=== PATIENT | male | born 1950 | race Caucasian/White ===

== ENCOUNTER → 2016-10-31 | Outpatient (CLI) | payer BC ==
[~2016-10-31] MED LIST: ALBU1AER9; ASPI81TA28 PO; ATOR-26 PO; CETI10TA84 PO; CHOL1TAB2 PO; CINN1CAP2 PO; CLR10 PO; CRAN1CAP15 PO; CYAN500T PO; FRS/40 PO; GLCSR500 PO; GLUC15002 PO; INSUINJ4 SQ; IPRA1AER2 INH; IPRASOL4 INH; LISI20TA3 PO; METO100T14 PO; MOME100A INH; MULT-506 PO; PARO30TA6 PO; PRLSR20 PO; REPA2TAB13 PO; WLL100 PO
--- NOTE | 2016-10-31 10:30 | DIAGNOSTIC IMAGING REPORT ---
TWO VIEW CHEST CLINICAL HISTORY: COPD. FINDINGS: PA and lateral chest radiographs are compared to study dated 03/15/2016 and correlated with chest CT dated 05/22/2016. The examination is degraded by large body habitus. The heart is top normal for projection. The pulmonary vasculature is noncongested. Chronic interstitial thickening is similar to previous. Scattered calcified granulomas are observed. No airspace consolidation or pleural effusion is identified. There is no pneumothorax. The bony thorax appears intact. Mild degenerative change is noted in the thoracic spine. IMPRESSION: No active disease in the chest. Electronically signed by: Jhonatan Galarza M.D. 10/31/2016 10:28 AM Dictated Date/Time: 10/31/2016 10:27 AM
== END | disposition home or self-care (01) ==
LOC: C.RADBBURG 10:07
PROVIDERS: ATTEND Internal Medicine Pulmonary Disease
DX: J44.9 Chronic obstructive pulmonary disease, unspecified (principal)

== ENCOUNTER → 2017-02-07 | Outpatient (CLI) | payer BC ==
[~2017-02-07] MED LIST changes: +REPA2TAB12 PO; -REPA2TAB13 PO
== END | disposition home or self-care (01) ==
LOC: C.RDSM 12:50
PROVIDERS: ATTEND Orthopaedic Surgery Sports Medicine
DX: M17.0 Bilateral primary osteoarthritis of knee (principal)

== ENCOUNTER → 2017-02-21 | Outpatient (CLI) | payer BC ==
[~2017-02-21] VITALS: Ht 180.3 cm; Wt 148.9 kg
[2017-02-21 09:10] VITALS: BP 174/77; PULSE 76; Ht 180.3 cm; Wt 148.9 kg
== END | disposition home or self-care (01) ==
LOC: C.NEUR 08:53
PROVIDERS: ATTEND Internal Medicine Pulmonary Disease
DX: G47.33 Obstructive sleep apnea (adult) (pediatric) (principal)

== ENCOUNTER → 2017-04-26 | Outpatient (CLI) | payer BC ==
[~2017-04-26] VITALS: Ht 180.3 cm; Wt 148.4 kg
[~2017-04-26] MED LIST changes: -REPA2TAB12 PO; +REPA2TAB13 PO
[2017-04-26 10:23] VITALS: BP 152/64; PULSE 74; Ht 180.3 cm; Wt 148.4 kg
== END | disposition home or self-care (01) ==
LOC: C.NEUR 08:30
PROVIDERS: ATTEND Internal Medicine Pulmonary Disease
DX: G47.33 Obstructive sleep apnea (adult) (pediatric) (principal)

== ENCOUNTER → 2017-06-27 | Outpatient (CLI) | payer BC ==
[~2017-06-27] MED LIST changes: +REPA2TAB12 PO; -REPA2TAB13 PO
--- NOTE | 2017-06-27 14:43 | DIAGNOSTIC IMAGING REPORT ---
TWO VIEW CHEST CLINICAL HISTORY: Dyspnea. FINDINGS: PA and lateral chest radiographs are compared to study dated 10/31/2016 and correlated with chest CT dated 05/22/2016. The heart is mildly enlarged. There is a right-sided aortic arch. There is pulmonary vascular congestion. Interstitial thickening is noted. Trace pleural effusions are identified. Linear atelectasis versus scarring is seen in the right midlung. Scattered calcified granulomas are observed. There is no pneumothorax. The skeletal structures are osteopenic. The bony thorax appears intact. IMPRESSION: 1. Cardiomegaly with evidence of mild congestive failure. Radiographic follow-up to resolution is recommended. 2. There are trace pleural effusions. Electronically signed by: Jhonatan Galarza M.D. 06/27/2017 2:41 PM Dictated Date/Time: 06/27/2017 2:39 PM
[2017-06-27 15:32] LABS: BASO % 0.4 %; BASO ABS # 0.04 K/uL (0-0.2); COMPLETE YES; EOS % 2.9 %; HEMATOCRIT 41.6 % (42-52); IG% 0.7 %; LYMPH % 20.2 %; LYMPH ABS # 2.31 K/uL (1.2-3.4); MEAN CELL VOLUME 93.7 fL (80-100); MEAN CORPUSCULAR HEMOGLOBIN 31.8 pg (25-34); MEAN CORPUSCULAR HGB CONC 33.9 g/dl (32-36); MEAN PLATELET VOLUME 9.6 fL (7.4-10.4); MONO % 6.8 %; PLATELET COUNT 281 K/uL (130-400); RED BLOOD COUNT 4.44 M/uL (4.7-6.1); WHITE BLOOD COUNT 11.42 K/uL (4.8-10.8)
[2017-06-27 15:57] LABS: ALT/SGPT 37 U/L (12-78); AST/SGOT 22 U/L (15-37); BLOOD UREA NITROGEN 13 mg/dl (7-18); BUN/CREATININE RATIO 13.5 (10-20); CALCIUM 8.5 mg/dl (8.5-10.1); CARBON DIOXIDE 27 mmol/L (21-32); CHLORIDE 103 mmol/L (98-107); CREATININE 0.93 mg/dl (0.60-1.40); GLUCOSE 190 mg/dl (70-99); POTASSIUM 4.2 mmol/L (3.5-5.1); SODIUM 138 mmol/L (136-145)
[2017-06-27 16:02] LABS: ALB/GLOB RATIO 0.9 (0.9-2); ALKALINE PHOSPHATASE 113 U/L (45-117); TOTAL IRON BINDING CAPACITY 254 mcg/dl (250-450)
== END | disposition home or self-care (01) ==
LOC: C.RAD1850 14:24
PROVIDERS: ATTEND Physician Assistant
DX: I51.7 Cardiomegaly (principal); J90 Pleural effusion, not elsewhere classified

== ENCOUNTER → 2017-08-01 | Outpatient (CLI) | payer BC ==
--- NOTE | 2017-08-01 16:15 | DIAGNOSTIC IMAGING REPORT ---
CHEST 2 VIEWS ROUTINE HISTORY: 66 years-old Male SOB acute shortness of breath. COMPARISON: Chest radiograph 06/27/2017 TECHNIQUE: PA and lateral views of the chest FINDINGS: Cardiac silhouette is again mildly enlarged. There is decreased amount of pulmonary vascular congestion with improved aeration of the bilateral lungs. Mild background interstitial coarsening redemonstrated without pneumothorax, or focal airspace consolidation. Mild blunting of the costophrenic angles suggests trace effusions. Mild multilevel endplate spurring of the spine. IMPRESSION: 1. Cardiomegaly with improved pulmonary edema pattern. 2. Trace pleural effusions persist. The above report was generated using voice recognition software. It may contain grammatical, syntax or spelling errors. Electronically signed by: Gary Sanches M.D. 08/01/2017 4:14 PM Dictated Date/Time: 08/01/2017 4:12 PM
== END | disposition home or self-care (01) ==
LOC: C.RAD1850 15:40
PROVIDERS: ATTEND Physician Assistant
DX: R06.02 Shortness of breath (principal); I51.7 Cardiomegaly; J90 Pleural effusion, not elsewhere classified

== ENCOUNTER → 2017-09-06 | Outpatient (CLI) | payer BC ==
[2017-09-06 12:57] LABS: BASO % 0.4 %; BASO ABS # 0.05 K/uL (0-0.2); EOS % 3.1 %; EOS ABS # 0.35 K/uL (0-0.5); HEMATOCRIT 41.7 % (42-52); HEMOGLOBIN 14.3 g/dL (14.0-18.0); IG# 0.07 K/uL (0.00-0.02); LYMPH % 21.9 %; LYMPH ABS # 2.51 K/uL (1.2-3.4); MEAN CELL VOLUME 94.1 fL (80-100); MEAN CORPUSCULAR HEMOGLOBIN 32.3 pg (25-34); MEAN CORPUSCULAR HGB CONC 34.3 g/dl (32-36); MEAN PLATELET VOLUME 9.7 fL (7.4-10.4); MONO % 7.9 %; MONO ABS # 0.91 K/uL (0.11-0.59); NEUT % 66.1 %; NEUT ABS # 7.58 K/uL (1.4-6.5); PLATELET COUNT 257 K/uL (130-400); RED CELL DISTRIBUTION WIDTH CV 13.5 % (11.5-14.5); RED CELL DISTRIBUTION WIDTH SD 46.3 fL (36.4-46.3); WHITE BLOOD COUNT 11.47 K/uL (4.8-10.8)
[2017-09-06 16:31] LABS: ALBUMIN 3.3 gm/dl (3.4-5.0); ALT/SGPT 27 U/L (12-78); AST/SGOT 13 U/L (15-37); BLOOD UREA NITROGEN 17 mg/dl (7-18); CALCIUM 9.1 mg/dl (8.5-10.1); CARBON DIOXIDE 28 mmol/L (21-32); CREATININE 1.14 mg/dl (0.60-1.40); GLUCOSE 241 mg/dl (70-99); POTASSIUM 4.3 mmol/L (3.5-5.1); SODIUM 134 mmol/L (136-145)
[2017-09-06 16:40] LABS: ALKALINE PHOSPHATASE 117 U/L (45-117); TOTAL PROTEIN 6.9 gm/dl (6.4-8.2); TRANSFERRIN 210 mg/dl (200-360)
== END | disposition home or self-care (01) ==
LOC: C.LAB1850 11:39
PROVIDERS: ATTEND Physician Assistant
DX: R53.83 Other fatigue (principal)

== ENCOUNTER → 2017-10-09 | Outpatient (CLI) | payer BC ==
--- NOTE | 2017-10-09 09:58 | DIAGNOSTIC IMAGING REPORT ---
TWO VIEW CHEST CLINICAL HISTORY: Aortic stenosis. FINDINGS: PA and lateral chest radiographs are compared to study dated 08/01/2017 and correlated with chest CT dated 05/22/2016. The PA view is degraded by patient rotation. The examination is also degraded by large body habitus. The heart is enlarged. The pulmonary vasculature is noncongested. A right-sided aortic arch is noted. Prominence of the main pulmonary arteries is similar to previous. Chronic interstitial thickening is unchanged. No airspace consolidation or pleural effusion is identified. There is no pneumothorax. The skeletal structures are osteopenic. The bony thorax appears intact. IMPRESSION: 1. Cardiomegaly with no active disease in the chest. 2. A right-sided aortic arch is again noted. Electronically signed by: Jhonatan Galarza M.D. 10/09/2017 9:57 AM Dictated Date/Time: 10/09/2017 9:55 AM
== END | disposition home or self-care (01) ==
LOC: C.LAB1850 09:45
PROVIDERS: ATTEND Physician Assistant
DX: I35.0 Nonrheumatic aortic (valve) stenosis (principal); I51.7 Cardiomegaly

== ENCOUNTER → 2018-01-16 | Outpatient (CLI) | payer BC ==
[~2018-01-16] MED LIST changes: +OPTIRAY 320 IV PRN
--- NOTE | 2018-01-16 16:50 | DIAGNOSTIC IMAGING REPORT ---
(CHEST FOR PE) ANGIO WITH CT DOSE: 803.28 mGy.cm HISTORY: 67 years-old Male with DYSPNEA, SOB, R/O PE. Acute shortness of breath TECHNIQUE: Multiple CTA images of the chest were obtained after the intravenous administration of 116 ml Optiray 320. Coronal and sagittal MIPS were obtained from the axial data set and were submitted for review. A dose lowering technique was utilized adhering to the principles of ALARA. COMPARISON: Chest radiograph 10/09/2017, CT chest 05/22/2016 FINDINGS: CTA: Mild multichamber cardiac enlargement without pericardial effusion. Coronary chills, mitral and aortic annular calcifications are noted. Right-sided aortic arch with mirror branching redemonstrated. The imaged great vessels appear patent. Moderate mixed plaquing of the aorta. The SVC is right-sided. The main pulmonary artery is dilated, 3.9 cm transversely. No focal filling defects within the pulmonary arterial tree to suggest pulmonary thromboembolic disease. The segmental and subsegmental branches however are not well opacified and are also partially obscured by respiratory motion. CT CHEST: Suggestion of a 1.6 cm low attenuating left thyroid nodule. Mildly enlarged prevascular, paratracheal and right hilar lymph nodes are seen measuring up to 1.2 cm in short axis. There are small bilateral pleural effusions. Scattered calcified granulomata about the lungs. There is mild intralobular septal thickening with bronchial wall thickening and bilateral groundglass densities. Minimal dependent subsegmental consolidation of the lung bases suggests compressive atelectasis. Previously described numerous bilateral pulmonary nodules measuring the 2-3 mm range are better seen on comparison study. No acute process of the imaged upper abdomen. Soft tissues are unremarkable. Bones appear intact. IMPRESSION: 1. No acute aortic pathology or evidence of pulmonary thromboembolic disease. 2. Cardiomegaly with mild pulmonary edema and small bilateral pleural effusions. 3. Dilation of the main pulmonary artery suggests pulmonary arterial hypertension within the appropriate clinical setting. 4. Mild nonspecific mediastinal and hilar adenopathy with evidence of prior granulomatous disease. 5. Right-sided aortic arch with mirror branching. The above report was generated using voice recognition software. It may contain grammatical, syntax or spelling errors. Electronically signed by: Gary Sanches M.D. 01/16/2018 4:48 PM Dictated Date/Time: 01/16/2018 4:37 PM
== END | disposition home or self-care (01) ==
LOC: C.CTS 15:40
PROVIDERS: ATTEND Nurse Practitioner Family
DX: R06.02 Shortness of breath (principal)

== ENCOUNTER → 2018-04-30 | Outpatient (CLI) | payer BC ==
[~2018-04-30] MED LIST changes: +ACET-1256 PO; -ALBU1AER9; -CETI10TA84 PO; -CINN1CAP2 PO; -CLR10 PO; -CRAN1CAP15 PO; -CYAN500T PO; -FRS/40 PO; -GLCSR500 PO; -GLUC15002 PO; +INSDGI SC; -INSUINJ4 SQ; +IPRA-64 INH; -IPRASOL4 INH; +LSX40 PO; +MELA1TAB5 PO; -METO100T14 PO; +METO50TA16 PO; -MOME100A INH; +MOME200A INH; +NVLGI/PEN; +OMEG10007 PO; -OPTIRAY 320 IV PRN; -REPA2TAB12 PO; +VNTHFA/IN INH; +WARF10TA4 PO; +WARF7.5T4 PO; -WLL100 PO
--- NOTE | 2018-04-30 13:29 | DIAGNOSTIC IMAGING REPORT ---
ULTRASOUND-GUIDED FINE-NEEDLE ASPIRATION THYROID CLINICAL HISTORY: 2.4 cm left thyroid nodule. COMPARISON STUDY: Thyroid ultrasound 03/11/2018. PROCEDURE: The risks, benefits, and alternatives to the procedure were discussed with the patient. Written informed consent was obtained. The patient was placed supine in ultrasound, and the 2.4 cm nodule in the left lobe of the thyroid was localized by ultrasound and selected for fine needle aspiration. The left neck was prepped and draped in the usual sterile fashion. The nodule was aspirated under ultrasound guidance with 3 passes utilizing 25-gauge needles. Specimens were reviewed by the pathologist in real-time and deemed adequate for diagnosis. The patient tolerated the procedure well and left the department in satisfactory condition. IMPRESSION: Completed fine-needle aspiration of a left thyroid nodule as above. The above report was generated using voice recognition software. It may contain grammatical, syntax or spelling errors. Electronically signed by: Gary Sanches M.D. 04/30/2018 1:27 PM Dictated Date/Time: 04/30/2018 1:26 PM
== END | disposition home or self-care (01) ==
LOC: C.ULTR 10:20
PROVIDERS: ATTEND Nurse Practitioner Family
DX: E04.1 Nontoxic single thyroid nodule (principal)

== ENCOUNTER 2022-08-09 09:43 | Inpatient (IN) ==
--- NOTE | 2022-08-09 10:39 | Emergency Department Note ---
Impression & Plan Acute kidney injury superimposed on CKD, Venous stasis ulcer, Acute hyperkalemia ED Provider Note NAME: ROSANA HERNANDES AGE: 71 SEX: M : 1950 ARRIVES VIA: Walk-In INFORMANT: Patient ED PROVIDER(S): Chalo Bales DO CHIEF COMPLAINT: weakness HPI: Patient is a 71-year-old male with a past medical history of CAD, diabetes, diabetic foot ulcers, renal mass, CKD, dyslipidemia, venous stasis who presents the ER referred in as he had blood work drawn yesterday for regular check. Creatinine came back elevated. He denies any headache or change in vision. No chest pain or shortness of breath. No nausea, vomiting, or diarrhea. No dysuria, urgency, or frequency. He notes he is following with the wound care clinic and the infection in his left leg is gradually getting worse. Currently on antibiotics. ROS: See above HPI for pertinent positives & negatives. A total of 10 systems reviewed and were otherwise negative. PAST MEDICAL HISTORY:See Below PAST SURGICAL HISTORY:See Below FAMILY HISTORY:See Below SOCIAL HISTORY:See Below HOME MEDICATIONS:See Below ALLERGIES:See Below VITALS:See Below PHYSICAL EXAMINATION: GENERAL: Sitting up in bed, alert, morbidly obese, disheveled EYE EXAM: normal conjunctiva OROPHARYNX: no exudate, no erythema, lips, buccal mucosa, and tongue normal and mucous membranes are moist NECK: supple, no nuchal rigidity, no adenopathy, non-tender LUNGS: Clear to auscultation. Normal chest wall mechanics HEART: no murmurs, S1 normal and S2 normal ABDOMEN: abdomen soft, non-tender, normo-active bowel sounds, no masses, no rebound or guarding. UPPER EXTREMITIES: upper extremities are grossly normal. LOWER EXTREMITIES: Pitting edema bilateral lower extremities with the left leg wrapped and surrounding erythema NEURO EXAM: Normal sensorium, cranial nerves II-XII grossly intact, normal speech, no gross weakness of arms, no gross weakness of legs. MEDICAL DECISION MAKING: Patient is a 71-year-old male who presents ER referred in by PCP for an elevated creatinine. IV was established blood work is obtained. Labs show mild leukocytosis 11,000. No significant anemia. INR unremarkable. BMP with mild hypokalemia 5.3. Creatinine 2.87 up from baseline of 1.6. LFTs bilirubin was u nremarkable. Lipase was normal. Multiple ulcers/leg wounds. Likely osteo of his left foot. Patient was given Dapto updated bedside admitted for further work-up. Triage Nursing notes reviewed. Limited review of prior medical records performed Vital Signs: reviewed and remarkable for htn Differential diagnosis: Infection, dehydration, metabolic abnormality, hypo/hyperglycemia, electrolyte disturbance, anemia, hypoxia, cardiac sources, intracerebral event, toxicologic, neurologic, as well as other pathologies. ER treatment provided: See below Diagnostics interpreted by me: ECG: A. fib rate of 79 Left axis No PVCs Septal Q waves QTC 451 Cardiac Monitoring: An order was placed for continuous cardiac monitoring. The monitor shows a rate of 82 with afib rhythm. Laboratory studies: As stated above and show below. Imaging studies: See below Consultation(s): Discussed with Dr. Abrams for admission Procedures: none Critical Care: None Past Med/Surg History Medical History Aortic stenosis follows with Dr. Gorman Atrial fibrillation successful cardioversion ~2017. follows with Dr. Gorman. 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 Mass of right kidney pt unaware Morbid obesity Multiple pulmonary nodules determined by computed tomography of lung Osteoarthritis Sciatica Sensorineural hearing loss (SNHL) of both ears Wears binaural hearing aids Sleep apnea cpap with 2lpm Surgical History H/O vascular surgery (~10/2020) left leg vein moved to the right arm for bypass d/t poor circulation History of cardiac cath FEBRUARY 2018 - [facility] [place].FIB, SOB - NO STENTS/ANGIOPLASTY History of colonoscopy W/ POLYPECTOMY History of esophagogastroduodenoscopy (EGD) History of hernia repair History of surgery RT ADRENALECTOMY History of tonsillectomy Hx of aortic valve replacement S/P epidural steroid injection Sacro-iliac joint injection Family History Grandmother Cancer Father Cancer Mother Cancer Sister Diabetes Psoriasis Cardiac disorder Other Family history of bleeding disorder Hypertension No family history of adverse response to anesthesia Social History Smoking Status: Former smoker Tobacco Type: Cigarettes Second Hand Exposure: No; Hx Alcohol Use: Yes Alcohol type: hard liquor Alcohol Intake Frequency Comment: 1-2 times per month, seldom Hx Substance Use: No Preferred Language: Barbadian Communication Ability: Effective Visual Impairment: Limited 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 Son lives away. /SO able to help a little however has a broken back and is unable to assist much. Feels Safe at Home: Yes during the past year weight has: remained stable Assistive Devices: Glasses and Hearing Aid - Bilateral Allergies Allergies Allergy/AdvReac Type Severity Reaction Status Date / Time No Known Drug Allergies Allergy Unknown NONE Verified 08/09/22 08:28 Home Meds Home Medications Medication Instructions Recorded Confirmed multivitamin (Daily Multi-Vitamin 1 tab PO QAM ##0 07/12/10 08/04/22 tablet) lisinopril 20 mg tablet 20 mg PO QAM #0 tabs 10/21/14 08/04/22 omega 3 350 mg-dha 235 mg-epa 90 1 cap PO QAM #0 caps 01/25/18 08/04/22 mg-fish oil 597 mg capsule,delay rel ([place]-3) acetaminophen 500 mg tablet 500 mg PO Q6H PRN Pain #0 tabs 05/21/19 08/04/22 (Acetaminophen Extra Strength) inhalational spacing device #1 ea 05/21/19 08/04/22 (Vortex Holding Chamber) insulin aspart U-100 100 unit/mL See Rx Instructions .Route .COMPLEX 09/16/19 08/04/22 (3 mL) subcutaneous pen (Novolog Flexpen U-100 Insulin aspart) atorvastatin 40 mg tablet (Lipitor) 40 mg PO QPM 02/16/20 08/04/22 blood sugar diagnostic (OneTouch #10 ea 02/08/21 08/04/22 Ultra Blue Test Strip) cyclobenzaprine 10 mg tablet 10 mg PO BID PRN Muscle Spasm 05/20/21 08/04/22 famotidine 20 mg tablet (Pepcid) 20 mg PO BID 05/20/21 08/04/22 albuterol sulfate 2.5 mg/3 mL 2.5 mg inhalation Q6H PRN sob 05/30/21 08/04/22 (0.083 %) solution for nebulization metformin 1,000 mg tablet 1,000 mg PO BID 05/30/21 08/04/22 Portable Oxygen 05/01/22 08/04/22 cyanocobalamin (vitamin B-12) 1,000 mcg PO DAILY 06/20/22 08/04/22 1,000 mcg capsule furosemide 40 mg tablet (Lasix) 60 mg PO QAM 06/20/22 08/04/22 magnesium 250 mg tablet 250 mg PO DAILY 06/20/22 08/04/22 insulin glargine 100 unit/mL (3 55 unit subcut BID 06/22/22 08/04/22 mL) subcutaneous pen (LantTapTrak Solostar U-100 Insulin) metoprolol tartrate 50 mg tablet 100 mg PO BID 06/22/22 08/04/22 (Lopressor) Previous Rx's Medication Instructions Recorded BD Ultra-Fine Mini Pen Needle 31 #500 ea 04/28/19 gauge x 3/16" (pen needle, diabetic) apixaban 5 mg tablet (Eliquis) 5 mg PO BID #60 tabs 10/06/19 CPAP Supplies #1 ea 10/28/19 ipratropium 0.5 mg-albuterol 3 mg 3 ml inhalation QID PRN Shortness 06/06/21 (2.5 mg base)/3 mL nebulization Of Breath #360 vials soln canagliflozin 300 mg tablet 300 mg PO QAM #90 tabs 08/10/21 (Invokana) FreeStyle Rachid 14 Day Arabi #1 ea 02/10/22 (flash glucose scanning reader) FreeStyle Rachid 14 Day Sensor #6 ea 02/10/22 (flash glucose sensor) acetic acid 0.25 % irrigation 1 irrig irrigation DAILY 14 days 06/26/22 solution #1,000 mL gentamicin 0.1 % topical ointment 1 applic topical DAILY 14 days #30 06/26/22 grams sulfamethoxazole 400 1 tab PO BID 14 days #28 tabs 08/04/22 mg-trimethoprim 80 mg tablet (Bactrim) Results & Data (ED) Vital Signs Vital Signs - 24 hr 08/09/22 09:52 Temperature 36.8 C Temperature Source Temporal Artery Scan Pulse Rate 90 Respiratory Rate 20 Blood Pressure 147/75 H Blood Pressure Mean 99 Pulse Oximetry 96 Oxygen Delivery Method Room Air Sepsis Recent Fever Within 48 Hours No Sepsis New/Unexplained Change in Mental Status No Sepsis Action Taken by Nursing No Action Required Laboratory Data Result diagrams: 08/09/22 10:42 08/09/22 10:42 Lab Results 08/09/22 08/09/22 08/09/22 Range/Units 10:42 10:42 10:42 WBC 11.89 H (4.8-10.8) K/ul RBC 4.39 L (4.63-6.08) M/uL Hgb 13.2 L (14.0-18.0) g/dl Hct 40.7 (40.1-51.0) % MCV 92.7 (80.0-100.0) fL MCH 30.1 (25.0-34.0) pg MCHC 32.4 (32.0-36.0) g/dL RDW Std Deviation 48.2 H (36.4-46.3) fL RDW Coeff of Jaylen 14.3 (11.5-14.5) % Plt Count 304 (130-400) K/uL MPV 8.7 L (9.4-12.4) fL Immature Gran % (Auto) 0.4 % Neut % (Auto) 70.9 % Lymph % (Auto) 14.9 % Rooks % (Auto) 10.7 % Eos % (Auto) 2.4 % Baso % (Auto) 0.7 % Neut # (Auto) 8.43 H (1.4-6.5) K/uL Lymph # (Auto) 1.77 (1.2-3.4) K/uL Rooks # (Auto) 1.27 H (0.24-0.82) K/uL Eos # (Auto) 0.29 (0-0.50) K/uL Baso # (Auto) 0.08 (0-0.2) K/uL Immature Gran # (Auto) 0.05 H (0.00-0.02) K/uL PT 11.1 (9.0-12.0) Seconds INR 1.0 (0.9-1.1) APTT 31.9 H (21.0-31.0) Seconds PTT Ratio 1.2 Sodium 135 L (136-145) mmol/L Potassium 5.3 H D (3.5-5.1) mmol/L Chloride 100 (98-107) mmol/L Carbon Dioxide 27 (21-32) mmol/L Anion Gap 8 (3-11) BUN 60 H (6-23) mg/dl Creatinine 2.87 H (0.6-1.4) mg/dl Est Cr Clr Drug Dosing 33.7 ml/min Est GFR ( Amer) 24.1 ml/min Est GFR (Non-Af Amer) 20.8 ml/min BUN/Creatinine Ratio 20.9 H (10-20) Glucose 106 H (70-99(Fasting)) mg/dl Calcium 9.3 (8.5-10.1) mg/dl Total Bilirubin 0.4 (0.2-1.0) mg/dl AST 15 (13-39) U/L ALT 18 (7-52) U/L Alkaline Phosphatase 105 H (34-104) U/L Total Protein 7.2 (6.0-8.3) gm/dl Albumin 3.8 (3.4-5.0) gm/dl Globulin 3.4 (2.5-4.0) gm/dl Albumin/Globulin Ratio 1.1 (0.9-2) Lipase 40 (11-82) U/L Administered Medications Discontinued Medications Daptomycin 425 mg/ Syringe 8.5 mls @ 4.25 mls/min IV ONE ONE; Protocol Stop: 08/09/22 13:01 Last Admin: 08/09/22 13:34 Dose: 4.25 mls/min Documented By: TRESSA Piperacillin Sod/Tazobactam Sod (Zosyn) 4.5 gm in 120 mls @ 240 mls/hr IV ONE ONE; Protocol Stop: 08/09/22 13:29 Last Admin: 08/09/22 13:34 Dose: 240 mls/hr Documented By: TRESSA Imaging Data Radiologist's Impression: Foot X-Ray 08/09/22 12:43 XR foot LT min 3V routine CLINICAL HISTORY: Left foot swelling and pain. COMPARISON STUDY: Left foot radiograph 06/23/2022. FINDINGS: No fracture or dislocation. The Lisfranc joint is intact. Soft tissue swelling within the third toe. Small focus of cortical erosion at the distal tuft of the third toe. This is new from the prior study. IMPRESSION: Tiny focus of cortical erosion at the distal tuft of the left third toe. This is consistent with an osteomyelitis ACT 112: Negative or not required by law. Electronically signed by: Damon Spear M.D. 08/09/2022 1:44 PM Discharge Plan Visit Data Chief Complaint: Wound Stated Complaint: WOUND ON LEFT LEG ED Provider: Chalo Bales Discharge Problem: Acute kidney injury superimposed on CKD, Venous stasis ulcer, Acute hyperkalemia Forms Stand Alone Forms: [facility] [employer] Prescriptions Prescriptions: No Action multivitamin [Daily Multi-Vitamin] Tablet 1 tab PO QAM Qty: 0 lisinopril 20 mg Tablet 20 mg PO QAM Qty: 0 [place]-3 350 mg-235 mg- 90 mg-597 mg Capsule,Delayed Release(Dr/Ec) 1 cap PO QAM Qty: 0 (DME) pen needle, diabetic [BD Ultra-Fine Mini Pen Needle] 31 gauge x 3/16" needle See Dose Instructions .ROUTE .MEDSUPPLY Qty: 500 3RF Dose Instruction: As directed Rx Instructions: use to inject insulin 5 x dAILY acetaminophen [Acetaminophen Extra Strength] 500 mg tablet 500 mg PO Q6H PRN (Reason: Pain) Qty: 0 ipratropium-albuterol 0.5 mg-3 mg(2.5 mg base)/3 mL solution for nebulization 3 ml inhalation QID PRN (Reason: Shortness Of Breath) Qty: 360 1RF Invokana 300 mg tablet 300 mg PO QAM Qty: 90 3RF acetic acid 0.25 % solution 1 irrig irrigation DAILY 14 Days Qty: 1000 1RF Rx Instructions: Soak gauze with acetic acid and apply to leg wounds for 15-20 minutes daily x 14 days. gentamicin 0.1 % ointment 1 applic topical DAILY 14 Days Qty: 30 1RF Rx Instructions: Apply to leg wounds daily with dressing changes. sulfamethoxazole-trimethoprim [Bactrim] 400-80 mg tablet 1 tab PO BID 14 Days Qty: 28 0RF (DME) Vortex Holding Chamber spacer See Dose Instructions .ROUTE .MEDSUPPLY Qty: 1 Rx Instructions: As directed atorvastatin [Lipitor] 40 mg tablet 40 mg PO QPM Lantus Solostar U-100 Insulin 100 unit/mL (3 mL) insulin pen 55 unit SQ BID Eliquis 5 mg tablet 5 mg PO BID Qty: 60 6RF (DME) OneTouch Ultra Blue Test Strip Strip See Rx Instructions .ROUTE .MEDSUPPLY Qty: 10 Rx Instructions: Test blood sugar 3-4 times daily (DME) Portable Oxygen Misc See Rx Instructions .Route Rx Instructions: Portable oxygen concentrator at 2 lpm via nasal cannula all the time BRE -99 PRN metoprolol tartrate [Lopressor] 50 mg tablet 100 mg PO BID albuterol sulfate 2.5 mg /3 mL (0.083 %) solution for nebulization 2.5 mg inhalation Q6H PRN (Reason: sob) cyanocobalamin (vitamin B-12) 1,000 mcg capsule 1,000 mcg PO DAILY magnesium 250 mg tablet 250 mg PO DAILY furosemide [Lasix] 40 mg tablet 60 mg PO QAM (DME) CPAP Supplies Misc See Rx Instructions .ROUTE .MEDSUPPLY Qty: 1 0RF Rx Instructions: replace cpap mask; DME=T&B (DME) FreeStyle Rachid 14 Day Arabi Misc See Rx Instructions .Route Qty: 1 0RF Rx Instructions: As directed (DME) FreeStyle Rachid 14 Day Sensor Kit See Rx Instructions .Route Qty: 6 3RF Rx Instructions: change every 14 days metformin 1,000 mg tablet 1,000 mg PO BID Novolog Flexpen U-100 Insulin 100 unit/mL (3 mL) insulin pen See Rx Instructions .ROUTE .COMPLEX Rx Instructions: Patient states he is on a sliding scale. 1:8 ratio for BSG over 130. 1:8 ratio for carb consumption. TDD 15 units cyclobenzaprine 10 mg tablet 10 mg PO BID PRN (Reason: Muscle Spasm) famotidine [Pepcid] 20 mg tablet 20 mg PO BID Referrals Referrals: Sharmin Rapp CRNP [Primary Care Provider] -
[2022-08-09 11:01] LABS: Basophils # (auto) 0.08 K/uL (0-0.2); Basophils % (auto) 0.7 %; Eosinophils # (auto) 0.29 K/uL (0-0.50); Eosinophils % (auto) 2.4 %; Hematocrit (blood only) 40.7 % (40.1-51.0); Hemoglobin 13.2 g/dl (14.0-18.0); Immature Granulocytes # (auto) 0.05 K/uL (0.00-0.02); Immature Granulocytes % (auto) 0.4 %; Lymphocytes # (auto) 1.77 K/uL (1.2-3.4); Lymphocytes % (auto) 14.9 %; Mean Corpuscular Hemoglobin 30.1 pg (25.0-34.0); Mean Corpuscular Hgb Conc 32.4 g/dL (32.0-36.0); Mean Corpuscular Volume 92.7 fL (80.0-100.0); Mean Platelet Volume 8.7 fL (9.4-12.4); Monocytes # (auto) 1.27 K/uL (0.24-0.82); Monocytes % (auto) 10.7 %; Neutrophils # (auto) 8.43 K/uL (1.4-6.5); Neutrophils % (auto) 70.9 %; Platelet Count 304 K/uL (130-400); RDW Coefficient of Variation 14.3 % (11.5-14.5); RDW Standard Deviation 48.2 fL (36.4-46.3); Red Blood Count 4.39 M/uL (4.63-6.08); White Blood Count 11.89 K/ul (4.8-10.8)
[2022-08-09 11:14] LABS: Partial Thromboplastin Ratio 1.2; Partial Thromboplastin Time 31.9 Seconds (21.0-31.0); Prothrombin Time 11.1 Seconds (9.0-12.0)
[2022-08-09 11:25] LABS: Albumin Globulin Ratio 1.1 (0.9-2); Albumin Level 3.8 gm/dl (3.4-5.0); BUN Creatinine Ratio 20.9 (10-20); Bilirubin,Total 0.4 mg/dl (0.2-1.0); Calcium 9.3 mg/dl (8.5-10.1); Creatinine Clr Calc Pharmacy 33.7 ml/min; Est GFR (African American) 24.1 ml/min; Est GFR (Non-African American) 20.8 ml/min; Globulin 3.4 gm/dl (2.5-4.0); Potassium 5.3 mmol/L (3.5-5.1); Total Protein 7.2 gm/dl (6.0-8.3)
--- NOTE | 2022-08-09 12:04 | History & Physical Report ---
Date of Service August 09, 2022 Assessment & Plan (1) Acute kidney injury superimposed on CKD: Plan: - Cr 2.91, up from 1.62 last month. - Likely due to starting Bactrim 5 days ago for suspected lower leg cellulitis. - Stop Bactrim, will treat for cellulitis and for now suspected osteomyelitis of left toe with Zosyn/dapto for now. - Avoid renal toxins, renally dose as able. - Holding Invokana, lisinopril, Lasix until STELLA resolves. - Hx of with TAVR in April, still NYHA 2-3, will give gentle IV, strictly monitor I/Os. - Repeat BMP in AM. (2) Diabetic ulcer of toe of left foot: Plan: - Wound care was concerned for cellulitis of the left leg below the knee as well as developing osteomyelitis of toes on the left foot, does appear to have an infection that is possibly down to the bone. - Start with an x-ray of the left foot, will consult orthopedic surgery. - Daptomycin and Zosyn for presumed osteomyelitis. (3) Chronic diastolic (congestive) heart failure: Plan: - Echo from May: Normal left ventricular size with hyperdynamic systolic function, no regional wall motion abnormalities, EF >75%, mild LVH well-seated 26 mm Saha ultra bioprosthetic transcatheter aortic valve replacement, mildly elevated pulmonary artery pressures. - We will building Lasix as above for STELLA, resume when renal function starts to move towards baseline. - Strict I&O's, daily weights, low-salt low-sodium diet. (4) Atrial fibrillation: Plan: - Cardiac conversion in 2017, in rate controlled a fib today. - Remains on Eliquis and metoprolol. (5) Hypertension: Plan: - Hold lisinopril given STELLA, continue on metoprolol. (6) HLD (hyperlipidemia): Plan: - Continue statin therapy. (7) Chronic obstructive pulmonary disease: Plan: - Continue home inhalers with CPAP at night. (8) CAD (coronary artery disease) of artery bypass graft: Plan: - Continue statin, metoprolol, holding lisinopril for STELLA. (9) Diabetes type 2, uncontrolled: Plan: - Home regimen: Lantus 55 units twice daily, with sliding scale insulin. - We will continue his Lantus dosing, SSI. (10) Anemia: Plan: - Hgb 13.2 at baseline. - Continue to monitor. (11) SHIRA on CPAP: Plan: - CPAP hs ordered. (12) Aortic stenosis: Plan: - s/p TAVR April 2022. Plan - Admit to med/tele. - SCDs, Eliquis continue for VTE ppx. - Full Code. History of Present Illness Chief Complaint: impaired renal function on outpt labs Primary Care Provider: OSKAR Velásquez Romain Painter is a 71-year-old male with past medical history significant for diabetes with chronic diabetic foot wounds, CAD, PVD, HFpEF, s/p TAVR in April, A. fib on Eliquis, CKD, and COPD who is presenting to the ED as referral from the wound clinic due to elevated creatinine as well as concern for osteomyelitis. He has been following with wound clinic as well as vascular medicine for his chronic diabetic and venous ulcers. Right leg has been healing well, however the left leg has become more red and swollen over the past 2 weeks and his second possibly third digits on the left toe appear to be infected down to the bone. He was started on Bactrim on 08/04 for this, had labs checked today to monitor renal function and his creatinine has increased to 2.9, from a baseline of 1.6 in June. He is encouraged to present to the ED for management of his perineal function and ulcers/possible osteomyelitis. Patient does not have any sensation in his lower extremities due to diabetic neuropathy, however noted over the past 2 weeks he has had increased redness and swelling correlated with an increase in his blood sugars to the 200s, as they are normally in the 140-150s. He has not noticed any fever/chills, body aches, fatigue, or general weakness. He has had no recent injuries to the left foot, did hit his right heel off a chair at home 3 weeks ago, however appears to be healing well without spreading infection. On presentation is mildly hypertensive, otherwise vital signs within normal limits and stable. Labs remarkable for WBC 11.8, creatinine 2.87 and potassium 5.3. Hgb slightly low at 13.2, which is his baseline, coag panel within normal limits, glucose 106, without transaminitis or electrolyte abnormalities besides potassium. Allergies Allergy/AdvReac Type Severity Reaction Status Date / Time No Known Drug Allergies Allergy Unknown NONE Verified 08/09/22 08:28 Home Medications Medication Instructions Recorded Confirmed Type multivitamin (Daily Multi-Vitamin 1 tab PO QAM ##0 07/12/10 08/09/22 History tablet) lisinopril 20 mg tablet 20 mg PO QAM #0 tabs 10/21/14 08/09/22 History omega 3 350 mg-dha 235 mg-epa 90 1 cap PO QAM #0 caps 01/25/18 08/09/22 History mg-fish oil 597 mg capsule,delay rel ([place]-3) BD Ultra-Fine Mini Pen Needle 31 #500 ea 04/28/19 08/04/22 Rx gauge x 3/16" (pen needle, diabetic) acetaminophen 500 mg tablet 500 mg PO Q6H PRN Pain #0 tabs 05/21/19 08/09/22 History (Acetaminophen Extra Strength) inhalational spacing device #1 ea 05/21/19 08/04/22 History (Vortex Holding Chamber) insulin aspart U-100 100 unit/mL See Rx Instructions .Route .COMPLEX 09/16/19 08/09/22 History (3 mL) subcutaneous pen (Novolog Flexpen U-100 Insulin aspart) apixaban 5 mg tablet (Eliquis) 5 mg PO BID #60 tabs 10/06/19 08/09/22 Rx CPAP Supplies #1 ea 10/28/19 08/04/22 Rx atorvastatin 40 mg tablet (Lipitor) 40 mg PO QPM 02/16/20 08/09/22 History blood sugar diagnostic (OneTouch #10 ea 02/08/21 08/04/22 History Ultra Blue Test Strip) cyclobenzaprine 10 mg tablet 10 mg PO BID PRN Muscle Spasm 05/20/21 08/09/22 H istory famotidine 20 mg tablet (Pepcid) 20 mg PO BID 05/20/21 08/09/22 History albuterol sulfate 2.5 mg/3 mL 2.5 mg inhalation Q6H PRN sob 05/30/21 08/09/22 History (0.083 %) solution for nebulization metformin 1,000 mg tablet 1,000 mg PO BID 05/30/21 08/09/22 History ipratropium 0.5 mg-albuterol 3 mg 3 ml inhalation QID PRN Shortness 06/06/21 08/09/22 Rx (2.5 mg base)/3 mL nebulization Of Breath #360 vials soln canagliflozin 300 mg tablet 300 mg PO QAM #90 tabs 08/10/21 08/09/22 Rx (Invokana) FreeStyle Rachid 14 Day [place] #1 ea 02/10/22 08/04/22 Rx (flash glucose scanning reader) FreeStyle Rachid 14 Day Sensor #6 ea 02/10/22 08/04/22 Rx (flash glucose sensor) Portable Oxygen 05/01/22 08/09/22 History cyanocobalamin (vitamin B-12) 1,000 mcg PO DAILY 06/20/22 08/09/22 History 1,000 mcg capsule furosemide 40 mg tablet (Lasix) 40 mg PO QAM 06/20/22 08/09/22 History magnesium 250 mg tablet 250 mg PO DAILY 06/20/22 08/09/22 History insulin glargine 100 unit/mL (3 55 unit subcut BID 06/22/22 08/09/22 History mL) subcutaneous pen (Lantus Solostar U-100 Insulin) metoprolol tartrate 50 mg tablet 100 mg PO BID 06/22/22 08/09/22 History (Lopressor) gentamicin 0.1 % topical ointment 1 applic topical DAILY 14 days #30 06/26/22 08/09/22 Rx grams furosemide 40 mg tablet 20 mg PO DAILY PRN Edema 08/09/22 08/09/22 History sulfamethoxazole 400 1 tab PO DAILY 08/09/22 08/09/22 History mg-trimethoprim 80 mg tablet (Bactrim) Past Med/Surg History Medical History Aortic stenosis follows with Dr. Gorman Atrial fibrillation successful cardioversion ~2018. follows with Dr. Gorman. Bilateral carotid artery stenosis Cardiac murmur Cellulitis hx Chronic obstructive pulmonary disease Diabetes mellitus, type 2 Diabetic peripheral neuropathy associated with type 2 diabetes mellitus GERD (gastroesophageal reflux disease) History of cardioversion (~2018) halfway (current) use of anticoagulants Mass of right kidney pt unaware Morbid obesity Multiple pulmonary nodules determined by computed tomography of lung Osteoarthritis Sciatica Sensorineural hearing loss (SNHL) of both ears Wears binaural hearing aids Sleep apnea cpap with 2lpm Surgical History H/O vascular surgery (~10/2020) left leg vein moved to the right arm for bypass d/t poor circulation History of cardiac cath FEBRUARY 2018 - [facility] [place].FIB, SOB - NO STENTS/ANGIOPLASTY History of colonoscopy W/ POLYPECTOMY History of esophagogastroduodenoscopy (EGD) History of hernia repair History of surgery RT ADRENALECTOMY History of tonsillectomy Hx of aortic valve replacement S/P epidural steroid injection Sacro-iliac joint injection Family History Grandmother Cancer Father Cancer Mother Cancer Sister Diabetes Psoriasis Cardiac disorder Other Family history of bleeding disorder Hypertension No family history of adverse response to anesthesia Social History Smoking Status: Former smoker Tobacco Type: Cigarettes Second Hand Exposure: No; Hx Alcohol Use: Yes Alcohol type: hard liquor Alcohol Intake Frequency Comment: 1-2 times per month, seldom Hx Substance Use: No Preferred Language: Swiss Communication Ability: Effective Visual Impairment: Limited Hearing Ability: Hard of Hearing Social Sciences Department Chair Required: No Beliefs That Will Affect Care: None marital status: Single 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 Son lives away. /SO able to help a little ho wever has a broken back and is unable to assist much. Feels Safe at Home: Yes during the past year weight has: remained stable Assistive Devices: Glasses and Hearing Aid - Bilateral Review of Systems Review of Systems: Constitutional: No fever/chills, weakness, fatigue, myalgias, anorexia, night sweats Eyes: No diplopia, no worsening or blurred vision ENT: normal hearing, no trouble swallowing Respiratory: No cough, sputum, dyspnea at rest or on exertion Cardiovascular: No chest pain, tightness or palpitations Abdomen: No pain, nausea, vomiting, diarrhea or constipation : Denies dysuria, hematuria, increased urgency/frequency, urinary retention Musculoskeletal: No joint pain, calf pain, swelling Neurologic: No weakness, numbness/tingling, or balance problems Psychiatric: No anxiety or depression Skin: increased left leg redness, swelling, warm t touch over 1-2 weeks Physical Exam Physical Exam: General: awake, alert, no apparent distress Head: Normocephalic, atraumatic ENT: PERRL, EOMI, no pharyngeal exudate, mucous membranes moist Chest: Clear to auscultation, on room air, no adventitious breath sounds Cardiac: Regular rate and rhythm, no murmur, no JVD, normal peripheral pulses, good capillary refill Abdominal: NABS x 4 quadrants, soft, nontender to palpation, no rebound, guarding or tenderness Extremities: Normal inspection, no peripheral edema or erythema, calfs nontender to palpation Psych: Normal mood and affect Neuro: AAO x 3, strength intact bilaterally and rated 5/5, no motor deficits, speech is clear, no peripheral sensory deficits Skin: LLE > RLE with diffuse erythema and edema; no purulent discharge noted; L 2nd digit with infection appears to be down to bone Results & Data Results & Data ([facility]) Vital Signs (Past 12 Hours) Vital Signs Temp Pulse Resp BP Pulse Ox O2 Del Method 08/09/22 09:52 36.8 C 90 20 147/75 H 96 Room Air Laboratory Results Abnormal lab results 08/09/22 08/09/22 08/09/22 Range/Units 10:42 10:42 10:42 WBC 11.89 H (4.8-10.8) K/ul RBC 4.39 L (4.63-6.08) M/uL Hgb 13.2 L (14.0-18.0) g/dl RDW Std Deviation 48.2 H (36.4-46.3) fL MPV 8.7 L (9.4-12.4) fL Neut # (Auto) 8.43 H (1.4-6.5) K/uL [place]imer # (Auto) 1.27 H (0.24-0.82) K/uL Immature Gran # (Auto) 0.05 H (0.00-0.02) K/uL APTT 31.9 H (21.0-31.0) Seconds Sodium 135 L (136-145) mmol/L Potassium 5.3 H D (3.5-5.1) mmol/L BUN 60 H (6-23) mg/dl Creatinine 2.87 H (0.6-1.4) mg/dl BUN/Creatinine Ratio 20.9 H (10-20) Glucose 106 H (70-99(Fasting)) mg/dl Alkaline Phosphatase 105 H (34-104) U/L Diagnostic Findings Foot X-Ray 08/09/22 12:43 XR foot LT min 3V routine CLINICAL HISTORY: Left foot swelling and pain. COMPARISON STUDY: Left foot radiograph 06/23/2022. FINDINGS: No fracture or dislocation. The Lisfranc joint is intact. Soft tissue swelling within the third toe. Small focus of cortical erosion at the distal tuft of the third toe. This is new from the prior study. IMPRESSION: Tiny focus of cortical erosion at the distal tuft of the left third toe. This is consistent with an osteomyelitis ACT 112: Negative or not required by law. Electronically signed by: Damon Spear M.D. 08/09/2022 1:44 PM ECG Additional Comments: Atrial fibrillation Low voltage QRS Septal infarct (cited on or before 20-MAY-2021) Abnormal ECG When compared with ECG of 04-DEC-2021 03:43, ST no longer depressed in Anterolateral leads Confirmed by Reinaldo Masters ([id number]) on 08/09/2022 4:20:28 PM Code Status & VTE Plan Code Status Full Code. Supervising Physician Co-Signing Physician Notes Patient seen and examined, chart reviewed, case discussed with [] and I agree with the assessment and plan as above except as otherwise noted Labs and images reviewed Marcio is a 71-year-old male with a past medical history of A. fib on apixaban, hyperlipidemia on atorvastatin, type II DM on insulin, sleep apnea, carotid art song stenosis, diabetic CKD, and aortic stenosis who presents with a left lower extremity diabetic cellulitis worsening on outpatient oral antibiotics with a rising creatinine. As an outpatient patient has been on Bactrim twice daily 2-week course which was started and filled 08/04/2022. Prior to this was treated with ciprofloxacin 06/19/2022 for 10-day course. Seen at the bedside. Has had increased redness, swelling/erythema spreading out from his left lower extremity for approximately 1 week. Around the same time his blood sugars which were previously well controlled were elevated above the 200s. The bedside breathing is unlabored, heart rate is regular. Left lower extremity is with erythema/warmth asymmetrically and with marked borders. Left 2nd digit with erythema, ulceration at the medial aspect. Lower extremity is not painful to the patient due to chronic numbness/neuropathy. Diabetic cellulitis with concern for osteo-: Worsening cellulitis of left lower extremity and? Osteo of the left second toe leukocytosis to 11.89. Concern for osteo, initial plain film pending. If clinical suspicion remains and plain film is negative follow-up with MRI. Bactrim held 2/2 worsening infection and creatinine and switch to IV Dapto/Zosyn given concern for discharge and a stable eval STELLA on CKD: Baseline creatinine approximately 1.62.3. On admission 2.87, slightly reduced from outpatient labs of 2.91 prior in the setting of cellulitis versus Bactrim induced. Hold SGLT2/MONROE/metformin. Trend BMP daily. Hypertension: As above, adequately controlled on admission Aortic stenosis s/p TAVR 04/2022 History of NSTEMI: 70% distal RCA 01/2018. Echo 05/2022 with preserved EF 70%, mild concentric LVH, well-seated bioprosthetic aortic valve, calcified mitral valve annulus, mild mitral regurg, mild tricuspid regurg, mildly elevated pulmonary pressure 44 mmHg. Paroxysmal a flutter/A. fib: Anticoagulated on apixaban. Rate controlled Type II DM: SGLT2 held as above, continue insulin as above Anemia in the setting of CKD: Stable, at baseline. Admitting hemoglobin 13.2. No clinical signs of bleed Chronic venous stasis: With chronic weeping ulcers over left lopez worsened at times of dietary indiscretion with CHF. Pending venous seal versus Varithena as outpatient. Last saw vascular medicine 08/02/2022. Continue dressings, wound care PG Care Time/CCT Total # of Minutes Spent Total Time Spent with Patient: Total time spent is greater than 50% in coordination of care (as documented) at patient's floor/unit and/or counseling patient: Coding Level of Care Code 25236 Initial Inpt Care Lvl 3 Diagnoses Acute kidney injury superimposed on CKD N17.9; N18.9 Diabetic ulcer of toe of left foot E11.621; L97.529 Chronic diastolic (congestive) heart failure I50.32 Atrial fibrillation I48.91 Hypertension I10 HLD (hyperlipidemia) E78.5 Chronic obstructive pulmonary disease J44.9 CAD (coronary artery disease) of artery bypass graft I25.810 Diabetes type 2, uncontrolled E11.65 Anemia D64.9 SHIRA on CPAP G47.33; Z99.89 Aortic stenosis I35.0
[2022-08-09] MEDS ORDERED: PIPERACILLIN/TAZOBACTAM 4.5 GM in DEXTROSE 5% 100 ML IV ONE (12:43)
[2022-08-09] MEDS ORDERED: PIPERACILLIN/TAZOBACTAM 4.5 GM/120 ML BAG IV ONE (13:00)
[2022-08-09] MEDS ORDERED: DAPTOmycin 425 MG in SYRINGE 0 ML IV ONE (13:00)
--- NOTE | 2022-08-09 13:45 | XRay Report ---
XR foot LT min 3V routine CLINICAL HISTORY: Left foot swelling and pain. COMPARISON STUDY: Left foot radiograph 06/23/2022. FINDINGS: No fracture or dislocation. The Lisfranc joint is intact. Soft tissue swelling within the t hird toe. Small focus of cortical erosion at the distal tuft of the third toe. This is new from the p domitilar study. IMPRESSION: Tiny focus of cortical erosion at the distal tuft of the left third toe. This is consist ent with an osteomyelitis ACT 112: Negative or not required by law. Electronically signed by: Damon Spear M.D. 08/09/2022 1:44 PM
--- NOTE | 2022-08-09 16:21 | Electrocardiogram Report ---
Test Reason : Blood Pressure : / mmHG Vent. Rate : 079 BPM Atrial Rate : 084 BPM P-R Int : 000 ms QRS Dur : 088 ms QT Int : 394 ms P-R-T Axes : 000 006 058 degrees QTc Int : 451 ms Atrial fibrillation Low voltage QRS Septal infarct (cited on or before 20-MAY-2021) Abnormal ECG When compared with ECG of 04-DEC-2021 03:43, ST no longer depressed in Anterolateral leads Confirmed by Reinaldo Masters ([id number]) on 08/09/2022 4:20:28 PM Referred By: REFERRED SELF Confirmed By:Reinaldo Masters
[2022-08-09] MEDS ORDERED: ALBUTEROL 0.083% NEBU SOLN 3 ML VIAL INH PRN (17:17)
[2022-08-09] MEDS ORDERED: POLYETHYLENE (MIRALAX) 17 GM PACK PO PRN (17:17)
[2022-08-09] MEDS ORDERED: GLUCOSE 40% GEL 15 GM TUBE PO PRN (17:17)
[2022-08-09] MEDS ORDERED: CARBOHYDRATES FOR HYPOGLYCEMIA PO PRN (17:17)
[2022-08-09] MEDS ORDERED: DEXTROSE 50% 50 ML SYRINGE IV PRN (17:17)
[2022-08-09] MEDS ORDERED: GLUCOSE 10 TAB/TUBE PO PRN (17:17)
[2022-08-09] MEDS ORDERED: ONDANSETRON INJ 2 MG/ML 2 ML VIAL IV PRN (17:17)
[2022-08-09] MEDS ORDERED: GLUCAGON FOR INJ 1 MG VIAL SQ PRN (17:17)
[2022-08-09] MEDS ORDERED: ALBUT/IPRATROP 3MG/0.5MG NEB 3 ML VIAL INH PRN (17:17)
[2022-08-09] MEDS: INSULIN ASPART PER UNIT SC SCH ×2 (19:01→21:56)
[2022-08-09] MEDS ORDERED: ATORVASTATIN 40 MG TAB PO SCH (21:00)
[2022-08-09] MEDS: METOPROLOL TARTRATE 100 MG TAB PO SCH (21:57)
[2022-08-09] MEDS: APIXABAN 5 MG TABLET PO SCH (21:57)
[2022-08-09] MEDS: FAMOTIDINE 20 MG TAB PO SCH (21:58)
[2022-08-09] MEDS: PIPERACILLIN/TAZOBACTAM 3.375 GM in DEXTROSE 5% 100 ML IV SCH (21:58)
[2022-08-09] MEDS: LANTUS PER UNIT CHARGE SQ SCH (22:01)
[2022-08-10 03:53] LABS: Appearance Urine Clear (Clear); Bacteria Urine Automated Negative (Negative); Bilirubin Urine Negative (Negative); Blood Urine Negative (Negative); Cast Urine Automated 0 /lpf (0-5); Color Urine Yellow; Glucose Urine UA 3+ (Negative); Ketones Urine Negative (Negative); Leukocyte Esterase Urine Trace (Negative); Nitrite Urine Negative (Negative); Protein Urine Negative (Negative); RBC Urine Automated 0-4 /hpf (0-4); Urobilinogen Urine Negative (Negative); pH Urine 5.5 (4.5-7.5)
[2022-08-10] MEDS: PIPERACILLIN/TAZOBACTAM 3.375 GM in DEXTROSE 5% 100 ML IV SCH ×3 (05:44→22:07)
[2022-08-10 06:10] LABS: Basophils # (auto) 0.07 K/uL (0-0.2); Basophils % (auto) 0.6 %; Eosinophils # (auto) 0.35 K/uL (0-0.50); Eosinophils % (auto) 3.2 %; Hematocrit (blood only) 35.6 % (40.1-51.0); Hemoglobin 11.6 g/dl (14.0-18.0); Immature Granulocytes # (auto) 0.06 K/uL (0.00-0.02); Immature Granulocytes % (auto) 0.5 %; Lymphocytes # (auto) 1.86 K/uL (1.2-3.4); Lymphocytes % (auto) 16.8 %; Mean Corpuscular Hemoglobin 29.8 pg (25.0-34.0); Mean Corpuscular Hgb Conc 32.6 g/dL (32.0-36.0); Mean Corpuscular Volume 91.5 fL (80.0-100.0); Mean Platelet Volume 8.6 fL (9.4-12.4); Monocytes # (auto) 1.34 K/uL (0.24-0.82); Monocytes % (auto) 12.1 %; Neutrophils # (auto) 7.38 K/uL (1.4-6.5); Neutrophils % (auto) 66.8 %; Platelet Count 276 K/uL (130-400); RDW Coefficient of Variation 14.3 % (11.5-14.5); RDW Standard Deviation 47.6 fL (36.4-46.3); Red Blood Count 3.89 M/uL (4.63-6.08); White Blood Count 11.06 K/ul (4.8-10.8)
[2022-08-10 06:35] LABS: BUN Creatinine Ratio 19.9 (10-20); Calcium 8.7 mg/dl (8.5-10.1); Est GFR (African American) 26.4 ml/min; Est GFR (Non-African American) 22.8 ml/min; Magnesium 2.5 mg/dl (1.7-2.4); Potassium 4.9 mmol/L (3.5-5.1)
[2022-08-10 08:03] LABS: Estimated Average Glucose 171 mg/dl; Hemoglobin A1C 7.6 % (4.5-5.6)
[2022-08-10] MEDS: METOPROLOL TARTRATE 100 MG TAB PO SCH ×2 (08:33→21:57)
[2022-08-10] MEDS: APIXABAN 5 MG TABLET PO SCH ×2 (08:33→21:57)
[2022-08-10] MEDS: FAMOTIDINE 20 MG TAB PO SCH ×2 (08:33→21:58)
[2022-08-10] MEDS: MAGNESIUM OXIDE 400 MG TAB PO SCH (08:34)
[2022-08-10] MEDS: CYANOCOBALAMIN (B-12) 500 MCG TABLET PO SCH (08:34)
[2022-08-10] MEDS: GENTAMICIN SULFATE 0.1% CR 15 GM TUBE EXT SCH (08:34)
[2022-08-10] MEDS: LANTUS PER UNIT CHARGE SQ SCH ×2 (08:40→22:16)
[2022-08-10] MEDS: INSULIN ASPART PER UNIT SC SCH ×4 (08:40→22:15)
[2022-08-10] MEDS ORDERED: ACETIC ACID 0.25% IRRIG SOLN 1000 ML PLCT IR SCH (09:00)
--- NOTE | 2022-08-10 10:46 | Magnetic Resonance Report ---
MRI OF THE LEFT FOREFOOT WITHOUT IV CONTRAST COMPARISON STUDY: Radiographs of the left foot dated 08/09/2022. TECHNIQUE: MRI of the left forefoot is performed utilizing various T1 and T2-weighted sequences in th e axial, sagittal, and coronal planes. IV contrast was not administered for this examination. The exa mination is significantly degraded by motion artifact. FINDINGS: There is significant marrow edema seen within the middle and distal phalanges of the second toe. Cortical erosion is suggested involving the tuft of the second distal phalanx, these findings a re highly suspicious for osteomyelitis. There is associated soft tissue edema in the second toe. No o rganized fluid collection is seen to indicate abscess. No similar-appearing foci of marrow edema are seen throughout the remainder of the forefoot. Mild multifocal degenerative changes noted, greatest a t the tarsometatarsal articulations. There is no MRI evidence of acute fracture. The visualized flexo r and extensor tendons appear intact. The imaged portions of the plantar fascia are maintained. There is generalized atrophy of the regional musculature. IMPRESSION: 1. Marrow change involving the middle and distal phalanges of the second toe which is highly suspicio us for osteomyelitis. Clinical correlation will be required. 2. No additional foci of similar-appearing marrow change are seen throughout the forefoot. 3. Cellulitis of the second toe. No organized fluid collection is seen to indicate abscess. Dictated: 08/10/2022 10:24 AM Transcribed: 08/10/2022 10:43 AM Lynsey [id number] [email or web address] Electronically signed by: Jhonatan Galarza M.D. 08/10/2022 10:44 AM
--- NOTE | 2022-08-10 13:09 | Hospitalist Progress Note ---
Date of Service August 10, 2022 Assessment & Plan (1) Osteomyelitis: Plan: Patient with a history of Diabetic foot disease presents to the hospital with worsening foot wound infection MRI shows Marrow change involving the middle and distal phalanges of the second toe which is highly suspicious for osteomyelitis and also 2nd toe cellulitis Currently on Zosyn na d Daptomycin Will consult Podiatry and ID (2) Acute kidney injury superimposed on CKD: Plan: - Likely due to starting Bactrim 5 days ago for suspected lower leg cellulitis. -Some slight improvement following stoppage of bactrim and IV Fluids - Avoid renal toxins, renally dose as able. - Holding Invokana, lisinopril, Lasix until STELLA resolves. - Hx of with TAVR in April, still NYHA 2-3, will give gentle IV, strictly monitor I/Os. - Repeat BMP in AM. (3) Diabetic ulcer of toe of left foot: Plan: - Wound care was concerned for cellulitis of the left leg below the knee as well as developing osteomyelitis of toes on the left foot, this has been confirmed on MRI - Consult Podiatry and ID - Daptomycin and Zosyn for now (4) Chronic diastolic (congestive) heart failure: Plan: - Echo from May: Normal left ventricular size with hyperdynamic systolic function, no regional wall motion abnormalities, EF >75%, mild LVH well-seated 26 mm Saha ultra bioprosthetic transcatheter aortic valve replacement, mildly elevated pulmonary artery pressures. - We will building Lasix as above for STELLA, resume when renal function starts to move towards baseline. - Strict I&O's, daily weights, low-salt low-sodium diet. (5) Atrial fibrillation: Plan: - Cardiac conversion in 2018, in rate controlled a fib today. - Remains on Eliquis and metoprolol. (6) Hypertension: Plan: - Hold lisinopril given STELLA, continue on metoprolol. (7) HLD (hyperlipidemia): Plan: - Continue statin therapy. (8) Chronic obstructive pulmonary disease: Plan: - Continue home inhalers with CPAP at night. (9) CAD (coronary artery disease) of artery bypass graft: Plan: - Continue statin, metoprolol, holding lisinopril for STELLA. (10) Diabetes type 2, uncontrolled: Plan: - Home regimen: Lantus 55 units twice daily, with sliding scale insulin. - We will continue his Lantus dosing, SSI. (11) Anemia: Plan: - Hgb 13.2 at baseline. - Continue to monitor. (12) SHIRA on CPAP: Plan: - CPAP hs ordered. (13) Aortic stenosis: Plan: - s/p TAVR April 2022. Plan - Continue hospitalization - SCDs, Eliquis continue for VTE ppx. - Full Code. Admission and Anticipated Discharge Date Admission Date: August 09, 2022 Results & Data Results & Data ([facility]) Vital Signs (Past 12 Hours) Vital Signs Temp Pulse Pulse Resp BP Pulse Ox O2 Del Method 08/10/22 08:03 98.1 F 82 20 112/88 95 Room Air 08/10/22 06:00 85 08/10/22 03:29 97.9 F 80 19 111/60 95 Room Air PG Care Time/CCT Total # of Minutes Spent Total Time Spent with Patient: Total time spent is greater than 50% in coordination of care (as documented) at patient's floor/unit and/or counseling patient: Coding Level of Care Code 30455 Subseq Hosp Care Lvl 2 Diagnoses Osteomyelitis M86.9 Acute kidney injury superimposed on CKD N17.9; N18.9 Diabetic ulcer of toe of left foot E11.621; L97.529 Chronic diastolic (congestive) heart failure I50.32 Atrial fibrillation I48.91 Hypertension I10 HLD (hyperlipidemia) E78.5 Chronic obstructive pulmonary disease J44.9 CAD (coronary artery disease) of artery bypass graft I25.810 Diabetes type 2, uncontrolled E11.65 Anemia D64.9 SHIRA on CPAP G47.33; Z99.89 Aortic stenosis I35.0 Time Spent (min) 35
[2022-08-10] MEDS: DAPTOmycin 425 MG in SYRINGE 0 ML IV SCH (13:11)
--- NOTE | 2022-08-10 15:24 | Podiatry Consultation ---
Date of Consultation August 10, 2022 Assessment & Plan (1) Osteomyelitis: (2) Venous stasis ulcer: (3) Diabetic ulcer of toe of left foot: Plan - Patient was examined and evaluated. - Discussed treatment options with patient, care team, ID physician. - Discussed benefits/risks of 6-8 weeks IV abx versus digital amputation. - Patient amenable to amputation.This is the more definitive treatment, with excision of the infected tissue and identification of the pathogen. - Will work on scheduling this for tomorrow to decrease infectious burden. - Otherwise, continue scheduled abx and wound care for left leg wound and right superficial plantar wound. Thanks for the consult. We're happy to help. History of Present Illness Reason for Consultation: Left second toe ulcer/infection Attending Physician: Makayla Henderson MD History of Present Illness Patient presents with longstanding wounds to bilateral lower extremity. They have been present for at least the last few weeks. He has been in wound care for them, though the last time he saw them, they sent him for admission with increasing signs and symptoms of infection. Currently, he states that he feels well systemically, though has pain to a left anterior leg wound. This wound has redness and swelling, along with a ruptured blister. His left toe wound is minimally painful, though he does admit to fairly profound neuropathy and lack of sensation to the feet. He has longstanding type 2 DM which has been well controlled, but his most recent A1c was elevated in the high 7s. Allergies Allergy/AdvReac Type Severity Reaction Status Date / Time No Known Drug Allergies Allergy Unknown NONE Verified 08/09/22 08:28 Home Medications Medication Instructions Recorded Confirmed Type multivitamin (Daily Multi-Vitamin 1 tab PO QAM ##0 07/12/10 08/09/22 History tablet) lisinopril 20 mg tablet 20 mg PO QAM #0 tabs 10/21/14 08/09/22 History omega 3 350 mg-dha 235 mg-epa 90 1 cap PO QAM #0 caps 01/25/18 08/09/22 History mg-fish oil 597 mg capsule,delay rel ([place]-3) BD Ultra-Fine Mini Pen Needle 31 #500 ea 04/28/19 08/04/22 Rx gauge x 3/16" (pen needle, diabetic) acetaminophen 500 mg tablet 500 mg PO Q6H PRN Pain #0 tabs 05/21/19 08/09/22 History (Acetaminophen Extra Strength) inhalational spacing device #1 ea 05/21/19 08/04/22 History (Vortex Holding Chamber) insulin aspart U-100 100 unit/mL See Rx Instructions .Route .COMPLEX 09/16/19 08/09/22 History (3 mL) subcutaneous pen (Novolog Flexpen U-100 Insulin aspart) apixaban 5 mg tablet (Eliquis) 5 mg PO BID #60 tabs 10/06/19 08/09/22 Rx CPAP Supplies #1 ea 10/28/19 08/04/22 Rx atorvastatin 40 mg tablet (Lipitor) 40 mg PO QPM 02/16/20 08/09/22 History blood sugar diagnostic (OneTouch #10 ea 02/08/21 08/04/22 History Ultra Blue Test Strip) cyclobenzaprine 10 mg tablet 10 mg PO BID PRN Muscle Spasm 05/20/21 08/09/22 History famotidine 20 mg tablet (Pepcid) 20 mg PO BID 05/20/21 08/09/22 History albuterol sulfate 2.5 mg/3 mL 2.5 mg inhalation Q6H PRN sob 05/30/21 08/09/22 History (0.083 %) solution for nebulization metformin 1,000 mg tablet 1,000 mg PO BID 05/30/21 08/09/22 History ipratropium 0.5 mg-albuterol 3 mg 3 ml inhalation QID PRN Shortness 06/06/21 08/09/22 Rx (2.5 mg base)/3 mL nebulization Of Breath #360 vials soln canagliflozin 300 mg tablet 300 mg PO QAM #90 tabs 08/10/21 08/09/22 Rx (Invokana) FreeStyle Rachid 14 Day [place] #1 ea 02/10/22 08/04/22 Rx (flash glucose scanning reader) FreeStyle Rachid 14 Day Sensor #6 ea 02/10/22 08/04/22 Rx (flash glucose sensor) Portable Oxygen 05/01/22 08/09/22 History cyanocobalamin (vitamin B-12) 1,000 mcg PO DAILY 06/20/22 08/09/22 History 1,000 mcg capsule furosemide 40 mg tablet (Lasix) 40 mg PO QAM 06/20/22 08/09/22 History magnesium 250 mg tablet 250 mg PO DAILY 06/20/22 08/09/22 History insulin glargine 100 unit/mL (3 55 unit subcut BID 06/22/22 08/09/22 History mL) subcutaneous pen (Lantus Solostar U-100 Insulin) metoprolol tartrate 50 mg tablet 100 mg PO BID 06/22/22 08/09/22 History (Lopressor) gentamicin 0.1 % topical ointment 1 applic topical DAILY 14 days #30 06/26/22 08/09/22 Rx grams furosemide 40 mg tablet 20 mg PO DAILY PRN Edema 08/09/22 08/09/22 History sulfamethoxazole 400 1 tab PO DAILY 08/09/22 08/09/22 History mg-trimethoprim 80 mg tablet (Bactrim) Patient History Medical History Aortic stenosis follows with Dr. Gorman Atrial fibrillation successful cardioversion ~2017. follows [address] Dr[address] Gorman. Bilateral carotid artery stenosis Cardiac murmur Cellulitis hx Chronic obstructive pulmonary disease Diabetes mellitus, type 2 Diabetic peripheral neuropathy associated with type 2 diabetes mellitus GERD (gastroesophageal reflux disease) History of cardioversion (~2017) prison (current) use of anticoagulants Mass of right kidney pt unaware Morbid obesity Multiple pulmonary nodules determined by computed tomography of lung Osteoarthritis Sciatica Sensorineural hearing loss (SNHL) of both ears Wears binaural hearing aids Sleep apnea cpap with 2lpm Surgical History H/O vascular surgery (~10/2020) left leg vein moved to the right arm for bypass d/t poor circulation History of cardiac cath FEBRUARY 2018 - [facility] - [place] A.FIB, SOB - NO STENTS/ANGIOPLASTY History of colonoscopy W/ POLYPECTOMY History of esophagogastroduodenoscopy (EGD) History of hernia repair History of surgery RT ADRENALECTOMY History of tonsillectomy Hx of aortic valve replacement S/P epidural steroid injection Sacro-iliac joint injection Family History Grandmother Cancer Father Cancer Mother Cancer Sister Diabetes Psoriasis Cardiac disorder Other Family history of bleeding disorder Hypertension No family history of adverse response to anesthesia Social History Smoking Status: Former smoker Tobacco Type: Cigarettes Second Hand Exposure: No; Hx Alcohol Use: Yes Alcohol type: beer Alcohol Intake Frequency Comment: 1-2 times per month, seldom Hx Substance Use: No Preferred Language: [place] Communication Ability: Effective Visual Impairment: Limited Hearing Ability: Hard of Hearing Crossing Supervisor Required: No Beliefs That Will Affect Care: None marital status: Single 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 Son lives away. /SO able to help a little however has a broken back and is unable to assist much. Feels Safe at Home: Yes during the past year weight has: remained stable Assistive Devices: Cane, CPAP, Oxygen - Continuous and Walker Review of Systems Review of Systems: All systems reviewed & are unremarkable except as noted in HPI & below Constitutional: no fever, no chills and no sweats Eyes: as per Subjective / HPI Ear, Nose, Mouth, Throat: as per Subjective / HPI Respiratory: as per Subjective / HPI Cardiovascular: as per Subjective / HPI; no chest pain Gastrointestinal: as per Subjective / HPI Genitourinary: + as per Subjective / HPI Musculoskeletal: as per Subjective / HPI and + swelling; no muscle weakness and no body aches Integumentary: as per Subjective / HPI, + non-healing lesions, + skin ulcer, + wounds and + erythema Neurologic: as per Subjective / HPI, + loss of sensation, + tingling and + numbness Psychiatric: as per Subjective / HPI; no behavioral changes, no depression and no anxiety Physical Exam Constitutional: WD/WN, vitals as above well developed, well nourished and + morbidly obese; no acute distress Eyes: PERRL, conjunctivae normal, anicteric sclerae ENMT: external ear and nose normal, oropharynx normal Neck: trachea midline, no thyromegaly Respiratory: normal respiratory effort, lungs clear to auscultation normal respiratory effort; no respiratory distress Cardiovascular: RRR, no murmur, no edema Rate/Rhythm: regular rate and regular rhythm Extremities: normal capillary refill, + calf tenderness (Only to the left anterior leg wound and surrounding cellulitis; improving) and + pedal edema Pedal pulses absent. Diffuse trophic changes to b/l feet. Likely longstanding PAD associated with type 2 DM. Musculoskeletal: no cyanosis or clubbing, extremities motor strength 5/5 Extremities: + foot abnormality (Left second toe ulceration overlying the middle phalanx. + Probe to bone) Left Skin: + ulcer (Fibrous base to second toe wound. Anterior leg wound appears superficial. ) Neurologic: + abnormal touch/pain/proprioception Psychiatric: A+Ox3, euthymic affect Results & Data ([facility]) Vital Signs (Past 12 Hours) Vital Signs Temp Pulse Pulse Resp BP Pulse Ox O2 Del Method 08/10/22 08:03 36.7 C 82 20 112/88 95 Room Air 08/10/22 06:00 85 08/10/22 03:29 36.6 C 80 19 111/60 95 Room Air Diagnostic Findings MRI and plain film imaging confirm clinical suspicion of left second toe osteomyelitis. Likely limited to distal and middle phalanges. No palpable absces s formation. No significant purulent drainage noted.
[2022-08-10] MEDS: ACETAMINOPHEN 500 MG TAB PO PRN (16:14)
--- NOTE | 2022-08-10 19:10 | Infectious Disease Consult ---
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 Infectious Diseases has been consulted for antibiotic management of LLE wounds. Patient with h/o L and R leg venous ulcers. Arterial dopplers of LLE 06/27/22 that showed possible LT mid SFA short segment occlusion and LT TBI severe reduced c/w impaired healing and RT TBI severely reduced. Admittted on Bactrim for LLE cellulitis, found to have STELLA. AdmissionVSS, afebrile and hypertensive. Labs remarkable for WBC 11.8, creatinine 2.87 and potassium 5.3. Xray of Left forefoot showed Tiny focus of cortical erosion at the distal tuft of the left third toe, consistent with osteomyelitis. However MRI of L forefoot revealed marrrow change involving the middle and distal phalanges of the second toe which is highly suspicious for osteomyelitis (no osteomyelitis of 3rd digit). Patient was started on IV Daptomycin and Zosyn Exam is notable for LLE erythema. Discussion: Patient with PVD now with LLE cellulitis and 2nd digit osteomyelitis. These appear to be 2 seperate processes. I evalauted patient Podiatry today. We discussed potential amputation of 2nd digit. We discussed treatment for ostemyelitis x 6 week vs amputation (potentially curative) and likely oral abx in this case. However I would ask Vascular Medicine consult (Seen by Dr Gorman as outpatient) to evaluate PVD during this hospitalization given arterial studies in 06/2022 showing poor healing potential Recommend: -Continue with Daptomycin, order am CPK, patient not on statin -Continue with Zosyn -Await surgical plan -Vascular Medicine consult please -I will order blood cultures Thank you for allowing me to participate in the care of your patient. Cesilia Patiño MD [facility], [facility] Consultation Information Consultation was provided via telemedicine using two-way real-time interactive telecommunication between the patient and the telemedicine provider. For the duration of the visit, the provider was performing the assessment from a different facility than the patient. This includesuse of bluetooth stethoscope forauscultationperformed by the telepresenter that the telemedicine provider can hear if described in the physical exam. Library Science Instructor contact information: Please call [facility] Call Center . (Phone Number For Physician Use Only) After establishing a telemedicine visit, patient was: Patient was verified with two unique identifiers, Patient/authorized rep acknowledged consent and understanding and Gave permission to continue telehealth session Time Spent w Inpatient: 55 minutes History of Present Illness Reason for Consultation: L foot osteomyelitis, L leg cellulitis Requesting Physician: Dr. 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 Infectious Diseases has been consulted for antibiotic management of LLE wounds. Patient h/o of venous stasis ulcer of L leg, and has been following at both wound clinic and with Cardiology. He had arterial dopplers of LLE 06/27/22 that showed possible LT mid SFA short segment occlusion and LT TBI severe reduced c/w impaired healing and RT TBI severely reduced. R leg has been healing well, however the left leg has become more red and swollen over the past 2 weeks and his second possibly third digits on the left toe appear to be infected down to the bone. He was started on Bactrim on 08/04. On day of admission labs as outpatient revealed creatinine of 2.9 ( baseline of 1.6 in 06/24) He was recommended to go ED. In ED, VSS, afebrile and hypertensive. Labs remarkable for WBC 11.8, creatinine 2.87 and potassium 5.3. Hgb slightly low at 13.2, which is his baseline, coag panel within normal limits, glucose 106, without transaminitis or electrolyte abnormalities besides potassium. Xray of Left forefoot showed Tiny focus of cortical erosion at the distal tuft of the left third toe, consistent with osteomyelitis. However MRI of L forefoot revealed marrrow change involving the middle and distal phalanges of the second toe which is highly suspicious for osteomyelitis (no osteomyelitis of 3rd digit). Patient was started on IV Daptomycin and Zosyn. ID consulted at this time. On my interview, he feels well. No systemic symptoms of fatigue, fever, rash, myalgias. Symptoms are limited to LLE. Notably states that there was a bubble on L lower leg that popped and drained. He feels LLE redness has improved overnight. Allergies Allergy/AdvReac Type Severity Reaction Status Date / Time No Known Drug Allergies Allergy Unknown NONE Verified 08/09/22 08:28 Home Medications Medication Instructions Recorded Confirmed Type multivitamin (Daily Multi-Vitamin 1 tab PO QAM ##0 07/12/10 08/21/22 History tablet) lisinopril 20 mg tablet 20 mg PO QAM #0 tabs 10/21/14 08/21/22 History omega 3 350 mg-dha 235 mg-epa 90 1 cap PO QAM #0 caps 01/25/18 08/21/22 History mg-fish oil 597 mg capsule,delay rel ([place]-3) BD Ultra-Fine Mini Pen Needle 31 #500 ea 04/28/19 08/04/22 Rx gauge x 3/16" (pen needle, diabetic) acetaminophen 500 mg tablet 500 mg PO Q6H PRN Pain #0 tabs 05/21/19 08/21/22 History (Acetaminophen Extra Strength) inhalational spacing device #1 ea 05/21/19 08/04/22 History (Vortex Holding Chamber) insulin aspart U-100 100 unit/mL See Rx Instructions .Route .COMPLEX 09/16/19 08/21/22 History (3 mL) subcutaneous pen (Novolog Flexpen U-100 Insulin aspart) apixaban 5 mg tablet (Eliquis) 5 mg PO BID #60 tabs 10/06/19 08/21/22 Rx CPAP Supplies #1 ea 10/28/19 08/04/22 Rx atorvastatin 40 mg tablet (Lipitor) 40 mg PO QPM 02/16/20 08/21/22 History blood sugar diagnostic (OneTouch #10 ea 02/08/21 08/04/22 History Ultra Blue Test Strip) cyclobenzaprine 10 mg tablet 10 mg PO BID PRN Muscle Spasm 05/20/21 08/21/22 History famotidine 20 mg tablet (Pepcid) 20 mg PO BID 05/20/21 08/21/22 History albuterol sulfate 2.5 mg/3 mL 2.5 mg inhalation Q6H PRN sob 05/30/21 08/21/22 History (0.083 %) solution for nebulization metformin 1,000 mg tablet 1,000 mg PO BID 05/30/21 08/21/22 History ipratropium 0.5 mg-albuterol 3 mg 3 ml inhalation QID PRN Shortness 06/06/21 08/21/22 Rx (2.5 mg base)/3 mL nebulization Of Breath #360 vials soln canagliflozin 300 mg tablet 300 mg PO QAM #90 tabs 08/10/21 08/21/22 Rx (Invokana) FreeStyle Rachid 14 Day [place] #1 ea 02/10/22 08/04/22 Rx (flash glucose scanning reader) FreeStyle Rachid 14 Day Sensor #6 ea 02/10/22 08/04/22 Rx (flash glucose sensor) Portable Oxygen 05/01/22 08/09/22 History cyanocobalamin (vitamin B-12) 1,000 mcg PO DAILY 06/20/22 08/21/22 History 1,000 mcg capsule furosemide 40 mg tablet (Lasix) 40 mg PO QAM 06/20/22 08/21/22 History magnesium 250 mg tablet 250 mg PO DAILY 06/20/22 08/21/22 History insulin glargine 100 unit/mL (3 55 unit subcut BID 06/22/22 08/21/22 History mL) subcutaneous pen (Lantus Solostar U-100 Insulin) metoprolol tartrate 50 mg tablet 100 mg PO BID 06/22/22 08/21/22 History (Lopressor) gentamicin 0.1 % topical ointment 1 applic topical DAILY 14 days #30 06/26/22 08/21/22 Rx grams furosemide 40 mg tablet 20 mg PO DAILY PRN Edema 08/09/22 08/21/22 History clopidogrel 75 mg tablet 75 mg PO DAILY #30 tabs 08/21/22 Rx Patient History Medical History Aortic stenosis follows with Dr. Gorman Atrial fibrillation successful cardioversion ~2017. follows with Dr. Gorman. 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 Mass of right kidney pt unaware Morbid obesity Multiple pulmonary nodules determined by computed tomography of lung Osteoarthritis Sciatica Sensorineural hearing loss (SNHL) of both ears Wears binaural hearing aids Sleep apnea cpap with 2lpm Surgical History H/O vascular surgery (~10/2020) left leg vein moved to the right arm for bypass d/t poor circulation History of cardiac cath FEBRUARY 2018 - [facility] [place].FIB, SOB - NO STENTS/ANGIOPLASTY History of colonoscopy W/ POLYPECTOMY History of esophagogastroduodenoscopy (EGD) History of hernia repair History of surgery RT ADRENALECTOMY History of tonsillectomy Hx of aortic valve replacement S/P epidural steroid injection Sacro-iliac joint injection Family History Grandmother Cancer Father Cancer Mother Cancer Sister Diabetes Psoriasis Cardiac disorder Other Family history of bleeding disorder Hypertension No family history of adverse response to anesthesia Social History Smoking Status: Never smoker Tobacco Type: Cigarettes Second Hand Exposure: No; Hx Alcohol Use: No Hx Substance Use: No Preferred Language: Romanian Communication Ability: Effective Visual Impairment: No Limitations Hearing Ability: Hard of Hearing [place] Or Nursery Transplanter Required: No Beliefs That Will Affect Care: None marital status: Single 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 Son lives away. /SO able to help a little however has a broken back and is unable to assist much. Feels Safe at Home: Yes during the past year weight has: remained stable Assistive Devices: Cane, CPAP, Oxygen - Continuous and Walker Review of System as per HPI Constitutional: as per Subjective / HPI Integumentary: as per Subjective / HPI Physical Exam Constitutional: WD/WN, vitals as above Musculoskeletal: no cyanosis or clubbing, extremities motor strength 5/5 Skin: L mid leg erythema with opening ulcer L 3rd digit dried/scabbed lesion Results & Data ([facility]) Vital Signs (Past 12 Hours) Vital Signs Temp Pulse Pulse Resp BP Pulse Ox O2 Del Method 08/10/22 08:03 36.7 C 82 20 112/88 95 Room Air 08/10/22 06:00 85 08/10/22 03:29 36.6 C 80 19 111/60 95 Room Air Laboratory Results Laboratory Results - last 48 hr 08/09/22 08/09/22 08/09/22 10:42 10:42 10:42 WBC 11.89 H RBC 4.39 L Hgb 13.2 L Hct 40.7 MCV 92.7 MCH 30.1 MCHC 32.4 RDW Std Deviation 48.2 H RDW Coeff of Jaylen 14.3 Plt Count 304 MPV 8.7 L Immature Gran % (Auto) 0.4 Neut % (Auto) 70.9 Lymph % (Auto) 14.9 [place] % (Auto) 10.7 Eos % (Auto) 2.4 Baso % (Auto) 0.7 Neut # (Auto) 8.43 H Lymph # (Auto) 1.77 [place] # (Auto) 1.27 H Eos # (Auto) 0.29 Baso # (Auto) 0.08 Immature Gran # (Auto) 0.05 H PT 11.1 INR 1.0 APTT 31.9 H PTT Ratio 1.2 Sodium 135 L Potassium 5.3 H D Chloride 100 Carbon Dioxide 27 Anion Gap 8 BUN 60 H Creatinine 2.87 H Est Cr Clr Drug Dosing 33.7 Est GFR ( Amer) 24.1 Est GFR (Non-Af Amer) 20.8 BUN/Creatinine Ratio 20.9 H Glucose 106 H POC Glucose Estimat Average Glucose Hemoglobin A1c Calcium 9.3 Magnesium Total Bilirubin 0.4 AST 15 ALT 18 Alkaline Phosphatase 105 H Total Protein 7.2 Albumin 3.8 Globulin 3.4 Albumin/Globulin Ratio 1.1 Lipase 40 Urine Color Urine Appearance Urine pH Ur Specific [place] Urine Protein Urine Glucose (UA) Urine Ketones Urine Blood Urine Nitrite Urine Bilirubin Urine Urobilinogen Ur Leukocyte Esterase Urine WBC (Auto) Urine RBC (Auto) U Hyaline Cast (Auto) U Epithel Cells (Auto) Urine Bacteria (Auto) SARS-CoV-2, RNA, NAAT 08/09/22 08/09/22 08/09/22 17:54 21:13 Unknown WBC RBC Hgb Hct MCV MCH MCHC RDW Std Deviation RDW Coeff of [place] Plt Count MPV Immature Gran % (Auto) Neut % (Auto) Lymph % (Auto) [place] % (Auto) Eos % (Auto) Baso % (Auto) Neut # (Auto) Lymph # (Auto) [place] # (Auto) Eos # (Auto) Baso # (Auto) Immature Gran # (Auto) PT INR APTT PTT Ratio Sodium Potassium Chloride Carbon Dioxide Anion Gap BUN Creatinine Est Cr Clr Drug Dosing Est GFR ( Amer) Est GFR (Non-Af Amer) BUN/Creatinine Ratio Glucose POC Glucose 70 128 H Estimat Average Glucose Hemoglobin A1c Calcium Magnesium Total Bilirubin AST ALT Alkaline Phosphatase Total Protein Albumin Globulin Albumin/Globulin Ratio Lipase Urine Color Urine Appearance Urine pH Ur Specific [place] Urine Protein Urine Glucose (UA) Urine Ketones Urine Blood Urine Nitrite Urine Bilirubin Urine Urobilinogen Ur Leukocyte Esterase Urine WBC (Auto) Urine RBC (Auto) U Hyaline Cast (Auto) U Epithel Cells (Auto) Urine Bacteria (Auto) SARS-CoV-2, RNA, NAAT NEGATIVE 08/10/22 08/10/22 08/10/22 03:39 05:57 05:57 WBC 11.06 H RBC 3.89 L Hgb 11.6 L Hct 35.6 L MCV 91.5 MCH 29.8 MCHC 32.6 RDW Std Deviation 47.6 H RDW Coeff of [place] 14.3 Plt Count 276 MPV 8.6 L Immature Gran % (Auto) 0.5 Neut % (Auto) 66.8 Lymph % (Auto) 16.8 [place] % (Auto) 12.1 Eos % (Auto) 3.2 Baso % (Auto) 0.6 Neut # (Auto) 7.38 H Lymph # (Auto) 1.86 [place] # (Auto) 1.34 H Eos # (Auto) 0.35 Baso # (Auto) 0.07 Immature Gran # (Auto) 0.06 H PT INR APTT PTT Ratio Sodium 135 L Potassium 4.9 Chloride 102 Carbon Dioxide 28 Anion Gap 5 BUN 53 H Creatinine 2.66 H Est Cr Clr Drug Dosing 37.0 Est GFR ( Amer) 26.4 Est GFR (Non-Af Amer) 22.8 BUN/Creatinine Ratio 19.9 Glucose 103 H POC Glucose Estimat Average Glucose Hemoglobin A1c Calcium 8.7 Magnesium 2.5 H Total Bilirubin AST ALT Alkaline Phosphatase Total Protein Albumin Globulin Albumin/Globulin Ratio Lipase Urine Color Yellow Urine Appearance Clear Urine pH 5.5 Ur Specific [place] 1.020 Urine Protein Negative Urine Glucose (UA) 3+ H Urine Ketones Negative Urine Blood Negative Urine Nitrite Negative Urine Bilirubin Negative Urine Urobilinogen Negative Ur Leukocyte Esterase Trace H Urine WBC (Auto) 1-5 Urine RBC (Auto) 0-4 U Hyaline Cast (Auto) 0 U Epithel Cells (Auto) 5-10 H Urine Bacteria (Auto) Negative SARS-CoV-2, RNA, NAAT 08/10/22 08/10/22 08/10/22 05:57 08:08 11:58 WBC RBC Hgb Hct MCV MCH MCHC RDW Std Deviation RDW Coeff of [place] Plt Count MPV Immature Gran % (Auto) Neut % (Auto) Lymph % (Auto) [place] % (Auto) Eos % (Auto) Baso % (Auto) Neut # (Auto) Lymph # (Auto) [place] # (Auto) Eos # (Auto) Baso # (Auto) Immature Gran # (Auto) PT INR APTT PTT Ratio Sodium Potassium Chloride Carbon Dioxide Anion Gap BUN Creatinine Est Cr Clr Drug Dosing Est GFR ( Amer) Est GFR (Non-Af Amer) BUN/Creatinine Ratio Glucose POC Glucose 135 H 131 H Estimat Average Glucose 171 Hemoglobin A1c 7.6 H Calcium Magnesium Total Bilirubin AST ALT Alkaline Phosphatase Total Protein Albumin Globulin Albumin/Globulin Ratio Lipase Urine Color Urine Appearance Urine pH Ur Specific [place] Urine Protein Urine Glucose (UA) Urine Ketones Urine Blood Urine Nitrite Urine Bilirubin Urine Urobilinogen Ur Leukocyte Esterase Urine WBC (Auto) Urine RBC (Auto) U Hyaline Cast (Auto) U Epithel Cells (Auto) Urine Bacteria (Auto) SARS-CoV-2, RNA, NAAT 08/10/22 16:26 WBC RBC Hgb Hct MCV MCH MCHC RDW Std Deviation RDW Coeff of [place] Plt Count MPV Immature Gran % (Auto) Neut % (Auto) Lymph % (Auto) [place] % (Auto) Eos % (Auto) Baso % (Auto) Neut # (Auto) Lymph # (Auto) [place] # (Auto) Eos # (Auto) Baso # (Auto) Immature Gran # (Auto) PT INR APTT PTT Ratio Sodium Potassium Chloride Carbon Dioxide Anion Gap BUN Creatinine Est Cr Clr Drug Dosing Est GFR ( Amer) Est GFR (Non-Af Amer) BUN/Creatinine Ratio Glucose POC Glucose 96 Estimat Average Glucose Hemoglobin A1c Calcium Magnesium Total Bilirubin AST ALT Alkaline Phosphatase Total Protein Albumin Globulin Albumin/Globulin Ratio Lipase Urine Color Urine Appearance Urine pH Ur Specific [place] Urine Protein Urine Glucose (UA) Urine Ketones Urine Blood Urine Nitrite Urine Bilirubin Urine Urobilinogen Ur Leukocyte Esterase Urine WBC (Auto) Urine RBC (Auto) U Hyaline Cast (Auto) U Epithel Cells (Auto) Urine Bacteria (Auto) SARS-CoV-2, RNA, NAAT Diagnostic Findings Foot X-Ray 08/09/22 12:43 XR foot LT min 3V routine CLINICAL HISTORY: Left foot swelling and pain. COMPARISON STUDY: Left foot radiograph 06/23/2022. FINDINGS: No fracture or dislocation. The Lisfranc joint is intact. Soft tissue swelling within the third toe. Small focus of cortical erosion at the distal tuft of the third toe. This is new from the prior study. IMPRESSION: Tiny focus of cortical erosion at the distal tuft of the left third toe. This is consistent with an osteomyelitis ACT 112: Negative or not required by law. Electronically signed by: Damon Spear M.D. 08/09/2022 1:44 PM Foot MRI 08/09/22 18:23 MRI OF THE LEFT FOREFOOT WITHOUT IV CONTRAST COMPARISON STUDY: Radiographs of the left foot dated 08/09/2022. TECHNIQUE: MRI of the left forefoot is performed utilizing various T1 and T2- weighted sequences in the axial, sagittal, and coronal planes. IV contrast was not administered for this examination. The examination is significantly degraded by motion artifact. FINDINGS: There is significant marrow edema seen within the middle and distal phalanges of the second toe. Cortical erosion is suggested involving the tuft of the second distal phalanx, these findings are highly suspicious for osteomyelitis. There is associated soft tissue edema in the second toe. No organized fluid collection is seen to indicate abscess. No similar-appearing foci of marrow edema are seen throughout the remainder of the forefoot. Mild multifocal degenerative changes noted, greatest at the tarsometatarsal articulations. There is no MRI evidence of acute fracture. The visualized flexor and extensor tendons appear intact. The imaged portions of the plantar fascia are maintained. There is generalized atrophy of the regional musculature. IMPRESSION: 1. Marrow change involving the middle and distal phalanges of the second toe which is highly suspicious for osteomyelitis. Clinical correlation will be required. 2. No additional foci of similar-appearing marrow change are seen throughout the forefoot. 3. Cellulitis of the second toe. No organized fluid collection is seen to indicate abscess. Dictated: 08/10/2022 10:24 AM Transcribed: 08/10/2022 10:43 AM Lynsey [id number] [email or web address] Electronically signed by: Jhonatan Galarza M.D. 08/10/2022 10:44 AM Medications Administered Current Inpatient Medications Acetaminophen (Acetaminophen 500 Mg Tab) 500 mg PO Q6H PRN PRN Reason: Pain Stop: 09/08/22 17:16 Last Admin: 08/10/22 16:14 Dose: 500 mg Albuterol (Albut/Ipratrop 3mg/0.5mg Neb 3 Ml Vial) 3 ml INH QID PRN; Protocol PRN Reason: Shortness Of Breath Stop: 09/08/22 17:16 Apixaban (Apixaban 5 Mg Tablet) 5 mg PO BID ZHANE Stop: 09/08/22 20:59 Last Admin: 08/10/22 08:33 Dose: 5 mg Cyanocobalamin (Cyanocobalamin (B-12) 500 Mcg Tablet) 1,000 mcg PO DAILY ZHANE Stop: 09/09/22 08:59 Last Admin: 08/10/22 08:34 Dose: 1,000 mcg Cyclobenzaprine HCl (Cyclobenzaprine Hcl 10 Mg Tab) 10 mg PO BID PRN PRN Reason: Muscle Spasm Stop: 09/08/22 17:16 Dextrose (Dextrose 50% 50 Ml Syringe) 25 - 50 ml IV UD PRN; Protocol PRN Reason: Hypoglycemia Protocol Stop: 09/08/22 17:16 Famotidine (Famotidine 20 Mg Tab) 20 mg PO BID ZHANE Stop: 09/08/22 20:59 Last Admin: 08/10/22 08:33 Dose: 20 mg Gentamicin Sulfate (Gentamicin Sulfate 0.1% Cr 15 Gm Tube) 1 appln EXT DAILY ZHANE Stop: 08/20/22 08:59 Last Admin: 08/10/22 08:34 Dose: 1 appln Glucagon (Glucagon For Inj 1 Mg Vial) 1 mg SQ UD PRN; Protocol PRN Reason: Hypoglycemia Protocol Stop: 09/08/22 17:16 Glucose (Glucose 40% Gel 15 Gm Tube) 15 - 30 gm PO UD PRN; Protocol PRN Reason: Hypoglycemia Protocol Stop: 09/08/22 17:16 Glucose (Glucose 10 Tab/Tube) 4 - 8 tab PO UD PRN; Protocol PRN Reason: Hypoglycemia Treatment Stop: 09/08/22 17:16 Piperacillin Sod/Tazobactam (Sod 3.375 gm/ Dextrose) 115 mls @ 28.75 mls/hr IV Q8H ZHANE; Protocol Stop: 08/16/22 21:29 Last Infusion: 08/10/22 17:24 Dose: Infused Daptomycin 425 mg/ Syringe 8.5 mls @ 4.25 mls/min IV Q24H ZHANE; Protocol Stop: 08/17/22 13:29 Last Admin: 08/10/22 13:11 Dose: 4.25 mls/min Insulin Aspart (Insulin Aspart Per Unit) 0 units SC ACHS ZHANE Stop: 09/08/22 17:16 Last Admin: 08/10/22 17:31 Dose: 4 units Insulin Glargine (Lantus Per Unit Charge) 55 units SQ BID ZHANE Stop: 09/08/22 20:59 Last Admin: 08/10/22 08:40 Dose: 55 units Magnesium Oxide (Magnesium Oxide 400 Mg Tab) 400 mg PO DAILY ZHANE Stop: 09/09/22 08:59 Last Admin: 08/10/22 08:34 Dose: 400 mg Metoprolol Tartrate (Metoprolol Tartrate 100 Mg Tab) 100 mg PO BID ZHANE Stop: 09/08/22 20:59 Last Admin: 08/10/22 08:33 Dose: 100 mg Miscellaneous (Carbohydrates For Hypoglycemia ) 15 - 30 gm PO UD PRN PRN Reason: Hypoglycemia Protocol Stop: 09/08/22 17:16 Ondansetron HCl (Ondansetron Inj 2 Mg/Ml 2 Ml Vial) 4 mg IV Q6H PRN PRN Reason: Nausea Stop: 09/08/22 17:16 Polyethylene Glycol (Polyethylene (Miralax) 17 Gm Pack) 17 gm PO DAILY PRN PRN Reason: Constipation Stop: 09/08/22 17:16
[2022-08-10] MEDS ORDERED: LANTUS PER UNIT CHARGE SQ ONE (22:19)
[2022-08-11] MEDS: PIPERACILLIN/TAZOBACTAM 3.375 GM in DEXTROSE 5% 100 ML IV SCH (05:55)
[2022-08-11] MEDS: INSULIN ASPART PER UNIT SC SCH ×4 (08:05→21:22)
[2022-08-11] MEDS: CYANOCOBALAMIN (B-12) 500 MCG TABLET PO SCH (08:11)
[2022-08-11] MEDS: GENTAMICIN SULFATE 0.1% CR 15 GM TUBE EXT SCH (08:12)
[2022-08-11] MEDS: LANTUS PER UNIT CHARGE SQ SCH ×2 (08:12→21:23)
[2022-08-11] MEDS: FAMOTIDINE 20 MG TAB PO SCH ×2 (08:12→21:25)
[2022-08-11] MEDS: MAGNESIUM OXIDE 400 MG TAB PO SCH (08:13)
[2022-08-11] MEDS: METOPROLOL TARTRATE 100 MG TAB PO SCH ×2 (08:13→21:25)
[2022-08-11 08:21] LABS: Hematocrit (blood only) 38.8 % (40.1-51.0); Hemoglobin 12.4 g/dl (14.0-18.0); Mean Corpuscular Volume 93.9 fL (80.0-100.0); Mean Platelet Volume 8.5 fL (9.4-12.4); Platelet Count 297 K/uL (130-400); RDW Coefficient of Variation 14.5 % (11.5-14.5); RDW Standard Deviation 49.3 fL (36.4-46.3); Red Blood Count 4.13 M/uL (4.63-6.08)
[2022-08-11 08:39] LABS: BUN Creatinine Ratio 18.1 (10-20); C Reactive Protein 4.03 mg/dl (0-0.5); Creatinine Clr Calc Pharmacy 39.4 ml/min; Est GFR (African American) 28.6 ml/min; Est GFR (Non-African American) 24.7 ml/min; Potassium 4.7 mmol/L (3.5-5.1)
--- NOTE | 2022-08-11 09:37 | Vascular Medicine Consultation ---
Date of Consultation August 11, 2022 Assessment & Plan (1) Diabetic ulcer of toe of left foot: 2. Osteomyelitis of second/third toe 3. Type 2 diabetes 4. PAD with suspected left lower extremity infection iliac, SFA disease 5. Chronic venous insufficiencystatus post left GSV VenaSeal, no left SSV reflux 6. Chronic diastolic heart failure 7. Coronary disease with residual distal RCA disease 8. Paroxysmal atrial fibrillation/flutteron anticoagulation with Eliquis 9. Prior aortic stenosis post TAVR 04/2022 10. Acute on chronic renal insufficiency 11. COPD/obstructive sleep apnea Unfortunately patient's diabetic foot ulcers involving the second/third digits have deteriorated since last week and imaging now consistent with osteomyelitis. Scheduled to undergo amputation with podiatry later today. Patient with reduced toe pressures and suspected iliac/SFA/popliteal disease on recent duplex. For threatened limb recommend right lower extremity angiogram and likely endovascular intervention at some point when renal function improved. Potentially sometime next week pending clinical course. Will follow History of Present Illness Attending Physician: Makayla Henderson MD History of Present Illness Mr. Painter is a very pleasant 71-year-old man seen today in the hospital for left foot second/third digit cellulitis/osteomyelitis in the setting of CVI/PAD. Has had chronic bilateral lower extremity edema. Underwent LT GSV remnant Venaseal 05/24/2022. 1 month later was seen in f/up and new toe ulcers noted. Venous ulcers healed and ultrasound showed appropriate LT GSV closure. Initial xray without evidence of osteomyelitis. Repeat noninvasive arterial testing at that time Left TBI 0.15 (22 mmHg). LLE arterial duplex with mid/distal SFA possible hemodynamically significant stenosis versus short occlusion. Popliteal, tibial vessels patent with dampened flow. Was seen 1 week ago with new blistering/weeping ulcers over LT anterior lopez. Toe ulcers improving at that time. No fevers/chills. No rest pain. Patient was scheduled to undergo angiogram and possible left lower extremity endovascular intervention today but preprocedure labs noted new STELLA with creatinine up to 2.9 (on Bactrim at the time), baseline around 1.6-1.9. Was seen in the wound clinic earlier this week and toe wounds have deteriorated. Sent to ED for IV antibiotics. Now on daptomycin, Zosyn, gentamicin being followed by [facility]. Repeat x-ray and later MRI suggestive of second/third digit osteomyelitis. Seen by podiatry and to undergo amputation today. Prior Vascular history: Patient has a complex cardiac history including HFpEF, coronary artery disease and aortic stenosis post TAVR 04/2022. Post right upper extremity axillary to brachial bypass using LT GSV, known left brachial artery stenosis. Other medical issues include type 2 diabetes, chronic renal insufficiency, morbid obesity/SHIRA on CPAP, hypertension, COPD. Most recent vascular studies: Arterial duplex 06/2022: Right TBI 0.29 (41 mmHg), left TBI 0.15 (22 mmHg). Left iliac/[employer] triphasic waveforms, possible left mid SFA short occlusion with reconstitution in distal SFA. Left POP, calf vessels patent with dampened waveforms. Arterial duplex 02/2022: Right TBI 0.48 (70 mmHg). Diffuse moderate right EIA to popliteal disease, calf vessels patent. Left TBI 0.17 (25 mmHg). Monophasic waveforms throughout potentially consistent with inflow disease, popliteal/calf vessels patent Venous reflux 02/2022: Left GSV remnant dilated with reflux, left SSV dilated with reflux Pre-TAVR CTA 12/2021: INTRA-ABDOMINAL AORTA: Moderate atherosclerotic plaque and calcification. Normal course and caliber. ILIOFEMORAL ARTERIES: Right iliofemoral arteries: Moderate atherosclerotic calcification, without significant stenosis. Minimum diameter of the iliac arteries: 6.01 mm Minimum diameter of the common femoral artery at the level of the femoral head: 5.24 mm Left iliofemoral arteries: Moderate atherosclerotic calcification, with resultant mild stenosis. Minimum diameter of the iliac arteries: 3.74 mm Minimum diameter of the common femoral artery at the level of the femoral head: 5.48 mm Allergies Allergy/AdvReac Type Severity Reaction Status Date / Time No Known Drug Allergies Allergy Unknown NONE Verified 08/09/22 08:28 Home Medications Medication Instructions Recorded Confirmed Type multivitamin (Daily Multi-Vitamin 1 tab PO QAM ##0 07/12/10 08/09/22 History tablet) lisinopril 20 mg tablet 20 mg PO QAM #0 tabs 10/21/14 08/09/22 History omega 3 350 mg-dha 235 mg-epa 90 1 cap PO QAM #0 caps 01/25/18 08/09/22 History mg-fish oil 597 mg capsule,delay rel ([place]-3) BD Ultra-Fine Mini Pen Needle 31 #500 ea 04/28/19 08/04/22 Rx gauge x 3/16" (pen needle, diabetic) acetaminophen 500 mg tablet 500 mg PO Q6H PRN Pain #0 tabs 05/21/19 08/09/22 History (Acetaminophen Extra Strength) inhalational spacing device #1 ea 05/21/19 08/04/22 History (Vortex Holding Chamber) insulin aspart U-100 100 unit/mL See Rx Instructions .Route .COMPLEX 09/16/19 08/09/22 History (3 mL) subcutaneous pen (Novolog Flexpen U-100 Insulin aspart) apixaban 5 mg tablet (Eliquis) 5 mg PO BID #60 tabs 10/06/19 08/09/22 Rx CPAP Supplies #1 ea 10/28/19 08/04/22 Rx atorvastatin 40 mg tablet (Lipitor) 40 mg PO QPM 02/16/20 08/09/22 History blood sugar diagnostic (OneTouch #10 ea 02/08/21 08/04/22 History Ultra Blue Test Strip) cyclobenzaprine 10 mg tablet 10 mg PO BID PRN Muscle Spasm 05/20/21 08/09/22 History famotidine 20 mg tablet (Pepcid) 20 mg PO BID 05/20/21 08/09/22 History albuterol sulfate 2.5 mg/3 mL 2.5 mg inhalation Q6H PRN sob 05/30/21 08/09/22 History (0.083 %) solution for nebulization metformin 1,000 mg tablet 1,000 mg PO BID 05/30/21 08/09/22 History ipratropium 0.5 mg-albuterol 3 mg 3 ml inhalation QID PRN Shortness 06/06/21 08/09/22 Rx (2.5 mg base)/3 mL nebulization Of Breath #360 vials soln canagliflozin 300 mg tablet 300 mg PO QAM #90 tabs 08/10/21 08/09/22 Rx (Invokana) FreeStyle Rachid 14 Day Decker #1 ea 02/10/22 08/04/22 Rx (flash glucose scanning reader) FreeStyle Rachid 14 Day Sensor #6 ea 02/10/22 08/04/22 Rx (flash glucose sensor) Portable Oxygen 05/01/22 08/09/22 History cyanocobalamin (vitamin B-12) 1,000 mcg PO DAILY 06/20/22 08/09/22 History 1,000 mcg capsule furosemide 40 mg tablet (Lasix) 40 mg PO QAM 06/20/22 08/09/22 History magnesium 250 mg tablet 250 mg PO DAILY 06/20/22 08/09/22 History insulin glargine 100 unit/mL (3 55 unit subcut BID 06/22/22 08/09/22 History mL) subcutaneous pen (Lantus Solostar U-100 Insulin) metoprolol tartrate 50 mg tablet 100 mg PO BID 06/22/22 08/09/22 History (Lopressor) gentamicin 0.1 % topical ointment 1 applic topical DAILY 14 days #30 06/26/22 08/09/22 Rx grams furosemide 40 mg tablet 20 mg PO DAILY PRN Edema 08/09/22 08/09/22 History sulfamethoxazole 400 1 tab PO DAILY 08/09/22 08/09/22 History mg-trimethoprim 80 mg tablet (Bactrim) Patient History Medical History (Updated 08/10/22 @ 19:05 by Cesilia Patiño MD) Aortic stenosis follows with Dr. Gorman Atrial fibrillation successful cardioversion ~2017. follows with Dr[address] Gorman. Bilateral carotid artery stenosis Cardiac murmur Cellulitis hx Chronic obstructive pulmonary disease Diabetes mellitus, type 2 Diabetic peripheral neuropathy associated with type 2 diabetes mellitus GERD (gastroesophageal reflux disease) History of cardioversion (~2017) care home (current) use of anticoagulants Mass of right kidney pt unaware Morbid obesity Multiple pulmonary nodules determined by computed tomography of lung Osteoarthritis Sciatica Sensorineural hearing loss (SNHL) of both ears Wears binaural hearing aids Sleep apnea cpap with 2lpm Surgical History H/O vascular surgery (~10/2020) left leg vein moved to the right arm for bypass d/t poor circulation History of cardiac cath FEBRUARY 2018 - [facility] [place].FIB, SOB - NO STENTS/ANGIOPLASTY History of colonoscopy W/ POLYPECTOMY History of esophagogastroduodenoscopy (EGD) History of hernia repair History of surgery RT ADRENALECTOMY History of tonsillectomy Hx of aortic valve replacement S/P epidural steroid injection Sacro-iliac joint injection Family History Grandmother Cancer Father Cancer Mother Cancer Sister Diabetes Psoriasis Cardiac disorder Other Family history of bleeding disorder Hypertension No family history of adverse response to anesthesia Social History Smoking Status: Former smoker Tobacco Type: Cigarettes Second Hand Exposure: No; Hx Alcohol Use: Yes Alcohol type: beer Alcohol Intake Frequency Comment: 1-2 times per month, seldom Hx Substance Use: No Preferred Language: Cuban Communication Ability: Effective Visual Impairment: Limited Hearing Ability: Hard of Hearing Transverse Abdominal Muscle Nurse Required: No Beliefs That Will Affect Care: None marital status: Single 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 Son lives away. /SO able to help a little however has a broken back and is unable to assist much. Feels Safe at Home: Yes during the past year weight has: remained stable Assistive Devices: Cane, CPAP, Oxygen - Continuous and Walker Review of Systems Review of Systems: All systems reviewed & are unremarkable except as noted in HPI & below Physical Exam Physical Exam: General: Comfortable HEENT: Sclerae anicteric Neuro: Nonfocal Psych: Alert orient x3, normal affect and mood Cardio: Irregularly irregular, crisp bioprosthetic closure Lungs: Clear to auscultation bilaterally Extremities: -- trace left lower extreme edema, improved from a week ago --Left foot normal color, sluggish capillary refill --Left DP/PT pulses diminished --Residual varicose veins -- Second/third digits with erythema,Wound has increased in area, depth since 1 week ago, yellow slough noted. No odor ordrainage -- LT anterior lopez erythema, removed from previous marking, superficial ulcer covered, no drainage Results & Data ([facility]) Vital Signs (Past 12 Hours) Vital Signs Temp Pulse Pulse Pulse Resp BP BP 08/11/22 07:34 98.6 F 76 19 145/73 H 08/11/22 04:00 97.9 F 70 18 118/78 08/10/22 22:01 82 08/10/22 23:00 99.3 F 76 18 104/59 L 12/08/22 21:56 76 135/71 Pulse Ox O2 Del Method 08/11/22 07:34 96 Room Air 08/11/22 04:00 94 Room Air 08/10/22 22:01 08/10/22 23:00 94 Room Air 08/10/22 21:56 PG Care Time/CCT Total # of Minutes Spent Total Time Spent with Patient: Total time spent is greater than 50% in coordination of care (as documented) at patient's floor/unit and/or counseling patient: Coding Level of Care Code 02139 Initial Inpt Care Lvl 3 Diagnoses Diabetic ulcer of toe of left foot E11.621; L97.529
--- NOTE | 2022-08-11 09:57 | Infectious Disease Progress Nt ---
Date of Service August 11, 2022 Assessment & Plan (1) Osteomyelitis: (2) Venous stasis ulcer: (3) Cellulitis: (4) Acute kidney injury superimposed on CKD: Plan 71 yo M with h/o DM2 (last A1C 7.5%), chronic LE foot wounds, CAD, PVD, CHF, TAVR 04/2022, Afib on Eliquis, CKD, and COPD who was admitted with STELLA, LLE cellulitis and concerns for L foot osteomyelitis. Infectious Diseases has been consulted for antibiotic management of LLE wounds. Patient with h/o L and R leg venous ulcers. Arterial dopplers of LLE 06/27/22 that showed possible LT mid SFA short segment occlusion and LT TBI severe reduced c/w impaired healing and RT TBI severely reduced. Admittted on Bactrim for LLE cellulitis, found to have STELLA. AdmissionVSS, afebrile and hypertensive. Labs remarkable for WBC 11.8, creatinine 2.87 and potassium 5.3. Xray of Left forefoot showed Tiny focus of cortical erosion at the distal tuft of the left third toe, consistent with osteomyelitis. However MRI of L forefoot revealed marrrow change involving the middle and distal phalanges of the second toe which is highly suspicious for osteomyelitis (no osteomyelitis of 3rd digit). Patient was started on IV Daptomycin and Zosyn Exam is notable for LLE erythema. Discussion: Patient with PVD now with LLE cellulitis and 2nd digit osteomyelitis. These appear to be 2 seperate processes. I evaluated patient with Dr. Gorman today. I spoke with Podiatry yesterday regarding amputation vs debrid ement We discussed treatment for osteomyelitis x 6 week vs amputation (potentially curative) and likely oral abx in this case. Will await OR findings. Please send post debridement for culture/pathology Recommend: -Continue with Daptomycin, ordered CPK this am, patient not on statin -Continue with Zosyn -Podiatry intervention today, please send clean margins for bone cultures and pathology -Vascular Medicine seeing patient this AM, holding on procedure until creatinine has stabilized I am available by page this weekend and will be back to service on Sunday. Thank you for allowing me to participate in the care of your patient. Cesilia Patiño MD [facility], [facility] Admission and Anticipated Discharge Date Admission Date: August 09, 2022 Subjective Subsequent visit was provided via telemedicine using two-way real-time interactive telecommunication between the patient and the telemedicine provider. For the duration of the visit, the provider was performing the assessment from a different facility than the patient. This includesuse of bluetooth stethoscope forauscultationperformed by the telepresenter that the telemedicine provider can hear if described in the physical exam. Jack Tamp Operator contact information: Please call [facility] Call Center [phone]. (Phone Number For Physician Use Only) After establishing a telemedicine visit, patient was: Patient was verified with two unique identifiers, Patient/authorized rep acknowledged consent and understanding and Gave permission to continue telehealth session Subsequent Time Spent w Inpatient: 35 minutes 24 hours: DIANA, NPO for surgery Cr improving No new Micro S: Patient feeling well, no fevers/chills. Leg feels about the same. Physical Exam Constitutional: WD/WN, vitals as above Skin: L leg ulcer unchanged, erythema regressed L foot erythema on toes, unchanged Results & Data ([facility]) Vital Signs (Past 12 Hours) Vital Signs Temp Pulse Pulse Pulse Resp BP BP 08/11/22 07:34 37.0 C 76 19 145/73 H 08/11/22 04:00 36.6 C 70 18 118/78 08/10/22 22:01 82 08/10/22 23:00 37.4 C 76 18 104/59 L 08/10/22 21:56 76 135/71 Pulse Ox O2 Del Method 08/11/22 07:34 96 Room Air 08/11/22 04:00 94 Room Air 08/10/22 22:01 08/10/22 23:00 94 Room Air 08/10/22 21:56 Laboratory Results Laboratory Results - last 48 hr 08/09/22 08/09/22 08/09/22 10:42 10:42 10:42 WBC 11.89 H RBC 4.39 L Hgb 13.2 L Hct 40.7 MCV 92.7 MCH 30.1 MCHC 32.4 RDW Std Deviation 48.2 H RDW Coeff of Jaylen 14.3 Plt Count 304 MPV 8.7 L Immature Gran % (Auto) 0.4 Neut % (Auto) 70.9 Lymph % (Auto) 14.9 [place] % (Auto) 10.7 Eos % (Auto) 2.4 Baso % (Auto) 0.7 Neut # (Auto) 8.43 H Lymph # (Auto) 1.77 [place] # (Auto) 1.27 H Eos # (Auto) 0.29 Baso # (Auto) 0.08 Immature Gran # (Auto) 0.05 H PT 11.1 INR 1.0 APTT 31.9 H PTT Ratio 1.2 Sodium 135 L Potassium 5.3 H D Chloride 100 Carbon Dioxide 27 Anion Gap 8 BUN 60 H Creatinine 2.87 H Est Cr Clr Drug Dosing 33.7 Est GFR ( Amer) 24.1 Est GFR (Non-Af Amer) 20.8 BUN/Creatinine Ratio 20.9 H Glucose 106 H POC Glucose Estimat Average Glucose Hemoglobin A1c Calcium 9.3 Magnesium Total Bilirubin 0.4 AST 15 ALT 18 Alkaline Phosphatase 105 H Total Creatine Kinase C-Reactive Protein Total Protein 7.2 Albumin 3.8 Globulin 3.4 Albumin/Globulin Ratio 1.1 Lipase 40 Urine Color Urine Appearance Urine pH Ur Specific [place] Urine Protein Urine Glucose (UA) Urine Ketones Urine Blood Urine Nitrite Urine Bilirubin Urine Urobilinogen Ur Leukocyte Esterase Urine WBC (Auto) Urine RBC (Auto) U Hyaline Cast (Auto) U Epithel Cells (Auto) Urine Bacteria (Auto) SARS-CoV-2, RNA, NAAT 08/09/22 08/09/22 08/09/22 17:54 21:13 Unknown WBC RBC Hgb Hct MCV MCH MCHC RDW Std Deviation RDW Coeff of Jaylen Plt Count MPV Immature Gran % (Auto) Neut % (Auto) Lymph % (Auto) [place] % (Auto) Eos % (Auto) Baso % (Auto) Neut # (Auto) Lymph # (Auto) [place] # (Auto) Eos # (Auto) Baso # (Auto) Immature Gran # (Auto) PT INR APTT PTT Ratio Sodium Potassium Chloride Carbon Dioxide Anion Gap BUN Creatinine Est Cr Clr Drug Dosing Est GFR ( Amer) Est GFR (Non-Af Amer) BUN/Creatinine Ratio Glucose POC Glucose 70 128 H Estimat Average Glucose Hemoglobin A1c Calcium Magnesium Total Bilirubin AST ALT Alkaline Phosphatase Total Creatine Kinase C-Reactive Protein Total Protein Albumin Globulin Albumin/Globulin Ratio Lipase Urine Color Urine Appearance Urine pH Ur Specific [place] Urine Protein Urine Glucose (UA) Urine Ketones Urine Blood Urine Nitrite Urine Bilirubin Urine Urobilinogen Ur Leukocyte Esterase Urine WBC (Auto) Urine RBC (Auto) U Hyaline Cast (Auto) U Epithel Cells (Auto) Urine Bacteria (Auto) SARS-CoV-2, RNA, NAAT NEGATIVE 08/10/22 08/10/22 08/10/22 03:39 05:57 05:57 WBC 11.06 H RBC 3.89 L Hgb 11.6 L Hct 35.6 L MCV 91.5 MCH 29.8 MCHC 32.6 RDW Std Deviation 47.6 H RDW Coeff of Jaylen 14.3 Plt Count 276 MPV 8.6 L Immature Gran % (Auto) 0.5 Neut % (Auto) 66.8 Lymph % (Auto) 16.8 [place] % (Auto) 12.1 Eos % (Auto) 3.2 Baso % (Auto) 0.6 Neut # (Auto) 7.38 H Lymph # (Auto) 1.86 [place] # (Auto) 1.34 H Eos # (Auto) 0.35 Baso # (Auto) 0.07 Immature Gran # (Auto) 0.06 H PT INR APTT PTT Ratio Sodium 135 L Potassium 4.9 Chloride 102 Carbon Dioxide 28 Anion Gap 5 BUN 53 H Creatinine 2.66 H Est Cr Clr Drug Dosing 37.0 Est GFR ( Amer) 26.4 Est GFR (Non-Af Amer) 22.8 BUN/Creatinine Ratio 19.9 Glucose 103 H POC Glucose Estimat Average Glucose Hemoglobin A1c Calcium 8.7 Magnesium 2.5 H Total Bilirubin AST ALT Alkaline Phosphatase Total Creatine Kinase C-Reactive Protein Total Protein Albumin Globulin Albumin/Globulin Ratio Lipase Urine Color Yellow Urine Appearance Clear Urine pH 5.5 Ur Specific [place] 1.020 Urine Protein Negative Urine Glucose (UA) 3+ H Urine Ketones Negative Urine Blood Negative Urine Nitrite Negative Urine Bilirubin Negative Urine Urobilinogen Negative Ur Leukocyte Esterase Trace H Urine WBC (Auto) 1-5 Urine RBC (Auto) 0-4 U Hyaline Cast (Auto) 0 U Epithel Cells (Auto) 5-10 H Urine Bacteria (Auto) Negative SARS-CoV-2, RNA, NAAT 08/10/22 08/10/22 08/10/22 05:57 08:08 11:58 WBC RBC Hgb Hct MCV MCH MCHC RDW Std Deviation RDW Coeff of Jay[place] Plt Count MPV Immature Gran % (Auto) Neut % (Auto) Lymph % (Auto) [place] % (Auto) Eos % (Auto) Baso % (Auto) Neut # (Auto) Lymph # (Auto) [place] # (Auto) Eos # (Auto) Baso # (Auto) Immature Gran # (Auto) PT INR APTT PTT Ratio Sodium Potassium Chloride Carbon Dioxide Anion Gap BUN Creatinine Est Cr Clr Drug Dosing Est GFR ( Amer) Est GFR (Non-Af Amer) BUN/Creatinine Ratio Glucose POC Glucose 135 H 131 H Estimat Average Glucose 171 Hemoglobin A1c 7.6 H Calcium Magnesium Total Bilirubin AST ALT Alkaline Phosphatase Total Creatine Kinase C-Reactive Protein Total Protein Albumin Globulin Albumin/Globulin Ratio Lipase Urine Color Urine Appearance Urine pH Ur Specific [place] Urine Protein Urine Glucose (UA) Urine Ketones Urine Blood Urine Nitrite Urine Bilirubin Urine Urobilinogen Ur Leukocyte Esterase Urine WBC (Auto) Urine RBC (Auto) U Hyaline Cast (Auto) U Epithel Cells (Auto) Urine Bacteria (Auto) SARS-CoV-2, RNA, NAAT 08/10/22 08/10/22 08/11/22 16:26 20:29 07:27 WBC RBC Hgb Hct MCV MCH MCHC RDW Std Deviation RDW Coeff of Jaylen Plt Count MPV Immature Gran % (Auto) Neut % (Auto) Lymph % (Auto) [place] % (Auto) Eos % (Auto) Baso % (Auto) Neut # (Auto) Lymph # (Auto) [place] # (Auto) Eos # (Auto) Baso # (Auto) Immature Gran # (Auto) PT INR APTT PTT Ratio Sodium Potassium Chloride Carbon Dioxide Anion Gap BUN Creatinine Est Cr Clr Drug Dosing Est GFR ( Amer) Est GFR (Non-Af Amer) BUN/Creatinine Ratio Glucose POC Glucose 96 115 H 114 H Estimat Average Glucose Hemoglobin A1c Calcium Magnesium Total Bilirubin AST ALT Alkaline Phosphatase Total Creatine Kinase C-Reactive Protein Total Protein Albumin Globulin Albumin/Globulin Ratio Lipase Urine Color Urine Appearance Urine pH Ur Specific [place] Urine Protein Urine Glucose (UA) Urine Ketones Urine Blood Urine Nitrite Urine Bilirubin Urine Urobilinogen Ur Leukocyte Esterase Urine WBC (Auto) Urine RBC (Auto) U Hyaline Cast (Auto) U Epithel Cells (Auto) Urine Bacteria (Auto) SARS-CoV-2, RNA, NAAT 08/11/22 08/11/22 07:55 07:55 WBC 8.30 RBC 4.13 L Hgb 12.4 L Hct 38.8 L MCV 93.9 MCH 30.0 MCHC 32.0 RDW Std Deviation 49.3 H RDW Coeff of Jaylen 14.5 Plt Count 297 MPV 8.5 L Immature Gran % (Auto) Neut % (Auto) Lymph % (Auto) [place] % (Auto) Eos % (Auto) Baso % (Auto) Neut # (Auto) Lymph # (Auto) [place] # (Auto) Eos # (Auto) Baso # (Auto) Immature Gran # (Auto) PT INR APTT PTT Ratio Sodium 136 Potassium 4.7 Chloride 102 Carbon Dioxide 29 Anion Gap 5 BUN 45 H Creatinine 2.49 H Est Cr Clr Drug Dosing 39.4 Est GFR ( Amer) 28.6 Est GFR (Non-Af Amer) 24.7 BUN/Creatinine Ratio 18.1 Glucose 112 H POC Glucose Estimat Average Glucose Hemoglobin A1c Calcium 9.0 Magnesium Total Bilirubin AST ALT Alkaline Phosphatase Total Creatine Kinase 75 C-Reactive Protein 4.03 H Total Protein Albumin Globulin Albumin/Globulin Ratio Lipase Urine Color Urine Appearance Urine pH Ur Specific [place] Urine Protein Urine Glucose (UA) Urine Ketones Urine Blood Urine Nitrite Urine Bilirubin Urine Urobilinogen Ur Leukocyte Esterase Urine WBC (Auto) Urine RBC (Auto) U Hyaline Cast (Auto) U Epithel Cells (Auto) Urine Bacteria (Auto) SARS-CoV-2, RNA, NAAT Medications Administered Current Inpatient Medications Acetaminophen (Acetaminophen 500 Mg Tab) 500 mg PO Q6H PRN PRN Reason: Pain Stop: 09/08/22 17:16 Last Admin: 08/10/22 16:14 Dose: 500 mg Albuterol (Albut/Ipratrop 3mg/0.5mg Neb 3 Ml Vial) 3 ml INH QID PRN; Protocol PRN Reason: Shortness Of Breath Stop: 09/08/22 17:16 Apixaban (Apixaban 5 Mg Tablet) 5 mg PO BID ZHANE Stop: 09/08/22 20:59 Last Admin: 08/10/22 21:57 Dose: 5 mg Cyanocobalamin (Cyanocobalamin (B-12) 500 Mcg Tablet) 1,000 mcg PO DAILY ZHANE Stop: 09/09/22 08:59 Last Admin: 08/11/22 08:11 Dose: 1,000 mcg Cyclobenzaprine HCl (Cyclobenzaprine Hcl 10 Mg Tab) 10 mg PO BID PRN PRN Reason: Muscle Spasm Stop: 09/08/22 17:16 Dextrose (Dextrose 50% 50 Ml Syringe) 25 - 50 ml IV UD PRN; Protocol PRN Reason: Hypoglycemia Protocol Stop: 09/08/22 17:16 Famotidine (Famotidine 20 Mg Tab) 20 mg PO BID [facility] Stop: 09/08/22 20:59 Last Admin: 08/11/22 08:12 Dose: 20 mg Gentamicin Sulfate (Gentamicin Sulfate 0.1% Cr 15 Gm Tube) 1 appln EXT DAILY ZHANE Stop: 08/20/22 08:59 Last Admin: 08/11/22 08:12 Dose: 1 appln Glucagon (Glucagon For Inj 1 Mg Vial) 1 mg SQ UD PRN; Protocol PRN Reason: Hypoglycemia Protocol Stop: 09/08/22 17:16 Glucose (Glucose 40% Gel 15 Gm Tube) 15 - 30 gm PO UD PRN; Protocol PRN Reason: Hypoglycemia Protocol Stop: 09/08/22 17:16 Glucose (Glucose 10 Tab/Tube) 4 - 8 tab PO UD PRN; Protocol PRN Reason: Hypoglycemia Treatment Stop: 09/08/22 17:16 Piperacillin Sod/Tazobactam (Sod 3.375 gm/ Dextrose) 115 mls @ 28.75 mls/hr IV Q8H [facility]; Protocol Stop: 08/16/22 21:29 Last Admin: 08/11/22 05:55 Dose: 28.8 mls/hr Daptomycin 425 mg/ Syringe 8.5 mls @ 4.25 mls/min IV Q24H [facility]; Protocol Stop: 08/17/22 13:29 Last Admin: 08/10/22 13:11 Dose: 4.25 mls/min Insulin Aspart (Insulin Aspart Per Unit) 0 units SC ACHS [facility] Stop: 09/08/22 17:16 Last Admin: 08/11/22 08:05 Dose: Not Given Insulin Glargine (Lantus Per Unit Charge) 55 units SQ BID [facility] Stop: 09/08/22 20:59 Last Admin: 08/11/22 08:12 Dose: 55 units Magnesium Oxide (Magnesium Oxide 400 Mg Tab) 400 mg PO DAILY [facility] Stop: 09/09/22 08:59 Last Admin: 08/11/22 08:13 Dose: 400 mg Metoprolol Tartrate (Metoprolol Tartrate 100 Mg Tab) 100 mg PO BID [facility] Stop: 09/08/22 20:59 Last Admin: 08/11/22 08:13 Dose: 100 mg Miscellaneous (Carbohydrates For Hypoglycemia ) 15 - 30 gm PO UD PRN PRN Reason: Hypoglycemia Protocol Stop: 09/08/22 17:16 Ondansetron HCl (Ondansetron Inj 2 Mg/Ml 2 Ml Vial) 4 mg IV Q6H PRN PRN Reason: Nausea Stop: 09/08/22 17:16 Polyethylene Glycol (Polyethylene (Miralax) 17 Gm Pack) 17 gm PO DAILY PRN PRN Reason: Constipation Stop: 09/08/22 17:16
[2022-08-11] MEDS: ACETAMINOPHEN 500 MG TAB PO PRN ×2 (10:08→22:59)
[2022-08-11] MEDS: APIXABAN 5 MG TABLET PO SCH ×2 (12:36→21:25)
[2022-08-11] MEDS: CEFEPIME 2,000 MG in SYRINGE 0 ML IV SCH ×2 (12:38→23:42)
--- NOTE | 2022-08-11 13:09 | Ultrasound Report ---
BILATERAL LOWER EXTREMITY ARTERIAL DOPPLER ULTRASOUND CLINICAL HISTORY: Peripheral vascular disease. COMPARISON STUDY: None available at time of interpretation. TECHNIQUE: Color and duplex Doppler sonography of the arterial systems of both lower extremities was performed. FINDINGS: There is extensive atherosclerotic plaque within the bilateral lower extremities. There is biphasic flow within the right common femoral artery. There is an elevated peak systolic velocity of 253 cm/s within the proximal right superficial femoral artery. There is monophasic flow within the re mainder of the right superficial femoral artery. There is also monophasic flow within the right popli teal artery. No flow is identified within the right anterior tibial artery. This suggests vessel occl usion with distal reconstitution. Flow was noted within the right dorsalis pedis. Monophasic flow is present within the right posterior tibial and peroneal arteries. Note is made of monophasic flow within the left common femoral and proximal to mid left superficial f emoral artery. There is suspected short segment occlusion within the distal left superficial femoral artery with distal reconstitution. Monophasic flow is noted within the left popliteal, anterior tibia l, posterior tibial and peroneal vessels. Flow within the posterior tibial artery is significantly da mpened. There is no flow within the left peroneal artery suggesting vessel occlusion. IMPRESSION: 1. Extensive atherosclerotic plaque within the bilateral lower extremities. 2. Findings suggestive of a hemodynamically significant stenosis within the proximal right superficia l femoral artery. Monophasic flow distal to the suspected stenosis. 3. Occluded right anterior tibial artery with distal reconstitution. Monophasic flow within the remai nder of the right calf vessels. 4. Suspected short segment occlusion of the distal left superficial femoral artery. Distal reconstitu tion with monophasic flow. 5. Occluded left peroneal artery. Monophasic flow within the remainder of the left calf vessels. ACT 112: Negative or not required by law. Electronically signed by: Maksim Nathan M.D. 08/11/2022 1:07 PM
--- NOTE | 2022-08-11 13:19 | Hospitalist Progress Note ---
Date of Service August 11, 2022 Assessment & Plan (1) Osteomyelitis: Plan: Patient with a history of Diabetic foot disease presents to the hospital with worsening foot wound infection MRI shows Marrow change involving the middle and distal phalanges of the second toe which is highly suspicious for osteomyelitis and also 2nd toe cellulitis Currently on Zosyn na d Daptomycin Plan is for left big toe amputation today Appreciate podiatry and ID (2) Diabetic ulcer of toe of left foot: Plan: - Wound care was concerned for cellulitis of the left leg below the knee as well as developing osteomyelitis of toes on the left foot, this has been confirmed on MRI - Consult Podiatry and ID - Daptomycin and Zosyn for now -Plan is left big toe amputation today -Appreciate podiatry and ID (3) Acute kidney injury superimposed on CKD: Plan: - Likely due to starting Bactrim 5 days ago for suspected lower leg cellulitis. -Some slight improvement following stoppage of bactrim and IV Fluids - Avoid renal toxins, renally dose as able. - Holding Invokana, lisinopril, Lasix until STELLA resolves. - Hx of with TAVR in April, still NYHA 2-3, will give gentle IV, strictly monitor I/Os. - Repeat BMP in AM. (4) Chronic diastolic (congestive) heart failure: Plan: - Echo from May: Normal left ventricular size with hyperdynamic systolic function, no regional wall motion abnormalities, EF >75%, mild LVH well-seated 26 mm Saha ultra bioprosthetic transcatheter aortic valve replacement, mildly elevated pulmonary artery pressures. - We will building Lasix as above for STELLA, resume when renal function starts to move towards baseline. - Strict I&O's, daily weights, low-salt low-sodium diet. (5) Atrial fibrillation: Plan: - Cardiac conversion in 2018, in rate controlled a fib today. - Remains on Eliquis and metoprolol. (6) Hypertension: Plan: - Hold lisinopril given STELLA, continue on metoprolol. (7) HLD (hyperlipidemia): Plan: - Continue statin therapy. (8) Chronic obstructive pulmonary disease: Plan: - Continue home inhalers with CPAP at night. (9) CAD (coronary artery disease) of artery bypass graft: Plan: - Continue statin, metoprolol, holding lisinopril for STELLA. (10) Diabetes type 2, uncontrolled: Plan: - Home regimen: Lantus 55 units twice daily, with sliding scale insulin. - We will continue his Lantus dosing, SSI. (11) Anemia: Plan: - Hgb 13.2 at baseline. - Continue to monitor. (12) SHIRA on CPAP: Plan: - CPAP hs ordered. (13) Aortic stenosis: Plan: - s/p TAVR April 2022. Plan - Continue hospitalization - SCDs, Eliquis continue for VTE ppx. - Full Code. Admission and Anticipated Discharge Date Admission Date: August 09, 2022 Review of Systems Review of Systems: All systems reviewed are negative, apart from the ones contained in the history. Physical Exam Physical Exam: The patient is awake, alert and oriented 3, well developed and well nourished, normocephalic and atraumatic, lying in bed and in no acute distress. HEENT--PERRL, EOMI, mucous membranes and oropharynx mildly dry Neck--supple. No JVD. No bruits. Thyroid normal, trachea midline, no adenopathy. Heart--normal S1 and S2. No murmurs, rubs or gallops. Lungs--clear bilaterally, no respiratory distress, no accessory muscle use. Abdomen--normal bowel sounds and soft. Mild epigastric and left sided abdominal pain Extremities--left diabetic foot ulcer Dermatologic--normal skin turgor, normal color, no abnormal lymph nodes, no rash. Neurologic--cranial nerves II through XII grossly intact. Rheumatologic--normal range of motion. Psychiatric--normal affect. Results & Data Results & Data ([facility]) Vital Signs (Past 12 Hours) Vital Signs Temp Pulse Pulse Resp BP BP Pulse Ox 08/11/22 12:10 99.1 F 75 20 108/70 93 08/11/22 10:21 77 08/11/22 07:34 98.6 F 76 19 145/73 H 96 08/11/22 04:00 97.9 F 70 18 118/78 94 O2 Del Method 08/11/22 12:10 Room Air 08/11/22 10:21 08/11/22 07:34 Room Air 08/11/22 04:00 Room Air PG Care Time/CCT Total # of Minutes Spent Total Time Spent with Patient: Total time spent is greater than 50% in coordination of care (as documented) at patient's floor/unit and/or counseling patient: Coding Level of Care Code 28907 Subseq Hosp Care Lvl 2 Diagnoses Osteomyelitis M86.9 Diabetic ulcer of toe of left foot E11.621; L97.529 Acute kidney injury superimposed on CKD N17.9; N18.9 Chronic diastolic (congestive) heart failure I50.32 Atrial fibrillation I48.91 Hypertension I10 HLD (hyperlipidemia) E78.5 Chronic obstructive pulmonary disease J44.9 CAD (coronary artery disease) of artery bypass graft I25.810 Diabetes type 2, uncontrolled E11.65 Anemia D64.9 SHIRA on CPAP G47.33; Z99.89 Aortic stenosis I35.0 Time Spent (min) 35
[2022-08-11] MEDS ORDERED: KETAMINE 50 MG/5 ML SYRINGE ONE (13:26)
[2022-08-11] MEDS ORDERED: MIDAZOLAM HCL 1 MG/ML 2ML VIAL ONE (13:26)
--- NOTE | 2022-08-11 13:28 | Anesthesiology Consultation ---
Date of Service August 11, 2022 Assessment & Plan (1) Encounter for pre-operative examination: Chart Review Chart Review: entry specialist initiated History Surgery Operation Date: 08/11/22 07:10 Proposed Procedures p Left 2nd Amputation Toe - Evans Canales DPM Height/Weight Height: 5 ft 11 in Weight: 150.8 kg Allergies Allergy/AdvReac Type Severity Reaction Status Date / Time No Known Drug Allergies Allergy Unknown NONE Verified 08/09/22 08:28 Medications Home Medications Medication Instructions Recorded Confirmed Last Taken multivitamin (Daily Multi-Vitamin 1 tab PO QAM ##0 07/12/10 08/09/22 08/09/22 09:00 tablet) lisinopril 20 mg tablet 20 mg PO QAM #0 tabs 10/21/14 08/09/22 08/09/22 09:00 omega 3 350 mg-dha 235 mg-epa 90 1 cap PO QAM #0 caps 01/25/18 08/09/22 08/09/22 09:00 mg-fish oil 597 mg capsule,delay rel ([place]-3) BD Ultra-Fine Mini Pen Needle 31 #500 ea 04/28/19 08/04/22 Unknown gauge x 3/16" (pen needle, diabetic) acetaminophen 500 mg tablet 500 mg PO Q6H PRN Pain #0 tabs 05/21/19 08/09/22 06/20/21 06:00 (Acetaminophen Extra Strength) inhalational spacing device #1 ea 05/21/19 08/04/22 Unknown (Vortex Holding Chamber) insulin aspart U-100 100 unit/mL See Rx Instructions .Route .COMPLEX 09/16/19 08/09/22 05/20/21 (3 mL) subcutaneous pen (Novolog 2 units Flexpen U-100 Insulin aspart) apixaban 5 mg tablet (Eliquis) 5 mg PO BID #60 tabs 10/06/19 08/09/22 08/09/22 09:00 CPAP Supplies #1 ea 10/28/19 08/04/22 Unknown atorvastatin 40 mg tablet (Lipitor) 40 mg PO QPM 02/16/20 08/09/22 06/19/21 blood sugar diagnostic (OneTouch #10 ea 02/08/21 08/04/22 Unknown Ultra Blue Test Strip) cyclobenzaprine 10 mg tablet 10 mg PO BID PRN Muscle Spasm 05/20/21 08/09/22 Unknown famotidine 20 mg tablet (Pepcid) 20 mg PO BID 05/20/21 08/09/22 08/09/22 09:00 albuterol sulfate 2.5 mg/3 mL 2.5 mg inhalation Q6H PRN sob 05/30/21 08/09/22 Unknown (0.083 %) solution for nebulization metformin 1,000 mg tablet 1,000 mg PO BID 05/30/21 08/09/22 08/09/22 09:00 ipratropium 0.5 mg-albuterol 3 mg 3 ml inhalation QID PRN Shortness 06/06/21 08/09/22 Unknown (2.5 mg base)/3 mL nebulization Of Breath #360 vials soln canagliflozin 300 mg tablet 300 mg PO QAM #90 tabs 08/10/21 08/09/22 08/09/22 09:00 (Invokana) FreeStyle Rachid 14 Day [place] #1 ea 02/10/22 08/04/22 Unknown (flash glucose scanning reader) FreeStyle Rachid 14 Day [place] #6 ea 02/10/22 08/04/22 Unknown (flash glucose sensor) Portable Oxygen 05/01/22 08/09/22 08/09/22 09:00 cyanocobalamin (vitamin B-12) 1,000 mcg PO DAILY 06/20/22 08/09/22 08/09/22 09:00 1,000 mcg capsule furosemide 40 mg tablet (Lasix) 40 mg PO QAM 06/20/22 08/09/22 08/09/22 09:00 magnesium 250 mg tablet 250 mg PO DAILY 06/20/22 08/09/22 08/09/22 09:00 insulin glargine 100 unit/mL (3 55 unit subcut BID 06/22/22 08/09/22 08/09/22 09:00 mL) subcutaneous pen (Lantus Solostar U-100 Insulin) metoprolol tartrate 50 mg tablet 100 mg PO BID 06/22/22 08/09/22 08/09/22 09:00 (Lopressor) gentamicin 0.1 % topical ointment 1 applic topical DAILY 14 days #30 06/26/22 08/09/22 08/09/22 09:00 grams furosemide 40 mg tablet 20 mg PO DAILY PRN Edema 08/09/22 08/09/22 Unknown sulfamethoxazole 400 1 tab PO DAILY 08/09/22 08/09/22 08/09/22 09:00 mg-trimethoprim 80 mg tablet (Bactrim) Active Medications Generic Name Dose Route Start Last Admin Trade Name [place] PRN Reason Stop Dose Admin Acetaminophen 500 mg 08/09/22 17:17 08/11/22 10:08 Acetaminophen 500 Mg Tab PO 09/08/22 17:16 500 mg Q6H PRN Administration Pain Apixaban 5 mg 08/09/22 21:00 08/11/22 12:36 Apixaban 5 Mg Tablet PO 09/08/22 20:59 Not Given BID ZHANE Cyanocobalamin 1,000 mcg 08/10/22 09:00 08/11/22 08:11 Cyanocobalamin (B-12) 500 Mcg Tablet PO 09/09/22 08:59 1,000 mcg DAILY ZHANE Administration Famotidine 20 mg 08/09/22 21:00 08/11/22 08:12 Famotidine 20 Mg Tab PO 09/08/22 20:59 20 mg BID ZHANE Administration Gentamicin Sulfate 1 appln 08/10/22 09:00 08/11/22 08:12 Gentamicin Sulfate 0.1% Cr 15 Gm Tube EXT 08/20/22 08:59 1 appln DAILY ZHANE Administration Daptomycin 425 mg/ Syringe 8.5 mls @ 4.25 mls/min 08/10/22 13:30 08/10/22 13:11 IV 08/17/22 13:29 4.25 mls/min Q24H ZHANE Administration Protocol Cefepime HCl 2,000 mg/ Syringe 20 mls @ 5 mls/min 08/11/22 12:30 08/11/22 12:38 IV 09/22/22 12:29 5 mls/min Q12H ZHANE Administration Protocol Insulin Aspart 0 units 08/09/22 17:17 08/11/22 12:36 Insulin Aspart Per Unit SC 09/08/22 17:16 Not Given ACHS ZHANE Insulin Glargine 55 units 08/09/22 21:00 08/11/22 08:12 Lantus Per Unit Charge SQ 09/08/22 20:59 55 units BID ZHANE Administration Magnesium Oxide 400 mg 08/10/22 09:00 08/11/22 08:13 Magnesium Oxide 400 Mg Tab PO 09/09/22 08:59 400 mg DAILY ZHANE Administration Metoprolol Tartrate 100 mg 08/09/22 21:00 08/11/22 08:13 Metoprolol Tartrate 100 Mg Tab PO 09/08/22 20:59 100 mg BID ZHANE Administration Past Medical History Medical History Aortic stenosis follows with Dr. Gorman Atrial fibrillation successful cardioversion ~2017. follows with Dr. Gorman. Bilateral carotid artery stenosis Cardiac murmur Cellulitis hx Chronic obstructive pulmonary disease Diabetes mellitus, type 2 Diabetic peripheral neuropathy associated with type 2 diabetes mellitus GERD (gastroesophageal reflux disease) History of cardioversion (~2017) halfway (current) use of anticoagulants Mass of right kidney pt unaware Morbid obesity Multiple pulmonary nodules determined by computed tomography of lung Osteoarthritis Sciatica Sensorineural hearing loss (SNHL) of both ears Wears binaural hearing aids Sleep apnea cpap with 2lpm Past Family History Family History Grandmother Cancer Father Cancer Mother Cancer Sister Diabetes Psoriasis Cardiac disorder Other Family history of bleeding disorder Hypertension No family history of adverse response to anesthesia Past Surgical History Surgical History H/O vascular surgery (~10/2020) left leg vein moved to the right arm for bypass d/t poor circulation History of cardiac cath FEBRUARY 2018 - [place] [facility] [place].FIB, SOB - NO STENTS/ANGIOPLASTY History of colonoscopy W/ POLYPECTOMY History of esophagogastroduodenoscopy (EGD) History of hernia repair History of surgery RT ADRENALECTOMY History of tonsillectomy Hx of aortic valve replacement S/P epidural steroid injection Sacro-iliac joint injection Social History Smoking Status: Former smoker tobacco type: cigarettes Hx Alcohol Use: Yes Alcohol type: beer alcohol intake frequency: holidays/special occasions only Hx Substance Use: No substance use type: does not use Physical Exam Vital Signs Last Vital Signs Temp 99.1 F 08/11/22 12:10 Pulse 75 08/11/22 12:10 Resp 20 08/11/22 12:10 BP 108/70 08/11/22 12:10 Pulse Ox 93 08/11/22 12:10 O2 Del Method 08/11/22 12:10 Testing Laboratory Results 08/11/22 07:55 08/11/22 07:55 PT 11.1 Seconds (9.0-12.0) 08/09/22 10:42 INR 1.0 (0.9-1.1) 08/09/22 10:42 APTT 31.9 Seconds (21.0-31.0) H 08/09/22 10:42 Hemoglobin A1c 7.6 % (4.5-5.6) H 08/10/22 05:57 Urine Color Yellow 08/10/22 03:39 Urine Appearance Clear (Clear) 08/10/22 03:39 Urine pH 5.5 (4.5-7.5) 08/10/22 03:39 Ur Specific [place] 1.020 (1.000-1.030) 08/10/22 03:39 Urine Protein Negative (Negative) 08/10/22 03:39 Urine Glucose (UA) 3+ (Negative) H 08/10/22 03:39 Urine Ketones Negative (Negative) 08/10/22 03:39 Urine Nitrite Negative (Negative) 08/10/22 03:39 Ur Leukocyte Esterase Trace (Negative) H 08/10/22 03:39 Urine WBC (Auto) 1-5 /hpf (0-5) 08/10/22 03:39 Urine RBC (Auto) 0-4 /hpf (0-4) 08/10/22 03:39 U Hyaline Cast (Auto) 0 /lpf (0-5) 08/10/22 03:39 U Epithel Cells (Auto) 5-10 /lpf (0-5) H 08/10/22 03:39 Urine Bacteria (Auto) Negative (Negative) 08/10/22 03:39 08/11/22 08/11/22 12:00 07:27 POC Glucose 92 114 H Electrocardiogram Date: 08/09/22 Atrial fibrillation, rate 79 bpm Low voltage QRS Septal infarct (cited on or before 20-MAY-2021) Abnormal ECG When compared with ECG of 04-DEC-2021 03:43, ST no longer depressed in Anterolateral leads Confirmed by Reinaldo Masters ([id number]) on 08/09/2022 4:20:28 PM Echocardiogram Date: 05/05/22 Normal LV size with hyperdynamic systolic function and no regional wall motion abnormalities EF >70% Mild concentric LVH Dilated RV with normal systolic function Mildly dilated LA Dilated RA Well seated bioprosthetic transcatheter AV replacement with increased gradients Severely calcified mitral valve annulus without stenosis Mild MR Mild TR Mildly elevated pulmonary artery pressures, estimated PASP 44 mHg Since the previous study performed 04/21/22, the MG has decreased with corresponding decrease in the DI and CLEMENT across the TAVR
[2022-08-11] MEDS ORDERED: ePHEDrine sulfate 50 MG/ML AMP IV PRN (13:57)
[2022-08-11] MEDS ORDERED: ONDANSETRON INJ 2 MG/ML 2 ML VIAL IV PRN (13:57)
[2022-08-11] MEDS ORDERED: ATROPINE SULFATE 0.1 MG/ML 10ML SYR IV PRN (13:57)
[2022-08-11] MEDS ORDERED: fentaNYL citrate 100 MCG/2 ML VIAL IV PRN (13:57)
--- NOTE | 2022-08-11 14:53 | History & Physical Bridge Note ---
Date of Service August 11, 2022 History & Physical Bridge Note I have examined the patient, reviewed the History & Physical and in the interval since the performance of the History & Physical I have noted the following changes of clinical significance: no changes noted
[2022-08-11] MEDS ORDERED: PROPOFOL IV EMULSION 10 MG/ML 20 ML VIAL IV ONE (15:12)
[2022-08-11] MEDS ORDERED: LIDOCAINE 2% MPF LOCAL 5 ML VIAL INFIL ONE (15:12)
[2022-08-11] MEDS ORDERED: BUPIVACAINE 0.5 % 5 MG/1 ML MPF 30ML VIAL ONE (15:12)
[2022-08-11] MEDS ORDERED: ONDANSETRON INJ 2 MG/ML 2 ML VIAL ONE (15:14)
[2022-08-11] MEDS ORDERED: PHENYLEPHRINE 100MCG/ML 5ML SYR ONE (15:20)
--- NOTE | 2022-08-11 15:44 | Post Operative Brief Note ---
Immediate Post Op Note v1 Date of Surgery August 11, 2022 Pre & Post Diagnosis Operation Date: 08/11/22 07:10 Pre-Op Diagnosis: Osteomyelitis, left second toe. Post-Op Diagnosis: Osteomyelitis, left second toe. I identified the patient and participated in the time-out.: Yes Procedure Operation Date: 08/11/22 07:10 Actual Procedures p Left 2nd Amputation Toe - Evans Canales DPM Surgeon Evans Canales DPM Mud Boss None Estimated Blood Loss 10 Findings Consistent with Post-Op Diagnosis Specimens Left second toe for pathology, C&S Anesthesia Type MAC Complications none Disposition Accompanied Patient To Recovery: Yes Disposition: Recovery Room
--- NOTE | 2022-08-11 16:34 | Anesthesiology Progress Note ---
Date of Service August 11, 2022 Anesthesia Post Procedure Vital Signs Vital Signs: Temp Pulse Pulse Pulse Pulse Resp BP 08/11/22 16:10 68 17 92/54 L 08/11/22 16:20 97.5 F L 78 14 117/61 08/11/22 16:00 76 12 101/62 08/11/22 15:50 97.9 F 67 21 108/54 L 08/11/22 13:58 97.3 F L 72 72 20 128/70 08/11/22 12:10 99.1 F 75 20 08/11/22 10:21 77 08/11/22 07:34 98.6 F 76 19 08/11/22 04:00 97.9 F 70 18 118/78 08/10/22 22:01 82 08/10/22 21:00 08/10/22 23:00 99.3 F 76 18 08/10/22 21:56 76 08/10/22 19:00 99.9 F H 82 20 08/10/22 16:47 BP Pulse Ox O2 Del Method O2 Flow Rate 08/11/22 16:10 100 Oxymask 5 08/11/22 16:20 97 Room Air 08/11/22 16:00 100 Oxymask 5 08/11/22 15:50 100 Oxymask 5 08/11/22 13:58 98 Room Air 08/11/22 12:10 108/70 93 Room Air 08/11/22 10:21 08/11/22 07:34 145/73 H 96 Room Air 08/11/22 04:00 94 Room Air 08/10/22 22:01 08/10/22 21:00 Room Air 08/10/22 23:00 104/59 L 94 Room Air 08/10/22 21:56 135/71 08/10/22 19:00 100/52 L 95 Room Air 08/10/22 16:47 Room Air Pain Intensity Bilateral Back: Pain Intensity: 0 Transfer of Care Handoff Completed per policy Notes Mental Status: alert / awake / arousable and participated in evaluation Patient Amnestic to Procedure: Yes Nausea / Vomiting: adequately controlled Pain: adequately controlled Airway Patency, RR, SpO2: stable & adequate BP & HR: stable & adequate Hydration State: stable & adequate Anesthetic Complications: no major complications apparent and Pt Satisfied with anesthetic care
[2022-08-11] MEDS: metroNIDAZOLE 500 MG TAB PO SCH ×2 (17:46→21:25)
[2022-08-11] MEDS: DAPTOmycin 425 MG in SYRINGE 0 ML IV SCH (17:51)
[2022-08-12] MEDS: metroNIDAZOLE 500 MG TAB PO SCH ×3 (05:45→21:58)
[2022-08-12 06:42] LABS: Hematocrit (blood only) 39.3 % (40.1-51.0); Hemoglobin 12.4 g/dl (14.0-18.0); Mean Corpuscular Hemoglobin 29.9 pg (25.0-34.0); Mean Corpuscular Hgb Conc 31.6 g/dL (32.0-36.0); Mean Corpuscular Volume 94.7 fL (80.0-100.0); Mean Platelet Volume 8.5 fL (9.4-12.4); Platelet Count 279 K/uL (130-400); RDW Coefficient of Variation 14.3 % (11.5-14.5); RDW Standard Deviation 49.5 fL (36.4-46.3); Red Blood Count 4.15 M/uL (4.63-6.08)
[2022-08-12 07:06] LABS: BUN Creatinine Ratio 18.7 (10-20); Calcium 8.7 mg/dl (8.5-10.1); Creatinine Clr Calc Pharmacy 46.8 ml/min; Est GFR (African American) 35.3 ml/min; Est GFR (Non-African American) 30.5 ml/min; Potassium 4.8 mmol/L (3.5-5.1)
[2022-08-12] MEDS: INSULIN ASPART PER UNIT SC SCH ×4 (08:17→21:47)
[2022-08-12] MEDS: LANTUS PER UNIT CHARGE SQ SCH ×2 (08:18→21:47)
[2022-08-12] MEDS: GENTAMICIN SULFATE 0.1% CR 15 GM TUBE EXT SCH (08:19)
[2022-08-12] MEDS: FAMOTIDINE 20 MG TAB PO SCH ×2 (08:19→21:54)
[2022-08-12] MEDS: APIXABAN 5 MG TABLET PO SCH ×2 (08:19→21:54)
[2022-08-12] MEDS: METOPROLOL TARTRATE 100 MG TAB PO SCH ×2 (08:19→21:50)
[2022-08-12] MEDS: CYANOCOBALAMIN (B-12) 500 MCG TABLET PO SCH (08:20)
[2022-08-12] MEDS: MAGNESIUM OXIDE 400 MG TAB PO SCH (08:20)
[2022-08-12] MEDS: CEFEPIME 2,000 MG in SYRINGE 0 ML IV SCH (11:50)
--- NOTE | 2022-08-12 12:58 | Hospitalist Progress Note ---
Date of Service August 12, 2022 Assessment & Plan (1) Osteomyelitis: Plan: Patient with a history of Diabetic foot disease presents to the hospital with worsening foot wound infection MRI shows Marrow change involving the middle and distal phalanges of the second toe which is highly suspicious for osteomyelitis and also 2nd toe cellulitis Currently on Zosyn, Flagyl and Daptomycin Patient is now s/p amputation of left 2nd toe. Hopefully clean margins were obtained Will defer to ID regarding antibiotics Appreciate podiatry and ID (2) Diabetic ulcer of toe of left foot: Plan: - Wound care was concerned for cellulitis of the left leg below the knee as well as developing osteomyelitis of toes on the left foot, this has been confirmed on MRI - Daptomycin, Flagyl and Zosyn for now -He is status post amputation of 2nd left toe -Appreciate podiatry and ID (3) Acute kidney injury superimposed on CKD: Plan: - Likely due to starting Bactrim 5 days ago for suspected lower leg cellulitis. -Some slight improvement following stoppage of bactrim and IV Fluids - Avoid renal toxins, renally dose as able. - Holding Invokana, lisinopril, Lasix until STELLA resolves. - Hx of with TAVR in April, still NYHA 2-3, will give gentle IV, strictly monitor I/Os. - Repeat BMP in AM. (4) Chronic diastolic (congestive) heart failure: Plan: - Echo from May: Normal left ventricular size with hyperdynamic systolic function, no regional wall motion abnormalities, EF >75%, mild LVH well-seated 26 mm Saha ultra bioprosthetic transcatheter aortic valve replacement, mildly elevated pulmonary artery pressures. - We will building Lasix as above for STELLA, resume when renal function starts to move towards baseline. - Strict I&O's, daily weights, low-salt low-sodium diet. (5) Atrial fibrillation: Plan: - Cardiac conversion in 2018, in rate controlled a fib today. - Remains on Eliquis and metoprolol. (6) Hypertension: Plan: - Hold lisinopril given STELLA, continue on metoprolol. BP under good control (7) HLD (hyperlipidemia): Plan: - Continue statin therapy. (8) Chronic obstructive pulmonary disease: Plan: - Continue home inhalers with CPAP at night. (9) CAD (coronary artery disease) of artery bypass graft: Plan: - Continue statin, metoprolol, holding lisinopril for STELLA. (10) Diabetes type 2, uncontrolled: Plan: - Home regimen: Lantus 55 units twice daily, with sliding scale insulin. - We will continue his Lantus dosing, SSI. (11) Anemia: Plan: - Hgb 13.2 at baseline. - Continue to monitor. (12) SHIRA on CPAP: Plan: - CPAP hs ordered. (13) Aortic stenosis: Plan: - s/p TAVR April 2022. Plan - Continue hospitalization - SCDs, Eliquis continue for VTE ppx. - Full Code. Admission and Anticipated Discharge Date Admission Date: August 09, 2022 Subjective patient seen and examined, doing well post surgery Review of Systems Review of Systems: All systems reviewed are negative, apart from the ones contained in the history. Physical Exam Physical Exam: The patient is awake, alert and oriented 3, well developed and well nourished, normocephalic and atraumatic, lying in bed and in no acute distress. HEENT--PERRL, EOMI, mucous membranes and oropharynx mildly dry Neck--supple. No JVD. No bruits. Thyroid normal, trachea midline, no adenopathy. Heart--normal S1 and S2. No murmurs, rubs or gallops. Lungs--clear bilaterally, no respiratory distress, no accessory muscle use. Abdomen--normal bowel sounds and soft. Mild epigastric and left sided abdominal pain Extremities--left diabetic foot ulcer Dermatologic--normal skin turgor, normal color, no abnormal lymph nodes, no rash. Neurologic--cranial nerves II through XII grossly intact. Rheumatologic--normal range of motion. Psychiatric--normal affect. Results & Data Results & Data ([facility]) Vital Signs (Past 12 Hours) Vital Signs Temp Pulse Pulse Pulse Resp BP Pulse Ox 08/12/22 11:00 98.2 F 72 18 110/64 97 08/12/22 07:52 97.5 F L 70 14 133/74 94 08/12/22 07:00 78 08/12/22 07:25 08/12/22 07:16 98.2 F 70 18 104/64 97 08/12/22 03:12 98.2 F 80 18 139/61 96 O2 Del Method 08/12/22 11:00 Room Air 08/12/22 07:52 Room Air 08/12/22 07:00 08/12/22 07:25 Room Air 08/12/22 07:16 Room Air 08/12/22 03:12 Room Air PG Care Time/CCT Total # of Minutes Spent Total Time Spent with Patient: Total time spent is greater than 50% in coordination of care (as documented) at patient's floor/unit and/or counseling patient: Coding Level of Care Code 69722 Subseq Hosp Care Lvl 2 Diagnoses Osteomyelitis M86.9 Diabetic ulcer of toe of left foot E11.621; L97.529 Acute kidney injury superimposed on CKD N17.9; N18.9 Chronic diastolic (congestive) heart failure I50.32 Atrial fibrillation I48.91 Hypertension I10 HLD (hyperlipidemia) E78.5 Chronic obstructive pulmonary disease J44.9 CAD (coronary artery disease) of artery bypass graft I25.810 Diabetes type 2, uncontrolled E11.65 Anemia D64.9 SHIRA on CPAP G47.33; Z99.89 Aortic stenosis I35.0 Time Spent (min) 35
[2022-08-12] MEDS: DAPTOmycin 425 MG in SYRINGE 0 ML IV SCH (13:09)
[2022-08-12] MEDS: ACETAMINOPHEN 500 MG TAB PO PRN (14:40)
[2022-08-12] MEDS: CYCLOBENZAPRINE HCL 10 MG TAB PO PRN (20:09)
[2022-08-13] MEDS: CEFEPIME 2,000 MG in SYRINGE 0 ML IV SCH ×2 (00:18→12:15)
[2022-08-13] MEDS: metroNIDAZOLE 500 MG TAB PO SCH ×3 (05:28→21:01)
[2022-08-13 07:50] LABS: BUN Creatinine Ratio 20.2 (10-20); Calcium 8.9 mg/dl (8.5-10.1); Creatinine Clr Calc Pharmacy 55.2 ml/min; Est GFR (African American) 42.9 ml/min; Potassium 4.9 mmol/L (3.5-5.1)
[2022-08-13 07:55] LABS: Hematocrit (blood only) 38.9 % (40.1-51.0); Hemoglobin 12.6 g/dl (14.0-18.0); Mean Corpuscular Hemoglobin 30.1 pg (25.0-34.0); Mean Corpuscular Hgb Conc 32.4 g/dL (32.0-36.0); Mean Corpuscular Volume 93.1 fL (80.0-100.0); Platelet Count 252 K/uL (130-400); RDW Coefficient of Variation 14.3 % (11.5-14.5); RDW Standard Deviation 48.5 fL (36.4-46.3); Red Blood Count 4.18 M/uL (4.63-6.08); White Blood Count 8.27 K/ul (4.8-10.8)
[2022-08-13] MEDS: ACETAMINOPHEN 500 MG TAB PO PRN ×2 (08:37→17:57)
[2022-08-13] MEDS: INSULIN ASPART PER UNIT SC SCH ×4 (08:37→20:13)
[2022-08-13] MEDS: CYCLOBENZAPRINE HCL 10 MG TAB PO PRN ×2 (08:37→21:41)
[2022-08-13] MEDS: LANTUS PER UNIT CHARGE SQ SCH ×2 (08:38→20:13)
[2022-08-13] MEDS: FAMOTIDINE 20 MG TAB PO SCH ×2 (08:38→20:12)
[2022-08-13] MEDS: APIXABAN 5 MG TABLET PO SCH ×2 (08:38→20:12)
[2022-08-13] MEDS: METOPROLOL TARTRATE 100 MG TAB PO SCH ×2 (08:38→20:14)
[2022-08-13] MEDS: CYANOCOBALAMIN (B-12) 500 MCG TABLET PO SCH (08:39)
[2022-08-13] MEDS: MAGNESIUM OXIDE 400 MG TAB PO SCH (08:39)
[2022-08-13] MEDS: GENTAMICIN SULFATE 0.1% CR 15 GM TUBE EXT SCH (08:39)
--- NOTE | 2022-08-13 11:38 | Hospitalist Progress Note ---
Date of Service August 13, 2022 Assessment & Plan (1) Osteomyelitis: Plan: Patient with a history of Diabetic foot disease presents to the hospital with worsening foot wound infection MRI shows Marrow change involving the middle and distal phalanges of the second toe which is highly suspicious for osteomyelitis and also 2nd toe cellulitis Currently on Zosyn, Flagyl and Daptomycin Patient is now s/p amputation of left 2nd toe. Hopefully clean margins were obtained Will defer to ID regarding antibiotics, may likely need PO instead if IV Appreciate podiatry and ID (2) Diabetic ulcer of toe of left foot: Plan: - Wound care was concerned for cellulitis of the left leg below the knee as well as developing osteomyelitis of toes on the left foot, this has been confirmed on MRI -Wound cultures obtained on 08/09 growing MSSA - Currently Daptomycin, Flagyl and Zosyn for now -He is status post amputation of 2nd left toe, surgical pathology cultures pending, will continue the above antibiotics -Appreciate podiatry and ID recs (3) Acute kidney injury superimposed on CKD: Plan: - Likely due to starting Bactrim 5 days prior to presentation for lower leg cellulitis. -Some improvement following stoppage of bactrim and IV Fluids -kidney function probably back to baseline - Avoid renal toxins, renally dose as able. - Holding Invokana, lisinopril, Lasix - Repeat BMP in AM. (4) Chronic diastolic (congestive) heart failure: Plan: - Echo from May: Normal left ventricular size with hyperdynamic systolic function, no regional wall motion abnormalities, EF >75%, mild LVH well-seated 26 mm Saha ultra bioprosthetic transcatheter aortic valve replacement, mildly elevated pulmonary artery pressures. - We will holding Lasix as above for STELLA, resume when renal function starts to move towards baseline. - Strict I&O's, daily weights, low-salt low-sodium diet. (5) Atrial fibrillation: Plan: - Cardiac conversion in 2018, in rate controlled a fib today. - Remains on Eliquis and metoprolol. (6) Hypertension: Plan: - Hold lisinopril given STELLA, continue on metoprolol. BP under good control (7) HLD (hyperlipidemia): Plan: - Continue statin therapy. (8) Chronic obstructive pulmonary disease: Plan: - Continue home inhalers with CPAP at night. (9) CAD (coronary artery disease) of artery bypass graft: Plan: - Continue statin, metoprolol, holding lisinopril for STELLA. (10) Diabetes type 2, uncontrolled: Plan: - Home regimen: Lantus 55 units twice daily, with sliding scale insulin. - We will continue his Lantus dosing, SSI. (11) Anemia: Plan: - Hgb 13.2 at baseline. - Continue to monitor. (12) SHIRA on CPAP: Plan: - CPAP hs ordered. (13) Aortic stenosis: Plan: - s/p TAVR April 2022. Plan - Continue hospitalization - SCDs, Eliquis continue for VTE ppx. - Full Code. Admission and Anticipated Discharge Date Admission Date: August 09, 2022 Subjective patient seen and examined, doing well post surgery, no fevers or chills Review of Systems Review of Systems: All systems reviewed are negative, apart from the ones contained in the history. Physical Exam Physical Exam: The patient is awake, alert and oriented 3, well developed and well nourished, normocephalic and atraumatic, lying in bed and in no acute distress. HEENT--PERRL, EOMI, mucous membranes and oropharynx mildly dry Neck--supple. No JVD. No bruits. Thyroid normal, trachea midline, no adenopathy. Heart--normal S1 and S2. No murmurs, rubs or gallops. Lungs--clear bilaterally, no respiratory distress, no accessory muscle use. Abdomen--normal bowel sounds and soft. Mild epigastric and left sided abdominal pain Extremities--left diabetic foot ulcer Dermatologic--normal skin turgor, normal color, no abnormal lymph nodes, no rash. Neurologic--cranial nerves II through XII grossly intact. Rheumatologic--normal range of motion. Psychiatric--normal affect. Results & Data Results & Data ([facility]) Vital Signs (Past 12 Hours) Vital Signs Temp Pulse Pulse Pulse Pulse Resp BP 08/13/22 11:29 97.3 F L 62 16 08/13/22 07:59 97.5 F L 100 H 18 08/13/22 07:15 08/13/22 06:03 82 08/13/22 04:26 83 08/13/22 04:29 98.1 F 93 H 20 08/12/22 23:53 98.2 F 63 20 119/77 BP Pulse Ox O2 Del Method 08/13/22 11:29 103/67 92 Room Air 08/13/22 07:59 154/78 H 96 Room Air 08/13/22 07:15 Room Air 08/13/22 06:03 08/13/22 04:26 08/13/22 04:29 122/69 96 Room Air 08/12/22 23:53 93 Room Air PG Care Time/CCT Total # of Minutes Spent Total Time Spent with Patient: Total time spent is greater than 50% in coordination of care (as documented) at patient's floor/unit and/or counseling patient: Coding Level of Care Code 56353 Subseq Hosp Care Lvl 2 Diagnoses Osteomyelitis M86.9 Diabetic ulcer of toe of left foot E11.621; L97.529 Acute kidney injury superimposed on CKD N17.9; N18.9 Chronic diastolic (congestive) heart failure I50.32 Atrial fibrillation I48.91 Hypertension I10 HLD (hyperlipidemia) E78.5 Chronic obstructive pulmonary disease J44.9 CAD (coronary artery disease) of artery bypass graft I25.810 Diabetes type 2, uncontrolled E11.65 Anemia D64.9 SHIRA on CPAP G47.33; Z99.89 Aortic stenosis I35.0 Time Spent (min) 35
--- NOTE | 2022-08-13 12:38 | Orthopedic Progress Note ---
Date of Service August 13, 2022 Assessment & Plan (1) Cellulitis: (2) Osteomyelitis: (3) Diabetic ulcer of toe of left foot: Plan - Patient examined and evaluated. - No new concerns; doing well s/p left 2nd toe amputation. - With clean margins obtained, can d/c home with 2 weeks of PO abx, subject to ID agreement - Can d/c home when cleared per other specialties; should f/u within one week outpatient with and/or [facility] for leg wounds. - Will follow while inpatient. Admission and Anticipated Discharge Date Admission Date: August 09, 2022 Subjective Patient seen at bedside, POV #1, POD #2. Doing well with no pain to surgical site. Has been feeling well without new signs of infection. Has had some bleeding to the dressing, but has been able to keep it on overall. No new concerns. Review of Systems Review of Systems: All systems reviewed & are unremarkable except as noted in HPI & below Physical Exam Physical Exam: Dressing clean, dry, intact with strikethrough to the surgical site. No purulent drainage, just blood to dressing. Large clot noted to suture site. No local maceration or cellulitis. Surgical site consistent with level of surgical intervention. No ascending cellulitis. Moderate edema locally. No palpable pulses, still. Second toe amputation noted, at level of MTPJ. Constitutional: WD/WN, vitals as above Eyes: PERRL, conjunctivae normal, anicteric sclerae ENMT: external ear and nose normal, oropharynx normal Neck: trachea midline, no thyromegaly Respiratory: normal respiratory effort, lungs clear to auscultation Cardiovascular: RRR, no murmur, no edema Extremities: + pedal edema; no calf tenderness Musculoskeletal: no cyanosis or clubbing, extremities motor strength 5/5 Ankle: + limited ROM of ankle Neurologic: patellar DTR's 2+ bilat, sensation intact moves all extremities; + abnormal sensation to monofilament Results & Data ([facility]) Vital Signs (Past 12 Hours) Vital Signs Temp Pulse Pulse Pulse Pulse Resp BP 08/13/22 11:29 36.3 C L 62 16 103/67 08/13/22 07:59 36.4 C L 100 H 18 154/78 H 08/13/22 07:15 08/13/22 06:03 82 08/13/22 04:26 83 08/13/22 04:29 36.7 C 93 H 20 122/69 Pulse Ox O2 Del Method 08/13/22 11:29 92 Room Air 08/13/22 07:59 96 Room Air 08/13/22 07:15 Room Air 08/13/22 06:03 08/13/22 04:26 08/13/22 04:29 96 Room Air Diagnostic Findings Entire toe surgically removed with clinically/surgically clean margins.
[2022-08-13] MEDS: DAPTOmycin 425 MG in SYRINGE 0 ML IV SCH (13:56)
[2022-08-14] MEDS: CEFEPIME 2,000 MG in SYRINGE 0 ML IV SCH ×2 (01:07→11:30)
[2022-08-14] MEDS: metroNIDAZOLE 500 MG TAB PO SCH (06:17)
[2022-08-14] MEDS: CYANOCOBALAMIN (B-12) 500 MCG TABLET PO SCH (08:06)
[2022-08-14] MEDS: FAMOTIDINE 20 MG TAB PO SCH (08:06)
[2022-08-14] MEDS: METOPROLOL TARTRATE 100 MG TAB PO SCH (08:06)
[2022-08-14] MEDS: APIXABAN 5 MG TABLET PO SCH (08:06)
[2022-08-14] MEDS: GENTAMICIN SULFATE 0.1% CR 15 GM TUBE EXT SCH (08:06)
[2022-08-14] MEDS: LANTUS PER UNIT CHARGE SQ SCH (08:06)
[2022-08-14] MEDS: MAGNESIUM OXIDE 400 MG TAB PO SCH (08:06)
[2022-08-14] MEDS: INSULIN ASPART PER UNIT SC SCH ×2 (08:10→12:20)
[2022-08-14 08:32] LABS: Hematocrit (blood only) 38.5 % (40.1-51.0); Hemoglobin 12.6 g/dl (14.0-18.0); Mean Corpuscular Hemoglobin 30.4 pg (25.0-34.0); Mean Corpuscular Hgb Conc 32.7 g/dL (32.0-36.0); Mean Platelet Volume 8.5 fL (9.4-12.4); Platelet Count 314 K/uL (130-400); RDW Coefficient of Variation 14.6 % (11.5-14.5); Red Blood Count 4.14 M/uL (4.63-6.08); White Blood Count 8.72 K/ul (4.8-10.8)
[2022-08-14 08:58] LABS: BUN Creatinine Ratio 17.5 (10-20); Calcium 9.2 mg/dl (8.5-10.1); Creatinine Clr Calc Pharmacy 51.8 ml/min; Est GFR (African American) 39.9 ml/min; Est GFR (Non-African American) 34.4 ml/min; Potassium 4.5 mmol/L (3.5-5.1)
--- NOTE | 2022-08-14 09:16 | Infectious Disease Progress Nt ---
Date of Service August 14, 2022 Assessment & Plan (1) Osteomyelitis: (2) Venous stasis ulcer: (3) Cellulitis: (4) Acute kidney injury superimposed on CKD: Plan 71 yo M with h/o DM2 (last A1C 7.5%), chronic LE foot wounds, CAD, PVD, CHF, TAVR 04/2022, Afib on Eliquis, CKD, and COPD who was admitted with STELLA, LLE cellulitis and concerns for L foot osteomyelitis. Infectious Diseases has been consulted for antibiotic management of LLE wounds. Patient with h/o L and R leg venous ulcers. Arterial dopplers of LLE 06/27/22 that showed possible LT mid SFA short segment occlusion and LT TBI severe reduced c/w impaired healing and RT TBI severely reduced. Admittted on Bactrim for LLE cellulitis, found to have STELLA. AdmissionVSS, afebrile and hypertensive. Labs remarkable for WBC 11.8, creatinine 2.87 and potassium 5.3. Xray of Left forefoot showed Tiny focus of cortical erosion at the distal tuft of the left third toe, consistent with osteomyelitis. However MRI of L forefoot revealed marrrow change involving the middle and distal phalanges of the second toe which is highly suspicious for osteomyelitis (no osteomyelitis of 3rd digit). Patient was started on IV Daptomycin and Zosyn, now Cefepime Patient was take to OR on 08/11 for amputation of L 2nd toe. Angioplasty planned for outpatient Exam is notable for LLE erythema, markedly improved Discussion: Patient with PVD now with LLE cellulitis and 2nd digit osteomyelitis. These appear to be 2 seperate processes. He has undergone amputation, per discussion with primary team and review of Podiatrys note appears to have clear margins. Superficial wounds swabs grew MSSA, Klebsiella and E. cloacae. He also developed likely STELLA secondary to Bactrim use. Based on CrCl ~40 plan for Levaquin 500mg daily (Qtc<500) and Keflex 500mg po q6 hours x 10 days from discharge, with plan for angiogram pending continued improvement of Creatinin. Recommend: -Ok to discharge from my standpoint with oral antibiotics with Levaquin 500mg daily (Qtc<500) and Keflex 500mg po q6 hours x 10 days from discharge -Plan for outpatient angiogram with Dr. Gorman and close follow up with Podiatry I spoke to the Primary team regarding my recommendations. Thank you for allowing me to participate in the care of your patient. Cesilia Patiño MD [facility], [facility] Admission and Anticipated Discharge Date Admission Date: August 09, 2022 Subjective Subsequent visit was provided via telemedicine using two-way real-time interactive telecommunication between the patient and the telemedicine provider. For the duration of the visit, the provider was performing the assessment from a different facility than the patient. This includesuse of bluetooth stethoscope forauscultationperformed by the telepresenter that the telemedicine provider can hear if described in the physical exam. Hospital Receptionist contact information: Please call [facility] Call Center . (Phone Number For Physician Use Only) After establishing a telemedicine visit, patient was: Patient was verified with two unique identifiers, Patient/authorized rep acknowledged consent and understanding and Gave permission to continue telehealth session Subsequent Time Spent w Inpatient: 35 minutes 24 hours/OTW: POD #3 s/p Left 2nd Amputation Toe, OR cultures are No Growth to date S: Patient feels well ready to go home. No complaints Physical Exam Constitutional: WD/WN, vitals as above Gastrointestinal (Abdomen): normal bowel sounds, soft, nontender, no hepatosplenomegaly Skin: L foot wrapped with boot placed L lopez regression of erythema, open ulcers draining Results & Data ([facility]) Vital Signs (Past 12 Hours) Vital Signs Temp Pulse Pulse Resp BP Pulse Ox O2 Del Method 08/14/22 07:25 Room Air 08/14/22 06:01 109 H 08/14/22 06:45 36.8 C 66 18 100/67 96 Room Air 08/14/22 04:11 37.1 C 63 18 105/63 92 Room Air 08/14/22 01:11 82 08/13/22 23:44 36.6 C 62 18 142/83 H 94 Room Air Laboratory Results Laboratory Results - last 48 hr 08/12/22 08/12/22 08/12/22 11:42 16:34 20:17 WBC RBC Hgb Hct MCV MCH MCHC RDW Std Deviation RDW Coeff of Jaylen Plt Count MPV Sodium Potassium Chloride Carbon Dioxide Anion Gap BUN Creatinine Est Cr Clr Drug Dosing Est GFR ( Amer) Est GFR (Non-Af Amer) BUN/Creatinine Ratio Glucose POC Glucose 193 H 167 H 172 H Calcium 08/13/22 08/13/22 08/13/22 07:17 07:17 07:57 WBC 8.27 RBC 4.18 L Hgb 12.6 L Hct 38.9 L MCV 93.1 MCH 30.1 MCHC 32.4 RDW Std Deviation 48.5 H RDW Coeff of Jaylen 14.3 Plt Count 252 MPV 9.0 L Sodium 136 Potassium 4.9 Chloride 104 Carbon Dioxide 25 Anion Gap 7 BUN 36 H Creatinine 1.78 H D Est Cr Clr Drug Dosing 55.2 Est GFR ( Amer) 42.9 Est GFR (Non-Af Amer) 37.0 BUN/Creatinine Ratio 20.2 H Glucose 109 H POC Glucose 137 H Calcium 8.9 08/13/22 08/13/22 08/13/22 11:41 16:30 19:52 WBC RBC Hgb Hct MCV MCH MCHC RDW Std Deviation RDW Coeff of Jaylen Plt Count MPV Sodium Potassium Chloride Carbon Dioxide Anion Gap BUN Creatinine Est Cr Clr Drug Dosing Est GFR ( Amer) Est GFR (Non-Af Amer) BUN/Creatinine Ratio Glucose POC Glucose 155 H 126 H 146 H Calcium 08/14/22 08/14/22 08:01 08:01 WBC 8.72 RBC 4.14 L Hgb 12.6 L Hct 38.5 L MCV 93.0 MCH 30.4 MCHC 32.7 RDW Std Deviation 49.0 H RDW Coeff of Jaylen 14.6 H Plt Count 314 MPV 8.5 L Sodium 135 L Potassium 4.5 Chloride 102 Carbon Dioxide 29 Anion Gap 4 BUN 33 H Creatinine 1.89 H Est Cr Clr Drug Dosing 51.8 Est GFR ( Amer) 39.9 Est GFR (Non-Af Amer) 34.4 BUN/Creatinine Ratio 17.5 Glucose 121 H POC Glucose Calcium 9.2 Microbiology 08/11/22 15:31 Foot,Left Gram Stain - Final 08/11/22 15:31 Foot,Left Aerobic and Anaerobic Culture - Preliminary No growth to date. 08/10/22 20:09 Blood Aerobic Blood Culture - Preliminary No growth in Aerobic bottle after 48 hours. 08/10/22 20:09 Blood Anaerobic Blood Culture - Preliminary No growth in Anaerobic bottle after 48 hours. 08/10/22 19:39 Blood Aerobic Blood Culture - Preliminary No growth in Aerobic bottle after 48 hours. 08/10/22 19:39 Blood Anaerobic Blood Culture - Final Diagnostic Findings Duplex Scan Lower Extremity Artery 08/11/22 07:56 BILATERAL LOWER EXTREMITY ARTERIAL DOPPLER ULTRASOUND CLINICAL HISTORY: Peripheral vascular disease. COMPARISON STUDY: None available at time of interpretation. TECHNIQUE: Color and duplex Doppler sonography of the arterial systems of both lower extremities was performed. FINDINGS: There is extensive atherosclerotic plaque within the bilateral lower extremities. There is biphasic flow within the right common femoral artery. There is an elevated peak systolic velocity of 253 cm/s within the proximal right superficial femoral artery. There is monophasic flow within the remainder of the right superficial femoral artery. There is also monophasic flow within the right popliteal artery. No flow is identified within the right anterior tibial artery. This suggests vessel occlusion with distal reconstitution. Flow was noted within the right dorsalis pedis. Monophasic flow is present within the right posterior tibial and peroneal arteries. Note is made of monophasic flow within the left common femoral and proximal to mid left superficial femoral artery. There is suspected short segment occlusion within the distal left superficial femoral artery with distal reconstitution. Monophasic flow is noted within the left popliteal, anterior tibial, posterior tibial and peroneal vessels. Flow within the posterior tibial artery is significantly dampened. There is no flow within the left peroneal artery suggesting vessel occlusion. IMPRESSION: 1. Extensive atherosclerotic plaque within the bilateral lower extremities. 2. Findings suggestive of a hemodynamically significant stenosis within the proximal right superficial femoral artery. Monophasic flow distal to the suspected stenosis. 3. Occluded right anterior tibial artery with distal reconstitution. Monophasic flow within the remainder of the right calf vessels. 4. Suspected short segment occlusion of the distal left superficial femoral artery. Distal reconstitution with monophasic flow. 5. Occluded left peroneal artery. Monophasic flow within the remainder of the left calf vessels. ACT 112: Negative or not required by law. Electronically signed by: Maksim Nathan M.D. 08/11/2022 1:07 PM Medications Administered Current Inpatient Medications Acetaminophen (Acetaminophen 500 Mg Tab) 500 mg PO Q6H PRN PRN Reason: Pain Stop: 09/08/22 17:16 Last Admin: 08/13/22 17:57 Dose: 500 mg Albuterol (Albut/Ipratrop 3mg/0.5mg Neb 3 Ml Vial) 3 ml INH QID PRN; Protocol PRN Reason: Shortness Of Breath Stop: 09/08/22 17:16 Apixaban (Apixaban 5 Mg Tablet) 5 mg PO BID ZHANE Stop: 09/08/22 20:59 Last Admin: 08/14/22 08:06 Dose: 5 mg Cyanocobalamin (Cyanocobalamin (B-12) 500 Mcg Tablet) 1,000 mcg PO DAILY ZHANE Stop: 09/09/22 08:59 Last Admin: 08/14/22 08:06 Dose: 1,000 mcg Cyclobenzaprine HCl (Cyclobenzaprine Hcl 10 Mg Tab) 10 mg PO BID PRN PRN Reason: Muscle Spasm Stop: 09/08/22 17:16 Last Admin: 08/13/22 21:41 Dose: 10 mg Dextrose (Dextrose 50% 50 Ml Syringe) 25 - 50 ml IV UD PRN; Protocol PRN Reason: Hypoglycemia Protocol Stop: 09/08/22 17:16 Famotidine (Famotidine 20 Mg Tab) 20 mg PO BID ZHANE Stop: 09/08/22 20:59 Last Admin: 08/14/22 08:06 Dose: 20 mg Gentamicin Sulfate (Gentamicin Sulfate 0.1% Cr 15 Gm Tube) 1 appln EXT DAILY ZHANE Stop: 08/20/22 08:59 Last Admin: 08/14/22 08:06 Dose: 1 appln Glucagon (Glucagon For Inj 1 Mg Vial) 1 mg SQ UD PRN; Protocol PRN Reason: Hypoglycemia Protocol Stop: 09/08/22 17:16 Glucose (Glucose 40% Gel 15 Gm Tube) 15 - 30 gm PO UD PRN; Protocol PRN Reason: Hypoglycemia Protocol Stop: 09/08/22 17:16 Glucose (Glucose 10 Tab/Tube) 4 - 8 tab PO UD PRN; Protocol PRN Reason: Hypoglycemia Treatment Stop: 09/08/22 17:16 Daptomycin 425 mg/ Syringe 8.5 mls @ 4.25 mls/min IV Q24H ZHANE; Protocol Stop: 08/17/22 13:29 Last Admin: 08/13/22 13:56 Dose: 4.25 mls/min Cefepime HCl 2,000 mg/ Syringe 20 mls @ 5 mls/min IV Q12H ZHANE; Protocol Stop: 09/22/22 12:29 Last Admin: 08/14/22 01:07 Dose: 5 mls/min Insulin Aspart (Insulin Aspart Per Unit) 0 units SC ACHS [facility] Stop: 09/08/22 17:16 Last Admin: 08/14/22 08:10 Dose: 7 units Insulin Glargine (Lantus Per Unit Charge) 55 units SQ BID [facility] Stop: 09/08/22 20:59 Last Admin: 08/14/22 08:06 Dose: 55 units Magnesium Oxide (Magnesium Oxide 400 Mg Tab) 400 mg PO DAILY [facility] Stop: 09/09/22 08:59 Last Admin: 08/14/22 08:06 Dose: 400 mg Metoprolol Tartrate (Metoprolol Tartrate 100 Mg Tab) 100 mg PO BID [facility] Stop: 09/08/22 20:59 Last Admin: 08/14/22 08:06 Dose: 100 mg Metronidazole (Metronidazole 500 Mg Tab) 500 mg PO Q8 [facility] Stop: 09/22/22 13:59 Last Admin: 08/14/22 06:17 Dose: 500 mg Miscellaneous (Carbohydrates For Hypoglycemia ) 15 - 30 gm PO UD PRN PRN Reason: Hypoglycemia Protocol Stop: 09/08/22 17:16 Ondansetron HCl (Ondansetron Inj 2 Mg/Ml 2 Ml Vial) 4 mg IV Q6H PRN PRN Reason: Nausea Stop: 09/08/22 17:16 Polyethylene Glycol (Polyethylene (Miralax) 17 Gm Pack) 17 gm PO DAILY PRN PRN Reason: Constipation Stop: 09/08/22 17:16
[2022-08-14] MEDS: ACETAMINOPHEN 500 MG TAB PO PRN (11:21)
[2022-08-14] MEDS: DAPTOmycin 425 MG in SYRINGE 0 ML IV SCH (12:30)
--- NOTE | 2022-08-14 19:19 | Discharge Summary ---
Date of Service August 14, 2022 Admission HPI Per Admitting Provider Romain Painter is a 71-year-old male with past medical history significant for diabetes with chronic diabetic foot wounds, CAD, PVD, HFpEF, s/p TAVR in April, . fib on Eliquis, CKD, and COPD who is presenting to the ED as referral from the wound clinic due to elevated creatinine as well as concern for osteomyelitis. He has been following with wound clinic as well as vascular medicine for his chronic diabetic and venous ulcers. Right leg has been healing well, however the left leg has become more red and swollen over the past 2 weeks and his second possibly third digits on the left toe appear to be infected down to the bone. He was started on Bactrim on 08/04 for this, had labs checked today to monitor renal function and his creatinine has increased to 2.9, from a baseline of 1.6 in June. He is encouraged to present to the ED for management of his perineal function and ulcers/possible osteomyelitis. Patient does not have any sensation in his lower extremities due to diabetic neuropathy, however noted over the past 2 weeks he has had increased redness and swelling correlated with an increase in his blood sugars to the 200s, as they are normally in the 140-150s. He has not noticed any fever/chills, body aches, fatigue, or general weakness. He has had no recent injuries to the left foot, did hit his right heel off a chair at home 3 weeks ago, however appears to be healing well without spreading infection. On presentation is mildly hypertensive, otherwise vital signs within normal limits and stable. Labs remarkable for WBC 11.8, creatinine 2.87 and potassium 5.3. Hgb slightly low at 13.2, which is his baseline, coag panel within normal limits, glucose 106, without transaminitis or electrolyte abnormalities besides potassium. Principal Diagnosis Diabetic toe osteomyelitis Discharge Exam Gen: NAD CV: RRR, no m/r/g Resp: CTA LLE: Foot wrapped. No pain. Good cap refill; NV intact Discharge Data Allergies Allergy/AdvReac Type Severity Reaction Status Date / Time No Known Drug Allergies Allergy Unknown NONE Verified 08/09/22 08:28 Consultations 08/09/22 14:04 ED Decision to Admit Stat 08/10/22 12:01 Consult Podiatry Routine 08/10/22 13:03 Consult Infectious Diseases Routine Procedures Performed Operation Date: 08/11/22 07:10 Actual Procedures p Left 2nd Amputation Toe - Evans Canales DPM Ordered Studies 08/09/22 18:23 MR foot LT w/o con Routine 08/11/22 07:56 US arterial duplex LE BI Routine Hospital Course (1) Osteomyelitis: Patient with a history of Diabetic foot disease presents to the hospital with worsening foot wound infection MRI shows Marrow change involving the middle and distal phalanges of the second toe which is highly suspicious for osteomyelitis and also 2nd toe cellulitis Currently on Zosyn, Flagyl and Daptomycin Patient is now s/p amputation of left 2nd toe. Hopefully clean margins were obtained Will defer to ID regarding antibiotics, may likely need PO instead if IV Appreciate podiatry and ID -> Discharged on Keflex and levofloxacin x 7 more days per ID residential property consultant. Will f/u with podiatry or Wound care in 1 week. (2) Diabetic ulcer of toe of left foot: - Wound care was concerned for cellulitis of the left leg below the knee as well as developing osteomyelitis of toes on the left foot, this has been confirmed on MRI -Wound cultures obtained on 08/09 growing MSSA - Currently Daptomycin, Flagyl and Zosyn for now -He is status post amputation of 2nd left toe, surgical pathology cultures pending, will continue the above antibiotics -Appreciate podiatry and ID recs (3) Acute kidney injury superimposed on CKD: - Likely due to starting Bactrim 5 days prior to presentation for lower leg cellulitis. -Some improvement following stoppage of bactrim and IV Fluids -kidney function probably back to baseline - Avoid renal toxins, renally dose as able. - Holding Invokana, lisinopril, Lasix - Repeat BMP in AM -> On discharge, Cr was back to 1.9 which seems to be near patient's baseline. (4) Chronic diastolic (congestive) heart failure: - Echo from May: Normal left ventricular size with hyperdynamic systolic function, no regional wall motion abnormalities, EF >75%, mild LVH well-seated 26 mm Saha ultra bioprosthetic transcatheter aortic valve replacement, mildly elevated pulmonary artery pressures. - We will holding Lasix as above for STELLA, resume when renal function starts to move towards baseline. - Strict I&O's, daily weights, low-salt low-sodium diet. (5) Atrial fibrillation: - Cardiac conversion in 2018, in rate controlled a fib today. - Remains on Eliquis and metoprolol. (6) Hypertension: - Hold lisinopril given STELLA, continue on metoprolol. BP under good control (7) HLD (hyperlipidemia): - Continue statin therapy. (8) Chronic obstructive pulmonary disease: - Continue home inhalers with CPAP at night. (9) CAD (coronary artery disease) of artery bypass graft: - Continue statin, metoprolol, holding lisinopril for STELLA. (10) Diabetes type 2, uncontrolled: - Home regimen: Lantus 55 units twice daily, with sliding scale insulin. - We will continue his Lantus dosing, SSI. (11) Anemia: - Hgb 13.2 at baseline. - Continue to monitor. (12) SHIRA on CPAP: - CPAP hs ordered. (13) Aortic stenosis: - s/p TAVR April 2022. Plan - Continue hospitalization - SCDs, Eliquis continue for VTE ppx. - Full Code. Total Time Total Time Spent Total Time Spent (In Minutes): 35 Discharge Plan Discharge Items Patient Disposition: Home - Self-Care Reason For Visit: STELLA, DIABETIC ULCER INFECTIONS Discharge Diagnosis: Infection in the bone of the toe Activity: Resume your previous activity Non-emergency contact: Primary Care Provider Call non-emergency contact if: your symptoms worsen Follow-up/Referrals: Sharmin Rapp CRNP [Primary Care Provider] - 08/18/22 9:20 am (THIS APPOINTMENT WILL BE WITH [facility]NELL.) Evans Canales DPM [Physician] - 08/18/22 11:30 am Diet: Regular Addtl Attending Provider Instructions: Mr. Painter, You were admitted with an infection in your toe that required an amputation. We have gotten recommendations from the ID doctor, and we now know what the best option is to finish treatment of your toe infection. 1) Cephalexin (also called Keflex) 500 mg 4 times a day 2) Levofloxacin 500 mg one time per day Take these for the next week. Please STOP the prior antibiotic you were on (Bactrim). This caused your kidneys to get unhappy, though they are back to your baseline now. Please see the podiatry team in 1 week for follow up. Their information is above. Please call them or come to the hospital with any fevers, chills, redness, or other concerning issues. Pending Studies at Discharge: No Stand-Alone Forms: My [facility] Medications and DC Order Prescriptions: New levofloxacin 500 mg tablet 500 mg PO DAILY 7 Days Qty: 7 0RF cephalexin 500 mg capsule 500 mg PO Q6H 7 Days Qty: 28 0RF Continued multivitamin [Daily Multi-Vitamin] Tablet 1 tab PO QAM Qty: 0 lisinopril 20 mg Tablet 20 mg PO QAM Qty: 0 [place]-3 350 mg-235 mg- 90 mg-597 mg Capsule,Delayed Release(Dr/Ec) 1 cap PO QAM Qty: 0 (DME) pen needle, diabetic [BD Ultra-Fine Mini Pen Needle] 31 gauge x 3/16" needle See Dose Instructions .ROUTE .MEDSUPPLY Qty: 500 3RF Dose Instruction: As directed Rx Instructions: use to inject insulin 5 x dAILY acetaminophen [Acetaminophen Extra Strength] 500 mg tablet 500 mg PO Q6H PRN (Reason: Pain) Qty: 0 ipratropium-albuterol 0.5 mg-3 mg(2.5 mg base)/3 mL solution for nebulization 3 ml inhalation QID PRN (Reason: Shortness Of Breath) Qty: 360 1RF Invokana 300 mg tablet 300 mg PO QAM Qty: 90 3RF gentamicin 0.1 % ointment 1 applic topical DAILY 14 Days Qty: 30 1RF Rx Instructions: Apply to leg wounds daily with dressing changes. (DME) Vortex Holding Chamber spacer See Dose Instructions .ROUTE .MEDSUPPLY Qty: 1 Rx Instructions: As directed atorvastatin [Lipitor] 40 mg tablet 40 mg PO QPM Lantus Solostar U-100 Insulin 100 unit/mL (3 mL) insulin pen 55 unit SQ BID Eliquis 5 mg tablet 5 mg PO BID Qty: 60 6RF (DME) OneTouch Ultra Blue Test Strip Strip See Rx Instructions .ROUTE .MEDSUPPLY Qty: 10 Rx Instructions: Test blood sugar 3-4 times daily (DME) Portable Oxygen Misc See Rx Instructions .Route Rx Instructions: Portable oxygen concentrator at 2 lpm via nasal cannula all the time - PRN metoprolol tartrate [Lopressor] 50 mg tablet 100 mg PO BID albuterol sulfate 2.5 mg /3 mL (0.083 %) solution for nebulization 2.5 mg inhalation Q6H PRN (Reason: sob) cyanocobalamin (vitamin B-12) 1,000 mcg capsule 1,000 mcg PO DAILY magnesium 250 mg tablet 250 mg PO DAILY furosemide [Lasix] 40 mg tablet 40 mg PO QAM (DME) CPAP Supplies Misc See Rx Instructions .ROUTE .MEDSUPPLY Qty: 1 0RF Rx Instructions: replace cpap mask; DME=T&B (DME) FreeStyle Rachid 14 Day [place] Misc See Rx Instructions .Route Qty: 1 0RF Rx Instructions: As directed (DME) FreeStyle Rachid 14 Day Sensor Kit See Rx Instructions .Route Qty: 6 3RF Rx Instructions: change every 14 days metformin 1,000 mg tablet 1,000 mg PO BID Novolog Flexpen U-100 Insulin 100 unit/mL (3 mL) insulin pen See Rx Instructions .ROUTE .COMPLEX Rx Instructions: Patient states he is on a sliding scale. 1:8 ratio for BSG over 130. 1:8 ratio for carb consumption. TDD 15 units cyclobenzaprine 10 mg tablet 10 mg PO BID PRN (Reason: Muscle Spasm) famotidine [Pepcid] 20 mg tablet 20 mg PO BID furosemide 40 mg tablet 20 mg PO DAILY PRN (Reason: Edema) Rx Instructions: take with 40 mg daily prn fluid retension. Discontinued sulfamethoxazole-trimethoprim [Bactrim] 400-80 mg tablet 1 tab PO DAILY Rx Instructions: DR TOLD SIGNIFICANT OTHER TO REDUCE TO DAILY. WAS BID Discharge Orders: Discharge Order (Routine); Ordered 08/14/22 Ordered By: Ryan Ware/Other Patient Handouts: Incision Care, Monitoring Kidney Health, Kidney Failure Self Care, Your Amputation Surgery Admission Data Admit Date/Time: 08/09/22 12:14 Attending Provider: Ryan Scott Admit Provider: Zaki Matta Primary Care Provider: Sharmin Rapp Other Providers: Zaki Matta ; Evans Canales ; Hina Kerr ; Maicol Bran ; Park Patel ; Supriya Mcguire ; Yvonne Naranjo ; Cesilia Patiño ; Ariela Brannon ; Tamiko Ellington ; Rebeca Blum Other Interventions: Discharge Summary Assessment (RN) Last Done: 08/14/22 13:29 Coding Level of Care Code D/C DAY MANAGEMENT >30 MINS Diagnoses Osteomyelitis M86.9 Diabetic ulcer of toe of left foot E11.621; L97.529 Acute kidney injury superimposed on CKD N17.9; N18.9 Chronic diastolic (congestive) heart failure I50.32 Atrial fibrillation I48.91 Hypertension I10 HLD (hyperlipidemia) E78.5 Chronic obstructive pulmonary disease J44.9 CAD (coronary artery disease) of artery bypass graft I25.810 Diabetes type 2, uncontrolled E11.65 Anemia D64.9 SHIRA on CPAP G47.33; Z99.89 Aortic stenosis I35.0
--- NOTE | 2022-08-29 09:48 | Operative Report ---
Post Operative Report Pre & Post Diagnosis Operation Date: 08/11/22 07:10 Pre-Op Diagnosis: Osteomyelitis. Post-Op Diagnosis: Osteomyelitis. I identified the patient and participated in the time-out.: Yes Procedure Operation Date: 08/11/22 07:10 Actual Procedures p Left 2nd Amputation Toe - Evans Canales DPM Surgeon Evans Canales DPM Apprentice Stylist None Estimated Blood Loss 10 Findings Consistent with Post-Op Diagnosis Clean margins able to be obtained by amputating/disarticulating at level of MTPJ. Clinically clear surgical site closed primarily with sutures. DIPJ was directly communicating with wound and head of phalanx was soft. No proximal signs of infection or purulence. Specimens Left second toe deep tissue sent for culture/sensitivity and remainder of digit sent for pathology Anesthesia Type MAC Complications none Disposition Accompanied Patient To Recovery: Yes Indications This patient is a recent hospital consultation of [facility] with clinical and MRI findings consistent with osteomyelitis. He has had several wounds that he has dealt with in the past, though none as significant or deep as this one. He is a longstanding diabetic with neuropathy and vascular disease. Given the options of long-term IV antibiotics versus amputation, he has elected for this at this visit. Preoperative instructions, postoperative instructions, relative risks, and outcomes were discussed. Consent was obtained for this left second toe amputation. Description of Procedure The patient was brought to the operating room and placed on the operating table in the supine position. Following administration of sedation, local analgesia was obtained utilizing 20 cc of 0.25% marcaine in a digital block fashion. The left lower extremity was then scrubbed, prepped, and draped in the usual aseptic manner. A well padded pneumatic ankle tourniquet was applied to the left lower extremity, but was not inflated for the duration of the case. Attention was Directed towards the left second toe. 2 converging semielliptical incisions were made circumferentially around the second digit. The incision was carried down to the level of the bone utilizing sharp and blunt dissection techniques. The distal aspect of the proximal phalanx was disarticulated and the soft tissue surrounding this was deemed nonviable, so the digit was disarticulated at the level of the metatarsophalangeal joint instead. This would allow for total excision of all nonviable, infected tissue. The digit was passed off to the back table and the surgical site was flushed with copious amounts of sterile saline. Floor Scrubber specimens of the toe were obtained and sent for culture and sensitivity testing. The remainder of the digit was to be sent to pathology. The surgical site was reapproximated utilizing 2-0 nylon in a horizontal mattress pattern. The incision was dressed with Xeroform, 4 x 4 gauze, Kerlix, and an Francis wrap. The patient tolerated the procedure well and was transferred to the recovery room with vital signs stable and vascular status intact to the feet. Following postoperative monitoring, he will be transferred back to the floor for further evaluation. He will likely we'll be discharged next 1-2 days as long as all other consults are in agreement. I attest to the content of the Intraoperative Record and any orders documented therein. Any exceptions are noted below.
--- NOTE | 2022-09-08 12:53 | Coding Query ---
CODING QUERY FOR UNCONTROLLED DIABETES To promote full compliance with coding requirements relating to patient care, provider participation is requested in all cases of cafe or restaurant manager uncertainty. Please assist us with the question(s) below: Coding Question: The term uncontrolled Diabetes was used throughout the record. To be able to code this diagnosis properly, could you please clarify the diagnosis below: ( ) Uncontrolled Diabetes meaning hypoglycemia ( ) Uncontrolled Diabetes meaning hyperglycemia ( ) Other (please specify) Principal Diagnosis: "that condition established after study, to be chiefly responsible for occasioning the admission of the patient to the hospital for care." Co-Existing Principal Diagnosis: "when two or more diagnoses equally meet the criteria for principal diagnosis as determined by the circumstances of admission, diagnostic work up, and/or therapy provided, and the Alphabetic Index, Tabular List, or another coding guideline does not provide sequencing direction, any one of the diagnoses may be sequenced first." "When the physician has documented what appears to be a current diagnosis in the body of the record, but has not included the diagnosis in the final diagnostic statement, the physician should be asked whether the diagnosis should be added." ([facility] 2 QTR90. p3-4) VERO
--- NOTE | 2022-09-18 06:41 | Coding Query ---
CODING QUERY FOR UNCONTROLLED DIABETES To promote full compliance with coding requirements relating to patient care, provider participation is requested in all cases of electronics inspector uncertainty. Please assist us with the question(s) below: Coding Question: The term uncontrolled Diabetes was used throughout the record. To be able to code this diagnosis properly, could you please clarify the diagnosis below: ( ) Uncontrolled Diabetes meaning hypoglycemia ( xx ) Uncontrolled Diabetes meaning hyperglycemia ( ) Other (please specify) Principal Diagnosis: "that condition established after study, to be chiefly responsible for occasioning the admission of the patient to the hospital for care." Co-Existing Principal Diagnosis: "when two or more diagnoses equally meet the criteria for principal diagnosis as determined by the circumstances of admission, diagnostic work up, and/or therapy provided, and the Alphabetic Index, Tabular List, or another coding guideline does not provide sequencing direction, any one of the diagnoses may be sequenced first." "When the physician has documented what appears to be a current diagnosis in the body of the record, but has not included the diagnosis in the final diagnostic statement, the physician should be asked whether the diagnosis should be added." ([facility] 2 QTR90. p3-4) VERO
== END 2022-08-14 14:00 | disposition home or self-care (01) | DRG 617 ==
LOC: ED 09:43 → SUATTDRO 12:14 → EDINP 12:14 → 2N 17:12

== ENCOUNTER 2023-06-25 19:44 | Inpatient (IN) ==
[2023-06-25] MEDS ORDERED: VANCOMYCIN HCL 2,750 MG in SODIUM CHLORIDE 0.9% 500 ML IV STA (20:18)
[2023-06-25] MEDS ORDERED: CEFEPIME 2,000 MG/20 ML VIAL IV STA (20:18)
[2023-06-25] MEDS ORDERED: VANCOMYCIN CONSULT ACTIVE PRN (20:18)
[2023-06-25] MEDS ORDERED: ACETAMINOPHEN 1,000 MG/100 ML VIAL IV STA (20:26)
[2023-06-25] MEDS ORDERED: SODIUM CHLORIDE 0.9% 500 ML IV SCH (20:30)
[2023-06-25 21:00] LABS: Basophils # (auto) 0.05 K/uL (0.00-0.20); Basophils % (auto) 0.3 %; Eosinophils # (auto) 0.04 K/uL (0.00-0.50); Eosinophils % (auto) 0.2 %; Hemoglobin 12.1 g/dl (14.0-18.0); Immature Granulocytes # (auto) 0.15 K/uL (0.01-0.20); Immature Granulocytes % (auto) 0.8 %; Lymphocytes # (auto) 0.61 K/uL (1.20-3.40); Lymphocytes % (auto) 3.2 %; Mean Corpuscular Hemoglobin 30.3 pg (25.0-34.0); Mean Corpuscular Hgb Conc 32.7 g/dL (32.0-36.0); Mean Corpuscular Volume 92.7 fL (80.0-100.0); Mean Platelet Volume 9.2 fL (9.4-12.4); Monocytes # (auto) 1.22 K/uL (0.11-0.59); Monocytes % (auto) 6.4 %; Neutrophils # (auto) 16.95 K/uL (1.40-6.50); Neutrophils % (auto) 89.1 %; Platelet Count 230 K/uL (130-400); RDW Coefficient of Variation 14.6 % (11.5-14.5); RDW Standard Deviation 49.8 fL (36.4-46.3); Red Blood Count 3.99 M/uL (4.70-6.10); White Blood Count 19.02 K/ul (4.8-10.8)
[2023-06-25 21:02] LABS: Albumin Level 3.9 gm/dl (3.4-5.0); BUN Creatinine Ratio 24.2 (10-20); Bilirubin Direct 0.1 mg/dl (0-0.2); Bilirubin,Total 0.5 mg/dl (0.2-1.0); Calcium 9.9 mg/dl (8.6-10.3); Creatinine Clr Calc Pharmacy 77.6 ml/min; Est GFR (African American) 63.5 ml/min; Est GFR (Non-African American) 54.8 ml/min; Magnesium 1.8 mg/dl (1.7-2.4); Potassium 4.7 mmol/L (3.5-5.1); Total Protein 6.9 gm/dl (6.0-8.3)
[2023-06-25] MEDS: SODIUM CHLORIDE 0.9% 1,000 ML IV SCH (21:05)
[2023-06-25 21:08] LABS: Troponin I High Sensitivity 13.2 pg/ml (0-20)
[2023-06-25 22:29] LABS: Adenovirus PCR Not Detected (NotDetected); Bordetella parapertussis PCR Not Detected (NotDetected); Bordetella pertussis PCR Not Detected (NotDetected); Chlamydia pneumoniae PCR Not Detected (NotDetected); Coronavirus 229E PCR Not Detected (NotDetected); Coronavirus CoV-2 (COVID19)PCR Not Detected (NotDetected); Coronavirus HKU1 PCR Not Detected (NotDetected); Coronavirus NL63 PCR Not Detected (NotDetected); Coronavirus OC43PCR Not Detected (NotDetected); Human Metapneumovirus PCR Not Detected (NotDetected); Influenza A PCR Not Detected (NotDetected); Influenza B PCR Not Detected (NotDetected); Mycoplasma pneumoniae PCR Not Detected (NotDetected); Parainfluenza Virus 1 PCR Not Detected (NotDetected); Parainfluenza Virus 2 PCR Not Detected (NotDetected); Parainfluenza Virus 3 PCR Not Detected (NotDetected); Parainfluenza Virus 4 PCR Not Detected (NotDetected); Respiratory Syncytial VirusPCR Not Detected (NotDetected); Rhinovirus/Enterovirus PCR Not Detected (NotDetected)
--- NOTE | 2023-06-25 22:39 | Emergency Department Note ---
Impression & Plan SIRS (systemic inflammatory response syndrome), Acute confusion, Cellulitis, Fever ED Provider Note NAME: ROSANA HERNANDES AGE: 72 SEX: Male INFORMANT: Patient ED PROVIDER(S): Markie Jaramillo MD CHIEF COMPLAINT: Weakness PLAN: Disposition: Admitted Outpatient prescription management: none Referral: None MEDICAL DECISION MAKING: Patient presented because of fever, weakness and confusion. He had mildly decreased O2 saturations were responded nicely to nasal cannula oxygen. He has a significant cellulitis on evaluation. Patient has signs consistent with SIRS but not sepsis. He was treated with IV vancomycin and IV cefepime after cultures. Patient was given Tylenol. Fever broke. Patient has some pulmonary edema on chest x-ray and peripheral edema. Aggressive fluid management was withheld as he has a normal lactate and no hypotension. Further management in the hospital will be necessary. Consultation was made with Dr. Dominguez Marrero of the [facility] service. Patient was evaluated in the ER for further management. Care/management discussed with: Discussed with employee relation manager Level of care consideration(s): After review of the information above and other included data, I feel the patient requires escalation of care to admission Triage Nursing notes: reviewed and agree them. Vital Signs: reviewed and remarkable for hypertension Additional History obtained from: none Chronic Medical/Social Conditions affecting care: Diabetes Prior/ Outside/ External records reviewed: none Differential Diagnosis: Infection, hypoglycemia, electrolyte abnormalities, overdose, toxicologic, cardiac sources, intracerebral event, neurologic, trauma, as well as other pathologies. Diagnostics, independently interpreted by me: ECG: Twelve-lead ECG reveals atrial fibrillation at 96 bpm. Septal Q waves low- voltage QRS. No ST elevation. Cardiac Monitoring: Cardiac monitoring ordered by me: The patient was placed on continuous cardiac monitoring and observed. It revealed a normal sinus rhythm at 93 beats per minute without ectopy or evidence of dysrhythmia. Medical decision rules: none Imaging studies: Chest x-ray shows some mild pulmonary edema and cardiomegaly. No focal infiltrate noted. HPI: 72 year old Male arrives for evaluation of weakness. Patient is from [facility]. He has had increased weakness and confusion. His O2 saturations were mildly low and he had redness and swelling in his legs. Patient had a fever. Patient was sent to the emergency department for further evaluation. He notes his right leg seems to be worse than usual. Patient was a little disoriented on arrival and was unsure of his age. His O2 saturation increased into the 90s with supplemental nasal cannula oxygen. He denied any shortness of breath or respiratory complaints. Patient denied any chest pain. Pt denies LOC, headache,diaphoresis, visual changes, neck pain, chest pain, breathing difficulties, nausea, vomiting, abdominal pain, back pain, melena, hematochezia, urinary symptoms, numbness, or other complaints. PAST MEDICAL HISTORY: See Below, diabetes PAST SURGICAL HISTORY: See Below, SOCIAL HISTORY: See Below, retired HOME MEDICATIONS: See Below ALLERGIES: See Below VITALS: See Below PHYSICAL EXAMINATION: GENERAL: Awake but tired-appearing, in no distress HENT: Normocephalic, atraumatic. Oropharynx unremarkable. EYES: Normal conjunctiva. Sclera non-icteric. NECK: Inspection normal. Non-tender. Supple. No nuchal rigidity. FROM. No masses. RESPIRATORY: Clear to auscultation. No wheezes. No rales. Normal respiratory effort. CARDIAC: Borderline tachycardic rate. Normal rhythm. No murmurs. No rubs. Extremities warm and well perfused. Pulses equal. No JVD. GI: Soft, non-distended. No tenderness to palpation. No rebound or guarding. No masses. MUSCULOSKELETAL: Atraumatic. Chest examination reveals no tenderness. The back is symmetrical on inspection without obvious abnormality. There is no CVA tenderness to palpation. No joint edema. LOWER EXTREMITIES: Calves are equal size bilaterally and non-tender. 3+ edema which is slightly worse on the right. The patient has some mild tenderness with erythematous discoloration and blanching to pressure on both lower extremities. Right distal lower extremity is worse than the left however the left proximal lower extremity is worse than the right. Concerning for cellulitis. NEURO: Very minimally confused otherwise normal sensorium. Generally weak but no focal sensory or motor deficits noted. SKIN: No rash or jaundice noted. PROCEDURES: none CRITICAL CARE: none OBSERVATION NOTE: none Past Med/Surg History Medical History (Updated 06/26/23 @ 01:07 by Dominguez Marrero MD) Acquired buried penis Aortic stenosis follows with Dr. Adorno Atrial fibrillation DX FEBRUARY 2018 - ON COUMADIN - FOLLOWS W/ DR. ADORNO Atrial fibrillation successful cardioversion ~2017. follows with Dr. Adorno. Bilateral carotid artery stenosis BPH NOS w ur obs/LUTS CAD (coronary artery disease) of artery bypass graft Cardiac murmur Cellulitis of left leg Chronic diastolic (congestive) heart failure Chronic obstructive pulmonary disease RARELY USES PRN INH Chronic obstructive pulmonary disease Diabetes mellitus, type 2 Diabetes type 2, uncontrolled Diabetic peripheral neuropathy associated with type 2 diabetes mellitus Diabetic ulcer of toe of left foot Dyslipidemia GERD (gastroesophageal reflux disease) History of cardioversion (~2017) Hypertension residential (current) use of anticoagulants Mass of right kidney pt unaware Morbid obesity Multiple pulmonary nodules determined by computed tomography of lung Obstructive sleep apnea syndrome Osteoarthritis Osteomyelitis Sciatica Sensorineural hearing loss (SNHL) of both ears Wears binaural hearing aids Sepsis Sleep apnea cpap with 2lpm Status post partial amputation of foot Venous stasis ulcer of left lower extremity Venous stasis ulcer of right lower extremity Surgical History H/O vascular surgery (~10/2020) left leg vein moved to the right arm for bypass d/t poor circulation History of cardiac cath FEBRUARY 2018 - [facility] [place] A.FIB, SOB - NO STENTS/ANGIOPLASTY History of colonoscopy W/ POLYPECTOMY History of esophagogastroduodenoscopy (EGD) History of hernia repair History of surgery RT ADRENALECTOMY History of tonsillectomy Hx of aortic valve replacement S/P epidural steroid injection Sacro-iliac joint injection Family History Grandmother Cancer Father Cancer Mother Cancer Sister Diabetes Psoriasis Cardiac disorder Other Family history of bleeding disorder Hypertension No family history of adverse response to anesthesia Social History Smoking Status: Former smoker Tobacco Type: Cigarettes and Smokeless Tobacco (Dip or Chew) Second Hand Exposure: No; Do You Dip or Chew Tobacco: Yes (quit many years ago); Hx Alcohol Use: Yes Alcohol type: beer Alcohol Intake Frequency Comment: 1-2 times per month, seldom Hx Substance Use: No Preferred Language: Pakistani Communication Ability: Effective Visual Impairment: No Limitations Hearing Ability: Hard of Hearing Foreign Legal Consultant Required: No Beliefs That Will Affect Care: None marital status: 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 Son lives away. /SO able to help a little however has a broken back and is unable to assist much. Feels Safe at Home: Yes Diet: diabetic and low salt during the past year weight has: remained stable Assistive Devices: Bedside Commode, Hearing Aid - Bilateral and Walker Allergies Allergies Allergy/AdvReac Type Severity Reaction Status Date / Time No Known Drug Allergies Allergy Unknown NONE Verified 06/26/23 00:10 Home Meds Home Medications Medication Instructions Recorded Confirmed L.acidop,casei,lactis,rham-B.lact,vira 2 cap PO DAILY 06/26/23 06/26/23 625 mg (10 billion cell) capsule (Advanced Probiotic) acetaminophen 325 mg tablet 650 mg PO Q6 PRN Fever Or Pain 06/26/23 06/26/23 (Tylenol) apixaban 5 mg tablet (Eliquis) 5 mg PO AMHS 06/26/23 06/26/23 atorvastatin 40 mg tablet 40 mg PO QPM 06/26/23 06/26/23 ceftriaxone 2 gram intravenous 2 g IV DAILY 06/26/23 06/26/23 solution cyanocobalamin (vitamin B-12) 1,000 mcg PO DAILY 06/26/23 06/26/23 1,000 mcg tablet (Vitamin B-12) cyclobenzaprine 10 mg tablet 10 mg PO BID PRN Muscle Spasm 06/26/23 06/26/23 diclofenac sodium 1 % topical gel 1 ea topical Q8 PRN .Joint Pain 06/26/23 06/26/23 famotidine 20 mg tablet 20 mg PO BID 06/26/23 06/26/23 furosemide 40 mg tablet 40 mg PO QAM 06/26/23 06/26/23 gabapentin 100 mg capsule 200 mg PO QAM 06/26/23 06/26/23 insulin glargine 100 unit/mL 30 unit subcut AMHS 06/26/23 06/26/23 subcutaneous solution (Lantus U-100 Insulin) insulin lispro 100 unit/mL 1 sliding scale dose subcut 06/26/23 06/26/23 subcutaneous solution (Humalog USEASDIRECTD U-100 Insulin) ipratropium 0.5 mg-albuterol 3 mg 3 ml inhalation Q8 PRN Shortness 06/26/23 06/26/23 (2.5 mg base)/3 mL nebulization Of Breath soln magnesium 250 mg tablet 250 mg PO DAILY 06/26/23 06/26/23 metformin 1,000 mg tablet 1,000 mg PO AMHS 06/26/23 06/26/23 metoprolol tartrate 100 mg tablet 100 mg PO AMHS 06/26/23 06/26/23 multivitamin 1 tab PO DAILY 06/26/23 06/26/23 omega-3 fatty acids 1,000 mg 0 mg PO DAILY 06/26/23 06/26/23 capsule paroxetine HCl 30 mg tablet 30 mg PO QAM 06/26/23 06/26/23 polyethylene glycol 3350 17 gram 17 g PO DAILY 06/26/23 06/26/23 oral powder packet (Miralax) promethazine 25 mg/mL injection 25 mg IM Q6H PRN Nausea 06/26/23 06/26/23 solution (Phenergan) Results & Data (ED) Vital Signs Vital Signs - 24 hr 06/25/23 19:51 06/25/23 20:03 06/25/23 20:12 Temperature 39.2 C H Temperature Source Oral Pulse Rate 108 H 99 H Pulse Rate [Right Finger] Pulse Rate from SpO2 Sensor Pulse Rhythm Regular Pulse Rhythm [Right Finger] Pulse Strength Normal Pulse Strength [Right Finger] Respiratory Rate 22 Respiratory Effort / Characteristics SOB on Exertion Respiratory Depth Normal Respiratory Pattern Regular Blood Pressure 129/64 Blood Pressure [Right Arm] Blood Pressure Mean 85 Blood Pressure Mean [Right Arm] Blood Pressure Position Lying Blood Pressure Position [Right Arm] Pulse Oximetry 98 96 Oxygen Delivery Method Nasal Cannula Nasal Cannula Oxygen Flow Rate 2 3 Sepsis Recent Fever Within 48 Hours Yes Sepsis New/Unexplained Change in Mental Status Yes Sepsis Action Taken by Nursing No Action Required 06/25/23 20:20 06/25/23 20:05 06/25/23 20:01 Temperature 39.3 C H Temperature Source Oral Pulse Rate 104 H 108 H Pulse Rate [Right Finger] 104 H Pulse Rate from SpO2 Sensor Pulse Rhythm Irregular Pulse Rhythm [Right Finger] Regular Pulse Strength Pulse Strength [Right Finger] Normal Respiratory Rate 27 H 27 H 29 H Respiratory Effort / Characteristics Non-Labored Spontaneous Respiratory Depth Normal Respiratory Pattern Regular Blood Pressure Blood Pressure [Right Arm] 129/64 Blood Pressure Mean Blood Pressure Mean [Right Arm] 85 Blood Pressure Position Blood Pressure Position [Right Arm] Lying Pulse Oximetry 99 99 Oxygen Delivery Method Nasal Cannula Nasal Cannula Oxygen Flow Rate 3 3 Sepsis Recent Fever Within 48 Hours Sepsis New/Unexplained Change in Mental Status Sepsis Action Taken by Nursing 06/25/23 20:10 06/25/23 20:20 06/25/23 20:30 Temperature Temperature Source Pulse Rate 98 H 108 H 108 H Pulse Rate [Right Finger] Pulse Rate from SpO2 Sensor 107 H 107 H 108 H Pulse Rhythm Pulse Rhythm [Right Finger] Pulse Strength Pulse Strength [Right Finger] Respiratory Rate 25 H 29 H 28 H Respiratory Effort / Characteristics Respiratory Depth Respiratory Pattern Blood Pressure Blood Pressure [Right Arm] Blood Pressure Mean Blood Pressure Mean [Right Arm] Blood Pressure Position Blood Pressure Position [Right Arm] Pulse Oximetry 98 98 98 Oxygen Delivery Method Nasal Cannula Oxygen Flow Rate 3 Sepsis Recent Fever Within 48 Hours Sepsis New/Unexplained Change in Mental Status Sepsis Action Taken by Nursing 06/25/23 20:40 06/25/23 20:50 06/25/23 21:00 Temperature Temperature Source Pulse Rate 100 H 107 H 91 H Pulse Rate [Right Finger] Pulse Rate from SpO2 Sensor 98 H 101 H 91 H Pulse Rhythm Pulse Rhythm [Right Finger] Pulse Strength Pulse Strength [Right Finger] Respiratory Rate 29 H 28 H 31 H Respiratory Effort / Characteristics Respiratory Depth Respiratory Pattern Blood Pressure Blood Pressure [Right Arm] Blood Pressure Mean Blood Pressure Mean [Right Arm] Blood Pressure Position Blood Pressure Position [Right Arm] Pulse Oximetry 97 98 87 L Oxygen Delivery Method Oxygen Flow Rate Sepsis Recent Fever Within 48 Hours Sepsis New/Unexplained Change in Mental Status Sepsis Action Taken by Nursing 06/25/23 21:01 06/25/23 21:10 06/25/23 21:20 Temperature Temperature Source Pulse Rate 102 H 110 H 92 H Pulse Rate [Right Finger] Pulse Rate from SpO2 Sensor 100 H 99 H 99 H Pulse Rhythm Pulse Rhythm [Right Finger] Pulse Strength Pulse Strength [Right Finger] Respiratory Rate 27 H 26 H 24 Respiratory Effort / Characteristics Respiratory Depth Respiratory Pattern Blood Pressure 180/74 H Blood Pressure [Right Arm] Blood Pressure Mean 109 Blood Pressure Mean [Right Arm] Blood Pressure Position Blood Pressure Position [Right Arm] Pulse Oximetry 88 L 90 92 Oxygen Delivery Method Oxygen Flow Rate Sepsis Recent Fever Within 48 Hours Sepsis New/Unexplained Change in Mental Status Sepsis Action Taken by Nursing 06/25/23 21:30 06/25/23 21:40 06/25/23 21:50 Temperature Temperature Source Pulse Rate 98 H 96 H 101 H Pulse Rate [Right Finger] Pulse Rate from SpO2 Sensor 110 H 104 H 106 H Pulse Rhythm Pulse Rhythm [Right Finger] Pulse Strength Pulse Strength [Right Finger] Respiratory Rate 26 H 25 H 27 H Respiratory Effort / Characteristics Respiratory Depth Respiratory Pattern Blood Pressure Blood Pressure [Right Arm] Blood Pressure Mean Blood Pressure Mean [Right Arm] Blood Pressure Position Blood Pressure Position [Right Arm] Pulse Oximetry 95 95 94 Oxygen Delivery Method Oxygen Flow Rate Sepsis Recent Fever Within 48 Hours Sepsis New/Unexplained Change in Mental Status Sepsis Action Taken by Nursing 06/25/23 22:00 06/25/23 22:10 06/25/23 22:20 Temperature Temperature Source Pulse Rate 101 H 97 H 103 H Pulse Rate [Right Finger] Pulse Rate from SpO2 Sensor 108 H 112 H 100 H Pulse Rhythm Pulse Rhythm [Right Finger] Pulse Strength Pulse Strength [Right Finger] Respiratory Rate 22 23 22 Respiratory Effort / Characteristics Respiratory Depth Respiratory Pattern Blood Pressure 141/70 H Blood Pressure [Right Arm] Blood Pressure Mean 93 Blood Pressure Mean [Right Arm] Blood Pressure Position Blood Pressure Position [Right Arm] Pulse Oximetry 88 L 94 94 Oxygen Delivery Method Nasal Cannula Oxygen Flow Rate 3 Sepsis Recent Fever Within 48 Hours Sepsis New/Unexplained Change in Mental Status Sepsis Action Taken by Nursing 06/25/23 20:19 06/25/23 22:00 06/25/23 23:03 Temperature 37.4 C 36.7 C Temperature Source Oral Oral Pulse Rate 104 H Pulse Rate [Right Finger] 87 Pulse Rate from SpO2 Sensor Pulse Rhythm Regular Pulse Rhythm [Right Finger] Irregular Pulse Strength Pulse Strength [Right Finger] Normal Respiratory Rate 24 26 H Respiratory Effort / Characteristics Non-Labored Spontaneous Respiratory Depth Normal Respiratory Pattern Regular Blood Pressure Blood Pressure [Right Arm] 141/70 H Blood Pressure Mean Blood Pressure Mean [Right Arm] 93 Blood Pressure Position Blood Pressure Position [Right Arm] Lying Pulse Oximetry 97 94 Oxygen Delivery Method Nasal Cannula Nasal Cannula Oxygen Flow Rate 3 3 Sepsis Recent Fever Within 48 Hours Sepsis New/Unexplained Change in Mental Status Sepsis Action Taken by Nursing 06/25/23 22:30 06/25/23 22:40 06/25/23 22:50 Temperature Temperature Source Pulse Rate 90 91 H 88 Pulse Rate [Right Finger] Pulse Rate from SpO2 Sensor 94 H 91 H Pulse Rhythm Pulse Rhythm [Right Finger] Pulse Strength Pulse Strength [Right Finger] Respiratory Rate 27 H 22 26 H Respiratory Effort / Characteristics Respiratory Depth Respiratory Pattern Blood Pressure 136/61 Blood Pressure [Right Arm] Blood Pressure Mean 86 Blood Pressure Mean [Right Arm] Blood Pressure Position Blood Pressure Position [Right Arm] Pulse Oximetry 95 95 Oxygen Delivery Method Oxygen Flow Rate Sepsis Recent Fever Within 48 Hours Sepsis New/Unexplained Change in Mental Status Sepsis Action Taken by Nursing 06/25/23 23:00 06/25/23 23:10 06/26/23 00:00 Temperature Temperature Source Pulse Rate 87 85 73 Pulse Rate [Right Finger] Pulse Rate from SpO2 Sensor 89 82 Pulse Rhythm Pulse Rhythm [Right Finger] Pulse Strength Pulse Strength [Right Finger] Respiratory Rate 21 22 Respiratory Effort / Characteristics Respiratory Depth Respiratory Pattern Blood Pressure 125/67 Blood Pressure [Right Arm] Blood Pressure Mean 86 Blood Pressure Mean [Right Arm] Blood Pressure Position Blood Pressure Position [Right Arm] Pulse Oximetry 95 96 Oxygen Delivery Method Oxygen Flow Rate Sepsis Recent Fever Within 48 Hours Sepsis New/Unexplained Change in Mental Status Sepsis Action Taken by Nursing 06/26/23 00:00 Temperature Temperature Source Pulse Rate Pulse Rate [Right Finger] 85 Pulse Rate from SpO2 Sensor Pulse Rhythm Pulse Rhythm [Right Finger] Pulse Strength Pulse Strength [Right Finger] Respiratory Rate 20 Respiratory Effort / Characteristics Non-Labored Spontaneous Respiratory Depth Normal Respiratory Pattern Blood Pressure Blood Pressure [Right Arm] 142/78 H Blood Pressure Mean Blood Pressure Mean [Right Arm] 99 Blood Pressure Position Blood Pressure Position [Right Arm] Pulse Oximetry 97 Oxygen Delivery Method Nasal Cannula Oxygen Flow Rate 3 Sepsis Recent Fever Within 48 Hours Sepsis New/Unexplained Change in Mental Status Sepsis Action Taken by Nursing Laboratory Data 06/25/23 20:06 06/25/23 20:06 Lab Results 06/25/23 06/25/23 06/25/23 Range/Units 20:06 20:06 20:06 WBC 19.02 H (4.8-10.8) K/ul RBC 3.99 L (4.70-6.10) M/uL Hgb 12.1 L (14.0-18.0) g/dl Hct 37.0 L (42.0-52.0) % MCV 92.7 (80.0-100.0) fL MCH 30.3 (25.0-34.0) pg MCHC 32.7 (32.0-36.0) g/dL RDW Std Deviation 49.8 H (36.4-46.3) fL RDW Coeff of Jaylen 14.6 H (11.5-14.5) % Plt Count 230 (130-400) K/uL MPV 9.2 L (9.4-12.4) fL Immature Gran % (Auto) 0.8 % Neut % (Auto) 89.1 % Lymph % (Auto) 3.2 % Gladwin % (Auto) 6.4 % Eos % (Auto) 0.2 % Baso % (Auto) 0.3 % Neut # (Auto) 16.95 H (1.40-6.50) K/uL Lymph # (Auto) 0.61 L (1.20-3.40) K/uL Gladwin # (Auto) 1.22 H (0.11-0.59) K/uL Eos # (Auto) 0.04 (0.00-0.50) K/uL Baso # (Auto) 0.05 (0.00-0.20) K/uL Immature Gran # (Auto) 0.15 (0.01-0.20) K/uL Sodium 136 (136-145) mmol/L Potassium 4.7 (3.5-5.1) mmol/L Chloride 96 L (98-107) mmol/L Carbon Dioxide 36 H (21-32) mmol/L Anion Gap 4 (3-11) BUN 31 H (6-23) mg/dl Creatinine 1.28 (0.6-1.4) mg/dl Est Cr Clr Drug Dosing 77.6 ml/min Est GFR ( Amer) 63.5 ml/min Est GFR (Non-Af Amer) 54.8 ml/min BUN/Creatinine Ratio 24.2 H (10-20) Glucose 168 H (70-99(Fasting)) mg/dl Lactate (0.4-2.0) mmol/L Calcium 9.9 (8.6-10.3) mg/dl Magnesium 1.8 (1.7-2.4) mg/dl Total Bilirubin 0.5 (0.2-1.0) mg/dl Direct Bilirubin 0.1 (0-0.2) mg/dl AST 14 (13-39) U/L ALT 18 (7-52) U/L Alkaline Phosphatase 85 (34-104) U/L Troponin I High Sens 13.2 (0-20) pg/ml Total Protein 6.9 (6.0-8.3) gm/dl Albumin 3.9 (3.4-5.0) gm/dl Procalcitonin 0.13 (0-0.5) ng/ml Adenovirus (PCR) (NotDetected) B. pertussis DNA (PCR) (NotDetected) B.parapertussis DNA PCR (NotDetected) C. pneumoniae DNA (PCR) (NotDetected) Coronavirus OC43 (PCR) (NotDetected) Coronavirus HKU1 (PCR) (NotDetected) Coronavirus 229E (PCR) (NotDetected) SARS-CoV-2 (PCR) (NotDetected) Coronavirus NL63 (PCR) (NotDetected) Human Metapneumovir PCR (NotDetected) Influenza Type A (PCR) (NotDetected) Influenza Type B (PCR) (NotDetected) M. pneumoniae (PCR) (NotDetected) Parainfluenza 1 (PCR) (NotDetected) Parainfluenza 2 (PCR) (NotDetected) Parainfluenza 3 (PCR) (NotDetected) Parainfluenza 4 (PCR) (NotDetected) RSV (PCR) (NotDetected) Entero/Rhino (PCR) (NotDetected) 06/25/23 06/25/23 Range/Units 20:07 20:07 WBC (4.8-10.8) K/ul RBC (4.70-6.10) M/uL Hgb (14.0-18.0) g/dl Hct (42.0-52.0) % MCV (80.0-100.0) fL MCH (25.0-34.0) pg MCHC (32.0-36.0) g/dL RDW Std Deviation (36.4-46.3) fL RDW Coeff of Jaylen (11.5-14.5) % Plt Count (130-400) K/uL MPV (9.4-12.4) fL Immature Gran % (Auto) % Neut % (Auto) % Lymph % (Auto) % Gladwin % (Auto) % Eos % (Auto) % Baso % (Auto) % Neut # (Auto) (1.40-6.50) K/uL Lymph # (Auto) (1.20-3.40) K/uL Gladwin # (Auto) (0.11-0.59) K/uL Eos # (Auto) (0.00-0.50) K/uL Baso # (Auto) (0.00-0.20) K/uL Immature Gran # (Auto) (0.01-0.20) K/uL Sodium (136-145) mmol/L Potassium (3.5-5.1) mmol/L Chloride (98-107) mmol/L Carbon Dioxide (21-32) mmol/L Anion Gap (3-11) BUN (6-23) mg/dl Creatinine (0.6-1.4) mg/dl Est Cr Clr Drug Dosing ml/min Est GFR ( Amer) ml/min Est GFR (Non-Af Amer) ml/min BUN/Creatinine Ratio (10-20) Glucose (70-99(Fasting)) mg/dl Lactate 1.5 (0.4-2.0) mmol/L Calcium (8.6-10.3) mg/dl Magnesium (1.7-2.4) mg/dl Total Bilirubin (0.2-1.0) mg/dl Direct Bilirubin (0-0.2) mg/dl AST (13-39) U/L ALT (7-52) U/L Alkaline Phosphatase (34-104) U/L Troponin I High Sens (0-20) pg/ml Total Protein (6.0-8.3) gm/dl Albumin (3.4-5.0) gm/dl Procalcitonin (0-0.5) ng/ml Adenovirus (PCR) Not Detected (NotDetected) B. pertussis DNA (PCR) Not Detected (NotDetected) B.parapertussis DNA PCR Not Detected (NotDetected) C. pneumoniae DNA (PCR) Not Detected (NotDetected) Coronavirus OC43 (PCR) Not Detected (NotDetected) Coronavirus HKU1 (PCR) Not Detected (NotDetected) Coronavirus 229E (PCR) Not Detected (NotDetected) SARS-CoV-2 (PCR) Not Detected (NotDetected) Coronavirus NL63 (PCR) Not Detected (NotDetected) Human Metapneumovir PCR Not Detected (NotDetected) Influenza Type A (PCR) Not Detected (NotDetected) Influenza Type B (PCR) Not Detected (NotDetected) M. pneumoniae (PCR) Not Detected (NotDetected) Parainfluenza 1 (PCR) Not Detected (NotDetected) Parainfluenza 2 (PCR) Not Detected (NotDetected) Parainfluenza 3 (PCR) Not Detected (NotDetected) Parainfluenza 4 (PCR) Not Detected (NotDetected) RSV (PCR) Not Detected (NotDetected) Entero/Rhino (PCR) Not Detected (NotDetected) Administered Medications Sodium Chloride (Nss) 1,000 mls @ 125 mls/hr IV .Q8H [facility] Stop: 07/25/23 20:29 Last Admin: 06/26/23 03:41 Dose: 125 mls/hr Documented By: [email or web address] Infusion: 06/26/23 03:41 Dose: 125 mls/hr Documented By: SL Admin: 06/25/23 21:05 Dose: 125 mls/hr Documented By: PROPULSION ENGINEER Discontinued Medications Sodium Chloride (Nss) 500 mls @ 999 mls/hr IV .Q31M [facility] Stop: 06/25/23 21:00 Last Infusion: 06/25/23 21:38 Dose: 0 mls/hr Documented By: PROPULSION ENGINEER Admin: 06/25/23 21:05 Dose: 999 mls/hr Documented By: PROPULSION ENGINEER Cefepime HCl (Maxipime) 2,000 mg in 20 mls @ 5 mls/min IV NOW STA; Protocol Stop: 06/25/23 20:21 Last Admin: 06/25/23 21:04 Dose: 5 mls/min Documented By: PROPULSION ENGINEER Vancomycin HCl 2,750 mg/ (Sodium Chloride) 555 mls @ 200 mls/hr IV NOW STA Stop: 06/25/23 23:07 Last Infusion: 06/26/23 01:30 Dose: 0 mls/hr Documented By: Admin: 06/25/23 22:25 Dose: 200 mls/hr Documented By: PROPULSION ENGINEER Acetaminophen (Ofirmev) 1,000 mg in 100 mls @ 400 mls/hr IV NOW STA Stop: 06/25/23 20:40 Last Infusion: 06/25/23 21:20 Dose: 0 mls/hr Documented By: PROPULSION ENGINEER Admin: 06/25/23 21:04 Dose: 400 mls/hr Documented By: PROPULSION ENGINEER Discharge Plan Visit Data Chief Complaint: Weakness Stated Complaint: WEAKNESS, CONFUSION ED Provider: Markie Jaramillo Discharge Problem: SIRS (systemic inflammatory response syndrome), Acute confusion, Cellulitis, Fever Patient Disposition: Admitted As Inpatient Discharge Instructions Interventions: ED Discharge Assessment Last Done: 06/26/23 02:09
--- NOTE | 2023-06-26 00:47 | History & Physical Report ---
Date of Service June 26, 2023 Assessment & Plan (1) Acute confusion: (2) SIRS (systemic inflammatory response syndrome): (3) Venous stasis ulcer of right lower extremity: (4) PAD (peripheral artery disease): (5) BPH with urinary obstruction: (6) Venous stasis of both lower extremities: (7) Lower extremity edema: (8) Cellulitis of both lower extremities: (9) Foot osteomyelitis, left: (10) Aortic stenosis: (11) Atrial fibrillation: Plan Bilateral lower extremity cellulitis/right lower extremity ulcerations/history of left foot osteomyelitis with Klebsiella pneumonia- Patient completed 6 weeks of IV ceftriaxone and 4 weeks of IV Flagyl as of 06/25 Continue vancomycin IV and cefepime IV begun in the ED, and has Flagyl IV. Consult wound care Atrial fibrillation/aortic stenosis/PAD/hypertension- Continue apixaban, furosemide, metoprolol tartrate Diabetes mellitus- Continue glargine 30 units subcu twice daily Hold metformin Placed on Accu-Cheks with NovoLog SSI History of Present Illness Chief Complaint: The patient is referred to the emergency department from [facility] due to worsening weakness, confusion, and erythema and swelling of bilateral lower extremities Primary Care Provider: Sheng Diaz MD The patient is a 72-year-old male with a past medical history including right lower extremity venous stasis ulcer, PAD, left lower extremity venous stasis ulcer, left foot osteomyelitis, BPH with LUTS, diabetic foot ulcers, PAD, long- term use of anticoagulants and bilateral carotid artery stenosis. The patient presents to the emergency department due to worsening lower extremity symptoms of erythema and swelling, with worsening generalized weakness and confusion. He was somewhat lethargic in the emergency department, and gave a limited history. Treatment for the emergency department included the following: Vancomycin IV, cefepime IV, Tylenol 1 g IV, normal saline 500 mill bolus and then 125 mils per hour Allergies Allergy/AdvReac Type Severity Reaction Status Date / Time No Known Drug Allergies Allergy Unknown NONE Verified 06/26/23 00:10 Home Medications Medication Instructions Recorded Confirmed Type L.acidop,casei,lactis,rham-B.lact,vira 2 cap PO DAILY 06/26/23 06/26/23 History 625 mg (10 billion cell) capsule (Advanced Probiotic) acetaminophen 325 mg tablet 650 mg PO Q6 PRN Fever Or Pain 06/26/23 06/26/23 History (Tylenol) apixaban 5 mg tablet (Eliquis) 5 mg PO AMHS 06/26/23 06/26/23 History atorvastatin 40 mg tablet 40 mg PO QPM 06/26/23 06/26/23 History ceftriaxone 2 gram intravenous 2 g IV DAILY 06/26/23 06/26/23 History solution cyanocobalamin (vitamin B-12) 1,000 mcg PO DAILY 06/26/23 06/26/23 History 1,000 mcg tablet (Vitamin B-12) cyclobenzaprine 10 mg tablet 10 mg PO BID PRN Muscle Spasm 06/26/23 06/26/23 History diclofenac sodium 1 % topical gel 1 ea topical Q8 PRN .Joint Pain 06/26/23 06/26/23 History famotidine 20 mg tablet 20 mg PO BID 06/26/23 06/26/23 History furosemide 40 mg tablet 40 mg PO QAM 06/26/23 06/26/23 History gabapentin 100 mg capsule 200 mg PO QAM 06/26/23 06/26/23 History insulin glargine 100 unit/mL 30 unit subcut AMHS 06/26/23 06/26/23 History subcutaneous solution (Lantus U-100 Insulin) insulin lispro 100 unit/mL 1 sliding scale dose subcut 06/26/23 06/26/23 History subcutaneous solution (Humalog USEASDIRECTD U-100 Insulin) ipratropium 0.5 mg-albuterol 3 mg 3 ml inhalation Q8 PRN Shortness 06/26/23 06/26/23 History (2.5 mg base)/3 mL nebulization Of Breath soln magnesium 250 mg tablet 250 mg PO DAILY 06/26/23 06/26/23 History metformin 1,000 mg tablet 1,000 mg PO AMHS 06/26/23 06/26/23 History metoprolol tartrate 100 mg tablet 100 mg PO AMHS 06/26/23 06/26/23 History multivitamin 1 tab PO DAILY 06/26/23 06/26/23 History omega-3 fatty acids 1,000 mg 0 mg PO DAILY 06/26/23 06/26/23 History capsule paroxetine HCl 30 mg tablet 30 mg PO QAM 06/26/23 06/26/23 History polyethylene glycol 3350 17 gram 17 g PO DAILY 06/26/23 06/26/23 History oral powder packet (Miralax) promethazine 25 mg/mL injection 25 mg IM Q6H PRN Nausea 06/26/23 06/26/23 History solution (Phenergan) Past Med/Surg History Medical History (Updated 06/26/23 @ 01:07 by Dominguez Marrero MD) Acquired buried penis Aortic stenosis follows with Dr. Adorno Atrial fibrillation DX FEBRUARY 2018 - ON COUMADIN - FOLLOWS W/ DR. ADORNO Atrial fibrillation successful cardioversion ~2017. follows with Dr. Adorno. 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 Mass of right kidney pt unaware Morbid obesity Multiple pulmonary nodules determined by computed tomography of lung Obstructive sleep apnea syndrome Osteoarthritis Osteomyelitis Sciatica Sensorineural hearing loss (SNHL) of both ears Wears binaural hearing aids Sepsis Sleep apnea cpap with 2lpm Status post partial amputation of foot Venous stasis ulcer of left lower extremity Venous stasis ulcer of right lower extremity Surgical History H/O vascular surgery (~10/2020) left leg vein moved to the right arm for bypass d/t poor circulation History of cardiac cath FEBRUARY 2018 - [facility] [place] A.FIB, SOB - NO STENTS/ANGIOPLASTY History of colonoscopy W/ POLYPECTOMY History of esophagogastroduodenoscopy (EGD) History of hernia repair History of surgery RT ADRENALECTOMY History of tonsillectomy Hx of aortic valve replacement S/P epidural steroid injection Sacro-iliac joint injection Family History Grandmother Cancer Father Cancer Mother Cancer Sister Diabetes Psoriasis Cardiac disorder Other Family history of bleeding disorder Hypertension No family history of adverse response to anesthesia Social History Smoking Status: Former smoker Tobacco Type: Cigarettes and Smokeless Tobacco (Dip or Chew) Second Hand Exposure: No; Do You Dip or Chew Tobacco: Yes (quit many years ago); Hx Alcohol Use: No Hx Substance Use: No Preferred Language: Faroese Communication Ability: Effective Visual Impairment: No Limitations Hearing Ability: Hard of Hearing Glue Bone Crusher Required: No Beliefs That Will Affect Care: None marital status: 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 Son lives away. /SO able to help a little however has a broken back and is unable to assist much. Feels Safe at Home: Yes Diet: diabetic and low salt during the past year weight has: remained stable Assistive Devices: Walker Review of Systems Review of Systems: Limited due to patient's current medical state Physical Exam Physical Exam: The patient is lethargic, morbidly obese, showing signs of sleep apnea, normocephalic and atraumatic, lying in bed and in no acute distress. HEENT--PERRL, EOMI, mucous membranes and oropharynx dry. Neck--supple. No JVD. No bruits. Thyroid normal, trachea midline, no adenopathy. Heart--normal S1 and S2. No murmurs, rubs or gallops. Lungs--coarse breath sounds bilaterally. No respiratory distress, no accessory muscle use. Abdomen--normal bowel sounds and soft. Nontender. Nondistended. Morbidly obese Extremities--2+ bilateral pretibial pitting edema. Right lower extremity with multiple ulcerations. Erythema bilaterally, right greater than left Dermatologic--see above Neurologic--limited exam Rheumatologic--limited exam Psychiatric--lethargic. Results & Data Results & Data Vital Signs (Past 12 Hours) Vital Signs Temp Pulse Pulse Resp BP BP Pulse Ox 06/26/23 00:00 73 06/25/23 23:10 85 22 96 06/25/23 23:00 87 21 125/67 95 06/25/23 22:50 88 26 H 95 06/25/23 22:40 91 H 22 95 06/25/23 22:30 90 27 H 136/61 06/25/23 23:03 36.7 C 06/25/23 22:00 37.4 C 87 26 H 141/70 H 94 06/25/23 20:19 104 H 24 97 06/25/23 22:20 103 H 22 141/70 H 94 06/25/23 22:10 97 H 23 94 06/25/23 22:00 101 H 22 88 L 06/25/23 21:50 101 H 27 H 94 06/25/23 21:40 96 H 25 H 95 06/25/23 21:30 98 H 26 H 95 06/25/23 21:20 92 H 24 92 06/25/23 21:10 110 H 26 H 90 06/25/23 21:01 102 H 27 H 180/74 H 88 L 06/25/23 21:00 91 H 31 H 87 L 06/25/23 20:50 107 H 28 H 98 06/25/23 20:40 100 H 29 H 97 06/25/23 20:30 108 H 28 H 98 06/25/23 20:20 108 H 29 H 98 06/25/23 20:10 98 H 25 H 98 06/25/23 20:01 108 H 29 H 06/25/23 20:05 104 H 27 H 99 06/25/23 20:20 39.3 C H 104 H 27 H 129/64 99 06/25/23 20:12 96 06/25/23 20:03 99 H 06/25/23 19:51 39.2 C H 108 H 22 129/64 98 O2 Del Method O2 Flow Rate 06/26/23 00:00 06/25/23 23:10 06/25/23 23:00 06/25/23 22:50 06/25/23 22:40 06/25/23 22:30 06/25/23 23:03 06/25/23 22:00 Nasal Cannula 3 06/25/23 20:19 Nasal Cannula 3 06/25/23 22:20 Nasal Cannula 3 06/25/23 22:10 06/25/23 22:00 06/25/23 21:50 06/25/23 21:40 06/25/23 21:30 06/25/23 21:20 06/25/23 21:10 06/25/23 21:01 06/25/23 21:00 06/25/23 20:50 06/25/23 20:40 06/25/23 20:30 06/25/23 20:20 06/25/23 20:10 Nasal Cannula 3 06/25/23 20:01 06/25/23 20:05 Nasal Cannula 3 06/25/23 20:20 Nasal Cannula 3 06/25/23 20:12 Nasal Cannula 3 06/25/23 20:03 06/25/23 19:51 Nasal Cannula 2 Laboratory Results Laboratory Results WBC 19.02 K/ul (4.8-10.8) H 06/25/23 20:06 RBC 3.99 M/uL (4.70-6.10) L 06/25/23 20:06 Hgb 12.1 g/dl (14.0-18.0) L 06/25/23 20:06 Hct 37.0 % (42.0-52.0) L 06/25/23 20:06 MCV 92.7 fL (80.0-100.0) 06/25/23 20:06 MCH 30.3 pg (25.0-34.0) 06/25/23 20:06 MCHC 32.7 g/dL (32.0-36.0) 06/25/23 20:06 RDW Std Deviation 49.8 fL (36.4-46.3) H 06/25/23 20:06 RDW Coeff of Jaylen 14.6 % (11.5-14.5) H 06/25/23 20:06 Plt Count 230 K/uL (130-400) 06/25/23 20:06 MPV 9.2 fL (9.4-12.4) L 06/25/23 20:06 Immature Gran % (Auto) 0.8 % 06/25/23 20:06 Neut % (Auto) 89.1 % 06/25/23 20:06 Lymph % (Auto) 3.2 % 06/25/23 20:06 [place] % (Auto) 6.4 % 06/25/23 20:06 Eos % (Auto) 0.2 % 06/25/23 20:06 Baso % (Auto) 0.3 % 06/25/23 20:06 Neut # (Auto) 16.95 K/uL (1.40-6.50) H 06/25/23 20:06 Lymph # (Auto) 0.61 K/uL (1.20-3.40) L 06/25/23 20:06 [place] # (Auto) 1.22 K/uL (0.11-0.59) H 06/25/23 20:06 Eos # (Auto) 0.04 K/uL (0.00-0.50) 06/25/23 20:06 Baso # (Auto) 0.05 K/uL (0.00-0.20) 06/25/23 20:06 Immature Gran # (Auto) 0.15 K/uL (0.01-0.20) 06/25/23 20:06 Sodium 136 mmol/L (136-145) 06/25/23 20:06 Potassium 4.7 mmol/L (3.5-5.1) 06/25/23 20:06 Chloride 96 mmol/L (98-107) L 06/25/23 20:06 Carbon Dioxide 36 mmol/L (21-32) H 06/25/23 20:06 Anion Gap 4 (3-11) 06/25/23 20:06 BUN 31 mg/dl (6-23) H 06/25/23 20:06 Creatinine 1.28 mg/dl (0.6-1.4) 06/25/23 20:06 Est Cr Clr Drug Dosing 77.6 ml/min 06/25/23 20:06 Est GFR ( Amer) 63.5 ml/min 06/25/23 20:06 Est GFR (Non-Af Amer) 54.8 ml/min 06/25/23 20:06 BUN/Creatinine Ratio 24.2 (10-20) H 06/25/23 20:06 Glucose 168 mg/dl (70-99(Fasting)) H 06/25/23 20:06 Lactate 1.5 mmol/L (0.4-2.0) 06/25/23 20:07 Calcium 9.9 mg/dl (8.6-10.3) 06/25/23 20:06 Magnesium 1.8 mg/dl (1.7-2.4) 06/25/23 20:06 Total Bilirubin 0.5 mg/dl (0.2-1.0) 06/25/23 20:06 Direct Bilirubin 0.1 mg/dl (0-0.2) 06/25/23 20:06 AST 14 U/L (13-39) 06/25/23 20:06 ALT 18 U/L (7-52) 06/25/23 20:06 Alkaline Phosphatase 85 U/L (34-104) 06/25/23 20:06 Troponin I High Sens 13.2 pg/ml (0-20) 06/25/23 20:06 Total Protein 6.9 gm/dl (6.0-8.3) 06/25/23 20:06 Albumin 3.9 gm/dl (3.4-5.0) 06/25/23 20:06 Procalcitonin 0.13 ng/ml (0-0.5) 06/25/23 20:06 Adenovirus (PCR) Not Detected (NotDetected) 06/25/23 20:07 B. pertussis DNA (PCR) Not Detected (NotDetected) 06/25/23 20:07 B.parapertussis DNA PCR Not Detected (NotDetected) 06/25/23 20:07 C. pneumoniae DNA (PCR) Not Detected (NotDetected) 06/25/23 20:07 Coronavirus OC43 (PCR) Not Detected (NotDetected) 06/25/23 20:07 Coronavirus HKU1 (PCR) Not Detected (NotDetected) 06/25/23 20:07 Coronavirus 229E (PCR) Not Detected (NotDetected) 06/25/23 20:07 SARS-CoV-2 (PCR) Not Detected (NotDetected) 06/25/23 20:07 Coronavirus NL63 (PCR) Not Detected (NotDetected) 06/25/23 20:07 Human Metapneumovir PCR Not Detected (NotDetected) 06/25/23 20:07 Influenza Type A (PCR) Not Detected (NotDetected) 06/25/23 20:07 Influenza Type B (PCR) Not Detected (NotDetected) 06/25/23 20:07 M. pneumoniae (PCR) Not Detected (NotDetected) 06/25/23 20:07 Parainfluenza 1 (PCR) Not Detected (NotDetected) 06/25/23 20:07 Parainfluenza 2 (PCR) Not Detected (NotDetected) 06/25/23 20:07 Parainfluenza 3 (PCR) Not Detected (NotDetected) 06/25/23 20:07 Parainfluenza 4 (PCR) Not Detected (NotDetected) 06/25/23 20:07 RSV (PCR) Not Detected (NotDetected) 06/25/23 20:07 Entero/Rhino (PCR) Not Detected (NotDetected) 06/25/23 20:07 Code Status & VTE Plan Code Status Full code VTE Prophylaxis Plan VTE Prophylaxis will be ordered: Yes PG Care Time/CCT Total # of Minutes Spent Total Time Spent with Patient: Total time spent is greater than 50% in coordination of care (as documented) at patient's floor/unit and/or counseling patient: Coding Level of Care Code 37091 INT INP/OBS CARE 3/75MIN Diagnoses Acute confusion R41.0 SIRS (systemic inflammatory response syndrome) R65.10 Venous stasis ulcer of right lower extremity I83.019; L97.919 PAD (peripheral artery disease) I73.9 BPH with urinary obstruction N40.1; N13.8 Venous stasis of both lower extremities I87.8 Lower extremity edema R60.0 Cellulitis of both lower extremities L03.115; L03.116 Foot osteomyelitis, left M86.9 Aortic stenosis I35.0 Atrial fibrillation I48.91
[2023-06-26] MEDS ORDERED: CARBOHYDRATES FOR HYPOGLYCEMIA PO PRN (03:00)
[2023-06-26] MEDS ORDERED: GLUCOSE 10 TAB/TUBE PO PRN (03:00)
[2023-06-26] MEDS ORDERED: ACETAMINOPHEN 325 MG TAB PO PRN (03:00)
[2023-06-26] MEDS ORDERED: ONDANSETRON INJ 2 MG/ML 2 ML VIAL IV PRN (03:00)
[2023-06-26] MEDS ORDERED: DEXTROSE 50% 50 ML SYRINGE IV PRN (03:00)
[2023-06-26] MEDS ORDERED: VANCOMYCIN CONSULT ACTIVE PRN (03:00)
[2023-06-26] MEDS ORDERED: GLUCOSE 40% GEL 15 GM TUBE PO PRN (03:00)
[2023-06-26] MEDS ORDERED: GLUCAGON FOR INJ 1 MG VIAL SQ PRN (03:00)
[2023-06-26] MEDS: SODIUM CHLORIDE 0.9% 1,000 ML IV SCH ×2 (03:41→11:55)
[2023-06-26 03:54] LABS: Appearance Urine Clear (Clear); Bacteria Urine Automated Negative (Negative); Bilirubin Urine Negative (Negative); Blood Urine Negative (Negative); Color Urine Dark Yellow; Epithelial Cell Urine Auto >30 /lpf (0-5); Glucose Urine UA Negative (Negative); Ketones Urine Trace (Negative); Leukocyte Esterase Urine Negative (Negative); Nitrite Urine Negative (Negative); Protein Urine 2+ (Negative); RBC Urine Automated 0-4 /hpf (0-4); Specific Gravity Urine 1.026 (1.000-1.030); Urobilinogen Urine Negative (Negative)
[2023-06-26] MEDS: metroNIDAZOLE 500 MG/100 ML BAG IV SCH ×3 (05:47→20:41)
--- NOTE | 2023-06-26 07:53 | XRay Report ---
XR chest 1V portable CLINICAL HISTORY: Sepsis. COMPARISON STUDY: Chest CT December 04, 2021. Chest radiograph May 16, 2023. FINDINGS: There is no pneumothorax. Possible trace bilateral pleural effusions. Cardiomegaly is uncha nged. Interstitial thickening persists. Bibasilar opacities are present. Right aortic arch is inciden tally noted. Prostate aortic valve is in place. IMPRESSION: 1. Cardiomegaly with interstitial thickening suggestive of pulmonary edema. Trace bilateral pleural e ffusions. 2. Hazy bibasilar opacities which could reflect atelectasis or a superimposed infectious process. ACT 112: Negative or not required by law. Electronically signed by: Maksim Nathan M.D. 06/26/2023 7:51 AM
[2023-06-26 08:01] LABS: Estimated Average Glucose 169 mg/dl; Hemoglobin A1C 7.5 % (4.5-5.6)
[2023-06-26 08:04] LABS: Basophils # (auto) 0.07 K/uL (0.00-0.20); Basophils % (auto) 0.5 %; Eosinophils # (auto) 0.06 K/uL (0.00-0.50); Eosinophils % (auto) 0.4 %; Hematocrit (blood only) 34.9 % (42.0-52.0); Hemoglobin 10.8 g/dl (14.0-18.0); Immature Granulocytes # (auto) 0.07 K/uL (0.01-0.20); Immature Granulocytes % (auto) 0.5 %; Lymphocytes # (auto) 1.34 K/uL (1.20-3.40); Lymphocytes % (auto) 8.8 %; Mean Corpuscular Hemoglobin 29.5 pg (25.0-34.0); Mean Corpuscular Hgb Conc 30.9 g/dL (32.0-36.0); Mean Corpuscular Volume 95.4 fL (80.0-100.0); Mean Platelet Volume 9.1 fL (9.4-12.4); Monocytes # (auto) 1.66 K/uL (0.11-0.59); Monocytes % (auto) 10.9 %; Neutrophils # (auto) 11.96 K/uL (1.40-6.50); Neutrophils % (auto) 78.9 %; Platelet Count 197 K/uL (130-400); RDW Coefficient of Variation 14.8 % (11.5-14.5); RDW Standard Deviation 52.1 fL (36.4-46.3); Red Blood Count 3.66 M/uL (4.70-6.10); White Blood Count 15.16 K/ul (4.8-10.8)
[2023-06-26 08:05] LABS: Albumin Globulin Ratio 1.3 (0.9-2); Albumin Level 3.4 gm/dl (3.4-5.0); BUN Creatinine Ratio 26.9 (10-20); Bilirubin,Total 0.7 mg/dl (0.2-1.0); Creatinine Clr Calc Pharmacy 76.1 ml/min; Est GFR (African American) 62.3 ml/min; Est GFR (Non-African American) 53.8 ml/min; Globulin 2.6 gm/dl (2.5-4.0); Potassium 4.6 mmol/L (3.5-5.1)
[2023-06-26] MEDS: INSULIN ASPART PER UNIT CHARGE SC SCH ×4 (08:58→20:49)
[2023-06-26] MEDS ORDERED: VANCOMYCIN HCL 2,000 MG in SODIUM CHLORIDE 0.9% 500 ML IV SCH (09:00)
[2023-06-26] MEDS: CEFEPIME 2,000 MG in SYRINGE 0 ML IV SCH ×2 (09:00→20:43)
[2023-06-26] MEDS ORDERED: ALBUT/IPRATROP 3MG/0.5MG NEB 3 ML VIAL INH PRN (10:15)
[2023-06-26] MEDS: DAPTOmycin 450 MG in SYRINGE 0 ML IV SCH (11:54)
[2023-06-26] MEDS: ADVANCED PROBIOTIC 1250 MG CAPSULE PO SCH (11:55)
--- NOTE | 2023-06-26 19:47 | Hospitalist Progress Note ---
Date of Service June 26, 2023 Assessment & Plan (1) Sepsis: Plan: 2nd cellulitis of both legs improved today - fevers better, wbc count trending down follow blood cx's cont broad-spectrum IV antibiotics (2) Cellulitis of both lower extremities: Plan: L>R recent 4+ week abx course for L foot osteomyelitis (L 5th metatarsal head) - rocephin with PO flagyl was to have finished those antibiotics earlier this week now with b/l LE cellulitis presumably due to pathogen not covered by rocephin cont IV cefepime cont MRSA coverage -- change vanco to daptomycin cont flagyl follow wound and blood cx's (3) Acute metabolic encephalopathy: Plan: 2nd to #1 - improved today (4) Foot osteomyelitis, left: Plan: dx in 05/2023 hospitalization L 5th toe and L 5th metatarsal head s/p L 5th toe amputation by podiatry was d/c to SNF with 4 week course of IV rocephin along with PO flagyl L 5th metatarsal wound looks acceptable based on photos taken by wound care continue woundvac as placed by wound care team today cont IV abx for #1, #2 (5) PAD (peripheral artery disease): Plan: follows with Dr Gorman, [facility] [place] [facility] prior history of left SFA lithotripsy/AMADA 08/[address] Gorman also with known chronic venous insufficiency status post left GSV/SSV ablation remains on Eliquis/statin seen by Dr Gorman during 05/2023 admission - no intervention recommended surgically for any residual disease in the left leg; felt to have adequate perfusion to his left foot to allow wound healing (6) BPH with urinary obstruction: Plan: no issues at this time (7) Venous stasis of both lower extremities: Plan: cont lasix cont elevation (8) Aortic stenosis: Plan: h/o TAVR (9) Atrial fibrillation: Plan: EKGs dating back to 2021 show a.fib thus a.fib likely permanent cont Eliquis cont metoprolol for rate control (10) Morbid obesity with BMI of 45.0-49.9, adult: Plan: BMI 48 (11) Venous stasis ulcers of both lower extremities: (12) Diabetes type 2, uncontrolled: Plan: a1c 7.5% this admission cont novolog hold metformin will likely need to resume lantus albeit at lower dose Plan DVT proph - Eliquis will need Pt/Ot while here updated pt's son by phone this evening Admission and Anticipated Discharge Date Admission Date: June 26, 2023 Subjective patient w/o any significant complaints was sitting at side of bed comfortably waiting for his meal to arrive states confusion is resolved states his appetite is better no fevers today denies any pain in either leg Review of Systems Review of Systems: cv - no chest pain pulm - dyspnea, but states it is at rest GI - no pain, no N/V Physical Exam Physical Exam: gen - obese, NAD, sitting at side of bed comfortably neck - no JVD mouth - MMM heart - irregularly irregular, s1 s2, no murmur lungs - CTA b/l, decreased BS bases abd - soft NT ND BS+ ext - 2+ edema b/l legs, modestly worse on left, extending to both knees; stasis changes b/l legs with scale; woundvac in place L foot; warm erythema left foot and most of L lopez; minimal erythema R lopez psych - a/o x 3 Results & Data Results & Data Vital Signs (Past 12 Hours) Vital Signs Temp Pulse Resp BP Pulse Ox O2 Del Method O2 Flow Rate 06/26/23 15:10 36.9 C 97 H 16 170/74 H 97 Nasal Cannula 3 06/26/23 09:54 Nasal Cannula 2 Laboratory Results Laboratory Results 06/25/23 06/26/23 06/26/23 20:07 03:05 04:10 WBC RBC Hgb Hct MCV MCH MCHC RDW Std Deviation RDW Coeff of Jaylen Plt Count MPV Immature Gran % (Auto) Neut % (Auto) Lymph % (Auto) [place] % (Auto) Eos % (Auto) Baso % (Auto) Neut # (Auto) Lymph # (Auto) [place] # (Auto) Eos # (Auto) Baso # (Auto) Immature Gran # (Auto) Sodium Potassium Chloride Carbon Dioxide Anion Gap BUN Creatinine Est Cr Clr Drug Dosing Est GFR ( Amer) Est GFR (Non-Af Amer) BUN/Creatinine Ratio Glucose POC Glucose Estimat Average Glucose Hemoglobin A1c Calcium Magnesium Total Bilirubin AST ALT Alkaline Phosphatase Total Protein Albumin Globulin Albumin/Globulin Ratio Urine Color Dark Yellow Urine Appearance Clear Urine pH 5.0 Ur Specific [place] 1.026 Urine Protein 2+ H Urine Glucose (UA) Negative Urine Ketones Trace H Urine Blood Negative Urine Nitrite Negative Urine Bilirubin Negative Urine Urobilinogen Negative Ur Leukocyte Esterase Negative Urine WBC (Auto) 5-10 H Urine RBC (Auto) 0-4 U Hyaline Cast (Auto) 5-10 H U Epithel Cells (Auto) >30 H Urine Bacteria (Auto) Negative Nasal Screen MRSA (PCR) Negative Adenovirus (PCR) Not Detected B. pertussis DNA (PCR) Not Detected B.parapertussis DNA PCR Not Detected C. pneumoniae DNA (PCR) Not Detected Coronavirus OC43 (PCR) Not Detected Coronavirus HKU1 (PCR) Not Detected Coronavirus 229E (PCR) Not Detected SARS-CoV-2 (PCR) Not Detected Coronavirus NL63 (PCR) Not Detected Human Metapneumovir PCR Not Detected Influenza Type A (PCR) Not Detected Influenza Type B (PCR) Not Detected M. pneumoniae (PCR) Not Detected Parainfluenza 1 (PCR) Not Detected Parainfluenza 2 (PCR) Not Detected Parainfluenza 3 (PCR) Not Detected Parainfluenza 4 (PCR) Not Detected RSV (PCR) Not Detected Entero/Rhino (PCR) Not Detected 06/26/23 06/26/23 06/26/23 07:04 07:04 07:04 WBC 15.16 H RBC 3.66 L Hgb 10.8 L Hct 34.9 L MCV 95.4 MCH 29.5 MCHC 30.9 L RDW Std Deviation 52.1 H RDW Coeff of Jaylen 14.8 H Plt Count 197 MPV 9.1 L Immature Gran % (Auto) 0.5 Neut % (Auto) 78.9 Lymph % (Auto) 8.8 [place] % (Auto) 10.9 Eos % (Auto) 0.4 Baso % (Auto) 0.5 Neut # (Auto) 11.96 H Lymph # (Auto) 1.34 [place] # (Auto) 1.66 H Eos # (Auto) 0.06 Baso # (Auto) 0.07 Immature Gran # (Auto) 0.07 Sodium 137 Potassium 4.6 Chloride 100 Carbon Dioxide 34 H Anion Gap 3 BUN 35 H Creatinine 1.30 Est Cr Clr Drug Dosing 76.1 Est GFR ( Amer) 62.3 Est GFR (Non-Af Amer) 53.8 BUN/Creatinine Ratio 26.9 H Glucose 113 H POC Glucose Estimat Average Glucose 169 Hemoglobin A1c 7.5 H Calcium 9.0 Magnesium Total Bilirubin 0.7 AST 12 L ALT 13 Alkaline Phosphatase 66 Total Protein 6.0 Albumin 3.4 Globulin 2.6 Albumin/Globulin Ratio 1.3 Urine Color Urine Appearance Urine pH Ur Specific [place] Urine Protein Urine Glucose (UA) Urine Ketones Urine Blood Urine Nitrite Urine Bilirubin Urine Urobilinogen Ur Leukocyte Esterase Urine WBC (Auto) Urine RBC (Auto) U Hyaline Cast (Auto) U Epithel Cells (Auto) Urine Bacteria (Auto) Nasal Screen MRSA (PCR) Adenovirus (PCR) B. pertussis DNA (PCR) B.parapertussis DNA PCR C. pneumoniae DNA (PCR) Coronavirus OC43 (PCR) Coronavirus HKU1 (PCR) Coronavirus 229E (PCR) SARS-CoV-2 (PCR) Coronavirus NL63 (PCR) Human Metapneumovir PCR Influenza Type A (PCR) Influenza Type B (PCR) M. pneumoniae (PCR) Parainfluenza 1 (PCR) Parainfluenza 2 (PCR) Parainfluenza 3 (PCR) Parainfluenza 4 (PCR) RSV (PCR) Entero/Rhino (PCR) 06/26/23 06/26/23 06/26/23 08:11 11:54 16:47 WBC RBC Hgb Hct MCV MCH MCHC RDW Std Deviation RDW Coeff of Jaylen Plt Count MPV Immature Gran % (Auto) Neut % (Auto) Lymph % (Auto) [place] % (Auto) Eos % (Auto) Baso % (Auto) Neut # (Auto) Lymph # (Auto) [place] # (Auto) Eos # (Auto) Baso # (Auto) Immature Gran # (Auto) Sodium Potassium Chloride Carbon Dioxide Anion Gap BUN Creatinine Est Cr Clr Drug Dosing Est GFR ( Amer) Est GFR (Non-Af Amer) BUN/Creatinine Ratio Glucose POC Glucose 109 H 120 H 106 H Estimat Average Glucose Hemoglobin A1c Calcium Magnesium Total Bilirubin AST ALT Alkaline Phosphatase Total Protein Albumin Globulin Albumin/Globulin Ratio Urine Color Urine Appearance Urine pH Ur Specific [place] Urine Protein Urine Glucose (UA) Urine Ketones Urine Blood Urine Nitrite Urine Bilirubin Urine Urobilinogen Ur Leukocyte Esterase Urine WBC (Auto) Urine RBC (Auto) U Hyaline Cast (Auto) U Epithel Cells (Auto) Urine Bacteria (Auto) Nasal Screen MRSA (PCR) Adenovirus (PCR) B. pertussis DNA (PCR) B.parapertussis DNA PCR C. pneumoniae DNA (PCR) Coronavirus OC43 (PCR) Coronavirus HKU1 (PCR) Coronavirus 229E (PCR) SARS-CoV-2 (PCR) Coronavirus NL63 (PCR) Human Metapneumovir PCR Influenza Type A (PCR) Influenza Type B (PCR) M. pneumoniae (PCR) Parainfluenza 1 (PCR) Parainfluenza 2 (PCR) Parainfluenza 3 (PCR) Parainfluenza 4 (PCR) RSV (PCR) Entero/Rhino (PCR) PG Care Time/CCT Total # of Minutes Spent Total Time Spent with Patient: Total time spent is greater than 50% in coordination of care (as documented) at patient's floor/unit and/or counseling patient: Coding Level of Care Code 75181 SUB INP/OBS CARE 2MIN Diagnoses Sepsis A41.9 Cellulitis of both lower extremities L03.115; L03.116 Acute metabolic encephalopathy G93.41 Foot osteomyelitis, left M86.9 PAD (peripheral artery disease) I73.9 BPH with urinary obstruction N40.1; N13.8 Venous stasis of both lower extremities I87.8 Aortic stenosis I35.0 Atrial fibrillation I48.91 Morbid obesity with BMI of 45.0-49.9, adult E66.01; Z68.42 Venous stasis ulcers of both lower extremities I83.019; I83.029; L97.919; L97.929 Diabetes type 2, uncontrolled E11.65
[2023-06-26] MEDS: FAMOTIDINE 20 MG TAB PO SCH (20:40)
[2023-06-26] MEDS: APIXABAN 5 MG TABLET PO SCH (20:40)
[2023-06-26] MEDS ORDERED: FLUTICASONE PROPIONATE NA SPR 16 GM BTL PRN (21:10)
[2023-06-27] MEDS: metroNIDAZOLE 500 MG/100 ML BAG IV SCH ×3 (05:19→21:53)
[2023-06-27 08:05] LABS: Basophils # (auto) 0.05 K/uL (0.00-0.20); Basophils % (auto) 0.5 %; Eosinophils # (auto) 0.19 K/uL (0.00-0.50); Eosinophils % (auto) 1.8 %; Hematocrit (blood only) 32.8 % (42.0-52.0); Hemoglobin 10.3 g/dl (14.0-18.0); Immature Granulocytes # (auto) 0.04 K/uL (0.01-0.20); Immature Granulocytes % (auto) 0.4 %; Lymphocytes # (auto) 1.03 K/uL (1.20-3.40); Lymphocytes % (auto) 9.8 %; Mean Corpuscular Hemoglobin 29.7 pg (25.0-34.0); Mean Corpuscular Hgb Conc 31.4 g/dL (32.0-36.0); Mean Corpuscular Volume 94.5 fL (80.0-100.0); Monocytes % (auto) 12.4 %; Neutrophils # (auto) 7.85 K/uL (1.40-6.50); Neutrophils % (auto) 75.1 %; Platelet Count 207 K/uL (130-400); RDW Coefficient of Variation 14.6 % (11.5-14.5); RDW Standard Deviation 50.6 fL (36.4-46.3); Red Blood Count 3.47 M/uL (4.70-6.10); White Blood Count 10.46 K/ul (4.8-10.8)
[2023-06-27] MEDS: MULTIVITAMIN TAB PO SCH (08:13)
[2023-06-27] MEDS: CYANOCOBALAMIN (B-12) 500 MCG TABLET PO SCH (08:13)
[2023-06-27] MEDS: PARoxetine HCL 10 MG TAB PO SCH (08:13)
[2023-06-27] MEDS: ADVANCED PROBIOTIC 1250 MG CAPSULE PO SCH (08:13)
[2023-06-27] MEDS: GABAPENTIN 100 MG CAP PO SCH (08:13)
[2023-06-27] MEDS: CEFEPIME 2,000 MG in SYRINGE 0 ML IV SCH ×2 (08:13→20:16)
[2023-06-27 08:14] LABS: Albumin Globulin Ratio 1.1 (0.9-2); Albumin Level 3.2 gm/dl (3.4-5.0); BUN Creatinine Ratio 28.7 (10-20); Bilirubin,Total 0.5 mg/dl (0.2-1.0); Calcium 8.8 mg/dl (8.6-10.3); Est GFR (African American) 72.3 ml/min; Est GFR (Non-African American) 62.3 ml/min; Globulin 2.8 gm/dl (2.5-4.0); Magnesium 1.9 mg/dl (1.7-2.4); Potassium 4.3 mmol/L (3.5-5.1)
[2023-06-27] MEDS: INSULIN ASPART PER UNIT CHARGE SC SCH ×4 (09:17→21:49)
[2023-06-27] MEDS: FAMOTIDINE 20 MG TAB PO SCH ×2 (09:21→20:06)
[2023-06-27] MEDS: APIXABAN 5 MG TABLET PO SCH ×2 (09:21→20:06)
[2023-06-27] MEDS: DAPTOmycin 450 MG in SYRINGE 0 ML IV SCH (11:39)
[2023-06-27] MEDS ORDERED: FEXOFENADINE 60 MG TAB PO ONE (18:30)
[2023-06-27] MEDS: MELATONIN 3 MG TAB PO SCH (20:16)
[2023-06-27] MEDS: METOPROLOL TARTRATE 100 MG TAB PO SCH (20:16)
--- NOTE | 2023-06-27 22:03 | Hospitalist Progress Note ---
Date of Service June 27, 2023 Assessment & Plan (1) Sepsis: Plan: 2nd cellulitis of both legs stable no changes in care plan follow blood cx's cont same broad-spectrum IV antibiotics (2) Cellulitis of both lower extremities: Plan: L>R recent 4+ week abx course for L foot osteomyelitis (L 5th metatarsal head) - rocephin with PO flagyl was to have finished those antibiotics earlier this week now with b/l LE cellulitis presumably due to pathogen not covered by rocephin cont IV cefepime cont MRSA coverage w/ daptomycin cont flagyl follow wound and blood cx's (3) Acute metabolic encephalopathy: Plan: 2nd to #1 - resolved (4) Foot osteomyelitis, left: Plan: dx in 05/2023 hospitalization L 5th toe and L 5th metatarsal head s/p L 5th toe amputation by podiatry was d/c to SNF with 4 week course of IV rocephin along with PO flagyl L 5th metatarsal wound looks acceptable based on photos taken by wound care continue woundvac as placed by wound care team cont IV abx for #1, #2 (5) PAD (peripheral artery disease): Plan: [place] [facility] [place] prior history of left SFA lithotripsy/AMADA 08/[address] Gorman also with known chronic venous insufficiency status post left GSV/SSV ablation remains on Eliquis/statin seen by Dr Gorman during 05/2023 admission - no intervention recommended surgically for any residual disease in the left leg; felt to have adequate perfusion to his left foot to allow wound healing (6) BPH with urinary obstruction: Plan: no issues at this time (7) Venous stasis of both lower extremities: Plan: resume lasix qam cont elevation (8) Aortic stenosis: Plan: h/o TAVR (9) Atrial fibrillation: Plan: EKGs dating back to 2021 show a.fib thus a.fib likely permanent cont Eliquis cont metoprolol for rate control (10) Morbid obesity with BMI of 45.0-49.9, adult: Plan: BMI 48 (11) Venous stasis ulcers of both lower extremities: (12) Diabetes type 2, uncontrolled: Plan: a1c 7.5% this admission cont novolog hold metformin will likely need to resume lantus albeit at lower dose Plan DVT proph - Eliquis will need Pt/Ot while here updated pt's son by phone earlier this week add humidification for nasal congestion add mary Admission and Anticipated Discharge Date Admission Date: June 26, 2023 Subjective no events overnight has been in recliner most of the day feet have been dangling c/o nasal/sinus congestion from his NC O2 denies dyspnea beyond his baseline dyspnea no pain in legs eating very well again states "I won't go to rehab - I'm going home" Review of Systems Review of Systems: gen - no fevers cv - no cp; +edema pulm - no dyspnea at rest; no cough Physical Exam Physical Exam: gen - obese, NAD, sitting in recliner neck - no JVD mouth - MMM heart - irregularly irregular, s1 s2, no murmur; borderline tachy lungs - CTA b/l, decreased BS bases; no rales abd - soft NT ND BS+ ext - 2+ edema b/l legs, modestly worse on left - no change; edema extending to both knees; stasis changes b/l legs with scale; woundvac in place L foot; warm erythema left foot and most of L lopez - similar to yesterday; minimal erythema R lopez psych - a/o x 3 Results & Data Results & Data Vital Signs (Past 12 Hours) Vital Signs Temp Pulse Resp BP Pulse Ox O2 Del Method O2 Flow Rate 06/27/23 20:00 37.1 C 110 H 16 157/83 H 98 Nasal Cannula 2 06/27/23 15:26 36.6 C 106 H 18 176/85 H 96 Nasal Cannula 2 06/27/23 10:06 Nasal Cannula 2 Laboratory Results Laboratory Results - last 24 hr 06/27/23 06/27/23 06/27/23 07:08 07:08 07:48 WBC 10.46 RBC 3.47 L Hgb 10.3 L Hct 32.8 L MCV 94.5 MCH 29.7 MCHC 31.4 L RDW Std Deviation 50.6 H RDW Coeff of Jaylen 14.6 H Plt Count 207 MPV 9.0 L Immature Gran % (Auto) 0.4 Neut % (Auto) 75.1 Lymph % (Auto) 9.8 Cottle % (Auto) 12.4 Eos % (Auto) 1.8 Baso % (Auto) 0.5 Neut # (Auto) 7.85 H Lymph # (Auto) 1.03 L Cottle # (Auto) 1.30 H Eos # (Auto) 0.19 Baso # (Auto) 0.05 Immature Gran # (Auto) 0.04 Sodium 138 Potassium 4.3 Chloride 100 Carbon Dioxide 33 H Anion Gap 5 BUN 33 H Creatinine 1.15 Est Cr Clr Drug Dosing 86.0 Est GFR ( Amer) 72.3 Est GFR (Non-Af Amer) 62.3 BUN/Creatinine Ratio 28.7 H Glucose 133 H POC Glucose 131 H Calcium 8.8 Magnesium 1.9 Total Bilirubin 0.5 AST 13 ALT 13 Alkaline Phosphatase 69 Total Protein 6.0 Albumin 3.2 L Globulin 2.8 Albumin/Globulin Ratio 1.1 06/27/23 06/27/23 06/27/23 11:55 16:58 20:57 WBC RBC Hgb Hct MCV MCH MCHC RDW Std Deviation RDW Coeff of Jaylen Plt Count MPV Immature Gran % (Auto) Neut % (Auto) Lymph % (Auto) Cottle % (Auto) Eos % (Auto) Baso % (Auto) Neut # (Auto) Lymph # (Auto) Cottle # (Auto) Eos # (Auto) Baso # (Auto) Immature Gran # (Auto) Sodium Potassium Chloride Carbon Dioxide Anion Gap BUN Creatinine Est Cr Clr Drug Dosing Est GFR ( Amer) Est GFR (Non-Af Amer) BUN/Creatinine Ratio Glucose POC Glucose 160 H 148 H 165 H Calcium Magnesium Total Bilirubin AST ALT Alkaline Phosphatase Total Protein Albumin Globulin Albumin/Globulin Ratio PG Care Time/CCT Total # of Minutes Spent Total Time Spent with Patient: Total time spent is greater than 50% in coordination of care (as documented) at patient's floor/unit and/or counseling patient: Coding Level of Care Code 21780 SUB INP/OBS CARE 235MIN Diagnoses Sepsis A41.9 Cellulitis of both lower extremities L03.115; L03.116 Acute metabolic encephalopathy G93.41 Foot osteomyelitis, left M86.9 PAD (peripheral artery disease) I73.9 BPH with urinary obstruction N40.1; N13.8 Venous stasis of both lower extremities I87.8 Aortic stenosis I35.0 Atrial fibrillation I48.91 Morbid obesity with BMI of 45.0-49.9, adult E66.01; Z68.42 Venous stasis ulcers of both lower extremities I83.019; I83.029; L97.919; L97.923 Diabetes type 2, uncontrolled E11.65
--- NOTE | 2023-06-27 22:36 | Electrocardiogram Report ---
Test Reason : Blood Pressure : / mmHG Vent. Rate : 096 BPM Atrial Rate : 000 BPM P-R Int : 000 ms QRS Dur : 086 ms QT Int : 334 ms P-R-T Axes : 000 -02 030 degrees QTc Int : 421 ms Atrial fibrillation Low voltage QRS Septal infarct Anterior infarct Abnormal ECG When compared with ECG of 11-MAY-2023 22:12, No significant change was found Confirmed by Jac Proctor [id number] on 06/27/2023 10:35:59 PM Referred By: REFERRED SELF Confirmed By:Jac Proctor
[2023-06-28] MEDS: metroNIDAZOLE 500 MG/100 ML BAG IV SCH ×3 (05:30→21:06)
[2023-06-28 08:44] LABS: Anion Gap 4 (3-11); BUN Creatinine Ratio 29.3 (10-20); Blood Urea Nitrogen 34 mg/dl (6-23); Calcium 8.5 mg/dl (8.6-10.3); Carbon Dioxide 32 mmol/L (21-32); Chloride 101 mmol/L (98-107); Creatinine Clr Calc Pharmacy 85.3 ml/min; Est GFR (African American) 71.5 ml/min; Est GFR (Non-African American) 61.7 ml/min; Glucose 142 mg/dl (70-99(Fasting)); Sodium 137 mmol/L (136-145)
[2023-06-28] MEDS: FAMOTIDINE 20 MG TAB PO SCH ×2 (09:19→20:15)
[2023-06-28] MEDS: METOPROLOL TARTRATE 100 MG TAB PO SCH ×2 (09:19→21:05)
[2023-06-28] MEDS: GABAPENTIN 100 MG CAP PO SCH (09:19)
[2023-06-28] MEDS: MULTIVITAMIN TAB PO SCH (09:19)
[2023-06-28] MEDS: CYANOCOBALAMIN (B-12) 500 MCG TABLET PO SCH (09:19)
[2023-06-28] MEDS: INSULIN ASPART PER UNIT CHARGE SC SCH ×4 (09:20→21:00)
[2023-06-28] MEDS: APIXABAN 5 MG TABLET PO SCH ×2 (09:20→20:15)
[2023-06-28] MEDS: ADVANCED PROBIOTIC 1250 MG CAPSULE PO SCH (09:20)
[2023-06-28] MEDS: PARoxetine HCL 10 MG TAB PO SCH (09:20)
[2023-06-28] MEDS: DAPTOmycin 450 MG in SYRINGE 0 ML IV SCH (09:21)
[2023-06-28] MEDS: CEFEPIME 2,000 MG in SYRINGE 0 ML IV SCH ×2 (09:21→20:15)
[2023-06-28] MEDS ORDERED: FUROSEMIDE INJ 20 MG/2 ML VIAL IV ONE (11:00)
[2023-06-28] MEDS: FEXOFENADINE 60 MG TAB PO SCH ×2 (12:00→21:05)
[2023-06-28 20:18] LABS: A calco-baum cmplx NotReported Not Detected (NotDetected); Bact fragilis Not Reported Not Detected (NotDetected); C auris Not Reported Not Detected (NotDetected); Calbicans Not Reported Not Detected (NotDetected); Candida glabrata Not Reported Not Detected (NotDetected); Candida krusei Not Reported Not Detected (NotDetected); Cneoformans/gatti Not Reported Not Detected (NotDetected); Cparapsilosis Not Reported Not Detected (NotDetected); E cloacae compx Not Reported Not Detected (NotDetected); Efaecalis Not Reported Not Detected (NotDetected); Efaecium Not Reported Not Detected (NotDetected); Enterobacterales Not Reported Not Detected (NotDetected); Escherichia coli Not Reported Not Detected (NotDetected); H influenzae Not Reported Not Detected (NotDetected); K aerogenes Not Reported Not Detected (NotDetected); Koxytoca Not Reported Not Detected (NotDetected); Kpneumoniae grp Not Reported Not Detected (NotDetected); Lmonocyt Not Reported Not Detected (NotDetected); N meningitidis Not Reported Not Detected (NotDetected); P aeruginosa Not Reported Not Detected (NotDetected); Proteus spp Not Reported Not Detected (NotDetected); Salmonella spp Not Reported Not Detected (NotDetected); Smarcescens Not Reported Not Detected (NotDetected); Staph lugdunensis Not Reported Not Detected (NotDetected); Staph spp. Not Reported Not Detected (NotDetected); Staphaureus Not Reported Not Detected (NotDetected); Staphepi Not Reported Not Detected (NotDetected); Stenmaltophilia Not Reported Not Detected (NotDetected); Strep agal(GrpB) Not Reported Not Detected (NotDetected); Strep pneum Not Reported Not Detected (NotDetected); Strep pyog (GrpA) Not Reported Not Detected (NotDetected); Strep spp Not Reported Not Detected (NotDetected)
--- NOTE | 2023-06-28 20:30 | Hospitalist Progress Note ---
Date of Service June 28, 2023 Assessment & Plan (1) Sepsis: Plan: 2nd cellulitis of both legs sepsis resolved blood cx's negative cont same broad-spectrum IV antibiotics (2) Cellulitis of both lower extremities: Plan: L>R improving recent 4+ week abx course for L foot osteomyelitis (L 5th metatarsal head) - rocephin with PO flagyl was to have finished those antibiotics earlier this week now with b/l LE cellulitis presumably due to pathogen not covered by rocephin cont IV cefepime cont MRSA coverage w/ daptomycin can stop flagyl follow wound and blood cx's but again negative to date (3) Acute metabolic encephalopathy: Plan: 2nd to #1 - resolved (4) Foot osteomyelitis, left: Plan: dx in 05/2023 hospitalization L 5th toe and L 5th metatarsal head s/p L 5th toe amputation by podiatry was d/c to SNF with 4 week course of IV rocephin along with PO flagyl L 5th metatarsal wound looks acceptable based on photos taken by wound care continue woundvac as placed by wound care team cont IV abx (5) PAD (peripheral artery disease): Plan: [place], [facility] [place] prior history of left SFA lithotripsy/AMADA 08/[address] Gorman also with known chronic venous insufficiency status post left GSV/SSV ablation remains on Eliquis/statin seen by Dr Gorman during 05/2023 admission - no intervention recommended surgically for any residual disease in the left leg; felt to have adequate perfusion to his left foot to allow wound healing (6) BPH with urinary obstruction: Plan: no issues at this time (7) Venous stasis of both lower extremities: Plan: lasix encouraged patient to elevate his legs when in the recliner rather than dangling them (8) Aortic stenosis: Plan: h/o TAVR no issues (9) Atrial fibrillation: Plan: EKGs dating back to 2021 show a.fib thus a.fib likely permanent cont Eliquis cont metoprolol for rate control (10) Morbid obesity with BMI of 45.0-49.9, adult: Plan: BMI 48 (11) Venous stasis ulcers of both lower extremities: Plan: cont aquacel Ag and outer dressings appreciate wound care team assistance (12) Diabetes type 2, uncontrolled: Plan: a1c 7.5% this admission cont novolog hold metformin lantus is on hold Plan DVT proph - Eliquis PT, OT needed updated pt's son by phone earlier this week updated pt's by phone while I was in the room Admission and Anticipated Discharge Date Admission Date: June 26, 2023 Subjective pt laying in recliner he states "I feel great" he had his cell phone out talking with his denies pain in any location denies dyspnea eating well drinking well anxious to go home I removed all dressings (except wound vac) from both legs to examine his wounds Review of Systems Review of Systems: gen - no fevers or chills cv - no chest pain; ongoing edema pulm - no cough GI - no N/V Physical Exam Physical Exam: gen - obese, NAD, laying in recliner neck - no JVD mouth - MMM heart - irregularly irregular, s1 s2, no murmur lungs - CTA b/l abd - soft NT ND BS+ ext - 2+ edema b/l legs; edema extending to just below both knees; stasis changes b/l legs with scale (worse R lopez) woundvac in place L foot; erythema left foot and most of L lopez - slightly improved from prior; erythema is not warm today to touch; minimal erythema R lopez; multiple irregularly shaped ulcerations of R lopez and L lopez -- these are weeping clear serous fluid; no foul odor psych - a/o x 3 Results & Data Results & Data Vital Signs (Past 12 Hours) Vital Signs Temp Pulse Resp BP BP Pulse Ox O2 Del Method 06/28/23 20:13 182/99 H 06/28/23 20:12 36.6 C 93 H 18 97 Room Air 06/28/23 15:53 37.0 C 66 18 101/60 93 Room Air 06/28/23 10:51 36.5 C 84 14 128/68 84 L Room Air Laboratory Results Laboratory Results - last 24 hr 06/25/23 06/27/23 06/28/23 20:06 20:57 07:26 Sodium Potassium Chloride Carbon Dioxide Anion Gap BUN Creatinine Est Cr Clr Drug Dosing Est GFR ( Amer) Est GFR (Non-Af Amer) BUN/Creatinine Ratio Glucose POC Glucose 165 H 139 H Calcium Bld Cult ID Panel PCR PCR Panel Negative 06/28/23 06/28/23 06/28/23 07:51 09:08 11:32 Sodium 137 Potassium TNP 4.6 Chloride 101 Carbon Dioxide 32 Anion Gap 4 BUN 34 H Creatinine 1.16 Est Cr Clr Drug Dosing 85.3 Est GFR ( Amer) 71.5 Est GFR (Non-Af Amer) 61.7 BUN/Creatinine Ratio 29.3 H Glucose 142 H POC Glucose 178 H Calcium 8.5 L Bld Cult ID Panel PCR 06/28/23 16:45 Sodium Potassium Chloride Carbon Dioxide Anion Gap BUN Creatinine Est Cr Clr Drug Dosing Est GFR ( Amer) Est GFR (Non-Af Amer) BUN/Creatinine Ratio Glucose POC Glucose 110 H Calcium Bld Cult ID Panel PCR Diagnostic Findings blood / wound cultures negative PG Care Time/CCT Total # of Minutes Spent Total Time Spent with Patient: Total time spent is greater than 50% in coordination of care (as documented) at patient's floor/unit and/or counseling patient: Coding Level of Care Code 04540 SUB INP/OBS CARE 235MIN Diagnoses Sepsis A41.9 Cellulitis of both lower extremities L03.115; L03.116 Acute metabolic encephalopathy G93.41 Foot osteomyelitis, left M86.9 PAD (peripheral artery disease) I73.9 BPH with urinary obstruction N40.1; N13.8 Venous stasis of both lower extremities I87.8 Aortic stenosis I35.0 Atrial fibrillation I48.91 Morbid obesity with BMI of 45.0-49.9, adult E66.01; Z68.42 Venous stasis ulcers of both lower extremities I83.019; I83.029; L97.919; L97.929 Diabetes type 2, uncontrolled E11.65
[2023-06-28] MEDS: MELATONIN 3 MG TAB PO SCH (21:05)
[2023-06-29] MEDS: metroNIDAZOLE 500 MG/100 ML BAG IV SCH ×3 (06:00→21:55)
[2023-06-29] MEDS: CYANOCOBALAMIN (B-12) 500 MCG TABLET PO SCH (08:35)
[2023-06-29] MEDS: FAMOTIDINE 20 MG TAB PO SCH ×2 (08:36→20:02)
[2023-06-29] MEDS: FEXOFENADINE 60 MG TAB PO SCH ×2 (08:36→20:02)
[2023-06-29] MEDS: PARoxetine HCL 10 MG TAB PO SCH (08:36)
[2023-06-29] MEDS: ADVANCED PROBIOTIC 1250 MG CAPSULE PO SCH (08:36)
[2023-06-29] MEDS: APIXABAN 5 MG TABLET PO SCH ×2 (08:37→20:02)
[2023-06-29] MEDS: METOPROLOL TARTRATE 100 MG TAB PO SCH ×2 (08:37→20:02)
[2023-06-29] MEDS: MULTIVITAMIN TAB PO SCH (08:38)
[2023-06-29] MEDS: GABAPENTIN 100 MG CAP PO SCH (08:38)
[2023-06-29] MEDS: DAPTOmycin 450 MG in SYRINGE 0 ML IV SCH (08:42)
[2023-06-29] MEDS: CEFEPIME 2,000 MG in SYRINGE 0 ML IV SCH ×3 (08:42→23:01)
[2023-06-29] MEDS: INSULIN ASPART PER UNIT CHARGE SC SCH ×4 (08:42→21:20)
[2023-06-29 08:52] LABS: BUN Creatinine Ratio 29.9 (10-20); Calcium 8.7 mg/dl (8.6-10.3); Creatinine Clr Calc Pharmacy 73.8 ml/min; Est GFR (African American) 60.1 ml/min; Est GFR (Non-African American) 51.8 ml/min; Potassium 4.7 mmol/L (3.5-5.1)
[2023-06-29] MEDS: MELATONIN 3 MG TAB PO SCH (21:28)
--- NOTE | 2023-06-29 22:25 | Hospitalist Progress Note ---
Date of Service June 29, 2023 Assessment & Plan (1) Sepsis: Plan: 2nd cellulitis of both legs sepsis resolved blood cx's negative cont same broad-spectrum IV antibiotics (2) Cellulitis of both lower extremities: Plan: L>R improving albeit slowly the b/l LE cellulitis is in the setting of recent 4+ week abx course for L foot osteomyelitis (L 5th metatarsal head) abx had consisted of IV rocephin with PO flagyl was to have finished those antibiotics earlier this week cont IV cefepime - day #4 cont MRSA coverage w/ daptomycin - day #4 follow wound and blood cx's but again negative to date (3) Acute metabolic encephalopathy: Plan: 2nd to #1 - resolved (4) Foot osteomyelitis, left: Plan: dx in 05/2023 hospitalization L 5th toe and L 5th metatarsal head s/p L 5th toe amputation by podiatry was d/c to SNF with 4 week course of IV rocephin along with PO flagyl L 5th metatarsal wound looks acceptable based on photos taken by wound care woundvac removed by wound care team today - plan is aquacel to wound bed cont IV abx (5) PAD (peripheral artery disease): Plan: follows with Dr Gorman, [facility] [place] prior history of left SFA lithotripsy/AMADA 08/[address] Gorman also with known chronic venous insufficiency status post left GSV/SSV ablation remains on Eliquis/statin seen by Dr Gorman during 05/2023 admission - no intervention recommended surgically for any residual disease in the left leg; felt to have adequate perfusion to his left foot to allow wound healing (6) BPH with urinary obstruction: Plan: no issues at this time (7) Venous stasis of both lower extremities: Plan: lasix daily - IV when able encouraged patient to elevate his legs when in the recliner rather than dangling them (8) Aortic stenosis: Plan: h/o TAVR no issues (9) Atrial fibrillation: Plan: EKGs dating back to 2021 show a.fib thus a.fib likely permanent cont Eliquis cont metoprolol for rate control (10) Morbid obesity with BMI of 45.0-49.9, adult: Plan: BMI 48 (11) Venous stasis ulcers of both lower extremities: Plan: cont aquacel Ag and outer dressings appreciate wound care team assistance lasix for edema (12) Diabetes type 2, uncontrolled: Plan: a1c 7.5% this admission cont novolog hold metformin lantus is on hold glycemic control is adequate Plan DVT proph - Eliquis PT, OT needed updated pt's son by phone earlier this week updated pt's by phone while I was in the room yesterday left message for pt's daughter on her voicemail this evening I will look at all wounds tomorrow on 06/30 Admission and Anticipated Discharge Date Admission Date: June 26, 2023 Subjective no events he is ready to go home denies any new complaints eating well did sleep with legs propped up last night Review of Systems Review of Systems: gen - no fevers or chills cv - no chest pain pulm - no dyspnea GI - no abd pain or N/V Physical Exam Physical Exam: gen - obese, NAD, laying in recliner neck - no JVD mouth - MMM heart - irregularly irregular, s1 s2, no murmur lungs - CTA b/l abd - soft NT ND BS+ ext - 2+ edema b/l legs - no changes; left leg is worse than right leg; stasis changes b/l legs with scale (worse R lopez); woundvac L foot has been removed; no foul odor; I did not remove the dressings today psych - a/o x 3 Results & Data Results & Data Vital Signs (Past 12 Hours) Vital Signs Temp Pulse Resp BP Pulse Ox O2 Del Method 06/29/23 15:05 36.6 C 82 18 139/62 92 Room Air Laboratory Results Laboratory Results - last 24 hr 06/29/23 06/29/23 07:47 08:05 Sodium 137 Potassium 4.7 Chloride 101 Carbon Dioxide 33 H Anion Gap 3 BUN 40 H Creatinine 1.34 Est Cr Clr Drug Dosing 73.8 Est GFR ( Amer) 60.1 Est GFR (Non-Af Amer) 51.8 BUN/Creatinine Ratio 29.9 H Glucose 146 H POC Glucose 145 H Calcium 8.7 06/29/23 06/29/23 11:53 16:43 Sodium Potassium Chloride Carbon Dioxide Anion Gap BUN Creatinine Est Cr Clr Drug Dosing Est GFR ( Amer) Est GFR (Non-Af Amer) BUN/Creatinine Ratio Glucose POC Glucose 163 H 161 H Calcium PG Care Time/CCT Total # of Minutes Spent Total Time Spent with Patient: Total time spent is greater than 50% in coordination of care (as documented) at patient's floor/unit and/or counseling patient: Coding Level of Care Code 06750 SUB INP/OBS CARE MIN Diagnoses Sepsis A41.9 Cellulitis of both lower extremities L03.115; L03.116 Acute metabolic encephalopathy G93.41 Foot osteomyelitis, left M86.9 PAD (peripheral artery disease) I73.9 BPH with urinary obstruction N40.1; N13.8 Venous stasis of both lower extremities I87.8 Aortic stenosis I35.0 Atrial fibrillation I48.91 Morbid obesity with BMI of 45.0-49.9, adult E66.01; Z68.42 Venous stasis ulcers of both lower extremities I83.019; I83.029; L97.919; L97.929 Diabetes type 2, uncontrolled E11.65
[2023-06-30] MEDS: DAPTOmycin 450 MG in SYRINGE 0 ML IV SCH (09:02)
[2023-06-30] MEDS: CEFEPIME 2,000 MG in SYRINGE 0 ML IV SCH ×3 (09:03→23:37)
[2023-06-30 09:18] LABS: Calcium 8.6 mg/dl (8.6-10.3); Creatinine Clr Calc Pharmacy 77.3 ml/min; Est GFR (African American) 63.5 ml/min; Est GFR (Non-African American) 54.8 ml/min; Potassium 4.7 mmol/L (3.5-5.1)
[2023-06-30] MEDS: INSULIN ASPART PER UNIT CHARGE SC SCH ×4 (09:44→21:30)
[2023-06-30] MEDS: METOPROLOL TARTRATE 100 MG TAB PO SCH ×2 (10:02→20:49)
[2023-06-30] MEDS: FAMOTIDINE 20 MG TAB PO SCH ×2 (10:07→20:49)
[2023-06-30] MEDS: APIXABAN 5 MG TABLET PO SCH ×2 (10:08→20:49)
[2023-06-30] MEDS: PARoxetine HCL 10 MG TAB PO SCH (10:12)
[2023-06-30] MEDS: CYANOCOBALAMIN (B-12) 500 MCG TABLET PO SCH (10:13)
[2023-06-30] MEDS: GABAPENTIN 100 MG CAP PO SCH (10:14)
[2023-06-30] MEDS: ADVANCED PROBIOTIC 1250 MG CAPSULE PO SCH (10:15)
[2023-06-30] MEDS: FEXOFENADINE 60 MG TAB PO SCH ×2 (10:15→20:49)
[2023-06-30] MEDS ORDERED: FUROSEMIDE 40 MG/4 ML VIAL IV ONE (12:00)
[2023-06-30] MEDS: MULTIVITAMIN TAB PO SCH (13:13)
--- NOTE | 2023-06-30 20:04 | Hospitalist Progress Note ---
Date of Service June 30, 2023 Assessment & Plan (1) Sepsis: Plan: 2nd cellulitis of both legs sepsis resolved blood cx's negative cont same broad-spectrum IV antibiotics another 48 hours or so (2) Cellulitis of both lower extremities: Plan: L>R improving the b/l LE cellulitis is in the setting of recent 4+ week abx course for L foot osteomyelitis (L 5th metatarsal head) abx had consisted of IV rocephin with PO flagyl was to have finished those antibiotics earlier this week cont IV cefepime - day #5 cont MRSA coverage w/ daptomycin - day #5 would cont both another 48 hours then switch to PO abx for at least 1 week wound and blood cx's remain negative to date cont lasix stressed that he put his legs up while in bed or the recliner to promote improvement in edema (3) Acute metabolic encephalopathy: Plan: 2nd to #1 - resolved (4) Foot osteomyelitis, left: Plan: dx in 05/2023 hospitalization L 5th toe and L 5th metatarsal head s/p L 5th toe amputation by podiatry was d/c to SNF with 4 week course of IV rocephin along with PO flagyl L 5th metatarsal wound looks acceptable today cont local wound care cont IV abx (5) PAD (peripheral artery disease): Plan: follows with Dr Gorman, [facility] [place] prior history of left SFA lithotripsy/AMADA 08/[address] Gorman also with known chronic venous insufficiency status post left GSV/SSV ablation remains on Eliquis/statin seen by Dr Gorman during 05/2023 admission - no intervention recommended surgically for any residual disease in the left leg; felt to have adequate perfusion to his left foot to allow wound healing (6) BPH with urinary obstruction: Plan: no issues at this time (7) Venous stasis of both lower extremities: Plan: give lasix 40mg IV x 1 today encouraged patient to elevate his legs when in the recliner rather than dangling them (8) Aortic stenosis: Plan: h/o TAVR no issues (9) Atrial fibrillation: Plan: EKGs dating back to 2021 show a.fib thus a.fib likely permanent cont Eliquis cont metoprolol for rate control (10) Morbid obesity with BMI of 45.0-49.9, adult: Plan: BMI 48 (11) Venous stasis ulcers of both lower extremities: Plan: cont aquacel Ag and outer dressings appreciate wound care team assistance lasix for edema (12) Diabetes type 2, uncontrolled: Plan: a1c 7.5% this admission cont novolog hold metformin resume lantus next 24 hours Plan DVT proph - Eliquis PT, OT needed updated pt's son by phone earlier this week updated pt's by phone while I was in the room yesterday left message for pt's daughter on her voicemail yesterday evening progressing Admission and Anticipated Discharge Date Admission Date: June 26, 2023 Subjective continues to sleep in the recliner he is trying to keep legs elevated when he rests/sleeps denies any new complaints eating/drinking well no pain in legs anxious to return home w/ - lives in [facility] in [place] Review of Systems Review of Systems: gen - no fevers or chills cv - no chest pain pulm - denies any dyspnea; remains on NC O2 - baseline Physical Exam Physical Exam: gen - obese, NAD, laying in recliner - looks well neck - no JVD mouth - MMM heart - irregularly irregular, s1 s2, no murmur lungs - CTA b/l abd - soft NT ND BS+ ext - 2+ edema b/l legs; all dressings removed today; mild pink skin on Right lopez with scale; multiple superficial ulcers with thin exudate covering each wound; serous drainage from these ulcers; no odor on right leg; left leg - ulceration L lopez is very small and superficial; erythema extending from just below L knee to the foot - NOT WARM; base of left 5th metatarsal head -- wound is about 3-4mm deep, mild exudate covering the wound, granulation at periphery of wound, no odor psych - a/o x 3 Results & Data Results & Data Vital Signs (Past 12 Hours) Vital Signs Temp Pulse Resp BP Pulse Ox O2 Del Method O2 Flow Rate 06/30/23 15:24 36.6 C 66 16 126/74 94 Nasal Cannula 1 06/30/23 14:59 95 Laboratory Results Laboratory Results - last 24 hr 06/29/23 06/30/23 06/30/23 20:18 07:58 08:45 Sodium 136 Potassium 4.7 Chloride 101 Carbon Dioxide 30 Anion Gap 5 BUN 41 H Creatinine 1.28 Est Cr Clr Drug Dosing 77.3 Est GFR ( Amer) 63.5 Est GFR (Non-Af Amer) 54.8 BUN/Creatinine Ratio 32.0 H Glucose 164 H POC Glucose 158 H 150 H Calcium 8.6 06/30/23 06/30/23 12:01 17:02 Sodium Potassium Chloride Carbon Dioxide Anion Gap BUN Creatinine Est Cr Clr Drug Dosing Est GFR ( Amer) Est GFR (Non-Af Amer) BUN/Creatinine Ratio Glucose POC Glucose 172 H 91 Calcium PG Care Time/CCT Total # of Minutes Spent Total Time Spent with Patient: Total time spent is greater than 50% in coordination of care (as documented) at patient's floor/unit and/or counseling patient: Coding Level of Care Code 79067 SUB INP/OBS CARE 235MIN Diagnoses Sepsis A41.9 Cellulitis of both lower extremities L03.115; L03.116 Acute metabolic encephalopathy G93.41 Foot osteomyelitis, left M86.9 PAD (peripheral artery disease) I73.9 BPH with urinary obstruction N40.1; N13.8 Venous stasis of both lower extremities I87.8 Aortic stenosis I35.0 Atrial fibrillation I48.91 Morbid obesity with BMI of 45.0-49.9, adult E66.01; Z68.42 Venous stasis ulcers of both lower extremities I83.019; I83.029; L97.919; L97.929 Diabetes type 2, uncontrolled E11.65
[2023-06-30] MEDS: MELATONIN 3 MG TAB PO SCH (20:49)
[2023-07-01] MEDS: CEFEPIME 2,000 MG in SYRINGE 0 ML IV SCH ×4 (08:42→23:42)
[2023-07-01 09:16] LABS: Hemoglobin 11.8 g/dl (14.0-18.0); Mean Corpuscular Hemoglobin 29.5 pg (25.0-34.0); Mean Corpuscular Hgb Conc 31.1 g/dL (32.0-36.0); Mean Platelet Volume 8.9 fL (9.4-12.4); Platelet Count 260 K/uL (130-400); RDW Coefficient of Variation 14.2 % (11.5-14.5); RDW Standard Deviation 49.3 fL (36.4-46.3); White Blood Count 9.13 K/ul (4.8-10.8)
[2023-07-01 09:25] LABS: BUN Creatinine Ratio 33.6 (10-20); Calcium 8.6 mg/dl (8.6-10.3); Creatinine Clr Calc Pharmacy 77.3 ml/min; Est GFR (African American) 63.5 ml/min; Est GFR (Non-African American) 54.8 ml/min; Potassium 4.9 mmol/L (3.5-5.1)
[2023-07-01] MEDS: APIXABAN 5 MG TABLET PO SCH ×2 (09:41→19:44)
[2023-07-01] MEDS: CYANOCOBALAMIN (B-12) 500 MCG TABLET PO SCH (09:42)
[2023-07-01] MEDS: FAMOTIDINE 20 MG TAB PO SCH ×2 (09:42→19:44)
[2023-07-01] MEDS: FEXOFENADINE 60 MG TAB PO SCH ×2 (09:43→19:44)
[2023-07-01] MEDS: GABAPENTIN 100 MG CAP PO SCH (09:44)
[2023-07-01] MEDS: ADVANCED PROBIOTIC 1250 MG CAPSULE PO SCH (09:44)
[2023-07-01] MEDS: METOPROLOL TARTRATE 100 MG TAB PO SCH ×2 (09:45→19:44)
[2023-07-01] MEDS: MULTIVITAMIN TAB PO SCH (09:46)
[2023-07-01] MEDS: INSULIN ASPART PER UNIT CHARGE SC SCH ×4 (09:59→21:09)
[2023-07-01] MEDS: FUROSEMIDE 40 MG TAB PO SCH (10:12)
[2023-07-01] MEDS: LANTUS PER UNIT CHARGE SQ SCH (10:19)
[2023-07-01] MEDS: DAPTOmycin 450 MG in SYRINGE 0 ML IV SCH (10:35)
[2023-07-01] MEDS: PARoxetine HCL 10 MG TAB PO SCH ×2 (11:35→11:48)
[2023-07-01] MEDS: MELATONIN 3 MG TAB PO SCH (19:44)
--- NOTE | 2023-07-01 19:45 | Hospitalist Progress Note ---
Date of Service July 01, 2023 Assessment & Plan (1) Sepsis: Plan: 2nd cellulitis of both legs sepsis resolved blood cx's negative cont same broad-spectrum IV antibiotics another 24 hours then transition to PO abx (2) Cellulitis of both lower extremities: Plan: L>R improving the b/l LE cellulitis is in the setting of recent 4+ week abx course for L foot osteomyelitis (L 5th metatarsal head) abx had consisted of IV rocephin with PO flagyl was to have finished those antibiotics earlier this week cont IV cefepime - day #6 cont MRSA coverage w/ daptomycin - day #6 would cont both another 24 hours then switch to PO abx for at least 1 week wound and blood cx's remain negative to date cont lasix stressed that he put his legs up while in bed or the recliner to promote improvement in edema (3) Acute metabolic encephalopathy: Plan: 2nd to #1 - resolved but does he have mild cognitive impairment at baseline? (seems forgetful at times) (4) Foot osteomyelitis, left: Plan: dx in 05/2023 hospitalization L 5th toe and L 5th metatarsal head s/p L 5th toe amputation by podiatry was d/c to SNF with 4 week course of IV rocephin along with PO flagyl L 5th metatarsal wound looks acceptable today cont local wound care will ask Dr Canales to see him before going home (podiatry) cont IV abx (5) PAD (peripheral artery disease): Plan: follows with Dr Gorman, [facility] [place] [facility] prior history of left SFA lithotripsy/AMADA 08/[address] Gorman also with known chronic venous insufficiency status post left GSV/SSV ablation remains on Eliquis/statin seen by Dr Gorman during 05/2023 admission - no intervention recommended surgically for any residual disease in the left leg; felt to have adequate perfusion to his left foot to allow wound healing (6) BPH with urinary obstruction: Plan: no issues at this time (7) Venous stasis of both lower extremities: Plan: resume lasix 40mg po daily (chronic dose) encouraged patient to elevate his legs when in the recliner rather than dangling them (8) Aortic stenosis: Plan: h/o TAVR no issues (9) Atrial fibrillation: Plan: EKGs dating back to 2021 show a.fib thus a.fib likely permanent cont Eliquis cont metoprolol for rate control (10) Morbid obesity with BMI of 45.0-49.9, adult: Plan: BMI 48 (11) Venous stasis ulcers of both lower extremities: Plan: cont aquacel Ag and outer dressings appreciate wound care team assistance lasix for edema (12) Diabetes type 2, uncontrolled: Plan: a1c 7.5% this admission cont novolog hold metformin resume lantus w/ 15 units daily today (13) Positive blood culture: Plan: only 1 of 4 blood cx's bottles + for corynebacterium - took 3 days to grow likely contaminant no Rx needed Plan DVT proph - Eliquis PT, OT updated pt's son by phone last week updated pt's by phone while I was in the room a few days ago, then spoke with her by phone this evening left message for pt's daughter on her voicemail 2 evenings ago home with with home nursing and home Pt/Ot tomorrow if legs are acceptable?? Admission and Anticipated Discharge Date Admission Date: June 26, 2023 Subjective no new complaints feels good ready to go home no pain in either leg denies dyspnea he had his O2 off when I was seeing him eating well Review of Systems Review of Systems: gen - no fevers or chills cv - no chest pain GI - no diarrhea Physical Exam Physical Exam: gen - obese, NAD, sitting in recliner - looks well; pleasant neck - no JVD mouth - MMM heart - irregularly irregular, s1 s2, no murmur; rate <100 lungs - CTA b/l abd - soft NT ND BS+ ext - 1-2+ edema b/l legs; dressings not removed today; the portion of skin at the superior most top of his dressings shows PINK skin as opposed to hot/warm erythema; left foot - 2nd toe and 5th toe missing; cap refill 2 sec; mild pink erythema of L foot only Results & Data Results & Data Vital Signs (Past 12 Hours) Vital Signs Temp Pulse Resp BP BP Pulse Ox O2 Del Method 07/01/23 16:44 36.6 C 74 16 151/80 H 94 Nasal Cannula 07/01/23 08:50 36.5 C 64 18 176/80 H 97 Nasal Cannula O2 Flow Rate 07/01/23 16:44 2 07/01/23 08:50 2 Laboratory Results Laboratory Results - last 24 hr 10/28/23 10/29/23 10/29/23 20:56 08:19 08:19 WBC 9.13 RBC 4.00 L Hgb 11.8 L Hct 38.0 L MCV 95.0 MCH 29.5 MCHC 31.1 L RDW Std Deviation 49.3 H RDW Coeff of Jaylen 14.2 Plt Count 260 MPV 8.9 L Sodium 135 L Potassium 4.9 Chloride 101 Carbon Dioxide 30 Anion Gap 4 BUN 43 H Creatinine 1.28 Est Cr Clr Drug Dosing 77.3 Est GFR ( Amer) 63.5 Est GFR (Non-Af Amer) 54.8 BUN/Creatinine Ratio 33.6 H Glucose 177 H POC Glucose 184 H Calcium 8.6 07/01/23 07/01/23 07/01/23 08:23 11:24 16:58 WBC RBC Hgb Hct MCV MCH MCHC RDW Std Deviation RDW Coeff of Jaylen Plt Count MPV Sodium Potassium Chloride Carbon Dioxide Anion Gap BUN Creatinine Est Cr Clr Drug Dosing Est GFR ( Amer) Est GFR (Non-Af Amer) BUN/Creatinine Ratio Glucose POC Glucose 198 H 262 H 72 Calcium Diagnostic Findings 09/06 cultures + corynebacterium (blood cx's) PG Care Time/CCT Total # of Minutes Spent Total Time Spent with Patient: Total time spent is greater than 50% in coordination of care (as documented) at patient's floor/unit and/or counseling patient: Coding Level of Care Code 55004 SUB INP/OBS CARE 2/35MIN Diagnoses Sepsis A41.9 Cellulitis of both lower extremities L03.115; L03.116 Acute metabolic encephalopathy G93.41 Foot osteomyelitis, left M86.9 PAD (peripheral artery disease) I73.9 BPH with urinary obstruction N40.1; N13.8 Venous stasis of both lower extremities I87.8 Aortic stenosis I35.0 Atrial fibrillation I48.91 Morbid obesity with BMI of 45.0-49.9, adult E66.01; Z68.42 Venous stasis ulcers of both lower extremities I83.019; I83.029; L97.919; L97.929 Diabetes type 2, uncontrolled E11.65 Positive blood culture R78.81
[2023-07-02] MEDS: METOPROLOL TARTRATE 100 MG TAB PO SCH (08:34)
[2023-07-02] MEDS: FAMOTIDINE 20 MG TAB PO SCH (08:35)
[2023-07-02] MEDS: ADVANCED PROBIOTIC 1250 MG CAPSULE PO SCH (08:35)
[2023-07-02] MEDS: FEXOFENADINE 60 MG TAB PO SCH (08:35)
[2023-07-02] MEDS: CYANOCOBALAMIN (B-12) 500 MCG TABLET PO SCH (08:35)
[2023-07-02] MEDS: GABAPENTIN 100 MG CAP PO SCH (08:35)
[2023-07-02] MEDS: MULTIVITAMIN TAB PO SCH (08:35)
[2023-07-02] MEDS: FUROSEMIDE 40 MG TAB PO SCH (08:35)
[2023-07-02] MEDS: PARoxetine HCL 10 MG TAB PO SCH (08:35)
[2023-07-02] MEDS: APIXABAN 5 MG TABLET PO SCH (08:35)
[2023-07-02] MEDS: INSULIN ASPART PER UNIT CHARGE SC SCH ×3 (08:41→17:29)
[2023-07-02] MEDS: LANTUS PER UNIT CHARGE SQ SCH (08:41)
[2023-07-02] MEDS: CEFEPIME 2,000 MG in SYRINGE 0 ML IV SCH ×2 (08:42→16:50)
[2023-07-02 09:13] LABS: Calcium 8.6 mg/dl (8.6-10.3); Magnesium 2.1 mg/dl (1.7-2.4); Potassium 4.9 mmol/L (3.5-5.1)
[2023-07-02 09:19] LABS: BUN Creatinine Ratio 31.2 (10-20); C Reactive Protein 2.05 mg/dl (0-0.5); Creatinine Clr Calc Pharmacy 71.7 ml/min
[2023-07-02] MEDS: DAPTOmycin 450 MG in SYRINGE 0 ML IV SCH (11:59)
--- NOTE | 2023-07-02 17:19 | Discharge Summary ---
Date of Service July 02, 2023 Admission HPI Per Admitting Provider The patient is a 72-year-old male with a past medical history including right lower extremity venous stasis ulcer, PAD, left lower extremity venous stasis ulcer, left foot osteomyelitis, BPH with LUTS, diabetic foot ulcers, PAD, long- term use of anticoagulants and bilateral carotid artery stenosis. The patient presents to the emergency department due to worsening lower extremity symptoms of erythema and swelling, with worsening generalized weakness and confusion. He was somewhat lethargic in the emergency department, and gave a limited history. Treatment for the emergency department included the following: Vancomycin IV, cefepime IV, Tylenol 1 g IV, normal saline 500 mill bolus and then 125 mils per hour Discharge Exam gen - obese, NAD, sitting in recliner - looks well; pleasant neck - no JVD mouth - MMM heart - irregularly irregular, s1 s2, no murmur; rate <100 lungs - CTA b/l abd - soft NT ND BS+ ext - 1-2+ edema b/l legs; dressings not removed today; the portion of skin at the superior most top of his dressings shows PINK skin as opposed to hot/warm erythema; left foot - 2nd toe and 5th toe missing; cap refill 2 sec; mild pink erythema of L foot only Discharge Data Allergies Allergy/AdvReac Type Severity Reaction Status Date / Time No Known Drug Allergies Allergy Unknown NONE Verified 06/26/23 00:10 Consultations 06/25/23 22:29 ED Decision to Admit Stat Hospital Course (1) Sepsis: 2nd cellulitis of both legs sepsis resolved blood cx's negative cont same broad-spectrum IV antibiotics another 24 hours then transition to PO abx (2) Cellulitis of both lower extremities: L>R improving the b/l LE cellulitis is in the setting of recent 4+ week abx course for L foot osteomyelitis (L 5th metatarsal head) abx had consisted of IV rocephin with PO flagyl was to have finished those antibiotics earlier this week cont IV cefepime - day #6 cont MRSA coverage w/ daptomycin - day #6 would cont both another 24 hours then switch to PO abx for at least 1 week wound and blood cx's remain negative to date cont ponce stressed that he put his legs up while in bed or the recliner to promote improvement in edema (3) Acute metabolic encephalopathy: 2nd to #1 - resolved but does he have mild cognitive impairment at baseline? (seems forgetful at times) (4) Foot osteomyelitis, left: dx in 05/2023 hospitalization L 5th toe and L 5th metatarsal head s/p L 5th toe amputation by podiatry was d/c to SNF with 4 week course of IV rocephin along with PO flagyl L 5th metatarsal wound looks acceptable today cont local wound care will ask Dr Canales to see him before going home (podiatry) cont IV abx (5) PAD (peripheral artery disease): follows with Dr Gorman, [facility] [place] [facility] prior history of left SFA lithotripsy/AMADA 08/[address] Gorman also with known chronic venous insufficiency status post left GSV/SSV ablation remains on Eliquis/statin seen by Dr Gorman during 05/2023 admission - no intervention recommended surgically for any residual disease in the left leg; felt to have adequate perfusion to his left foot to allow wound healing (6) BPH with urinary obstruction: no issues at this time (7) Venous stasis of both lower extremities: resume lasix 40mg po daily (chronic dose) encouraged patient to elevate his legs when in the recliner rather than dangling them (8) Aortic stenosis: h/o TAVR no issues (9) Atrial fibrillation: EKGs dating back to 2021 show a.fib thus a.fib likely permanent cont Eliquis cont metoprolol for rate control (10) Morbid obesity with BMI of 45.0-49.9, adult: BMI 48 (11) Venous stasis ulcers of both lower extremities: cont aquacel Ag and outer dressings appreciate wound care team assistance lasix for edema (12) Diabetes type 2, uncontrolled: a1c 7.5% this admission cont novolog hold metformin resume lantus w/ 15 units daily today (13) Positive blood culture: only 1 of 4 blood cx's bottles + for corynebacterium - took 3 days to grow likely contaminant no Rx needed Plan DVT proph - Eliquis PT, OT updated pt's son by phone last week updated pt's by phone while I was in the room a few days ago, then spoke with her by phone this evening left message for pt's daughter on her voicemail 2 evenings ago home with with home nursing and home Pt/Ot tomorrow if legs are acceptable?? Home Health Attestation I certify that this patient is under my care and that I, or a physicians administrative assistant front desk working with me, had a face to-face encounter that meets the home health [id number] encounter requirements with this patient. The encounter with the patient was in whole, or in part, for the following medical condition, which is the primary reason for home health care (list medical condition): I certify that, based on my findings, the following services are medically necessary home health services: My clinical findings support the need for the above services because: Further, I certify that my clinical findings support that this patient is homebound (i.e. absences from home require considerable and taxing effort and are for medical reasons or [employer] services or infrequently or of short duration when for other reasons) because: Certification for Home Health Services: Based on the above findings, I certify that this patient is confined to the home and needs intermittent fci care, physical therapy and/or speech therapy or continues to need occupational therapy. The patient is under my care, and I have initiated the establishment of the plan of care. This patient will be followed by a physician who will periodically review the plan of care. Discharge Plan Discharge Items Patient Disposition: Home - Home Health Services Reason For Visit: Cellulitis of both legs, left > right Discharge Diagnosis: 1. bilateral leg cellulitis, worse on left - improving 2. multiple wounds of both shins 3. recent left 5th toe amputation with ongoing wound; woundvac is in place 4. peripheral artery disease 5. atrial fibrillation 6. type 2 diabetes 7. venous insufficiency of both legs 8. sepsis - due to #1 - resolved Activity: Resume your previous activity Bathing Comment: no tub baths; may "shower" from the groin/waist and up; keep dressings dry Non-emergency contact: Primary Care Provider, Specialist and Printing Manager Call non-emergency contact if: you have any medication questions, your symptoms worsen, you have a fever, your wound has increased redness, your wound has increased drainage and your wound pain has increased Follow-up/Referrals: Gage Gorman MD [Physician] - 07/05/23 9:00 am Hollie Horner DO, FACEP [Physician] - 07/12/23 11:00 am (wound care center appointment ) Parker,Evans S., DPM [Physician] - (see the foot doctor for your left foot wound where amputation was performed; if you do not have an appointment we can help you get one) Diet: Carb Consistent or DM2 and Heart Healthy Fluids: 1800ml (7 cups) Addtl Attending Provider Instructions: Mr. Painter, You were hospitalized due to skin infection, also known as cellulitis, of both legs but much worse on the left side. The cellulitis of the left leg extended from below the knee down to the left f oot. There was a small amount of cellulitis on the right leg as well. You improved with IV antibiotics. You received 7 days of IV antibiotics while here. The wound care team saw you in consult and provided recommendations for your dressing changes of the shins. They also continued you on the woundvac for the left foot. Recommendations - 1. Antibiotics -- * ciprofloxacin 500mg twice daily x 10 days, first dose TONIGHT * most common side effect of ciprofloxacin is diarrhea * try to eat yogurt every day while on antibiotics, and continue your probiotic supplement * linezolid 600mg twice daily x 10 days, first dose TOMORROW MORNING * you MUST hold your paroxetine antidepressant/anxiety medication for the 10- day duration of your antibiotics * do not take paroxetine at this time * you can resume the paroxetine on 07/13/23 2. Dressing changes - * please perform dressing changes to both shins * instructions are as follows -- * LEFT leg - clean wound with saline. Cover with Aquacel Ag. Secure with optifoam. Change EVERY OTHER DAY and as needed (if there is excessive drainage, dressing falls off, etc) * RIGHT leg - clean wounds with saline. Cover open areas with full sheets of Aquacel Ag. Then place ABDs on top then secure with kerlix dressings. Tape in place. CHANGE EVERY DAY and as needed (again, if there is excessive drainage, the dressing falls off, etc). 3. Since you are holding your paroxetine for 10 days you could experience some "withdrawal" symptoms while doing so. Withdrawal symptoms could include feeling more anxious, dizzy, ringing in the ears, nausea, feeling more tired, stomach upset, etc. If you feel you are having these symptoms please contact your primary care doctor/family doctor right away. 4. When in your easy chair please elevate your legs as much as possible. This helps with the swelling in your legs. Do not use the blue stocking devices on your legs until you are seen by the Wound care center. 5. Your blood sugars were relatively under good control while here. I have lowered your lantus to 20 units twice daily. This is your long-acting insulin. You were previously taking much larger doses at home. You will need to check your blood sugars frequently at home over the next week particularly. Please check your sugar EVERY morning and at least 2 other times during the day (before lunch, at bedtime, etc). If you are having low blood sugars (consistently less than 80) please let your family doctor know right away. Also at this time please do not take any short-acting insulin (novolog or humalog) with meals as you will be resuming your metformin upon return home. 6. RIGHT hand wound - leave optifoam on until 07/04/23. On 07/04/23 remove optifoam. Clean wound with some saline. Pat dry. Apply new Optifoam dressing. Would change every other day and as needed (if the dressing is coming off, saturated with blood or drainage, etc). Follow-up - see separate section Return to [facility] if - * you have fevers over 100 degrees * you are short of breath * you have any concerns about worsening appearance of any wound (more drainage, more redness, pain, foul odor, etc) of either leg * you develop severe/significant diarrhea * any other concerns It was our pleasure to care for you! -Dr Gagnon Pending Studies at Discharge: No Stand-Alone Forms: My [facility], Smoking Cessation Medications and DC Order Prescriptions: New linezolid [Zyvox] 600 mg tablet 600 mg PO BID 10 Days Qty: 20 0RF ciprofloxacin HCl 500 mg tablet 500 mg PO BID 10 Days Qty: 20 0RF Rx Instructions: START PM OF 07/02/23. Continued multivitamin Tablet 1 tab PO DAILY furosemide 40 mg Tablet 40 mg PO QAM atorvastatin 40 mg tablet 40 mg PO QPM acetaminophen [Tylenol] 325 mg Tablet 650 mg PO Q6 PRN (Reason: Fever Or Pain) ipratropium-albuterol 0.5 mg-3 mg(2.5 mg base)/3 mL Solution For Nebulization 3 ml INHALATION Q8 PRN (Reason: Shortness Of Breath) polyethylene glycol 3350 [Miralax] 17 gram Powder In Packet 17 g PO DAILY metoprolol tartrate 100 mg Tablet 100 mg PO AMHS cyanocobalamin (vitamin B-12) [Vitamin B-12] 1,000 mcg Tablet 1,000 mcg PO DAILY famotidine 20 mg tablet 20 mg PO BID metformin 1,000 mg tablet 1,000 mg PO AMHS magnesium 250 mg Tablet 250 mg PO DAILY gabapentin 100 mg Capsule 200 mg PO QAM diclofenac sodium 1 % gel 1 ea TOPICAL Q8 PRN (Reason: .Joint Pain) Eliquis 5 mg Tablet 5 mg PO AMHS Advanced Probiotic 625 mg (10 billion cell) Capsule 2 cap PO DAILY Changed insulin glargine [Lantus U-100 Insulin] 100 unit/mL Solution 20 unit SUBCUT AM[facility] Qty: 1 0RF omega-3 fatty acids 1,000 mg Capsule 1,000 mg PO DAILY Qty: 1 0RF Rx Instructions: OVER THE COUNTER Held paroxetine HCl 30 mg tablet 30 mg PO QAM Hold Instructions: Resume on 07/13/23. YOU MUST HOLD THIS MEDICATION UNTIL YOUR 10 DAY COURSE OF LINEZOLID ANTIBIOTIC HAS BEEN COMPLETED. Discontinued cyclobenzaprine 10 mg Tablet 10 mg PO BID PRN (Reason: Muscle Spasm) ceftriaxone 2 gram Recon Soln 2 g IV DAILY Rx Instructions: END 06/25 @ 2359 promethazine [Phenergan] 25 mg/mL Solution 25 mg IM Q6H PRN (Reason: Nausea) insulin lispro [Humalog U-100 Insulin] 100 unit/mL Solution 1 sliding scale dose SUBCUT USEASDIRECTD Rx Instructions: Before meals & hs. 351-400= 8units, 401-450= 12units, 451-500=16units, 501- 550= 18 units, >18 PRN FOR HYPERGLYCEMIA, RECHECK I 2 HRS, FOLLOW SSI ORDERS Discharge Orders: Discharge Order (Routine); Ordered 07/02/23 Ordered By: Keaton Ware/Other Patient Handouts: Nutrition for Wound Healing, Managing Type 2 Diabetes Admission Data Admit Date/Time: 06/26/23 00:46 Attending Provider: Keaton Gagnon Admit Provider: Dominguez Marrero Primary Care Provider: Neelima Sage Other Providers: Monse Stallings I. ; Dominguez Marrero ; [facility] ; Neelima Sage Other Interventions: Discharge Summary Assessment (RN) Last Done: 07/02/23 17:12 Coding Diagnoses Sepsis A41.9 Cellulitis of both lower extremities L03.115; L03.116 Acute metabolic encephalopathy G93.41 Foot osteomyelitis, left M86.9 PAD (peripheral artery disease) I73.9 BPH with urinary obstruction N40.1; N13.8 Venous stasis of both lower extremities I87.8 Aortic stenosis I35.0 Atrial fibrillation I48.91 Morbid obesity with BMI of 45.0-49.9, adult E66.01; Z68.42 Venous stasis ulcers of both lower extremities I83.019; I83.029; L97.919; L97.929 Diabetes type 2, uncontrolled E11.65 Positive blood culture R78.81
== END 2023-07-02 17:53 | disposition home health service (06) | DRG 871 ==
LOC: ED 19:44 → SUATTDRO 06-26 00:46 → 3N 06-26 00:46

== ENCOUNTER 2023-07-18 16:50 | Observation (INO) ==
--- NOTE | 2023-07-18 17:05 | ED Triage Note ---
Date of Service July 18, 2023 History of Present Illness This patient was briefly evaluated while in triage. An abbreviated physical exam was performed. This patient is a 72-year-old Male who presents to the ED for evaluation of following with [facility] for leg infections/cellulitis/wounds and left foot seen there today and sent for admission and placement reportedly unable to care for self at home Physical Exam GENERAL: NAD CARDIOVASCULAR: RRR RESPIRATORY: CTA Initial orders for labs and / or imaging were placed and patient was placed in the waiting area until a bed is available. Please see further documentation for the full ED course.
[2023-07-18 18:43] LABS: Basophils # (auto) 0.06 K/uL (0.00-0.20); Basophils % (auto) 0.6 %; Eosinophils % (auto) 3.9 %; Hematocrit (blood only) 39.4 % (42.0-52.0); Hemoglobin 12.7 g/dl (14.0-18.0); Immature Granulocytes # (auto) 0.05 K/uL (0.01-0.20); Immature Granulocytes % (auto) 0.5 %; Lymphocytes # (auto) 1.55 K/uL (1.20-3.40); Mean Corpuscular Hemoglobin 29.3 pg (25.0-34.0); Mean Corpuscular Hgb Conc 32.2 g/dL (32.0-36.0); Mean Corpuscular Volume 90.8 fL (80.0-100.0); Mean Platelet Volume 9.5 fL (9.4-12.4); Monocytes # (auto) 1.11 K/uL (0.11-0.59); Monocytes % (auto) 10.8 %; Neutrophils # (auto) 7.13 K/uL (1.40-6.50); Neutrophils % (auto) 69.2 %; Platelet Count 246 K/uL (130-400); RDW Standard Deviation 48.8 fL (36.4-46.3); Red Blood Count 4.34 M/uL (4.70-6.10)
[2023-07-18 19:05] LABS: Alanine Aminotransferase 20 U/L (7-52); Albumin Globulin Ratio 1.3 (0.9-2); Alkaline Phosphatase 90 U/L (34-104); Anion Gap 7 (3-11); Aspartate Aminotransferase 19 U/L (13-39); BUN Creatinine Ratio 15.4 (10-20); Bilirubin,Total 0.4 mg/dl (0.2-1.0); Blood Urea Nitrogen 21 mg/dl (6-23); Calcium 10.1 mg/dl (8.6-10.3); Carbon Dioxide 34 mmol/L (21-32); Chloride 98 mmol/L (98-107); Est GFR (Non-African American) 50.9 ml/min; Globulin 3.2 gm/dl (2.5-4.0); Glucose 175 mg/dl (70-99(Fasting)); Potassium 4.1 mmol/L (3.5-5.1); Sodium 139 mmol/L (136-145); Total Protein 7.2 gm/dl (6.0-8.3)
[2023-07-18 19:13] LABS: Partial Thromboplastin Ratio 0.9; Partial Thromboplastin Time 24.5 Seconds (21.0-31.0); Prothrombin Time 11.3 Seconds (9.0-12.0)
--- NOTE | 2023-07-18 20:46 | History & Physical Report ---
Date of Service July 18, 2023 Assessment & Plan (1) Unable to care for self: (2) Diabetes type 2, uncontrolled: (3) Atrial fibrillation: (4) Aortic stenosis: (5) Cellulitis of both lower extremities: (6) PAD (peripheral artery disease): (7) BPH with urinary obstruction: (8) Peripheral arterial disease: Plan Unable to care for self- Patient is referred by family and outpatient physician due to issues with chronic lower extremity wounds and inability to care for himself. We will consult dialysis social worker Patient previously has been at [facility] Chronic lower extremity cellulitis and ulcerations- Patient has been following with wound care on a regular basis Presently has Unna boots Consult wound care while in hospital Diabetes mellitus- Glucose 175 on admission Continue glargine 20 units subcu twice daily Hold metformin and canagliflozin Place on Accu-Cheks with SSI Atrial fibrillation/hypertension/PAD/hyperlipidemia- Continue apixaban, furosemide, and atorvastatin History of Present Illness Chief Complaint: The patient is referred to the emergency department by family and outpatient PCP due to persistent bilateral lower extremity wounds, and patient has difficulty taking care of himself Primary Care Provider: Neelima Sage The patient is a 72-year-old male with a past medical history including diabetes mellitus type 2, morbid obesity, metabolic encephalopathy, sepsis, atrial fibrillation, aortic stenosis, chronic cellulitis and wounds of both lower extremities, venous stasis ulcer of lower extremities, diabetic left foot osteomyelitis history, BPH with LUTS, SNHL bilaterally, chronic depression and long-term use of anticoagulants. The patient has been following with wound care, and is unable to care for himself at home. He was referred to the emergency department for possible [place] [facility] placement Allergies Allergy/AdvReac Type Severity Reaction Status Date / Time No Known Allergies Allergy Verified 07/18/23 20:35 Home Medications Medication Instructions Recorded Confirmed Type L.acidop,casei,lactis,rham-B.lact,vira 2 cap PO DAILY 06/26/23 07/18/23 History 625 mg (10 billion cell) capsule (Advanced Probiotic) acetaminophen 325 mg tablet 650 mg PO Q6 PRN Fever Or Pain 06/26/23 07/18/23 History (Tylenol) atorvastatin 40 mg tablet 40 mg PO QPM 06/26/23 07/18/23 History cyanocobalamin (vitamin B-12) 1,000 mcg PO DAILY 06/26/23 07/18/23 History 1,000 mcg tablet (Vitamin B-12) diclofenac sodium 1 % topical gel 1 ea topical Q8 PRN .Joint Pain 06/26/23 07/18/23 History famotidine 20 mg tablet 20 mg PO BID 06/26/23 07/18/23 History gabapentin 100 mg capsule 200 mg PO QAM 06/26/23 07/18/23 History ipratropium 0.5 mg-albuterol 3 mg 3 ml inhalation Q8 PRN Shortness 06/26/23 07/18/23 History (2.5 mg base)/3 mL nebulization Of Breath soln magnesium 250 mg tablet 250 mg PO DAILY 06/26/23 07/18/23 History metformin 1,000 mg tablet 1,000 mg PO AMHS 06/26/23 07/18/23 History metoprolol tartrate 100 mg tablet 100 mg PO AMHS 06/26/23 07/18/23 History multivitamin 1 tab PO DAILY 06/26/23 07/18/23 History paroxetine HCl 30 mg tablet 30 mg PO QAM 06/26/23 07/18/23 History polyethylene glycol 3350 17 gram 17 g PO DAILY 06/26/23 07/18/23 History oral powder packet (Miralax) insulin glargine 100 unit/mL 20 unit (0.2 mL) subcut AMHS #1 mL 07/02/23 07/18/23 Rx subcutaneous solution (Lantus U-100 Insulin) omega-3 fatty acids 1,000 mg 1,000 mg PO DAILY #1 cap 07/02/23 07/18/23 Rx capsule furosemide 40 mg tablet 80 mg (2 x 40 mg) PO QAM #30 tabs 07/05/23 07/18/23 Rx apixaban 5 mg tablet (Eliquis) 5 mg PO AMHS #180 tabs 07/16/23 07/18/23 Rx canagliflozin 300 mg tablet 300 mg PO QAM #90 tabs 07/17/23 07/18/23 Rx (Invokana) Past Med/Surg History Medical History Venous stasis ulcer of right lower extremity Osteomyelitis Sepsis Cellulitis of left leg Venous stasis ulcer of left lower extremity Status post partial amputation of foot BPH NOS w ur obs/LUTS Acquired buried penis Diabetic ulcer of toe of left foot Chronic diastolic (congestive) heart failure Multiple pulmonary nodules determined by computed tomography of lung Morbid obesity Diabetes mellitus, type 2 History of cardioversion (~2017) Chronic obstructive pulmonary disease Sleep apnea cpap with 2lpm Sensorineural hearing loss (SNHL) of both ears Wears binaural hearing aids Mass of right kidney pt unaware Aortic stenosis follows with Dr. Gorman Bilateral carotid artery stenosis Venous stasis of both lower extremities Diabetic peripheral neuropathy associated with type 2 diabetes mellitus Diabetes type 2, uncontrolled Obstructive sleep apnea syndrome Atrial fibrillation successful cardioversion ~2017. follows with Dr. Gorman. 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) use of anticoagulants Hypertension Surgical History Hx of aortic valve replacement H/O vascular surgery (~10/2020) left leg vein moved to the right arm for bypass d/t poor circulation S/P epidural steroid injection Sacro-iliac joint injection History of surgery RT ADRENALECTOMY History of hernia repair History of tonsillectomy History of esophagogastroduodenoscopy (EGD) History of colonoscopy W/ POLYPECTOMY History of cardiac cath FEBRUARY 2018 - [facility] [place], SOB - NO STENTS/ANGIOPLASTY Family History Grandmother Cancer Father Cancer Mother Cancer Sister Diabetes Psoriasis Cardiac disorder Other Family history of bleeding disorder Hypertension No family history of adverse response to anesthesia Social History Smoking Status: Former smoker Tobacco Type: Cigarettes Second Hand Exposure: No; Do You Dip or Chew Tobacco: Yes (quit many years ago); Hx Alcohol Use: Yes Alcohol type: beer Alcohol Intake Frequency Comment: 1-2 times per month, seldom Hx Substance Use: No Preferred Language: Thai Communication Ability: Effective Visual Impairment: No Limitations Hearing Ability: Hard of Hearing Outreach Team Member Required: No Beliefs That Will Affect Care: None 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 Son lives away. /SO able to help a little however has a broken back and is unable to assist much. Other Information That Helps Us Care for You: No Feels Safe at Home: Yes Safety Concerns: Feels Safe At This Time Diet: diabetic and low salt during the past year weight has: remained stable Assistive Devices: Hearing Aid - Bilateral and Walker Assistive Devices Comment: Daughter had hearing aids Review of Systems Review of Systems: The patient has no acute complaints. He denies chest pain, palpitations, shortness of breath, dyspnea on exertion, cough, sore throat, fevers, chills, sweats, weight change, fatigue, nausea, vomiting, diarrhea , constipation, abdominal pain, pelvic pain, blood in urine or stool, dysuria, urinary frequency or urgency, lightheadedness, dizziness, headache, abnormal bruising or bleeding, focal or generalized weakness, numbness or tingling in arms, generalized arthralgias or myalgias, back or neck pain, or night sweats. The review of systems is otherwise negative other than for that already noted above, and at least 10 systems have been reviewed. Physical Exam Physical Exam: The patient is awake, alert and oriented 3, normocephalic and atraumatic, lying in bed and in no acute distress. HEENT--PERRL, EOMI, mucous membranes and oropharynx normal. Neck--supple. No JVD. No bruits. Thyroid normal, trachea midline, no adenopathy. Heart--normal S1 and S2. No murmurs, rubs or gallops. Lungs--clear bilaterally, no respiratory distress, no accessory muscle use. Abdomen--normal bowel sounds and soft. Nontender. Nondistended. Morbidly obese Extremities--Unna boots bilateral lower extremities Dermatologic--normal skin turgor, normal color Neurologic--cranial nerves II through XII grossly intact. Rheumatologic--limited exam Psychiatric--normal affect. Results & Data Results & Data Vital Signs (Past 12 Hours) Vital Signs Temp Pulse Pulse Resp BP BP Pulse Ox 07/18/23 19:36 94 H 07/18/23 19:15 36.9 C 108 H 22 108/73 98 07/18/23 17:02 36.8 C 101 H 18 170/69 H 95 O2 Del Method 07/18/23 19:36 07/18/23 19:15 Room Air 07/18/23 17:02 Room Air Laboratory Results Laboratory Results WBC 10.30 K/ul (4.8-10.8) 07/18/23 18:22 RBC 4.34 M/uL (4.70-6.10) L 07/18/23 18:22 Hgb 12.7 g/dl (14.0-18.0) L 07/18/23 18:22 Hct 39.4 % (42.0-52.0) L 07/18/23 18:22 MCV 90.8 fL (80.0-100.0) 07/18/23 18: MCH 29.3 pg (25.0-34.0) 07/18/23 18:22 MCHC 32.2 g/dL (32.0-36.0) 07/18/23 18: RDW Std Deviation 48.8 fL (36.4-46.3) H 07/18/23 18: RDW Coeff of Jaylen 15.0 % (11.5-14.5) H 07/18/23 18: Plt Count 246 K/uL (130-400) 07/18/23 18:22 MPV 9.5 fL (9.4-12.4) 07/18/23 18: Immature Gran % (Auto) 0.5 % 07/18/23 18:22 Neut % (Auto) 69.2 % 07/18/23 18: Lymph % (Auto) 15.0 % 07/18/23 18:22 [place] % (Auto) 10.8 % 07/18/23 18:22 Eos % (Auto) 3.9 % 07/18/23 18:22 Baso % (Auto) 0.6 % 07/18/23 18: Neut # (Auto) 7.13 K/uL (1.40-6.50) H 07/18/23 18:22 Lymph # (Auto) 1.55 K/uL (1.20-3.40) 07/18/23 18:22 [place] # (Auto) 1.11 K/uL (0.11-0.59) H 07/18/23 18:22 Eos # (Auto) 0.40 K/uL (0.00-0.50) 07/18/23 18:22 Baso # (Auto) 0.06 K/uL (0.00-0.20) 07/18/23 18:22 Immature Gran # (Auto) 0.05 K/uL (0.01-0.20) 07/18/23 18:22 PT 11.3 Seconds (9.0-12.0) 07/18/23 18:22 INR 1.0 (0.9-1.1) 07/18/23 18:22 APTT 24.5 Seconds (21.0-31.0) 07/18/23 18:22 PTT Ratio 0.9 07/18/23 18:22 Sodium 139 mmol/L (136-145) 07/18/23 18:22 Potassium 4.1 mmol/L (3.5-5.1) 07/18/23 18:22 Chloride 98 mmol/L (98-107) 07/18/23 18:22 Carbon Dioxide 34 mmol/L (21-32) H 07/18/23 18:22 Anion Gap 7 (3-11) 07/18/23 18:22 BUN 21 mg/dl (6-23) 07/18/23 18:22 Creatinine 1.36 mg/dl (0.6-1.4) 07/18/23 18:22 Est Cr Clr Drug Dosing Not Reportable 07/18/23 18:22 Est GFR ( Amer) 59.0 ml/min 07/18/23 18:22 Est GFR (Non-Af Amer) 50.9 ml/min 07/18/23 18:22 BUN/Creatinine Ratio 15.4 (10-20) 07/18/23 18:22 Glucose 175 mg/dl (70-99(Fasting)) H 07/18/23 18:22 POC Glucose 128 mg/dl (70-99) H 07/18/23 23:38 Lactate 1.9 mmol/L (0.4-2.0) 07/18/23 18:22 Calcium 10.1 mg/dl (8.6-10.3) 07/18/23 18:22 Total Bilirubin 0.4 mg/dl (0.2-1.0) 07/18/23 18:22 AST 19 U/L (13-39) 07/18/23 18:22 ALT 20 U/L (7-52) 07/18/23 18:22 Alkaline Phosphatase 90 U/L (34-104) 07/18/23 18:22 Total Protein 7.2 gm/dl (6.0-8.3) 07/18/23 18:22 Albumin 4.0 gm/dl (3.4-5.0) 07/18/23 18:22 Globulin 3.2 gm/dl (2.5-4.0) 07/18/23 18:22 Albumin/Globulin Ratio 1.3 (0.9-2) 07/18/23 18:22 Code Status & VTE Plan Code Status Full code VTE Prophylaxis Plan VTE Prophylaxis will be ordered: Yes PG Care Time/CCT Total # of Minutes Spent Total Time Spent with Patient: Total time spent is greater than 50% in coordination of care (as documented) at patient's floor/unit and/or counseling patient: Coding Level of Care Code 56012 INT INP/OBS CARE 3/75MIN Diagnoses Unable to care for self Z78.9 Diabetes type 2, uncontrolled E11.65 Atrial fibrillation I48.91 Aortic stenosis I35.0 Cellulitis of both lower extremities L03.115; L03.116 PAD (peripheral artery disease) I73.9 BPH with urinary obstruction N40.1; N13.8
--- NOTE | 2023-07-18 21:50 | Emergency Department Note ---
History of Present Illness General Chief complaint: Leg Injury/Pain Stated complaint: LEG PAINS AND FOOT WOUND Time Seen by Provider: 07/18/23 19:31 History of Present Illness Provider complaint: Placement Maximum Pain Intensity: 0 72-year-old male presents emergency department for placement. Patient has bilateral leg wounds has been having difficulty taking care of himself since his family is hospitalized. Patient has no acute complaints. Home Medications Medication Instructions Recorded Confirmed Type L.acidop,casei,lactis,rham-B.lact,vira 2 cap PO DAILY 06/26/23 07/18/23 History 625 mg (10 billion cell) capsule (Advanced Probiotic) acetaminophen 325 mg tablet 650 mg PO Q6 PRN Fever Or Pain 06/26/23 07/18/23 History (Tylenol) atorvastatin 40 mg tablet 40 mg PO QPM 06/26/23 07/18/23 History cyanocobalamin (vitamin B-12) 1,000 mcg PO DAILY 06/26/23 07/18/23 History 1,000 mcg tablet (Vitamin B-12) diclofenac sodium 1 % topical gel 1 ea topical Q8 PRN .Joint Pain 06/26/23 07/18/23 History famotidine 20 mg tablet 20 mg PO BID 06/26/23 07/18/23 History gabapentin 100 mg capsule 200 mg PO QAM 06/26/23 07/18/23 History ipratropium 0.5 mg-albuterol 3 mg 3 ml inhalation Q8 PRN Shortness 06/26/23 07/18/23 History (2.5 mg base)/3 mL nebulization Of Breath soln magnesium 250 mg tablet 250 mg PO DAILY 06/26/23 07/18/23 History metformin 1,000 mg tablet 1,000 mg PO AMHS 06/26/23 07/18/23 History metoprolol tartrate 100 mg tablet 100 mg PO AMHS 06/26/23 07/18/23 History multivitamin 1 tab PO DAILY 06/26/23 07/18/23 History paroxetine HCl 30 mg tablet 30 mg PO QAM 06/26/23 07/18/23 History polyethylene glycol 3350 17 gram 17 g PO DAILY 06/26/23 07/18/23 History oral powder packet (Miralax) insulin glargine 100 unit/mL 20 unit (0.2 mL) subcut AMHS #1 mL 07/02/23 07/18/23 Rx subcutaneous solution (Lantus U-100 Insulin) omega-3 fatty acids 1,000 mg 1,000 mg PO DAILY #1 cap 07/02/23 07/18/23 Rx capsule furosemide 40 mg tablet 80 mg (2 x 40 mg) PO QAM #30 tabs 07/05/23 07/18/23 Rx apixaban 5 mg tablet (Eliquis) 5 mg PO AMHS #180 tabs 07/16/23 07/18/23 Rx canagliflozin 300 mg tablet 300 mg PO QAM #90 tabs 07/17/23 07/18/23 Rx (Invokana) Allergies Allergy/AdvReac Type Severity Reaction Status Date / Time No Known Allergies Allergy Verified 07/18/23 20:35 Past Med/Surg History Medical History Venous stasis ulcer of right lower extremity Osteomyelitis Sepsis Cellulitis of left leg Venous stasis ulcer of left lower extremity Status post partial amputation of foot BPH NOS w ur obs/LUTS Acquired buried penis Diabetic ulcer of toe of left foot Chronic diastolic (congestive) heart failure Multiple pulmonary nodules determined by computed tomography of lung Morbid obesity Diabetes mellitus, type 2 History of cardioversion (~2017) Chronic obstructive pulmonary disease Sleep apnea cpap with 2lpm Sensorineural hearing loss (SNHL) of both ears Wears binaural hearing aids Mass of right kidney pt unaware Aortic stenosis follows with Dr. Adorno Bilateral carotid artery stenosis Venous stasis of both lower extremities Diabetic peripheral neuropathy associated with type 2 diabetes mellitus Diabetes type 2, uncontrolled Obstructive sleep apnea syndrome Atrial fibrillation successful cardioversion ~2017. follows with Dr. Adorno. Dyslipidemia CAD (coronary artery disease) of artery bypass graft Sciatica Osteoarthritis GERD (gastroesophageal reflux disease) Chronic obstructive pulmonary disease RARELY USES PRN INH Cardiac murmur Atrial fibrillation DX FEBRUARY 2018 - ON COUMADIN - FOLLOWS W/ DR. ADORNO [facility] (current) use of anticoagulants Hypertension Surgical History Hx of aortic valve replacement H/O vascular surgery (~10/2020) left leg vein moved to the right arm for bypass d/t poor circulation S/P epidural steroid injection Sacro-iliac joint injection History of surgery RT ADRENALECTOMY History of hernia repair History of tonsillectomy History of esophagogastroduodenoscopy (EGD) History of colonoscopy W/ POLYPECTOMY History of cardiac cath FEBRUARY 2018 - [facility] [place], SOB - NO STENTS/ANGIOPLASTY Family History Grandmother Cancer Father Cancer Mother Cancer Sister Diabetes Psoriasis Cardiac disorder Other Family history of bleeding disorder Hypertension No family history of adverse response to anesthesia Social History Smoking Status: Former smoker Tobacco Type: Cigarettes and Smokeless Tobacco (Dip or Chew) Second Hand Exposure: No; Do You Dip or Chew Tobacco: Yes (quit many years ago); Hx Alcohol Use: Yes Alcohol type: beer Alcohol Intake Frequency Comment: 1-2 times per month, seldom Hx Substance Use: No Preferred Language: Mauritanian Communication Ability: Effective Visual Impairment: No Limitations Hearing Ability: Hard of Hearing Trade Show Coordinator Required: No Beliefs That Will Affect Care: None 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 Son lives away. /SO able to help a little however has a broken back and is unable to assist much. Feels Safe at Home: Yes Diet: diabetic and low salt during the past year weight has: remained stable Assistive Devices: Bedside Commode, Hearing Aid - Bilateral and Walker Physical Exam Vital Signs Vital Signs - 24 hr 07/18/23 17:02 07/18/23 19:15 07/18/23 19:36 Temperature 36.8 C 36.9 C Temperature Source Temporal Artery Scan Oral Pulse Rate 101 H 94 H Pulse Rate [Finger] 108 H Pulse Rhythm [Finger] Regular Pulse Strength [Finger] Normal Respiratory Rate 18 22 Respiratory Effort / Characteristics Non-Labored Spontaneous Respiratory Depth Normal Respiratory Pattern Regular Blood Pressure 170/69 H Blood Pressure [Left Arm] 108/73 Blood Pressure Mean 102 Blood Pressure Mean [Left Arm] 84 Blood Pressure Position [Left Arm] Sitting Pulse Oximetry 95 98 Oxygen Delivery Method Room Air Room Air Oxygen Flow Rate Sepsis Recent Fever Within 48 Hours No Sepsis New/Unexplained Change in Mental Status No Sepsis Action Taken by Nursing No Action Required 07/18/23 19:36 07/18/23 20:01 07/18/23 20:32 Temperature Temperature Source Pulse Rate 97 H 97 H 117 H Pulse Rate [Finger] Pulse Rhythm [Finger] Pulse Strength [Finger] Respiratory Rate 20 18 20 Respiratory Effort / Characteristics Respiratory Depth Respiratory Pattern Blood Pressure 129/91 119/74 124/87 Blood Pressure [Left Arm] Blood Pressure Mean 103 89 99 Blood Pressure Mean [Left Arm] Blood Pressure Position [Left Arm] Pulse Oximetry 95 97 98 Oxygen Delivery Method Oxygen Flow Rate Sepsis Recent Fever Within 48 Hours Sepsis New/Unexplained Change in Mental Status Sepsis Action Taken by Nursing 07/18/23 21:01 07/18/23 21:30 Temperature Temperature Source Pulse Rate 98 H 98 H Pulse Rate [Finger] Pulse Rhythm [Finger] Pulse Strength [Finger] Respiratory Rate 22 12 Respiratory Effort / Characteristics Respiratory Depth Respiratory Pattern Blood Pressure 151/78 H 120/81 Blood Pressure [Left Arm] Blood Pressure Mean 102 94 Blood Pressure Mean [Left Arm] Blood Pressure Position [Left Arm] Pulse Oximetry 100 99 Oxygen Delivery Method Oxygen Flow Rate 3 Sepsis Recent Fever Within 48 Hours Sepsis New/Unexplained Change in Mental Status Sepsis Action Taken by Nursing Physical Exam HENT: Exam performed. - Head: Normocephalic and atraumatic. NECK: Normal range of motion. Neck supple. No JVD present. CV: Normal rate, regular rhythm, normal heart sounds and intact distal pulses. Palpable radial pulses bue. PULM/CHEST: Effort normal and breath sounds normal. No respiratory distress. No stridor. no wheezes. no rales. NEURO: Motor and sensation grossly intact. Course Course 193: The patient was evaluated in room B4B. A complete history and physical exam was performed Medical Decision Making Medical Records Attestation: I reviewed the patient's medical records. External medical records reviewed. Patient was seen at wound clinic today. According to note by Jennifer hope there were concerns about the patient's inability care of himself on his house spouse is hospitalized. His daughter was present and she states that the patient is unable to take care of the patient's day-to-day needs and the patient's brother who is the POA would like to consider placement while the spouse is ill. Laboratory Data Attestation: I reviewed the patient's lab results. 07/18/23 18:22 07/18/23 18:22 Lab Results 07/18/23 Range/Units 18:22 WBC 10.30 (4.8-10.8) K/ul RBC 4.34 L (4.70-6.10) M/uL Hgb 12.7 L (14.0-18.0) g/dl Hct 39.4 L (42.0-52.0) % MCV 90.8 (80.0-100.0) fL MCH 29.3 (25.0-34.0) pg MCHC 32.2 (32.0-36.0) g/dL RDW Std Deviation 48.8 H (36.4-46.3) fL RDW Coeff of Jaylen 15.0 H (11.5-14.5) % Plt Count 246 (130-400) K/uL MPV 9.5 (9.4-12.4) fL Immature Gran % (Auto) 0.5 % Neut % (Auto) 69.2 % Lymph % (Auto) 15.0 % [place] % (Auto) 10.8 % Eos % (Auto) 3.9 % Baso % (Auto) 0.6 % Neut # (Auto) 7.13 H (1.40-6.50) K/uL Lymph # (Auto) 1.55 (1.20-3.40) K/uL [place] # (Auto) 1.11 H (0.11-0.59) K/uL Eos # (Auto) 0.40 (0.00-0.50) K/uL Baso # (Auto) 0.06 (0.00-0.20) K/uL Immature Gran # (Auto) 0.05 (0.01-0.20) K/uL PT 11.3 (9.0-12.0) Seconds INR 1.0 (0.9-1.1) APTT 24.5 (21.0-31.0) Seconds PTT Ratio 0.9 Sodium 139 (136-145) mmol/L Potassium 4.1 (3.5-5.1) mmol/L Chloride 98 (98-107) mmol/L Carbon Dioxide 34 H (21-32) mmol/L Anion Gap 7 (3-11) BUN 21 (6-23) mg/dl Creatinine 1.36 (0.6-1.4) mg/dl Est Cr Clr Drug Dosing Not Reportable Est GFR ( Amer) 59.0 ml/min Est GFR (Non-Af Amer) 50.9 ml/min BUN/Creatinine Ratio 15.4 (10-20) Glucose 175 H (70-99(Fasting)) mg/dl Lactate 1.9 (0.4-2.0) mmol/L Calcium 10.1 (8.6-10.3) mg/dl Total Bilirubin 0.4 (0.2-1.0) mg/dl AST 19 (13-39) U/L ALT 20 (7-52) U/L Alkaline Phosphatase 90 (34-104) U/L Total Protein 7.2 (6.0-8.3) gm/dl Albumin 4.0 (3.4-5.0) gm/dl Globulin 3.2 (2.5-4.0) gm/dl Albumin/Globulin Ratio 1.3 (0.9-2) MDM Narrative Patient was seen during a time of extreme volume and extreme acuity in the emergency department. Nursing triage protocols were initiated and labs were drawn by protocol in the triage area. Labs within normal limits. Patient be admitted to the [facility] hospitalist team for possible placement. Impression & Plan Unable to care for self Discharge Plan Visit Data Chief Complaint: Leg Injury/Pain Stated Complaint: LEG PAINS AND FOOT WOUND ED Provider: Jayy Navarrete Discharge Problem: Unable to care for self Patient Disposition: Being Evaluated by Hospitalist Discharge Instructions Interventions: ED Discharge Assessment Last Done: 07/18/23 21:42 Forms Stand Alone Forms: My [facility] Prescriptions Prescriptions: No Action Eliquis 5 mg tablet 5 mg PO AMHS Qty: 180 3RF Invokana 300 mg tablet 300 mg PO QAM Qty: 90 3RF furosemide 40 mg tablet 80 mg PO QAM Qty: 30 3RF multivitamin Tablet 1 tab PO DAILY atorvastatin 40 mg tablet 40 mg PO QPM acetaminophen [Tylenol] 325 mg Tablet 650 mg PO Q6 PRN (Reason: Fever Or Pain) ipratropium-albuterol 0.5 mg-3 mg(2.5 mg base)/3 mL Solution For Nebulization 3 ml INHALATION Q8 PRN (Reason: Shortness Of Breath) polyethylene glycol 3350 [Miralax] 17 gram Powder In Packet 17 g PO DAILY metoprolol tartrate 100 mg Tablet 100 mg PO AMHS cyanocobalamin (vitamin B-12) [Vitamin B-12] 1,000 mcg Tablet 1,000 mcg PO DAILY famotidine 20 mg tablet 20 mg PO BID paroxetine HCl 30 mg tablet 30 mg PO QAM Hold Instructions: Resume on 07/13/23. YOU MUST HOLD THIS MEDICATION UNTIL YOUR 10 DAY COURSE OF LINEZOLID ANTIBIOTIC HAS BEEN COMPLETED. Rx Instructions: NOT ON ANY ANTIBIOTICS AT PRESENT.07/18/23 metformin 1,000 mg tablet 1,000 mg PO AMHS magnesium 250 mg Tablet 250 mg PO DAILY gabapentin 100 mg Capsule 200 mg PO QAM diclofenac sodium 1 % gel 1 ea TOPICAL Q8 PRN (Reason: .Joint Pain) Advanced Probiotic 625 mg (10 billion cell) Capsule 2 cap PO DAILY insulin glargine [Lantus U-100 Insulin] 100 unit/mL Solution 20 unit SUBCUT AMHS Qty: 1 0RF omega-3 fatty acids 1,000 mg Capsule 1,000 mg PO DAILY Qty: 1 0RF Rx Instructions: OVER THE COUNTER Referrals Referrals: Neelima Sage [Primary Care Provider] -
[2023-07-18] MEDS ORDERED: DEXTROSE 50% 50 ML SYRINGE IV PRN (23:02)
[2023-07-18] MEDS ORDERED: GLUCOSE 10 TAB/TUBE PO PRN (23:02)
[2023-07-18] MEDS ORDERED: GLUCOSE 40% GEL 15 GM TUBE PO PRN (23:02)
[2023-07-18] MEDS ORDERED: ONDANSETRON INJ 2 MG/ML 2 ML VIAL IV PRN (23:02)
[2023-07-18] MEDS ORDERED: CARBOHYDRATES FOR HYPOGLYCEMIA PO PRN (23:02)
[2023-07-18] MEDS ORDERED: GLUCAGON FOR INJ 1 MG VIAL SQ PRN (23:02)
[2023-07-18] MEDS ORDERED: ALBUT/IPRATROP 3MG/0.5MG NEB 3 ML VIAL INH PRN (23:02)
[2023-07-19] MEDS: ATORVASTATIN 40 MG TAB PO SCH ×2 (00:05→21:09)
[2023-07-19] MEDS: APIXABAN 5 MG TABLET PO SCH ×3 (00:05→21:10)
[2023-07-19] MEDS: METOPROLOL TARTRATE 100 MG TAB PO SCH ×3 (00:06→21:10)
[2023-07-19] MEDS: FAMOTIDINE 20 MG TAB PO SCH ×3 (00:06→21:09)
[2023-07-19] MEDS: INSULIN ASPART PER UNIT CHARGE SC SCH ×5 (00:20→21:12)
[2023-07-19] MEDS: LANTUS PER UNIT CHARGE SQ SCH ×3 (00:21→21:11)
[2023-07-19] MEDS ORDERED: METOPROLOL SUCC 50MG EXT REL TAB PO STA (00:23)
[2023-07-19] MEDS ORDERED: METOPROLOL TARTRATE 100 MG TAB PO STA (00:24)
[2023-07-19 08:35] LABS: Albumin Globulin Ratio 1.3 (0.9-2); Albumin Level 3.4 gm/dl (3.4-5.0); BUN Creatinine Ratio 15.2 (10-20); Bilirubin,Total 0.5 mg/dl (0.2-1.0); Calcium 9.2 mg/dl (8.6-10.3); Creatinine Clr Calc Pharmacy 72.5 ml/min; Est GFR (African American) 61.2 ml/min; Est GFR (Non-African American) 52.8 ml/min; Globulin 2.6 gm/dl (2.5-4.0); Magnesium 1.5 mg/dl (1.7-2.4); Potassium 4.3 mmol/L (3.5-5.1)
[2023-07-19] MEDS: ADVANCED PROBIOTIC 1250 MG CAPSULE PO SCH (08:39)
[2023-07-19] MEDS: MULTIVITAMIN TAB PO SCH (08:40)
[2023-07-19] MEDS: GABAPENTIN 100 MG CAP PO SCH (08:40)
[2023-07-19] MEDS: CYANOCOBALAMIN (B-12) 500 MCG TABLET PO SCH (08:41)
[2023-07-19] MEDS: FUROSEMIDE 80 MG TAB PO SCH (08:41)
[2023-07-19 09:14] LABS: Basophils # (auto) 0.05 K/uL (0.00-0.20); Basophils % (auto) 0.6 %; Eosinophils # (auto) 0.37 K/uL (0.00-0.50); Eosinophils % (auto) 4.1 %; Hematocrit (blood only) 35.4 % (42.0-52.0); Hemoglobin 11.1 g/dl (14.0-18.0); Immature Granulocytes # (auto) 0.03 K/uL (0.01-0.20); Immature Granulocytes % (auto) 0.3 %; Lymphocytes # (auto) 1.68 K/uL (1.20-3.40); Lymphocytes % (auto) 18.6 %; Mean Corpuscular Hemoglobin 29.1 pg (25.0-34.0); Mean Corpuscular Hgb Conc 31.4 g/dL (32.0-36.0); Mean Corpuscular Volume 92.7 fL (80.0-100.0); Mean Platelet Volume 10.6 fL (9.4-12.4); Monocytes # (auto) 1.18 K/uL (0.11-0.59); Monocytes % (auto) 13.1 %; Neutrophils # (auto) 5.72 K/uL (1.40-6.50); Neutrophils % (auto) 63.3 %; Platelet Count 202 K/uL (130-400); Platelet Estimate Normal (Normal); RDW Coefficient of Variation 15.3 % (11.5-14.5); RDW Standard Deviation 50.2 fL (36.4-46.3); Red Blood Count 3.82 M/uL (4.70-6.10); White Blood Count 9.03 K/ul (4.8-10.8)
[2023-07-19 09:19] LABS: Estimated Average Glucose 171 mg/dl; Hemoglobin A1C 7.6 % (4.5-5.6)
--- NOTE | 2023-07-19 10:20 | Hospitalist Progress Note ---
Date of Service July 19, 2023 Assessment & Plan (1) Unable to care for self: (2) Diabetes type 2, uncontrolled: (3) Atrial fibrillation: (4) Aortic stenosis: (5) Cellulitis of both lower extremities: (6) PAD (peripheral artery disease): (7) BPH with urinary obstruction: Plan Unable to care for self- Patient is referred by family and outpatient physician due to issues with chronic lower extremity wounds and inability to care for himself. We will consult social worker school Patient previously has been at [facility] Although patient is adamant he can take care of himself at home, his daughter disagrees and said patient unable to take care of the wounds and she is unable to help much because she has 2 jobs POA is son Jhonatan Painter ([phone]) Chronic lower extremity cellulitis and ulcerations- Patient has been following with wound care on a regular basis, last visit was 07/18, wound has clean dressing Presently has Unna boots, clean dressing Consult wound care while in hospital Diabetes mellitus- Glucose 175 on admission Continue glargine 20 units subcu twice daily Hold metformin and canagliflozin Place on Accu-Cheks with SSI Atrial fibrillation/hypertension/PAD/hyperlipidemia- Continue apixaban, furosemide, and atorvastatin Admission and Anticipated Discharge Date Admission Date: July 18, 2023 Subjective patient seen and examined, says he is able to take care of himself at home, although his daughter disputes that Review of Systems Review of Systems: All systems reviewed are negative, apart from the ones contained in the history. Physical Exam Physical Exam: The patient is awake, alert and oriented 3, well developed and well nourished, normocephalic and atraumatic, lying in bed and in no acute distress. HEENT--PERRL, EOMI, mucous membranes and oropharynx mildly dry Neck--supple. No JVD. No bruits. Thyroid normal, trachea midline, no adenopathy. Heart--normal S1 and S2. No murmurs, rubs or gallops. Lungs--clear bilaterally, no respiratory distress, no accessory muscle use. Abdomen--normal bowel sounds and soft. Mild epigastric and left sided abdominal pain Extremities--no cyanosis or clubbing. No edema. Dermatologic--lower extremity in bandage Neurologic--cranial nerves II through XII grossly intact. Rheumatologic--normal range of motion. Psychiatric--normal affect. Results & Data Results & Data Vital Signs (Past 12 Hours) Vital Signs Temp Pulse Resp BP BP Pulse Ox O2 Del Method 07/19/23 08:04 99.5 F 79 16 135/73 96 Room Air 07/19/23 01:00 99.0 F 89 16 134/53 L 100 Nasal Cannula 07/19/23 00:05 Room Air 07/18/23 22:45 98.2 F 111 H 18 185/79 H 98 Room Air O2 Flow Rate 07/19/23 08:04 07/19/23 01:00 3 07/19/23 00:05 07/18/23 22:45 PG Care Time/CCT Total # of Minutes Spent Total Time Spent with Patient: Total time spent is greater than 50% in coordination of care (as documented) at patient's floor/unit and/or counseling patient: Coding Level of Care Code 88066 SUB INP/OBS CARE 2/35MIN Diagnoses Unable to care for self Z78.9 Diabetes type 2, uncontrolled E11.65 Atrial fibrillation I48.91 Aortic stenosis I35.0 Cellulitis of both lower extremities L03.115; L03.116 PAD (peripheral artery disease) I73.9 BPH with urinary obstruction N40.1; N13.8 Time Spent (min) 35
[2023-07-19] MEDS: POLYETHYLENE (MIRALAX) 17 GM PACK PO SCH (10:41)
[2023-07-19 17:59] LABS: Appearance Urine Clear (Clear); Bacteria Urine Automated Negative (Negative); Bilirubin Urine Negative (Negative); Blood Urine Negative (Negative); Cast Urine Automated 0 /lpf (0-5); Color Urine Yellow; Epithelial Cell Urine Auto 0-5 /lpf (0-5); Glucose Urine UA Negative (Negative); Ketones Urine Negative (Negative); Leukocyte Esterase Urine Negative (Negative); Nitrite Urine Negative (Negative); Protein Urine Trace (Negative); RBC Urine Automated 0-4 /hpf (0-4); Urobilinogen Urine Negative (Negative)
[2023-07-19] MEDS: ACETAMINOPHEN 325 MG TAB PO PRN (21:41)
[2023-07-19] MEDS ORDERED: SODIUM CHLORIDE 0.65% NA SOLN 45 ML (OCEAN) ONE (22:40)
[2023-07-19] MEDS ORDERED: SODIUM CHLORIDE 0.65% NA SOLN 45 ML (OCEAN) PRN (22:42)
[2023-07-20 07:58] LABS: Basophils # (auto) 0.05 K/uL (0.00-0.20); Basophils % (auto) 0.4 %; Eosinophils # (auto) 0.27 K/uL (0.00-0.50); Eosinophils % (auto) 2.3 %; Hematocrit (blood only) 35.4 % (42.0-52.0); Hemoglobin 11.4 g/dl (14.0-18.0); Immature Granulocytes # (auto) 0.07 K/uL (0.01-0.20); Immature Granulocytes % (auto) 0.6 %; Lymphocytes # (auto) 1.16 K/uL (1.20-3.40); Lymphocytes % (auto) 9.7 %; Mean Corpuscular Hemoglobin 29.4 pg (25.0-34.0); Mean Corpuscular Hgb Conc 32.2 g/dL (32.0-36.0); Mean Corpuscular Volume 91.2 fL (80.0-100.0); Mean Platelet Volume 9.2 fL (9.4-12.4); Monocytes # (auto) 1.54 K/uL (0.11-0.59); Monocytes % (auto) 12.9 %; Neutrophils # (auto) 8.87 K/uL (1.40-6.50); Neutrophils % (auto) 74.1 %; Platelet Count 223 K/uL (130-400); RDW Coefficient of Variation 15.3 % (11.5-14.5); RDW Standard Deviation 50.1 fL (36.4-46.3); Red Blood Count 3.88 M/uL (4.70-6.10); White Blood Count 11.96 K/ul (4.8-10.8)
[2023-07-20 08:21] LABS: Albumin Globulin Ratio 1.3 (0.9-2); Albumin Level 3.5 gm/dl (3.4-5.0); BUN Creatinine Ratio 12.9 (10-20); Bilirubin,Total 0.6 mg/dl (0.2-1.0); Calcium 9.2 mg/dl (8.6-10.3); Creatinine Clr Calc Pharmacy 56.3 ml/min; Est GFR (Non-African American) 38.9 ml/min; Globulin 2.8 gm/dl (2.5-4.0); Magnesium 1.6 mg/dl (1.7-2.4); Potassium 4.4 mmol/L (3.5-5.1); Total Protein 6.3 gm/dl (6.0-8.3)
[2023-07-20] MEDS: MULTIVITAMIN TAB PO SCH (08:58)
[2023-07-20] MEDS: GABAPENTIN 100 MG CAP PO SCH (08:58)
[2023-07-20] MEDS: POLYETHYLENE (MIRALAX) 17 GM PACK PO SCH (08:58)
[2023-07-20] MEDS: CYANOCOBALAMIN (B-12) 500 MCG TABLET PO SCH (08:58)
[2023-07-20] MEDS: FAMOTIDINE 20 MG TAB PO SCH (08:58)
[2023-07-20] MEDS: ADVANCED PROBIOTIC 1250 MG CAPSULE PO SCH (08:58)
[2023-07-20] MEDS: FUROSEMIDE 80 MG TAB PO SCH (08:58)
[2023-07-20] MEDS: METOPROLOL TARTRATE 100 MG TAB PO SCH (08:58)
[2023-07-20] MEDS: APIXABAN 5 MG TABLET PO SCH (08:59)
[2023-07-20] MEDS: ACETAMINOPHEN 325 MG TAB PO PRN (09:06)
[2023-07-20] MEDS: INSULIN ASPART PER UNIT CHARGE SC SCH ×2 (09:06→12:24)
[2023-07-20] MEDS: LANTUS PER UNIT CHARGE SQ SCH (09:06)
--- NOTE | 2023-07-20 12:35 | Discharge Summary ---
Date of Service July 20, 2023 Admission HPI Per Admitting Provider The patient is a 72-year-old male with a past medical history including diabetes mellitus type 2, morbid obesity, metabolic encephalopathy, sepsis, atrial fibrillation, aortic stenosis, chronic cellulitis and wounds of both lower extremities, venous stasis ulcer of lower extremities, diabetic left foot osteomyelitis history, BPH with LUTS, SNHL bilaterally, chronic depression and long-term use of anticoagulants. The patient has been following with wound care, and is unable to care for himself at home. He was referred to the emergency department for possible skilled nursing placement Principal Diagnosis chronic lower extremity cellulitis Discharge Exam The patient is awake, alert and oriented 3, normocephalic and atraumatic, lying in bed and in no acute distress. HEENT--PERRL, EOMI, mucous membranes and oropharynx normal. Neck--supple. No JVD. No bruits. Thyroid normal, trachea midline, no adenopathy. Heart--normal S1 and S2. No murmurs, rubs or gallops. Lungs--clear bilaterally, no respiratory distress, no accessory muscle use. Abdomen--normal bowel sounds and soft. Nontender. Nondistended. Morbidly obese Extremities--Unna boots bilateral lower extremities Dermatologic--normal skin turgor, normal color Neurologic--cranial nerves II through XII grossly intact. Rheumatologic--limited exam Psychiatric--normal affect. Discharge Data Allergies Allergy/AdvReac Type Severity Reaction Status Date / Time No Known Allergies Allergy Verified 07/18/23 20:35 Consultations 07/18/23 19:43 ED Decision to Admit Stat Hospital Course (1) Unable to care for self: (2) Diabetes type 2, uncontrolled: (3) Atrial fibrillation: (4) Aortic stenosis: (5) Cellulitis of both lower extremities: (6) PAD (peripheral artery disease): (7) BPH with urinary obstruction: Plan Unable to care for self as per family- Patient is referred by family and outpatient physician due to issues with chronic lower extremity wounds and inability to care for himself. Patient did not meet criteria for senior living facility or rehab. Patient also is agreeable to go home and under risks of going home. Patient though able to ambulate halls with walker. Patient was able to make medical decisions during my time with him. Chronic lower extremity cellulitis and ulcerations- Patient has been following with wound care on a regular basis, last visit was 07/18, wound has clean dressing Presently has Unna boots, clean dressing Consult wound care while in hospital Diabetes mellitus- Glucose 175 on admission resume home meds Atrial fibrillation/hypertension/PAD/hyperlipidemia- Continue apixaban, furosemide, and atorvastatin Total Time Total Time Spent Total Time Spent (In Minutes): 35 Discharge Plan Discharge Items Patient Disposition: Home - Self-Care Reason For Visit: NHP Discharge Diagnosis: chronic lower extremity wounds Activity: Resume your previous activity Non-emergency contact: Primary Care Provider Call non-emergency contact if: you have any medication questions Follow-up/Referrals: Neelima Sage [Primary Care Provider] - 08/07/23 10:25 am Diet: Heart Healthy Addtl Attending Provider Instructions: Good afternoon Mr Painter, It was a pleasure to take care of you.While you were here, you were seen by wound care, occupational and physical therapy. The therapist reported that you did not meet criteria for an inpatient rehab or a senior living facility at the current moment. Wound care can be continued at home. We also gave you information for transportation that you qualify for appointments. Please use this so you do not miss appointments. I do not recommend you drive yourself to your appointments. I recommend a close followup with your PCP within 1-2 weeks. Kindest regards, Everett Davis Pending Studies at Discharge: No Stand-Alone Forms: My [facility], Smoking Cessation Medications and DC Order Prescriptions: Continued Eliquis 5 mg tablet 5 mg PO AMHS Qty: 180 3RF Invokana 300 mg tablet 300 mg PO QAM Qty: 90 3RF furosemide 40 mg tablet 80 mg PO QAM Qty: 30 3RF multivitamin Tablet 1 tab PO DAILY atorvastatin 40 mg tablet 40 mg PO QPM acetaminophen [Tylenol] 325 mg Tablet 650 mg PO Q6 PRN (Reason: Fever Or Pain) ipratropium-albuterol 0.5 mg-3 mg(2.5 mg base)/3 mL Solution For Nebulization 3 ml INHALATION Q8 PRN (Reason: Shortness Of Breath) polyethylene glycol 3350 [Miralax] 17 gram Powder In Packet 17 g PO DAILY metoprolol tartrate 100 mg Tablet 100 mg PO AMHS cyanocobalamin (vitamin B-12) [Vitamin B-12] 1,000 mcg Tablet 1,000 mcg PO DAILY famotidine 20 mg tablet 20 mg PO BID paroxetine HCl 30 mg tablet 30 mg PO QAM Hold Instructions: Resume on 07/13/23. YOU MUST HOLD THIS MEDICATION UNTIL YOUR 10 DAY COURSE OF LINEZOLID ANTIBIOTIC HAS BEEN COMPLETED. Rx Instructions: NOT ON ANY ANTIBIOTICS AT PRESENT.07/18/23 metformin 1,000 mg tablet 1,000 mg PO AMHS magnesium 250 mg Tablet 250 mg PO DAILY gabapentin 100 mg Capsule 200 mg PO QAM diclofenac sodium 1 % gel 1 ea TOPICAL Q8 PRN (Reason: .Joint Pain) Advanced Probiotic 625 mg (10 billion cell) Capsule 2 cap PO DAILY insulin glargine [Lantus U-100 Insulin] 100 unit/mL Solution 20 unit SUBCUT AMHS Qty: 1 0RF omega-3 fatty acids 1,000 mg Capsule 1,000 mg PO DAILY Qty: 1 0RF Rx Instructions: OVER THE COUNTER Discharge Orders: Discharge Order (Routine); Ordered 07/20/23 Ordered By: Everett Davis Admission Data Admit Date/Time: 07/18/23 20:44 Attending Provider: Everett Davis Admit Provider: Dominguez Marrero Primary Care Provider: Neelima Sage Other Providers: Dominguez Marrero; [facility] Other Interventions: Discharge Summary Assessment (RN) Last Done: 07/20/23 11:25 Coding Level of Care Code 99293 INP/OBS DISCH >30 MIN Diagnoses Unable to care for self Z78.9 Diabetes type 2, uncontrolled E11.65 Atrial fibrillation I48.91 Aortic stenosis I35.0 Cellulitis of both lower extremities L03.115; L03.116 PAD (peripheral artery disease) I73.9 BPH with urinary obstruction N40.1; N13.8
--- OUTSIDE RECORDS SUMMARY | 2023-07-20 23:04 | External Medical Summary | Continuity of Care Document ---
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 [employer] Name Role Phone Neelima Sage Primary Care Physician [phone] [facility]counter [facility] [phone] Date(s): 05/04/23 - 05/04/[address] [address] [phone] Encounter Diagnosis COPD (chronic obstructive pulmonary disease)(Discharge Diagnosis) - 05/04/23 AF (paroxysmal atrial fibrillation)(Discharge Diagnosis) - 05/04/23 Chronic diastolic heart failure(Discharge Diagnosis) - 05/04/23 Hypertension(Discharge Diagnosis) - 05/04/23 SHIRA on CPAP(Discharge Diagnosis) - 05/04/23 Diabetes(Discharge Diagnosis) - 05/04/23 Hyperlipidemia LDL goal < 70(Discharge Diagnosis) - 05/04/23 CKD (chronic kidney disease)(Discharge Diagnosis) - 05/04/23 Discharge Disposition: Home or Self Care Attending Physician: OSKAR Sage Tara Referring Physician: OSKAR Sage Tara Allergies, Adverse Reactions, Alerts No Known Allergies Assessment and Plan Extracted from: Title:follow up Author:OSKAR Sage Tara Date:05/04/23 1.COPD (chronic obstructiv e pulmonary disease) Acute/Chronic: chronic Goal:Resolution/ control Status:stable/controlled Data: records/pt report Plan:Patient is using his [id number] now. Patient states thathis breathing is better since he started doing this. O2 satsare normal. 2.AF (paroxysmal atrial fibrillation) Acute/Chronic: chronic Goal:Resolution/ control Status:stable/controlled Data: records/pt report Plan:Patient is on Eliquis for atrial fibrillation. He follows with cardiology. He is also on metoprolol. Continue on present regimen. 3.Chronic diastolic heart failure Acute/Chronic: chronic Goal:Resolution/ control Status:stable/controlled Data: records/pt report Plan:Inpatient on2 L O2. Also on Lasixdailyno signs of congestive heart failure onexam orper symptoms. 4.Hypertension Acute/Chronic: chronic Goal:Resolution/ control Status:stable/controlled Data: records/pt report Plan:BP is well controlled with present regimen. We will continue. 5.SHIRA on CPAP Acute/Chronic: chronic Goal:Resolution/ control Status:stable/controlled Data: records/pt report Plan:Patient has been sleeping in his recliner chair out in the living room so he has not been using his CPAP but does wear his oxygen at night. I discussed possibly moving his CPAP out to his chair. 6.Diabetes Acute/Chronic: chronic Goal:Resolution/ control Status:stable/controlled Data: records/pt report Plan:Patient's hemoglobin A1c has gone up to 9.9 from 7.6. He is followed by [facility] OSKAR Cisneros. I have asked him to please give her a callandto get an appointment. We will have his laboratory studies faxed over to her. 7.Hyperlipidemia LDL goal < 70 Acute/Chronic: chronic Goal:Resolution/ control Status:stable/controlled Data: records/pt report Plan:Patient's cholesterol is well controlled on present regimen. We will continue. 8.CKD (chronic kidney disease) Acute/Chronic: chronic Goal:Resolution/ control Status:stable/controlled Data: records/pt report Plan:Continue to follow with nephrology. His GFR and his creatinine have actually improved. time spent reviewing chart, face to face visit, ordersand documentation: 33 min Immunizations Given and Recorded Vaccine Date Status Refusal Reason influenza virus vaccine, inactivated 05/26/22 Give n influenza virus vaccine, inactivated 05/19/21 Caden rded influenza virus vaccine, inactivated 06/18/20 Give n influenza virus vaccine, inactivated 06/30/19 Give n influenza virus vaccine, inactivated 06/07/18 Give n influenza virus vaccine, inactivated 07/19/17 Give n influenza virus vaccine, inactivated 07/17/16 Give n influenza virus vaccine, inactivated 06/10/15 Give n influenza virus vaccine, inactivated 05/22/14 Give n influenza virus vaccine, inactivated 05/22/13 Give n SARS-CoV-2 (COVID-19) mRNA-1273 vaccine 1 11/30/20 Recorded SARS-CoV-2 (COVID-19) mRNA-1273 vaccine 11/04/20 R ecorded tetanus/diphtheria/pertuss, acel (Tdap) 10/25/16 R ecorded tetanus/diphtheria/pertuss, acel (Tdap) 03/08/15 G iven tetanus/diphtheria/pertuss, acel (Tdap) 03/13/03 R ecorded pneumococcal 13-valent vaccine 03/08/15 Given pneumococcal 23-valent vaccine 04/08/14 Given pneumococcal 23-valent vaccine 2 07/15/07 Recorded varicella virus vaccine 05/15/12 Recorded zoster vaccine live 3 05/15/12 Recorded influenza virus vaccine, H1N1 4 09/18/09 Recorded pneumococcal 7-valent vaccine 07/15/07 Recorded pneumococcal 7-valent vaccine 5 03/15/06 Recorded 1Result Comment: second shot 2Result Comment: 2021-06-02: Historical information-source unspecified 3Result Comment: 2021-06-02: Historical information-source unspecified 4Result Comment: 2021-06-02: Historical information-source unspecified 5Result Comment: 2021-06-02: Historical information-source unspecified Medications albuterol 0.083% for nebulization Start: 10/01/14 9:38:00, 3 mL, inhaled, q6h, PRN: as needed for wheezing Start Date: 10/01/14 Status: Ordered aspirin 81 mg oral tablet, chewable Start: 04/22/22 11:55:00 EDT, 1 tab, PO, Daily, Disp# 30 tab, Refills: 3, Pharmacy: [id number] Start Date: 04/22/22 Stop Date: 08/20/22 Status: Ordered atorvastatin 40 mg oral tablet Start: 11/28/22 17:13:00 EDT, 1 tab, PO, Daily, Disp# 90 tab, Refills: 3, Pharmacy: [facility] Start Date: 11/28/22 Status: Ordered BD needle Ultra-Fine III Mini Pen 31G x 5mm Start: 01/11/15 14:58:00, See Instructions, Disp# 100 each, Refills: 5, use with Lantus Solostar Pen, Pharmacy: [id number], use with Lantus Solostar Pen Start Date: 01/11/15 Status: Ordered BD needle Ultra-Fine III Mini Pen 31G x 5mm Start: 06/07/22 7:32:00 EDT, See Instructions, Disp# 300 each, Refills: 3, USE WITH LANTUS SOLOSTARPEN and sliding scale use 5-7 times day as directed. E11.9, Pharmacy: [id number] Start Date: 06/07/22 Status: Ordered Combivent Respimat 20 mcg-100 mcg/inh inhalation aerosol Start: 02/26/19 17:34:08 EDT, 1 puff, inhaled, qid, Disp# 3 each, Refills: 3, Pharmacy: [facility] Start Date: 02/26/19 Status: Ordered cyanocobalamin Start: 12/27/21 15:53:00 EDT, 1,000 mcg =, PO, Daily Start Date: 12/27/21 Status: Ordered cyclobenzaprine 10 mg oral tablet Start: 08/05/21 11:34:00 EST, 1 tab, PO, bid, Disp# 30 tab, Refills: 1, May cause drowsiness No driving when taking med, PRN: as needed for spasm, Pharmacy: [id number] Start Date: 08/05/21 Status: Ordered Dulera 100 mcg-5 mcg/inh inhalation aerosol Start: 07/17/16 10:35:00, 2 puff, inhaled, bid, Disp# 3 each, Refills: 3, Pharmacy: [facility] Start Date: 07/17/16 Status: Ordered Eliquis 5 mg oral tablet Start: 09/06/21 19:53:00 EST, 1 tab, PO, bid, Disp# 180 tab, Refills: 3, Pharmacy: [facility] Start Date: 09/06/21 Status: Ordered famotidine 20 mg oral tablet Start: 10/06/22 18:06:00 EST, 1 tab, PO, bid, Disp# 180 tab, Refills: 3, Pharmacy: [facility] Start Date: 10/06/22 Status: Ordered FreeStyle Rachid 2 - 14 day sensor Start: 02/23/23 16:47:00 EDT, See Instructions, Disp# 6 each, Refills: 3, apply to skin and remove and replace after 14 days, Note to Pharmacy: E11.9, Pharmacy: [id number] Start Date: 02/23/23 Status: Ordered furosemide 40 mg oral tablet Start: 10/06/22 18:06:00 EST, See Instructions, Disp# 90 tab, Refills: 3, 1 tabs PO Daily, Pharmacy: [facility] Start Date: 10/06/22 Status: Ordered gabapentin 300 mg oral capsule Start: 05/04/23 9:35:00 EDT, 1 cap, PO, bid, Disp# 180 cap, Refills: 2, Pharmacy: [facility] Start Date: 05/04/23 Stop Date: 01/29/24 Status: Ordered gentamicin 0.1% topical ointment APPLY A SMALL LAYER OF OINTMENT OVER THE AFFECTED AREA (LEG WOUND) DAILY WITH WOUND DRESSING FOR 14DAYS Start Date: 08/15/22 Status: Ordered Invokana 300 mg oral tablet Start: 08/15/22 8:22:00 EST, 1 tab, PO, Daily, Disp# 90 tab, Take prior to first meal of the day Start Date: 08/15/22 Status: Ordered joint rest Start: 12/27/21 15:54:00 EDT, joint rest, Note to Pharmacy: 1 tab po daily Start Date: 12/27/21 Status: Ordered Lantus Solostar Pen 100 units/mL subcutaneous solution Start: 08/26/21 12:38:00 EST, See Instructions, Disp# 12 each, Refills: 3, 55 unit subQ bid, Note to Pharmacy: Please give enough for a 3 months supply, Pharmacy: [id number] Start Date: 08/26/21 Status: Ordered lisinopril 20 mg oral tablet Start: 09/01/22 16:37:00 EST, 1 tab, PO, Daily, Disp# 90 tab, Refills: 3, Pharmacy: [facility] Start Date: 09/01/22 Status: Ordered magnesium gluconate 250 mg oral tablet Start: 12/27/21 15:55:00 EDT, 1 tab, PO, Daily Start Date: 12/27/21 Status: Ordered metFORMIN 1000 mg oral tablet Start: 09/01/22 16:37:00 EST, 1 tab, PO, bid, Disp# 180 tab, Refills: 3, Pharmacy: [id number] Start Date: 09/01/22 Status: Ordered metoprolol tartrate 25 mg oral tablet Start: 03/26/23 16:48:00 EDT, 3 tab, PO, bid, Disp# 180 tab, Refills: 3, Pharmacy: [facility] Start Date: 03/26/23 Stop Date: 07/24/23 Status: Ordered multivitamin Start: 05/08/13 13:40:00, 1 tab, PO, Daily Start Date: 05/08/13 Status: Ordered NovoLOG FlexPen 100 units/mL injectable solution Start: 10/31/21 22:46:00 EST, See Instructions, Disp# 30 mL, Refills: 3, 10 units sq at beginning of each meal or within 20 minutes of starting a meal, Note to Pharmacy: pt is adjusting dose based oninsulin:carb ratio, Pharmacy: [facility] Start Date: 10/31/21 Status: Ordered Ridge-3 oral capsule Start: 08/05/19 14:29:00 EST, 1 cap, PO, Daily Start Date: 08/05/19 Status: Ordered PARoxetine 30 mg oral tablet Start: 06/26/22 21:46:00 EDT, See Instructions, Disp# 90 tab, Refills: 3, TAKE 1 TABLET BY MOUTH ONCE DAILY., Pharmacy: [id number] Start Date: 06/26/22 Status: Ordered Tylenol Start: 02/10/14 14:55:00 EDT, 500, 6x/Day, taking 2/d Start Date: 02/10/14 Status: Ordered Mental Status 05/04/23 Barriers to Learning one year None evide nt Mandatory Health Literacy Documentation Yes Health Literacy Communication Barriers N ever Primary Language Thai Problem List Condition Confirmation Course Effective Dates Status H ealth Status Informant Anemia Confirmed Active At high risk for falls Confirmed Active Osteoarthritis of knees, bilateral Confirmed Active 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 Confirmed Active Chronic depression Confirmed Active Chronic diastolic heart failure Confirmed Active CKD (chronic kidney disease) Confirmed Active COPD (chronic obstructive pulmonary disease) Confirmed Active Coronary artery disease Confirmed Active DDD (degenerative disc disease), cervical Confirmed Active Diabetes Confirmed Active Diabetic peripheral neuropathy Confirmed Active Dysarthria-clumsy hand syndrome 1 Confirmed 06/19/19 Active Epiretinal membrane, right eye Confirmed Active S/P TAVR (transcatheter aortic valve replacement) Confirmed Active Hypercalcemia Confirmed Active Hypertension Confirmed Active Hyperlipidemia LDL goal < 70 Confirmed Active Morbid obesity Confirmed Active Multiple pulmonary nodules Confirmed Active Neck pain Confirmed 04/21/16 Active Adrenal tumor 2 Confirmed Active Neuropathy Confirmed Active Age-related nuclear cataract of both eyes Confirmed Active SHIRA on CPAP 3 Confirmed Active DJD (degenerative joint disease) of knee Confirmed Active Paresthesia of hand Confirmed Active AF (paroxysmal atrial fibrillation) Confirmed Active Chronic venous insufficiency Confirmed Active Renal insufficiency Confirmed Active Mass of right kidney Confirmed Active Severe aortic stenosis Confirmed Active Lumbar foraminal stenosis Confirmed Active Tobacco user Confirmed Active 1Suspected lacunar stroke although had negative MRI brain 2followed by Dr. Vasquez at [facility] 3pressure setting is 10cm H20 Diagnosis Diagnosis Type Effective Dates Health Status Clinical Service Informant COPD (chronic obstructive pulmonary disease) Discharge Diagnosis 05/04/23 Diabetes Discharge Diagnosis 05/04/23 AF (paroxysmal atrial fibrillation) Discharge Diagnosis 05/04/23 Chronic diastolic heart failure Discharge Diagnosis 05/04/23 Hypertension Discharge Diagnosis 05/04/23 SHIRA on CPAP Discharge Diagnosis 05/04/23 Hyperlipidemia LDL goal < 70 Discharge Diagnosis 05/04/23 CKD (chronic kidney disease) Discharge Diagnosis 05/04/23 Procedures Procedure Date Related Diagnosis Body Site Status Plain X-ray of lumbar spine 1 09/13/22 Completed Amputation of toe - left second toe 08/11/22 Completed Foot X-ray 2 08/09/22 Completed Coronary angiography and Lef t Heart Cath 12/04/21 Completed Cervical spine X-ray 3 10/21/21 Co mpleted X-ray of thoracic spine 4 10/21/21 Completed right cataract phacoemulsifi cation with intraocular lens implant 06/20/21 Co mpleted US - Ultrasound 5 05/20/21 Complet ed Eye examination 6 05/10/[address] of abdomen 7 11/09/20 Completed Procedure 8 09/24/[address] of head w/o contrast 9 06/19/19 Completed MRI of brain with contrast 10 06/19/19 Completed Audiology department 11 05/09/19 C ompleted Epidural injection using flu oroscopic guidance 12 04/09/19 Completed Epidural steroid injection 13 04/09/19 Completed Epidural steroid injection 10/28/18 Completed X-ray of lumbar spine 14 08/21/18 Completed Fine needle aspiration biopsy 15 05/02/18 Completed Needle aspiration for draina ge of thyroid 16 04/30/18 Completed Left shoulder 17 03/13/18 Complete d Pelvis X-ray 18 03/13/18 Completed Right shoulder 19 03/13/18 Complet ed Ultrasound scan of thyroid 20 03/11/[address] of whole body 21 02/13/18 C ompleted Chest CTA for Pulmonary arteries 22 01/27/18 Completed Chest X-ray 23 01/27/18 Completed Coronary angiography 24 01/27/18 C ompleted ECG 25 01/27/18 Completed Nuclear Stress Test 26 01/27/18 Co mpleted Transthoracic echocardiography 27 01/27/18 Completed Venous doppler ultrasonograp hy Bilateral 28 01/27/[address] for PE 29 01/16/18 Comple rc CXR - Chest X-ray 30 10/09/17 Comp leted CXR - Chest X-ray 31 06/27/17 Comp leted CXR - Chest X-ray 32 10/31/16 Comp leted Echocardiogram 33 10/25/16 Complet ed Eye examination 34 10/24/[address] of chest 35 05/22/16 Completed X-ray of C-spine 36 04/21/16 Compl eted Chest x-ray 37 03/15/16 Completed Duplex 01/03/16 Completed Procedure 38 08/12/15 Completed Chest x-ray 39 07/16/15 Completed Procedure 40 12/01/14 Completed Procedure 41 11/30/14 Completed Colonoscopy 42, 43, 44 10/26/14 Co mpleted colonoscopy12/26/2005 Comp leted Cortisone shots B/L Knees 45 Completed Cyst - pilonidal resection Completed Excision of adrenal gland Completed incisional hernia repair Completed 1Impression: Degenerative changes as above without acute fracture or subluxation. 2Tiny focus of cortical erosion at the distal tuft of the left third toe. This is consistent with anosteomyelitis. 3Impression: No evidence for acute fracture or subluxation. 4Impression: Degenerative changes as above without acute fracture or subluxation. 5renal Nio hyperhydrosis enlarged prostate 6cataract evaluation we will proceed ahead with cataract surgery to right eye 71. Significantly streak artifact degraded examination. this compromisesassessment of the kidnets. 2. Again seen is a 1.4cm slightly hyperdense lesion arising from the upper pole of the right kidney. This does not show definite contrast enhancement but cannot be definitively assessed due to the significant streak artifact. This likely represents a complex / hyperdense cyst. a 12 month f/u renal protocol MRI of the kidneys is recommended for asassement. 3. no enhancing renal cortical lesion is identified. 4. additional findings as above. 8right axillary to proximal brachial artery bpg with rsv on 09/24/2020 secondary to axillary artery entrapment /stenosis. post op appt rt arm feels better still some occasional numbness in fingers. Lue claudication pain . some occasional numbness in the fingers on his let hand. No discoloration . Will repeat nonivasive testing in 3 months. 9No acute intracranial findings. 10IMPRESSION: 1. No acute intracranial findings. 2. No evidence of acute or subacute infarction 3. No evidence of intracranial mass. 4. Scattered foci of increased T2 signal within the white matter likely on a small vessel basis. 11report there has been a slight decrease at select frequencies bilate with a 16% decreased in WRS in the right ear since his previous evaluation Recommend a re-evaluation in 1 year or if symptoms change. 12Caudal epidural steroid injection by Dr. Langston 13Radiculopathy sacral/sacrococcygeal region 14Impression: No acute bony abnormality is identified involving the lumbar spine Spondylotic change as above 15Thyroid Thyroid glad- left, ultrasound- guided aspiration: benign thyroid aspirate 16Completed fine needle aspiration of the left thyroid nodule. 17Degenerative changes without acute fracture or dislocation 18No acute osseous abnormality is identified involving the hips and bony pelvis Osteopenia and mild degenerative change as above 19Mild arthritic change as above with no acute osseous abnormality seen There is no evidence of calcific tendinopathy 20Impression: Multicystic multinodular thyroid. 2.3 x 2.4 cm complex nodule mid left thyroid. Fine-needle aspiration is suggested if this is not been performed. 21Moderate FDG uptake within mildly enlarged mediastinal and bilateral hilar lymph nodes. This rosa uptake is nonspecific; however, these nodes are unchanged since CT of 06/25/12 which strongly favorsa benign etiology. A f/u contrast enhanced chest CT in 6 months to ensure stability is reommended. 22Impression: No evidence of pulmonary embolus. Mild pulmonary edema and a trace left pleural effusion which have improved. No change in the scattered subcentimeter pulmonary nodules measuring up to 3 mm. Right-sided aortic arch with mirror branching No change in the mild mediastinal and bilateral hilar lymphadenopathy. 23Impression: Moderate cardiomegaly Mild pulmonary edema Trace right pleural effusion. 24coronary angiography, left heart cath, right heart cath, US guided vascular access 25Rate: 106 Rhythm: atrial fibrillation Findings: ST depression(Lateral), T-wave inversion (Lateral), other (no PVC) 26Impression: Positie myocardial perfusion study for Lexiscan induced ischemia involving the base to mid inferior wall. Findings consistent with an intermediate amount of myocardium at risk in RCA distribution. Normal LV size with mild global LV dysfunction, EF 40%. There is paradoxical septal motion and mildto moderate inferior hypokinesis. nondiagnostic Lexxiscan EKG in the setting of inability to reach target heart rate. 27Conclusions: This is an extremely difficult study. The only images that are dx are the contrast images. Normal LV size and Fxn LVEF 60-65% No obvious wall motion abnormalities No thrombus in LV apex Moderate aortic stennosis (MG 24 mm/hg; DI0.228) 28Impression: No DVT within the right or left lower extremity 291. No acute aortic pathology or evidence of pulmonary thromboembolic disease. 2. Cardiomegaly with mild pulmonary edema and small bilateral pleural effusions. 3. Dilation of the main pulmonary artery suggests pulmonary arterial hypertension within the appropriate clinical setting. 4. Mild nonspecific mediastinal and hilar adenopathy with evidence of prior granulomatous disease. 5. Right-sided aortic arch with mirror branching. 301. Cardiomegaly with no active disease in the chest. 2. A right sided aortic arch is again noted. 311. Cardiomegaly with evidence of mild congestive failure. Radiographic f/u to resolution is recommended. 2. There are trace pleural effusions. 32No active disease in chest 33Moderate aortic stenosis(heavily calcified), LVEF >70% 34No observable diabetic retinopathy. 351) There are too numerous to count 2-3 mm pulmonary nodules scattered throughout both lungs, predominantly located in the upper lobes. This is overall similar in appearance to the 06/25/2013 examination. The appearance is nonspecific, but suggests a chronic infectious or inflammatory process or poss ibly a granulomatous process such as sarcoidosis. Clinical corrlelation will be essential. 2) Minimal emphysematous change 3) There is no lobar consolidation or prleural effusion 4) A right-sided aortic arch is again noted. 5) Additional changes as above. 36Impression: Mild degenerative changes. No fractures or subluxations are identified. 37Right sided aortic arch. Bronchovascular prominence verus mild pulmonary venous congestion. No focal infitrates. 38Verruca right foot 39right aortic arch No acute findings. 40Titration study Impression: inclusive titration study iwth only 13 minutes of sleep achieved. The patient stated that he could not sleep on the night of the study and ended it prematurely. Recommendations: If the patient needs to be evaluated for accuracy of CPAP effectiveness, a repeat sleep study with CPAP with the use of a sleep aid such as ambien 10 mg may be of benefit. Clinical correlation is needed. 41a new earmold impression was made bilate for a return earmold fitting in two weeks 42Polyps,Hemmorhoids, await path. 43Biopies--1) colon, hepatic flexure(polypectomy): tubular adenoma 2) colon, distal ascending (polypectomies)--multiple tubular adenomas are seen 3) colon, proximal ascending (polypectomies)--multiple tubular adenomas are seen 4) Colon midascending (polypectomies)--multiple tubular adenomas are seen 5) Colon, descending (polpyectomies)--a) a single tubular adenoma b) multiple cauterized hyperplastic polyps are also noted. 44Colon, hepatic flexure(polypectomy): tubular adenoma. Colon, distal ascending(Polypectomies):Multiple tublar adenomas are seen. Colon, proximal ascedning (Polypectomies): Multiple tubular adenomas are seen. Colon descending (Polypectomies): a single tubular adenoma is seen. Multiple cauterized hyper plastic polyps are also noted. Vital Signs Most recent to oldest [Reference Range]: 1 Height 181.9 cm (05/04/23 9:09 AM) Patient Weight 156.7 kg (05/04/23 9:09 AM) Body Mass Index 47.36 kg/m2 (05/04/23 9:09 AM) Heart Rate 110 bpm (05/04/23 9:09 AM) Respiratory Rate 24 br/min (05/04/23 9:09 AM) Blood Pressure 124/70mmHg (05/04/23 9:09 AM) Cuff Pulse Pressure 54 mmHg (05/04/23 9:09 AM) Social History Social History Type Response Tobacco Current every day sm oker, Cigarettes, 20 per day. Smoking Status Former Smoker, quit > 1 yr Sex Male FCM Outpt Note * OSKAR Sage, Neelima: PERFORM Event Display: FCM Outpt Note Authored Date: Chief Complaint 3 month follow up COPD and A Fib. wearing his oxygen 90% of the time. would like new orders to be placed with [employer] for new oxygen concentrator History of Present Illness AF elquisSees Dr. Gorman. SHIRA If he sleeps in his bed he uses CPAP. Neuropathy in hands and lower ext.He is taking gabapentin. Has helped a little. DMHe notes potatoes are his weaknessSees Nellie Rochelle, OSKAR CKD sees Dr. Gonzalez for renal insuff. Is using O2 24 hr which he should have been doing anyway. On 2 liters. Review of Systems Constitutional: No fever, chills, sweats EENT:No vision change, eye pain, rhinorrhea, sinus pain, epistaxis, dysphagia, change in hearing,tinnitus, vertigo, oral ulcers or lesions. Pulmonary: No shortness of breath, dyspnea with exertion, cough, hemoptysis, wheezing, chest pain. Cardiovascular: No chest pain, palpitations, syncope, edema, cyanosis, claudication, orthopnea. GI: No nausea, vomiting, diarrhea, melena, hematochezia, change in appetite, abdominal pain, changein bowel habits or stools : No dysuria, frequency, urgency, urinary incontinence, hematuria, nocturia. Musculoskeletal: No joint swelling or pain, muscle pain, back pain Neurologic: No headache, lightheadedness, dizziness. Neuropathy Psychiatric: No depression, anxiety Dermatologic: No rash, new/growing/changing skin lesions Endocrine: No weight change, heat or cold intolerance, tremor, insomnia, polyuria, polydipsia, polyphagia, abnormal hair growth, change in nails Physical Exam Vitals & Measurements HR:110(Monitored) RR:24 BP:124/70 SpO2:97% HT:181.9cm WT:156.7kg WT:156.700kg(Dosing) BMI:47.36 PHQ2 Data(Data Documented on:05/04/2023 09:09) Emotional health assessment NEGATIVE head- normocephalic eyes- PERRLA , conjunctiva clear, sclera white, anicteric, neck-no lymphadenopathy, masses, or thyromegaly, +carotid pulses, no bruits, trachea midline Pulmonary- chest expansion symmetric, CTA (clear to auscultation), eupnea, no adventitious sounds (rales, crackles, wheezes) CV (cardiovascular)- RRR no m/r/g (systolic ejection murmur, rubs, gallops), good peripheral perfusion extremitiesleft radial pulse present but not as strong as right side. Lower ext edema +1-2. No lower ext sores. skin-good turgor w/o lesions, redness, cyanosis, edema nails- no clubbing or deformities w good cap refill Neuro:Alert, Oriented, Psy:no homicidal or suicidal ideations. Assessment/Plan 1.COPD (chronic obstructive pulmonary disease) Acute/Chronic: chronic Goal:Resolution/ control Status:stable/controlled Data: records/pt report Plan:Patient is using his [id number] now. Patient states thathis breathing is better since he started doing this. O2 satsare normal. 2.AF (paroxysmal atrial fibrillation) Acute/Chronic: chronic Goal:Resolution/ control Status:stable/controlled Data: records/pt report Plan:Patient is on Eliquis for atrial fibrillation. He follows with cardiology. He is also onmetoprolol. Continue on present regimen. 3.Chronic diastolic heart failure Acute/Chronic: chronic Goal:Resolution/ control Status:stable/controlled Data: records/pt report Plan:Inpatient on2 L O2. Also on Lasixdailyno signs of congestive heart failure onexam orper symptoms. 4.Hypertension Acute/Chronic: chronic Goal:Resolution/ control Status:stable/controlled Data: records/pt report Plan:BP is well controlled with present regimen. We will continue. 5.SHIRA on CPAP Acute/Chronic: chronic Goal:Resolution/ control Status:stable/controlled Data: records/pt report Plan:Patient has been sleeping in his recliner chair out in the living room so he has not been using his CPAP but does wear his oxygen at night. I discussed possibly moving his CPAP out to his chair. 6.Diabetes Acute/Chronic: chronic Goal:Resolution/ control Status:stable/controlled Data: records/pt report Plan:Patient's hemoglobin A1c has gone up to 9.9 from 7.6. [facility] I have asked him to please give her a callandto get an appointment. We will have his laboratory studies faxed over to her. 7.Hyperlipidemia LDL goal < 70 Acute/Chronic: chronic Goal:Resolution/ control Status:stable/controlled Data: records/pt report Plan:Patient's cholesterol is well controlled on present regimen. We will continue. 8.CKD (chronic kidney disease) Acute/Chronic: chronic Goal:Resolution/ control Status:stable/controlled Data: records/pt report Plan:Continue to follow with nephrology. His GFR and his creatinine have actually improved. time spent reviewing chart, face to face visit, ordersand documentation: 33 min Problem List/Past Medical History Ongoing Adrenal tumor AF (paroxysmal atrial fibrillation) Age-related nuclear cataract of both eyes Anemia At high risk for falls 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 Chronic depression Chronic diastolic heart failure Chronic venous insufficiency CKD (chronic kidney disease) COPD (chronic obstructive pulmonary disease) Coronary artery disease DDD (degenerative disc disease), cervical Diabetes Diabetic peripheral neuropathy DJD (degenerative joint disease) of knee Dysarthria-clumsy hand syndrome Epiretinal membrane, right eye Hypercalcemia Hyperlipidemia LDL goal < 70 Hypertension Lumbar foraminal stenosis Mass of right kidney Morbid obesity Multiple pulmonary nodules Neck pain Neuropathy SHIRA on CPAP Osteoarthritis of knees, bilateral Paresthesia of hand Renal insufficiency S/P TAVR (transcatheter aortic valve replacement) Severe aortic stenosis Tobacco user Historical Accidental fall Acute back pain Aortic stenosis, moderate Back pain with right-sided sciatica Cervicalgia Chronic bronchitis Chronic heart failure Elevated serum creatinine Flank pain Hypokalemia Knee pain, bilateral Low back pain Major depression, recurrent Major depression, single episode, in complete remission Microhematuria Multiple skin tears Right sacral radiculopathy Serum calcium elevated Small penis Type 2 diabetes mellitus with proliferative diabetic retinopathy with macular edema, right eye Venous insufficiency of left leg Venous ulcer of leg Procedure/Surgical History Plain X-ray of lumbar spine (09/13/2022)Amputation of toe - left second toe (08/11/2022)Foot X-ray (08/09/2022)Coronary angiography and Left Heart Cath (12/04/2021)X-ray of thoracic spine (10/21/2021)Cervical spine X-ray (10/21/2021)right cataract phacoemulsification with intraocular lens implant (06/20/2021)US - Ultrasound (05/20/2021)Eye examination (05/10/2021)CT of abdomen (11/09/2020)Procedure (09/24/2020)MRI of brain with contrast (06/19/2019)CT of head w/o contrast (06/19/2019)Audiology department (05/09/2019)Epidural injection using fluoroscopic guidance (04/09/2019)Epidural steroid injection (04/09/2019)Epidural steroid injection (10/28/2018)X-ray of lumbar spine (08/21/2018)Fine needle aspiration biopsy (05/02/2018)Needle aspiration for drainage of thyroid (04/30/2018)Left shoulder (03/13/2018)Pelvis X-ray (03/13/2018)Right shoulder (03/13/2018)Ultrasound scan of thyroid (03/11/2018)PET CT of whole body (02/13/2018)Coronary angiography (01/27/2018)Nuclear Stress Test (01/27/2018)Transthoracic echocardiography (01/27/2018)ECG (01/27/2018)Chest CTA for Pulmonary arteries (01/27/2018)Venous doppler ultrasonography Bilateral (01/27/2018)Chest X-ray (01/27/2018)Chest CT for PE(01/16/2018)CXR - Chest X-ray (10/09/2017)CXR - Chest X-ray (06/27/2017)CXR - Chest X-ray (10/31/2016)Echocardiogram (10/25/2016)Eye examination (10/24/2016)CT of chest (05/22/2016)X-ray of C-spine (04/21/2016)Chest x-ray (03/15/2016)Duplex (01/03/2016)Procedure (08/12/2015)Chest x-ray (07/16/2015)Procedure (12/01/2014)Procedure (2014)Colonoscopy (10/26/2014)Cyst - pilonidal resectionExcision of adrenal glandincisional hernia repaircolonoscopy12/26/2005Cortisone shots B/L Knees Medications acetaminophen(Tylenol), 500, 6x/Day albuterol(albuterol 0.083% for nebulization), 2.5 mg= 3 mL, inhaled, q6h, PRN albuterol-ipratropium(Combivent Respimat 20 mcg-100 mcg/inh inhalation aerosol), 1 puff, inhaled, qid, 3 refills apixaban(Eliquis 5 mg oral tablet), 5 mg= 1 tab, PO, bid, 3 refills aspirin(aspirin 81 mg oral tablet, chewable), 81 mg= 1 tab, PO, Daily, 3 refills atorvastatin(atorvastatin 40 mg oral tablet), 40 mg= 1 tab, PO, Daily, 3 refills canagliflozin(Invokana 300 mg oral tablet), 300 mg= 1 tab, PO, Daily cyanocobalamin, 1000 mcg, PO, Daily cyclobenzaprine(cyclobenzaprine 10 mg oral tablet), 10 mg= 1 tab, PO, bid, PRN, 1 refills diabetes supplies(FreeCuroverseyle Rachid 2 - 14 day sensor), See Instructions, 3 refills famotidine(famotidine 20 mg oral tablet), 20 mg= 1 tab, PO, bid, 3 refills formoterol-mometasone(Dulera 100 mcg-5 mcg/inh inhalation aerosol), 2 puff, inhaled, bid, 3 refills furosemide(furosemide 40 mg oral tablet), See Instructions, 3 refills gabapentin(gabapentin 300 mg oral capsule), 300 mg= 1 cap, PO, bid, 2 refills gentamicin topical(gentamicin 0.1% topical ointment) insulin aspart(NovoLOG FlexPen 100 units/mL injectable solution), See Instructions, 3 refills insulin glargine(Lantus Solostar Pen 100 units/mL subcutaneous solution), See Instructions, 3 refills lisinopril(lisinopril 20 mg oral tablet), 20 mg= 1 tab, PO, Daily, 3 refills magnesium gluconate(magnesium gluconate 250 mg oral tablet), 250 mg= 1 tab, PO, Daily metFORMIN(metFORMIN 1000 mg oral tablet), 1000 mg= 1 tab, PO, bid, 3 refills metoprolol(metoprolol tartrate 25 mg oral tablet), 75 mg= 3 tab, PO, bid, 3 refills multivitamin, 1 tab, PO, Daily omega-3 polyunsaturated fatty acids(Ridge-3 oral capsule), 1 cap, PO, Daily PARoxetine(PARoxetine 30 mg oral tablet), See Instructions, 3 refills syringe needles(BD needle Ultra-Fine III Mini Pen 31G x 5mm), See Instructions, 5 refills syringe needles(BD needle Ultra-Fine III Mini Pen 31G x 5mm), See Instructions, 3 refills unlisted medication(joint rest) Allergies NKA Social History Smoking Status Former Smoker, quit > 1 yr Alcohol Use:Current Frequency:1-2 times per month Employment/School Status:Retired Home/Environment Lives with:Significant other Substance Abuse - Denies Substance Abuse Tobacco Use:Current every day smoker Type:Cigarettes Tobacco use per day:20 Family History Cancer: Father. Cardiovascular disease: Sister. Psoriasis: Sister. Type II diabetes mellitus: Sister. Uterine cancer: Mother. Health Status Family Member(s) Immunizations Vaccine Date Status influenza virus vaccine, inactivated 05/26/2022 Given influenza virus vaccine, inactivated 05/19/2021 Recorded SARS-CoV-2 (COVID-19) mRNA-1273 vaccine 2020 Recorded Comments : second shot SARS-CoV-2 (COVID-19) mRNA-1273 vaccine 11/04/2020 Recorded influenza virus vaccine, inactivated 06/18/2020 Given influenza virus vaccine, inactivated 06/30/2019 Given influenza virus vaccine, inactivated 06/07/2018 Given influenza virus vaccine, inactivated 07/19/2017 Given tetanus/diphtheria/pertuss, acel (Tdap) 10/25/2016 Recorded influenza virus vaccine, inactivated 07/17/2016 Given influenza virus vaccine, inactivated 06/10/2015 Given pneumococcal 13-valent vaccine 03/08/2015 Given tetanus/diphtheria/pertuss, acel (Tdap) 03/08/2015 Given influenza virus vaccine, inactivated 05/22/2014 Given pneumococcal 23-valent vaccine 04/08/2014 Given influenza virus vaccine, inactivated 05/22/2013 Given varicella virus vaccine 05/15/2012 Recorded zoster vaccine live 05/15/2012 Recorded Comments : 2021-06-02: Historical information-source unspecified influenza virus vaccine, H1N1 09/18/2009 Recorded Comments : 2021-06-02: Historical information-source unspecified pneumococcal 7-valent vaccine 07/15/2007 Recorded pneumococcal 23-valent vaccine 07/15/2007 Recorded Comments : 2021-06-02: Historical information-source unspecified pneumococcal 7-valent vaccine 03/15/2006 Recorded Comments : 2021-06-02: Historical information-source unspecified tetanus/diphtheria/pertuss, acel (Tdap) 03/13/2003 Recorded Recommendations Health Maintenance Pending(in the next year) OverDue Adult Influenza Vaccine due03/03/23and every 1year Due Adult COVID-19 Vaccination due05/04/23Unknown Frequency Shingles Vaccine due05/04/23One-time only Due In Future Medicare Annual Wellness Visit not due until10/28/23and every 1year Diabetes Management A1c not due until04/29/24and every 1year Body Mass Index not due until05/03/24and every 1year Satisfied(in the past 1 year) Satisfied Adult Influenza Vaccine on05/26/22.Satisfied by PASTORA Lechuga Jaimie Body Mass Index on05/04/23.Satisfied by PASTORA Cross Bobbi Diabetes Management A1c on04/30/23.Satisfied by Contributor_system, Daily Dealy Diabetic Eye Exam on05/23/22.Satisfied by PASTORA Gupta Shelly L Lipid Screening on04/30/23.Satisfied by Contributor[employer]system, Daily Dealy Medicare Annual Wellness Visit on10/28/22.Satisfied by SYSTEM Lab Results Test Name Test Result Date/Time Na 138 mmol/L 04/30/2023 08:22 EDT K 4.7 mmol/L 04/30/2023 08:22 EDT Cl- 102 mmol/L 04/30/2023 08:22 EDT HCO3 27 mmol/L 04/30/2023 08:22 EDT Anion Gap 9 mmol/L 04/30/2023 08:22 EDT BUN 28 mg/dL 04/30/2023 08:22 EDT Cret 1.33 mg/dL 04/30/2023 08:22 EDT eGFR CKD-EPI 56 mL/min/1.73 m2 04/30/2023 08:22 EDT Glu 167 mg/dL 04/30/2023 08:22 EDT Ca 9.3 mg/dL 04/30/2023 08:22 EDT ALT 20 unit/L 04/30/2023 08:22 EDT T Bili 0.7 mg/dL 04/30/2023 08:22 EDT Alk Phos 112 unit/L 04/30/2023 08:22 EDT AST 23 unit/L 04/30/2023 08:22 EDT Alb 3.9 g/dL 04/30/2023 08:22 EDT Prot 6.9 g/dL 04/30/2023 08:22 EDT Chol 135 mg/dL 04/30/2023 08:22 EDT LDL Chol, Calculated 82 mg/dL 04/30/2023 08:22 EDT HDL 29 mg/dL 04/30/2023 08:22 EDT Non-HDL 106 mg/dL 04/30/2023 08:22 EDT Chol/HDL 5 04/30/2023 08:22 EDT TG 120 mg/dL 04/30/2023 08:22 EDT HbA1c 9.9 % 04/30/2023 08:22 EDT Estimated Average Glucose 237 mg/dL 04/30/2023 08:22 EDT Electronic Signature on File Electronically Reviewed/Signed by: OSKAR Ramos Author Signature Dt/Tm:05/04/2023 10:13 AM Department of Family Medicine TB Patient Care team information Care Team Personnel Name: OSKAR Sage Tara Position: Nurse Pract - Family Med Member Role: Primary Care Provider Address: Address: [address] [place] [id number] [place] Name: OSKAR Alcaraz Mayeen R Position: Nurse Pract - CT Surgery Member Role: Lifetime Relationship Address: Address: [address] [facility] [address] [place] [address] [place] Name: MALINDA Obrien Christina L Position: Physician - Podiatry Member Role: Lifetime Relationship Address: Address: [address] [address] [place] Name: Zelalem Bauman Jason A Position: Pharmacist Member Role: Pharmacy - Lifetime Address: Address: [facility] [address] [place] [address] [place] Care Team Related Persons Name: CALREY HAMEED Address: [address] [id number] Name: HERNANDESSTEPHANIJUVENTINO Soto Address: [place] Address: home [address] [place] [address] PLACIDO KELLY [phone]
== END 2023-07-20 14:04 | disposition home or self-care (01) ==
LOC: ED 16:50 → 3N 16:50 → SUATTDRO 20:44 → 3N 21:42
DX: E66.01 Morbid (severe) obesity due to excess calories; I35.0 Nonrheumatic aortic (valve) stenosis; Z79.01 Long term (current) use of anticoagulants; E11.51 Type 2 diabetes mellitus with diabetic peripheral angiopathy without gangrene; Z87.891 Personal history of nicotine dependence; E11.69 Type 2 diabetes mellitus with other specified complication; N40.1 Benign prostatic hyperplasia with lower urinary tract symptoms; Z68.42 Body mass index [BMI] 45.0-49.9, adult; N13.8 Other obstructive and reflux uropathy; L03.116 Cellulitis of left lower limb; I48.91 Unspecified atrial fibrillation; Z79.84 Long term (current) use of oral hypoglycemic drugs; L03.115 Cellulitis of right lower limb; G93.41 Metabolic encephalopathy; Z79.4 Long term (current) use of insulin; Z79.899 Other long term (current) drug therapy; I73.9 Peripheral vascular disease, unspecified